=== PATIENT | male | born 1960 | race Caucasian/White ===

== ENCOUNTER 2018-06-03 15:26 | Outpatient (REF) | payer MEDICAID, SELFPAY ==
[2018-06-03 19:35] LABS: Abs Immature Grans 0.01 k/cumm (0.0-0.09); Absolute Basophil Count 0.01 k/cumm (0.0-0.2); Absolute Eosinophil Count 0.04 k/cumm (0.0-0.7); Absolute Lymphocyte Count 1.74 k/cumm (1.2-3.4); Absolute Monocyte Count 0.49 k/cumm (0.11-0.7); Absolute Neutrophil Count 4.87 k/cumm (1.2-6.7); Basophils % 0.1; Eosinophils % 0.6; HCT 46.2 % (40.0-50.0); HGB 15.3 g/dL (13.5-17.5); Immature Grans % 0.1; Lymphocytes % 24.3; Mean Corp. HGB Concentration 33.1 g/dL (32.0-36.0); Mean Corpuscular Hemoglobin 29.7 pg (27.0-33.0); Mean Corpuscular Volume 89.7 fL (80-95); Monocytes % 6.8; Neutrophils % 68.1; Platelet Count 225 x1000/uL (130-400); RBC 5.15 m/cumm (4.50-6.00); RBC Distribution Width 15.3 % (11.8-14.1); White Blood Cell Count 7.16 k/cumm (4.4-10.8)
[2018-06-03 20:34] LABS: ALT 60 U/L (12-78); AST 55 U/L (15-37); Albumin 4.2 g/dL (3.4-5.0); Alkaline Phosphatase 73 U/L (46-116); BUN 13 mg/dL (7-18); Bilirubin, Total 0.4 mg/dL (0.2-1.0); CREATININE 1.08 mg/dL (0.70-1.30); Calcium 9.3 mg/dL (8.5-10.1); Chloride 101 mmol/L (98-107); Glucose 93 mg/dL (70-100); Potassium 4.5 mmol/L (3.5-5.1); Sodium 138 mmol/L (136-145); Total Protein 8.5 g/dL (6.4-8.2)
[2018-06-05 12:29] LABS: Hepatitis C Ab w Rflx HCV PCR Reactive (NEGAT)
[2018-06-05 12:51] LABS: Hep A Total Ab w Rflx IgM Positive (NEGAT); Hep B Core Antibody Negative (NEGAT); Hepatitis B Surface Ag Negative (NEGAT)
[2018-06-13 15:35] LABS: Hep A Antibody IgM Negative (NEGAT)
== END 2018-06-03 15:46 ==
LOC: NCHCN 15:26
PROVIDERS: PCP Nurse Practitioner; Visit Provider Nurse Practitioner
DX: Z11.59 Encounter for screening for other viral diseases (principal); B19.0 Unspecified viral hepatitis with hepatic coma; R30.9 Painful micturition, unspecified
CPT/HCPCS: 80053; 86704; 86709; 86803; 87340; 85025; 87086; 87522

== ENCOUNTER 2018-07-01 19:21 | Outpatient (REF) | payer MEDICAID, SELFPAY ==
[2018-07-01 20:31] LABS: TSH (W/Ref FT4) 6.88 uIU/mL (0.358-3.74)
[2018-07-01 20:56] LABS: FREE T4 0.94 ng/dL (0.76-1.46)
== END 2018-07-01 19:41 ==
LOC: NCHCN 19:21
PROVIDERS: PCP Nurse Practitioner; Visit Provider Nurse Practitioner
DX: G25.2 Other specified forms of tremor (principal)
CPT/HCPCS: 84439; 84443

== ENCOUNTER 2018-07-29 01:42 | Outpatient (CLI) | payer OTHER, SELFPAY ==
--- NOTE | 2018-07-29 13:53 | DI.RAD_ITS ---
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 No priors. The articular surfaces of the knee are well maintained. The bones are intact and normally mineralized. Small enthesophytes are seen at the anterior and superior patella. The soft tissues are unremarkable. IMPRESSION: No acute abnormality. LEFT KNEE: Two views. No priors. There is mild spurring seen at the posterior patella. The joint spaces are otherwise well maintained. The bones are intact and normally mineralized. The soft tissues are unremarkable. IMPRESSION: Minimal degenerative changes of the left knee. LUMBAR SPINE: AP and lateral views. There is normal alignment. No acute fractures or subluxations are seen. The disc heights are well maintained. There are endplate osteophytes at multiple levels of the lumbar spine. The findings are most marked at L2-3 and L3-4. Degenerative changes of the facets are seen at L4-5 and L5-S1. Calcification of the abdominal aorta is noted. IMPRESSION: Moderate degenerative changes in the lumbar spine.
== END 2018-07-29 02:02 ==
PROVIDERS: PCP Nurse Practitioner; Visit Provider Pediatrics Pediatric Rheumatology
DX: M54.5 Low back pain (principal); M25.561 Pain in right knee; M25.562 Pain in left knee; M76.891 Other specified enthesopathies of right lower limb, excluding foot; M17.12 Unilateral primary osteoarthritis, left knee; M25.78 Osteophyte, vertebrae; M47.26 Other spondylosis with radiculopathy, lumbar region; M47.27 Other spondylosis with radiculopathy, lumbosacral region; I70.0 Atherosclerosis of aorta
CPT/HCPCS: 72100; 73560

== ENCOUNTER 2018-08-09 11:54 | Outpatient (REF) | payer MEDICAID, SELFPAY ==
[2018-08-09 19:32] LABS: HCT 45.2 % (40.0-50.0); HGB 15.3 g/dL (13.5-17.5); Mean Corp. HGB Concentration 33.8 g/dL (32.0-36.0); Mean Corpuscular Volume 91.7 fL (80-95); Mean Platelet Volume 10.6 fL (8.0-11.0); Platelet Count 184 x1000/uL (130-400); RBC 4.93 m/cumm (4.50-6.00); White Blood Cell Count 5.19 k/cumm (4.4-10.8)
[2018-08-09 19:42] LABS: ALT 38 U/L (12-78); AST 42 U/L (15-37); Albumin 3.8 g/dL (3.4-5.0); Alkaline Phosphatase 70 U/L (46-116); Anion Gap 11.3 mmol/L (3-11); BUN 10 mg/dL (7-18); Bilirubin, Total 0.5 mg/dL (0.2-1.0); CO2 26.7 mmol/L (21.0-32.0); CREATININE 0.82 mg/dL (0.70-1.30); Calcium 8.8 mg/dL (8.5-10.1); Chloride 103 mmol/L (98-107); Glucose 87 mg/dL (70-100); Sodium 141 mmol/L (136-145); Total Protein 7.5 g/dL (6.4-8.2)
[2018-08-12 10:48] LABS: HBs Antibody, Quant <3.1 mIU/mL; Hepatitis B Surface Ab Negative
[2018-08-13 15:22] LABS: HCV RNA Detection Quantitative Undetected IU/mL (UNDECT)
== END 2018-08-09 12:14 ==
LOC: NCHCN 11:54
PROVIDERS: PCP Nurse Practitioner; Visit Provider Family Medicine
DX: B19.20 Unspecified viral hepatitis C without hepatic coma (principal)
CPT/HCPCS: 80053; 85027; 86706; 87522

== ENCOUNTER 2018-09-12 09:19 | Outpatient (REF) | payer MEDICAID, SELFPAY ==
[2018-09-12 20:02] LABS: TSH (W/Ref FT4) 1.67 uIU/mL (0.36-3.74)
== END 2018-09-12 09:39 ==
LOC: NCHCN 09:19
PROVIDERS: PCP Nurse Practitioner; Visit Provider Nurse Practitioner
DX: R94.6 Abnormal results of thyroid function studies (principal)
CPT/HCPCS: 84443

== ENCOUNTER 2018-11-07 11:19 | Outpatient (CLI) | payer MEDICAID, SELFPAY ==
[2018-11-07 12:03] LABS: Hemoglobin A1C 5.8 % (4.5-6.2)
[2018-11-07 14:16] LABS: Folate 15.4 ng/mL (8.6-20.0); TSH (W/Ref FT4) 1.92 uIU/mL (0.36-3.74); Vitamin B12 234 pg/mL (193-986)
[2018-11-08 14:35] LABS: Albumin 58.7 % (55.8-66.1); Total Protein 7.3 g/dl (6.3-8.2)
== END 2018-11-07 11:39 ==
PROVIDERS: PCP Nurse Practitioner; Visit Provider Psychiatry & Neurology Neurology
DX: G62.9 Polyneuropathy, unspecified (principal)
CPT/HCPCS: 36415; 82607; 82746; 83036; 84165; 84443

== ENCOUNTER 2019-03-27 01:35 | Outpatient (CLI) | payer MEDICAID, SELFPAY ==
[2019-03-27] MEDS: Gadoterate meglumine 20 ML VIAL 16 ML IVP (14:18)
[2019-03-27] MEDS: Normal Saline Flush 10 ML SYR IVP (14:19)
--- NOTE | 2019-03-27 14:20 | DI.MRI_ITS ---
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 TECHNIQUE: Multiplanar multisequence MRI was performed. MR examination of brain was performed accor ding to the usual protocol with additional post contrast multiplanar T1 weighted imaging. COMPARISON: No exams were available for comparison FINDINGS: There is moderate generalized cerebral atrophy. There are small bilateral apparent basal ganglia inf arcts. Minimal periventricular white matter signal changes noted consistent with microvascular ische dallin changes. No intracranial mass lesion or enhancing lesion. The orbital structures appear intact. Pituitary appears intact. No specific abnormality of the temporal bone structures. Normal flow vo id in the [place] vasculature. Susceptibility weighted imaging and diffusion-weighted imagi ng unremarkable. IMPRESSION: Mild cerebral atrophy, small bilateral lacunar infarcts. No other specific finding. No mass lesion or enhancing lesion.
[2019-03-27 14:23] LABS: CREATININE 0.91 mg/dL (0.70-1.30); Vitamin B12 226 pg/mL (193-986)
[2019-04-01 09:06] LABS: Methylmalonic Acid 0.19 nmol/mL (<=0.40)
== END 2019-03-27 01:55 ==
PROVIDERS: PCP Nurse Practitioner; Visit Provider Psychiatry & Neurology Neurology
DX: G20 Parkinson's disease (principal); C43.9 Malignant melanoma of skin, unspecified; G62.9 Polyneuropathy, unspecified; G31.89 Other specified degenerative diseases of nervous system; I63.9 Cerebral infarction, unspecified
CPT/HCPCS: 70553; 80186; 82565; 82607

== ENCOUNTER 2019-03-31 02:51 | Outpatient (CLI) | payer MEDICAID, SELFPAY | END 2019-03-31 03:11 | PROVIDERS: PCP Nurse Practitioner; Visit Provider Psychiatry & Neurology Neurology | DX: G20 Parkinson's disease (principal) | CPT/HCPCS: 93005; 93010 ==

== ENCOUNTER 2019-03-31 11:01 | Day surgery (SDC) | payer MEDICAID, SELFPAY ==
--- NOTE | 2019-03-31 07:16 | W.COLOREPORT ---
Date of service: 03/31/19 Time of Service: 12:35 Colonoscopy Report Date of procedure: 03/31/19 Pre-op diagnosis general: Colon CAncer Screening Post-op diagnosis procedure note: other (Polyps and diverticulosis) Procedure: Colonoscopy with polypectomy by cold forceps Surgeon: Coretta Dumont Anesthesia proc note operative: other (General/ ASA 2/Sophia Azul, SOFIYA) Estimated blood loss (mL): 5 Pathology: other (Rectal polyps x5, Asscending polyp and sigmoid polyps x2) Complications: None Disposition: same day Indications: 58 y/o male with history of parkison's disease presents for his first colonoscopy screening pre-op. He denies a family history of colon cancer. He denies any changes in bowel habits including bloody or black tarry stools, abdominal pain, diarrhea. He reports long standing constipation and states he has a BM x 3 days. Prep: Miralax/Dulcolax Procedure Start Time: 12:35 Procedure End Time: 13:15 Retraction Time: 18 minutes Findings: 8 polyps seen and removed Mild diverticulosis Procedure Description: After informed consent was obtained the patient was taken to the procedure room and placed in a left decubitous position. Monitors were applied and a time out was done. The patients name, date of , procedure, allergies to medications and metal in their body was reviewed. The patient was then sedated. Once sedated and comfortable a rectal exam was done. External exam was normal. Internal exam revealed a normal sphincter tone and no palpable masses. The prostate felt smooth. The scope was then introduced and retro-flexed. No internal hemorrhoids were identified. The scope was then advanced to the cecum with difficulty due to a tortuous colon. The TI and appendiceal orifice were identified. The prep was adequate. The scope was then slowly retracted over 18 minutes back into the rectum. Polyps were removed with cold forceps in the ascending colon, sigmoid colon x2, and rectum x5. There was mild diverticulosis noted in the sigmoid colon. The scope was removed and the patient was woken up and taken back to Same day surgery in stable condition. The patient tolerated the procedure well and there were no immediate complications. Follow up: The patient should follow up in 3-5 years unless they develop changes in bowel habits or other new gastrointestinal complaints.
--- NOTE | 2019-03-31 07:17 | W.PM.DSUDISC ---
Discharge Plan Disposition Patient Disposition: HOME Condition: Good Discharge Details Reason For Visit: Colon CAncer Screening Attending Provider: Coretta Dumont Primary Care Provider: Larissa Ortega Home Meds and New Rx's Prescriptions: Continued propranolol 80 mg capsule,extended release 24hr 120 mg PO DAILY RF: 0 tamsulosin [Flomax] 0.4 mg capsule 0.4 mg PO DAILY Qty: 30 RF: 5 sildenafil 50 mg tablet 50 mg PO DAILY PRN (Reason: sexual activity) Qty: 30 RF: 5 aspirin 81 mg tablet 81 mg PO DAILY RF: 0 lamotrigine 25 mg tablet 50 mg PO BID RF: 0 trihexyphenidyl 2 mg tablet 2 mg PO .5 AM and 3 PM RF: 0 docusate sodium 100 mg tablet 200 mg PO BID Qty: 360 RF: 3 carbidopa-levodopa [Sinemet] 25-250 mg tablet 1 tab PO DIRECTED Qty: 450 RF: 3 ondansetron HCl [Zofran] 4 mg tablet 4 mg PO Q8H RF: 0 Discontinued bisacodyl [Dulcolax (bisacodyl)] 5 mg tablet,delayed release (DR/EC) 5 mg PO QHS PRN (Reason: constipation) Qty: 30 RF: 5 polyethylene glycol 3350 17 gram/dose powder 238 g PO ONCE Qty: 238 RF: 0 Discharge Instructions Instructions: Colorectal Polyps (DC), Diverticulosis (DC) Additional Instructions: Findings: 8 polyps Mild diverticulosis Follow up: 3-5 years Please call if you develop: fevers >101.5 Nausea or Vomiting Abdominal pain that is not transient DAY SURGERY UNIT POST ENDOSCOPY INSTRUCTIONS 1. Because there will be medication in your system for the next 24 hours, you may feel a little sleepy. Your coordination will be affected. Therefore: a. Do not drive or operate dangerous equipment for 24 hours. b. Do not drink alcohol beverages for 24 hours (not even beer). c. Plan to go home and rest for the day. 2. Generally there are no restrictions on your activity after a day or so has gone by, but you may feel a bit fatigued for a few days. 3 After you arrive home you may have a light meal and return to a normal diet as you can tolerate it without feeling sick to your stomach. 4. After surgery, you may feel pain or discomfort. This should be only transient, but if it persists please contact your doctor. 5. If there are any questions regarding the findings of your procedure, please feel free to contact your doctor. 6. If you are unable to contact your doctor with a problem, contact the hospital at [phone]. 7. Continue all your regular medications unless directed otherwise. I understand the above instructions and have no questions. Signature of Patient or Responsible Adult Escort Date/Time Name of Responsible Adult Escort Signature of Nurse Date/Time Activity:: Activity as Tolerated Diet:: High Fiebr diet Discharge Orders Discharge Orders: Discharge Order (Routine); Ordered 03/31/19 Ordered By: Coretta Dumont
[2019-03-31 11:25] VITALS: BP 146/93; PULSE 71; RESP 16; TEMP 36.5; O2SAT 98
[2019-03-31] MEDS: Lactated Ringers 1,000 ML 80 ML IV (11:37)
--- NOTE | 2019-03-31 12:40 | BOWEL_PTH ---
PATIENT: Jesus Schuler LOC: [facility] U#:[id number] AGE/SX: 58/M ROOM: RE03/31/[address]: Coretta Dumont MD : [id number] BED: DIS: 03/31/2019 SPEC #: [id number] RECD: 03/31/19 18:08 STATUS: ARMANDO RE #: [id number] EMILIANO: 03/31/19 12:[address]: Coretta Dumont DEPT: Surgical Specimen RECD BY: Deb Regan ENTERED: 03/31/19 18:09 SP TYPE: Bowel OTHR DR: Larissa Ortega Tissues: 1 - BIOPSY BOWEL 2 - BIOPSY BOWEL 3 - BIOPSY BOWEL 4 - BIOPSY BOWEL Procedures: GROSS AND MICRO LEVEL 4 Comments: [id number]
[2019-03-31 13:50] VITALS: BP 150/87; PULSE 62; RESP 16; TEMP 36.6; O2SAT 100
== END 2019-03-31 14:40 | disposition home or self-care (01) ==
LOC: SUR 11:01
PROVIDERS: PCP Nurse Practitioner; Visit Provider Surgery
PROC: 0DJD8ZZ Inspection of Lower Intestinal Tract, Via Natural or Artificial Opening Endoscopic (ICD-10-PCS; CPT 45378; principal; 2019-03-31 11:30)
DX: Z12.11 Encounter for screening for malignant neoplasm of colon (principal); D12.2 Benign neoplasm of ascending colon; D12.5 Benign neoplasm of sigmoid colon; K62.1 Rectal polyp; K57.30 Diverticulosis of large intestine without perforation or abscess without bleeding; I10 Essential (primary) hypertension
CPT/HCPCS: 45380; 88305

== ENCOUNTER 2019-04-22 11:41 | Outpatient (CLI) | payer MEDICAID, SELFPAY ==
[2019-04-23 10:23] LABS: PSA, Screening 4.3 ng/mL (0.0-4.5)
== END 2019-04-22 12:01 ==
PROVIDERS: PCP Nurse Practitioner; Visit Provider Nurse Practitioner Gerontology
DX: N52.9 Male erectile dysfunction, unspecified (principal); R35.0 Frequency of micturition; Z12.5 Encounter for screening for malignant neoplasm of prostate
CPT/HCPCS: 36415; 84153

== ENCOUNTER 2021-06-14 14:15 | Outpatient (REF) | payer MEDICAID, SELFPAY ==
[2021-06-14 17:05] LABS: Abs Immature Grans 0.06 10^3/uL (0.0-0.06); Absolute Basophil Count 0.04 10^3/uL (0.0-0.2); Absolute Eosinophil Count 0.01 10^3/uL (0.0-0.7); Absolute Lymphocyte Count 0.73 10^3/uL (1.2-3.4); Absolute Monocyte Count 1.37 10^3/uL (0.1-0.8); Absolute Neutrophil Count 10.51 10^3/uL (1.2-6.7); Basophils % 0.3; Eosinophils % 0.1; HCT 44.6 % (40.0-50.0); HGB 15.2 g/dL (13.5-17.5); Immature Grans % 0.5; Lymphocytes % 5.7; MCH 32.3 pg (27.0-33.0); MCHC 34.1 % (32.0-36.0); MCV 94.9 fL (80-95); Monocytes % 10.8; Neutrophils % 82.6; Platelet Count 198 10^3/uL (130-400); RDW 13.2 % (11.8-14.1); RDW-SD 46.5 fL; WBC 12.72 10^3/uL (4.4-10.8)
[2021-06-14 17:13] LABS: ALT 61 U/L (16-63); AST 45 U/L (15-37); Albumin 3.7 g/dL (3.4-5.0); Alkaline Phosphatase 65 U/L (46-116); Anion Gap 12.1 mmol/L (3-11); BUN 7 mg/dL (7-18); Bilirubin, Total 0.7 mg/dL (0.2-1.0); CO2 22.9 mmol/L (21.0-32.0); Calcium 8.9 mg/dL (8.5-10.1); Chloride 97 mmol/L (98-107); Glucose 113 mg/dL (74-106); Potassium 4.4 mmol/L (3.5-5.1); Sodium 132 mmol/L (136-145); Total Protein 7.6 g/dL (6.4-8.2)
[2021-06-14 17:16] LABS: ESR 46 mm/hr (0-20)
[2021-06-14 17:39] LABS: Hemoglobin A1C 5.8 % (<5.7)
== END 2021-06-14 14:16 | disposition home or self-care (01) ==
LOC: LBN 14:15
PROVIDERS: PCP Nurse Practitioner; Visit Provider Nurse Practitioner Family
DX: L60.9 Nail disorder, unspecified (principal); L03.90 Cellulitis, unspecified; S81.801A Unspecified open wound, right lower leg, initial encounter
CPT/HCPCS: 80053; 85652; 87077; 87101; 87206; 83036; 85025; 86140; 87070; 87205

== ENCOUNTER 2021-06-14 15:34 | Outpatient (CLI) | payer MEDICAID, SELFPAY ==
--- NOTE | 2021-06-14 | DI.RAD_ITS ---
Exam(s) XR HAND RT COMPLETE EXAM: XR HAND RT COMPLETE CLINICAL HISTORY: LEG PAIN; RIGHT M79.604 - HAND PAIN; RIGHT M79.641. TECHNIQUE: 2D digital imaging was performed of the right hand. Four images were obtained. AP, later al and oblique views were obtained. COMPARISON: No exams were available for comparison FINDINGS: The examination is limited due to patient motion artifact. BONES: There is an acute nondisplaced fracture through the medial aspect of the base of the proximal phalanx of the index finger. The fracture extends into the joint space. No bony destructive lesion is seen. JOINTS: No dislocation present. SOFT TISSUE: There is soft tissue swelling of the index finger. IMPRESSION: Nondisplaced intra-articular fracture of the base of the proximal phalanx of the index finger. DATA REPOSITORY: RADIATION DOSE DELIVERED:
--- NOTE | 2021-06-14 | DI.RAD_ITS ---
Exam(s) XR TIB/FIB RT EXAM: XR TIB/FIB RT CLINICAL HISTORY: LEG PAIN; RIGHT M79.604 - HAND PAIN; RIGHT M79.641. TECHNIQUE: 2D digital imaging was performed of the right tibia and fibula. Four images were obtained . AP and lateral views were obtained. COMPARISON: No exams were available for comparison FINDINGS: BONES: No acute fracture is present. No bony destructive lesion is seen. Visualized portion of knee a nd ankle joints are unremarkable. There are well corticated osseous densities at the tip of the media l malleolus which appear old. SOFT TISSUE: Normal. IMPRESSION: No acute fracture or dislocation. DATA REPOSITORY: RADIATION DOSE DELIVERED:
== END 2021-06-14 15:54 ==
PROVIDERS: PCP Nurse Practitioner; Visit Provider Nurse Practitioner Family
DX: M79.641 Pain in right hand (principal); M79.604 Pain in right leg; S62.640A Nondisplaced fracture of proximal phalanx of right index finger, initial encounter for closed fracture
CPT/HCPCS: 73130; 73590

== ENCOUNTER 2021-07-07 08:09 | Inpatient (IN) | payer MEDICAID, SELFPAY ==
[2021-07-07] VITALS (91 sets, daily range): BP systolic 130–170; BP diastolic 81–116; PULSE 87–130; RESP 1–38; TEMP 36.4–36.9; O2SAT 94–98
--- NOTE | 2021-07-07 08:00 | RT.EKG_ITS ---
APPROVED REPORT Exam: Resting ECG Reason for Exam: ARM PAIN Patient Location: E HR:127 bpm ECG Measurements Heart Rate 127 AXIS AZ 135 P 58 QRSd 93 QRS -58 QT 315 T 63 QTc 459 Conclusion Sinus tachycardia...rate> 99 Probable left atrial enlargement...P >50mS, <-0.10mV V1 Left anterior fascicular block...axis(240,-40), init forces inf Probable left ventricular hypertrophy...(RaVL+SV3)xQRSd >280. Sinus. No STEMI. I have reviewed and interpreted ECG and agree with software generated interpretation.
--- NOTE | 2021-07-07 08:03 | W.ED.GENAD ---
Discharge Plan Disposition Patient Disposition: [facility] INPATIENT Condition: Stable Discharge Details Clinical Impression: Bilateral pulmonary embolism, Pneumonia Admit Date/Time: 07/07/21 10:05 Admit Provider: Foster Fair Attending Provider: Foster Fair Primary Care Provider: Larissa Ortega ED Provider: Juhi Ryan Discharge Data Discharge Date/Time-TO BE ENTERED AT DEPARTURE: 07/07/21 12:21 Medical Decision Making 0815 -- 61-year-old male with a history of daily alcohol use, hepatitis C, hypertension, anxiety, Parkinson's disease who presents for left-sided lower back and left lower chest pain and shortness of breath after a coughing spell 2 days ago. Patient endorses a history of aspiration with drinking liquids for the past 2 years. EMS reported a blood pressure of 190/114. Patient states he did not take any blood pressure medication. EMS reported a heart rate of 128, heart rate here 120s to 130s. Patient was placed on 2 L nasal cannula oxygen per EMS and was 99%. Patient off O2 on arrival to the ED and saturations 99 to 100% on room air. EKG on arrival notes a rate of 127, sinus, no STEMI nondiagnostic. Differential diagnosis includes chest wall muscular strain, pneumonia, PE. History and presentation does not appear consistent with ACS or dissection. Will place an IV, bolus IV fluids, IV Tylenol, Toradol, PO oxycodone and obtain screening labs and CT chest. Plan d/w radiologist Dr. Gonzalez and cleared to proceed with CT chest. 09 --labs and imaging reviewed. White blood cell count 14. Sodium 131. Troponin negative. Alcohol level negative. CT chest noted bilateral PEs without evidence of heart strain. There are bilateral infiltrates which may be atelectasis or pneumonia. In the setting of possible aspiration, will treat for possible aspiration pneumonia. Dose of Zosyn ordered. 90mg SC Lovenox dose ordered. Bedside ultrasound performed which noted normal dynamic wall motion. No evidence of pericardial effusion. Patient reassessed and his pain is improved. Heart rate 90s. Oxygen saturation remains high 90s on room air. 1000 --Case discussed with hospitalist who accepts patient for admission. Medical Records Medical records reviewed: Yes I reviewed the patient's medical records. Imaging Data Radiologic Study: Radiologist's impression: CT CHEST PE CTA CLINICAL HISTORY: ? L chest/back pain, r/o PE, pneumonia, rib fx. TECHNIQUE:? Imaging Protocol:? Axial CT angiography was performed with multi-slice acquisition and multi-planar and/or 3D reconstructions. CONTRAST MATERIAL:? Intravenous: Omnipaque 350 Contrast volume:100 mL COMPARISON:? No exams were available for comparison FINDINGS: Tracheobronchial tree: Patent where visualized. Pulmonary parenchyma: Patchy linear infiltrates seen in the right middle lobe, left lingula and lower lobes which may represent atelectasis or pneumonia.? Small area of consolidation in the medial aspect of the left lower lobe.? Pneumonia or atelectasis.? Mild centrilobular emphysematous changes.? Pulmonary Arteries: Filling defects are seen in branches of the pulmonary arteries to both the upper lobes and lower lobes.? There is no evidence of a saddle embolus.? No evidence of right heart strain.? Mediastinum and Lexi: No significant mediastinal adenopathy.? The esophagus is mildly dilated and fluid-filled to the level of the thoracic aortic arch.? There is a small hiatal hernia. Visualized thyroid gland: Unremarkable.? Pleura: There is a small left pleural effusion or pleural thickening.? No right pleural effusion.? No pneumothorax.? Heart: The heart is not dilated. No coronary artery calcifications are seen. No pericardial effusion.? No evidence of right heart strain. Aorta: Thoracic aorta non-dilated. No evidence of dissection. Mild atherosclerosis. Upper abdomen:? Cholelithiasis.? No biliary ductal dilatation.? Soft tissues: Unremarkable.? Bones: Within normal limits for the patient's age. IMPRESSION: 1. Bilateral pulmonary emboli.? No evidence of right heart strain. 2. Bilateral predominantly basilar infiltrates.? This may represent atelectasis or pneumonia.? Please correlate clinically. 3. Fluid-filled esophagus.? Nonemergent esophagram should be considered for further evaluation.? This may lead to risk for aspiration. 4. Cholelithiasis.? No biliary ductal dilatation. 5. Results of this exam have been verbally communicated with provider.? Lab Data Lab results reviewed: Yes I reviewed the patient's lab results. Labs: Laboratory Tests Range/Units 07/07/21 07/07/21 07/07/21 08:15 08:15 08:40 WBC (4.4-10.8) 10^3/uL 14.04 H RBC (4.36-5.78) 10^6/uL 5.12 Hgb (13.5-17.5) g/dL 16.8 Hct (40.0-50.0) % 50.0 MCV (80-95) fL 98 H MCH (27.0-33.0) pg 32.8 MCHC (32.0-36.0) % 33.6 RDW (11.8-14.1) % 13.2 Plt Count (130-400) 10^3/uL 205 MPV (8.0-11.0) fL 9.3 Immature Gran % 0.3 Neutrophils % 82.4 Lymphocytes % 7.7 Monocytes % 9.4 Eosinophils % 0.0 Basophils % 0.2 Nucleated RBC % (0.0-0.3) % 0.0 Absolute Neutrophils (1.2-6.7) 10^3/uL 11.57 H Absolute Lymphocytes (1.2-3.4) 10^3/uL 1.08 L Absolute Monocytes (0.1-0.8) 10^3/uL 1.32 H Absolute Eosinophils (0.0-0.7) 10^3/uL 0.00 Absolute Basophils (0.0-0.2) 10^3/uL 0.03 Sodium (136-145) mmol/L 131 L Potassium (3.5-5.1) mmol/L 3.7 Chloride (98-107) mmol/L 95 L Carbon Dioxide (21.0-32.0) mmol/L 24.1 Anion Gap (3-11) mmol/L 11.9 H BUN (7-18) mg/dL 8 Creatinine (0.70-1.30) mg/dL 1.0 Estimated GFR/1.73 m2 (mL/min/1.73m2) >= 60.00 Glucose (74-106) mg/dL 148 H Calcium (8.5-10.1) mg/dL 9.0 Magnesium (1.8-2.4) mg/dL 2.0 Total Bilirubin (0.2-1.0) mg/dL 1.5 H AST (15-37) U/L 16 ALT (16-63) U/L 26 Alkaline Phosphatase (46-116) U/L 75 Troponin I (<or=60) ng/L < 50 Total Protein (6.4-8.2) g/dL 8.7 H Albumin (3.4-5.0) g/dL 3.5 Ethyl Alcohol (<10) mg/dL < 3.0 Cancelled ECG Data Attestation: I personally reviewed and interpreted this ECG (s) as follows: Interpretation: Rate of 127, sinus, left anterior fascicular block. No STEMI. HPI General Mode of arrival: EMS. Date/Time Provider Initiated Documentation: 07/07/21 08:16. Limitations to Documentation: no limitations. Information obtained by: patient. HPI Narrative: Patient is a 61-year-old male with a history of hepatitis C, anxiety, PTSD, hypertension, Parkinson's disease, bipolar disorder, substance abuse presents per EMS for left-sided back and chest pain and shortness of breath for the past 2 days after a coughing spell. Patient states he has difficulty swallowing liquids for the past 2 years and states he frequently aspirates and stated 2 days ago he was drinking and aspirated liquid and attempted to cough up the white foam and developed Left sided back pain which has then progressed to his left chest. Patient states he frequently has a cough up white foam when he drinks any liquids. He states when he was drinking liquids 2 nights ago he had a coughing spell and developed sudden onset of left-sided lower back pain. He states with any movement or coughing the pain is worse. He states since then he has developed left lower chest pain that occurs only with coughing. He states he feels he is breathing shallow due to the pain. He states he has not eaten or drank much due to the pain. He denies any fever, green or yellow sputum, nausea, vomiting, dizziness. He states he last took ibuprofen last night without relief. He states he does drink 2 alcoholic drinks daily and states his last drink was at 11 AM yesterday morning. Pt is not vaccinated for Covid and denies any known exposure to coronavirus. Related Data Home Medications Medication Instructions Recorded Confirmed aspirin 81 mg tablet 81 mg PO DAILY 07/09/18 07/07/21 Allergies Allergy/AdvReac Type Severity Reaction Status Date / Time mirabegron [From Myrbetriq] Allergy Severe Difficulty Verified 07/07/21 08:24 breathing. General Stated Complaint: GenMedical SHILPA: 3 Review of Systems All systems reviewed & are unremarkable except as noted in HPI and below Constitutional Constitutional: Denies chills, Denies excessive sweating, Denies fatigue, Denies fever(s), Denies weakness and Denies weight loss Eyes Eyes: Reports system reviewed and no additional complaints, except as documented and Denies blurry vision ENT Ears, Nose, Mouth, and Throat: Denies vertigo, Denies dizziness, Denies otalgia, Denies nasal congestion, Denies sore throat and Denies throat swelling Cardiovascular Cardiovascular: Reports chest pain, Denies syncope, Denies rapid heart rate and Reports dyspnea Respiratory Respiratory: Denies chest congestion, Denies cough, Denies pain on inspiration and Reports dyspnea Gastrointestinal Gastrointestinal: Denies abdominal pain, Denies diarrhea and Denies vomiting Genitourinary Genitourinary: Denies hematuria, Denies dysuria and Denies flank pain Musculoskeletal Musculoskeletal: Reports back pain and Denies joint swelling Integumentary/Breasts Skin/Breast: Denies lesions and Denies rash Neurologic Neurologic: Denies behavioral changes, Denies confusion, Denies vertigo, Denies dizziness, Denies syncope, Denies localized weakness and Denies weakness Psychiatric Psychiatric: Denies behavioral changes, Denies confusion and Denies depression Endocrine Endocrine: Denies excessive sweating and Denies fatigue Hematologic/Lymphatic Hematologic/Lymphatic: Denies easy bruising and Denies lymphadenopathy Allergic/Immunologic Allergic/Immunologic: Denies throat swelling PFSH All Active Problems (Updated 07/07/21 @ 10:08 by Juhi Ryan DO) Bilateral pulmonary embolism (Acute) Pneumonia (Acute) Dysphagia (Acute) Memory loss (Acute) Erectile dysfunction (Acute) Urinary frequency (Acute) Visual hallucination (Acute) Constipation (Acute) Peripheral neuropathy (Acute) Melanoma (Acute) Primary Parkinson's disease (Acute) Medical History (Updated 07/07/21 @ 10:08 by Juhi Ryan DO) Anxiety H/O multiple concussions Hepatitis C per referral, pt has completed treatment History of hepatitis C Hypertension Malignant melanoma of skin Osteoarthritis Parkinsons disease Prediabetes PTSD (post-traumatic stress disorder) Severe bipolar disorder with psychotic features, mood-congruent Substance abuse Surgical History H/O colonoscopy (~03/2019) S/P skin cancer resection Social History Smoking/Tobacco Use Status: Former Tobacco Use Smoking risk assessment performed?: Yes Alcohol Intake: current Alcohol Intake frequency: 0-2 drinks per day Alcohol type: beer Drug use: Never Substance use type: does not use Housing: homeless current occupation: None Seatbelt use: always Do you feel safe at home: Yes Do you feel safe in your relationship?: Yes Exam Const General: cooperative and healthy appearing Orientation: alert, awake and oriented x3 HENMT Head: normal to inspection Ears: hearing grossly normal bilaterally, external ears normal and TM's normal bilaterally General nose exam: external nose normal Face and sinus: normal facial exam Mouth: oral mucosae normal Teeth and gingiva: dentition normal Throat: posterior oropharynx normal Eyes General: appearance normal, both eyes and all related structures Eyelids: eyelids normal Pupils: PERRL EOM: EOM intact bilaterally Neck Neck: normal visual inspection Lymphatic: no lymphadenopathy noted Chest Chest: normal inspection of the chest Chest/axillae images: 1. Tenderness to palpation to left anterior inferior ribs. There is no evidence of edema, erythema, rash or lesions. Resp Effort & Inspection: normal respiratory effort and able to speak in complete sentences Auscultation: clear to auscultation bilaterally Cardio Rate: tachycardic Rhythm: regular rhythm GI Inspection: normal to inspection Palpation: soft, not firm, no guarding, no hepatosplenomegaly, no masses and nontender Auscultation: normal bowel sounds Back/Spine/Pelvis Back/spine/pelvis image: 1. Tenderness to palpation extending from left mid to lower back lumbar paraspinal region. There is no evidence of edema, erythema, ecchymosis, rash or lesions. Skin General skin exam: no rashes or lesions noted Neuro General: patient alert and patient awake Cognition: normal cognition Speech: speech normal Gait: normal gait Motor: muscle tone normal throughout Sensory Exam: no sensory deficits noted Extrem General: normal to inspection, full ROM and capillary refill normal Psych Appearance: grossly normal Mental Status: mental status grossly normal Speech and Movement: speech and movement normal Affect: normal affect Thought Process: normal
[2021-07-07 08:45] LABS: Abs Immature Grans 0.04 10^3/uL (0.0-0.06); Absolute Basophil Count 0.03 10^3/uL (0.0-0.2); Absolute Lymphocyte Count 1.08 10^3/uL (1.2-3.4); Absolute Monocyte Count 1.32 10^3/uL (0.1-0.8); Absolute Neutrophil Count 11.57 10^3/uL (1.2-6.7); Basophils % 0.2; HGB 16.8 g/dL (13.5-17.5); Immature Grans % 0.3; Lymphocytes % 7.7; MCH 32.8 pg (27.0-33.0); MCHC 33.6 % (32.0-36.0); MCV 98 fL (80-95); MPV 9.3 fL (8.0-11.0); Monocytes % 9.4; Neutrophils % 82.4; Platelet Count 205 10^3/uL (130-400); RBC 5.12 10^6/uL (4.36-5.78); RDW 13.2 % (11.8-14.1); RDW-SD 48.3 fL; WBC 14.04 10^3/uL (4.4-10.8)
[2021-07-07] MEDS: oxyCODONE 5 MG TAB PO (08:47)
[2021-07-07] MEDS: ACETAMINOPHEN 1,000 MG/100 ML BTL 400 MG IVPB (08:48)
[2021-07-07] MEDS: Normal Saline 1,000 ML 1000 ML IV (08:48)
[2021-07-07] MEDS: Ketorolac 30 MG/ML VIAL IVP (08:48)
[2021-07-07 09:04] LABS: ALT 26 U/L (16-63); AST 16 U/L (15-37); Albumin 3.5 g/dL (3.4-5.0); Alkaline Phosphatase 75 U/L (46-116); Anion Gap 11.9 mmol/L (3-11); BUN 8 mg/dL (7-18); Bilirubin, Total 1.5 mg/dL (0.2-1.0); CO2 24.1 mmol/L (21.0-32.0); Chloride 95 mmol/L (98-107); Glucose 148 mg/dL (74-106); Potassium 3.7 mmol/L (3.5-5.1); Sodium 131 mmol/L (136-145); Total Protein 8.7 g/dL (6.4-8.2); Troponin I < 50 ng/L (<or=60)
[2021-07-07 09:06] LABS: ETHANOL BLOOD < 3.0 mg/dL (<10)
--- NOTE | 2021-07-07 09:12 | DI.CT_ITS ---
Exam(s) CT CHEST PE CTA EXAM: CT CHEST PE CTA CLINICAL HISTORY: L chest/back pain, r/o PE, pneumonia, rib fx. TECHNIQUE: Imaging Protocol: Axial CT angiography was performed with multi-slice acquisition and mu lti-planar and/or 3D reconstructions. CONTRAST MATERIAL: Intravenous: Omnipaque 350 Contrast volume:100 mL COMPARISON: No exams were available for comparison FINDINGS: Tracheobronchial tree: Patent where visualized. Pulmonary parenchyma: Patchy linear infiltrates seen in the right middle lobe, left lingula and lower lobes which may represent atelectasis or pneumonia. Small area of consolidation in the medial aspec t of the left lower lobe. Pneumonia or atelectasis. Mild centrilobular emphysematous changes. Pulmonary Arteries: Filling defects are seen in branches of the pulmonary arteries to both the upper lobes and lower lobes. There is no evidence of a saddle embolus. No evidence of right heart strain. Mediastinum and Lexi: No significant mediastinal adenopathy. The esophagus is mildly dilated and flu id-filled to the level of the thoracic aortic arch. There is a small hiatal hernia. Visualized thyroid gland: Unremarkable. Pleura: There is a small left pleural effusion or pleural thickening. No right pleural effusion. No pneumothorax. Heart: The heart is not dilated. No coronary artery calcifications are seen. No pericardial effusion. No evidence of right heart strain. Aorta: Thoracic aorta non-dilated. No evidence of dissection. Mild atherosclerosis. Upper abdomen: Cholelithiasis. No biliary ductal dilatation. Soft tissues: Unremarkable. Bones: Within normal limits for the patient's age. IMPRESSION: 1. Bilateral pulmonary emboli. No evidence of right heart strain. 2. Bilateral predominantly basilar infiltrates. This may represent atelectasis or pneumonia. Please correlate clinically. 3. Fluid-filled esophagus. Nonemergent esophagram should be considered for further evaluation. This may lead to risk for aspiration. 4. Cholelithiasis. No biliary ductal dilatation. 5. Results of this exam have been verbally communicated with provider. RADIATION DOSE DELIVERED: 345.99mGy.cm Total DLP DATA REPOSITORY: All CT scans at this facility are submitted to the National Radiology Data Registry (NRDR) Dose Index Registry (DIR) with the [employer] (ACR). RADIATION OPTIMIZATION: All CT scans at this facility use at least one of these dose optimization te chniques: automated exposure control; mA and/or kV adjustment per patient size (includes targeted exa ms where dose is matched to clinical indication); or iterative reconstruction.
[2021-07-07] MEDS: Enoxaparin 100 MG/ML SYR 90 MG SC ×2 (09:53→19:37)
[2021-07-07] MEDS: PIPERACILLIN/TAZO 3.375 GM in Normal Saline 50 ML IVPB (09:53)
[2021-07-07 10:05] LABS: INR 1.1 (0.9-1.1); PTT Activated 27.4 sec (21.0-27.5)
[2021-07-07 10:20] LABS: COVID-19 PCR Negative (Negative); Influenza A PCR Negative (Negative); Influenza B PCR Negative (Negative); RSV PCR Negative (Negative)
[2021-07-07 10:22] LABS: Source Nasopharynx
--- NOTE | 2021-07-07 13:24 | STREC_ITS ---
Date of service: 07/07/21 Time of Service: 12:24 Speech Therapy Recommendations Report ST Recommendations: LOIN PULLER Communication / Non-Treatment Note LOIN PULLER consult order received; chart reviewed. Consult to address swallowing difficulties, concern for aspiration pna; per chart review, patient has seen both [facility] Neurology and [facility] LOIN PULLER (Heidi Pandya) as of 04/2019 (see LOIN PULLER evaluation note from 04/21/2019), with patient scheduled for VFSE/MBSS at [facility] and no showed for this appointment, as well as follow up Neurology appointment. Per chart review alone, patient is likely to benefit from oropharyngeal swallow imaging during this admission / VFSE/MBSS, especially in context in Parkinson's Disease and known progression of worsening oropharyngeal swallowing function in PD / reduced proprioception to swallow difficulties on behalf of patient. Plan: Patient is currently in ED. LOIN PULLER to return for full assessment/screening as appropriate, provide updated recommendations. Current Recommendations: Ensure thorough oral care with assist as needed, may trial ice chips 1 at a time with supervision from staff / reduced rate of intake and monitoring for overt s.s aspiration (throat clear, cough, wet vocal quality). Both diet change and/or recommendation of VFSE/MBSS order pending patient interview. Adelaide Cornell MA CCC-LOIN PULLER Speech-Language Pathologist MI#[phone] Coding
--- NOTE | 2021-07-07 13:24 | PDOC.STREC ---
Date of service: 07/07/21 Time of Service: 12:24 Speech Therapy Recommend[address] Report ST Recommendations: PHARMACY TEACHER Communication / Non-Treatment Note PHARMACY TEACHER consult order received; chart reviewed. Consult to address swallowing difficulties, concern for aspiration pna; per chart review, patient has seen both [facility] Neurology and [facility] PHARMACY TEACHER (Heidi Pandya) as of 04/2019 (see PHARMACY TEACHER evaluation note from 04/21/2019), with patient scheduled for VFSE/MBSS at [facility] and no showed for this appointment, as well as follow up Neurology appointment. Per chart review alone, patient is likely to benefit from oropharyngeal swallow imaging during this admission / VFSE/MBSS, especially in context in Parkinson's Disease and known progression of worsening oropharyngeal swallowing function in PD / reduced proprioception to swallow difficulties on behalf of patient. Plan: Patient is currently in ED. PHARMACY TEACHER to return for full assessment/screening as appropriate, provide updated recommendations. Current Recommendations: Ensure thorough oral care with assist as needed, may trial ice chips 1 at a time with supervision from staff / reduced rate of intake and monitoring for overt s.s aspiration (throat clear, cough, wet vocal quality). Both diet change and/or recommendation of VFSE/MBSS order pending patient interview. Adelaide Cornell MA CCC-PHARMACY TEACHER Speech-Language Pathologist MA#[phone] Coding
[2021-07-07] MEDS: Lactated Ringers 1,000 ML 85 ML IV ×2 (13:47→23:40)
[2021-07-07] MEDS: Normal Saline Flush 10 ML SYR IVP ×3 (13:47→21:47)
[2021-07-07] MEDS: Ketorolac 15 MG/ML VIAL IVP ×2 (14:18→20:25)
[2021-07-07] MEDS: Albuterol/Ipratropium 3 ML UPD VIAL UPD ×2 (17:51→19:37)
--- NOTE | 2021-07-07 19:40 | W.PM.HP.N ---
Date of service: 07/07/21 Time of Service: 18:40 Assessment and Plan Assessment and plan (1) Bilateral pulmonary embolism: Status: Acute Assessment and plan: lovenox 90 mg SC Q12h for now. will see if he qualifies for any coverage for apixaban. (2) Pneumonia: Status: Acute Assessment and plan: continue Zosyn for asp. pneumonia. pulmonary toiletry w/ I.S. and acapella device; obtain WAREHOUSE WORKER evaluation in the morning (3) Dysphagia: Status: Acute Assessment and plan: secondary to his Parkinsonism. Unfortunately he has had multiple side effects from his Parkinsonism and will not take any medications for this. He refuses to follow up w/ Dr. Juanis Hendrickson. I will ask WAREHOUSE WORKER to evaluate him in the morning and make the best recommendation which he can follow in terms of diet. He says that he had been to see speech at [facility] but did not follow up. He says that he did well w/ solids but did poorly aspirating on liquids and was told to buy a thickening that he says cost him $300 per week (he indicates that he only receives $700 per week from [facility]. (4) Primary Parkinson's disease: Status: Acute Assessment and plan: patient reports that he had been on over 30 meds in the past and they all made him worse (hallucinations and other side effects from his anti-parkinsonism meds so he quit them all) (5) Acute thoracic back pain: Status: Acute Assessment and plan: left lower thoracic back pain over dorsal latissimi muscles and reproducible w/ palpation. possible muscle strain from coughing. Pain has responded to toradol. I will also add Robaxin for his muscle pain History of Present Illness History of Present Illness Chief Complaint: left sided chest pain, dyspnea, cough Narrative: 61 yr old male w/ hx of Parkinson disease (not currently on any medical treatment), dysphagia (secondary to Parkinsonism, prior evaluations and treatment by WAREHOUSE WORKER at [facility]) who presented to the ED d/t severe left lower chest wall pain that is worsened by coughing or deep breathing. Symptoms developed two days ago. He called EMS and was found to be tachycardic, tachypneic and hypertensive (BP 194/110, HR 128). He was put on supplemental oxygen and transported to the ED. He says that symptoms began after choking spell on some liquids. He has hx of dysphagia d/t Parkinsonism. He is not currently on medications d/t side effects from meds and he has taken himself off any medications. He formerly saw Dr. Hendrickson, neurologist, but no longer sees her. He states that he can control his choking spells and does fine w/ solid foods but has choking spells w/ thin liquids. He denies any fever or chills or rigors and cough is only productive of clear phelgm. Workup in the ER included CTA of the chest that demonstrated the followin. Bilateral pulmonary emboli.? No evidence of right heart strain. 2. Bilateral predominantly basilar infiltrates.? This may represent atelectasis or pneumonia.? Please correlate clinically. 3. Fluid-filled esophagus.? Nonemergent esophagram should be considered for further evaluation.? This may lead to risk for aspiration. 4. Cholelithiasis.? No biliary ductal dilatation. 5. Results of this exam have been verbally communicated with provider Patient denies any prior hx of PE or DVT. He is a former smoke but only smokes some mariiuana twice a day along with one beer twice a day to help control his tremors from his Parkinsonism. He says that he has had aspiraton problems for couple years and previously had seen a WAREHOUSE WORKER at [facility] who had recommended addition of thickening substance to his liquids but he states that he could not afford this d/t cost of $300 per week. In the ER he was begun on lovenox 90 mg SC and Zosyn 3.375 gm. He is admitted to the hospital for treatment of aspiration pneumonia and P.E. Review of Systems All systems reviewed & are unremarkable except as noted in HPI and below PFSH All Active Problems (Updated 07/07/21 @ 20:17 by Foster Fair) Acute thoracic back pain (Acute) Bilateral pulmonary embolism (Acute) Pneumonia (Acute) Dysphagia (Acute) Memory loss (Acute) Erectile dysfunction (Acute) Constipation (Acute) Peripheral neuropathy (Acute) Primary Parkinson's disease (Acute) Medical History (Updated 07/07/21 @ 20:17 by Foster Fair) Anxiety H/O multiple concussions Hepatitis C per referral, pt has completed treatment History of hepatitis C Hypertension Malignant melanoma of skin Melanoma Osteoarthritis Parkinsons disease Prediabetes PTSD (post-traumatic stress disorder) Severe bipolar disorder with psychotic features, mood-congruent Substance abuse Surgical History H/O colonoscopy (~03/2019) S/P skin cancer resection Social History (Updated 07/07/21 @ 20:10 by Foster Fair) Smoking/Tobacco Use Status: Former Tobacco Use Smoking risk assessment performed?: Yes Alcohol Intake: current Alcohol Intake frequency: 0-2 drinks per day Alcohol type: beer Drug use: Daily Substance use type: marijuana Housing: homeless current occupation: None Seatbelt use: always Do you feel safe at home: Yes Do you feel safe in your relationship?: Yes Meds Allergies and Home Medications Allergies Allergy/AdvReac Type Severity Reaction Status Date / Time mirabegron [From Myrbetriq] Allergy Severe Difficulty Verified 07/07/21 08:24 breathing. Home Medications Medication Instructions Recorded Confirmed Type aspirin 81 mg tablet 81 mg PO DAILY 07/09/18 07/07/21 History Exam Narrative Exam Narrative: Middle age white male w/ le and multiple tatoos. He is alert, oriented x 3, polite and seems to be rather inciteful to his chronic medical issues. HEENT: unremarkable Neck: scar over right anterior neck from prior melanoma resection; no palpable adenopathy Lungs: course rhonchi bilaterally; end expiratory wheezes Heart; RRR, no murmur Chest wall: tender over left posterior-lateral wall Abdomen: soft, nontender, no palpable masses, normal bowel sounds, nontender Extremities: no edema or tenderness Neuro: grossly normal. No CN or motor deficits. He has tremors in his hands that improve w/ intentional movement Results Labs Result diagrams: 07/07/21 08:15 07/07/21 08:15 Labs: Laboratory Results - last 24 hr 07/07/21 07/07/21 07/07/21 08:15 08:15 08:15 WBC 14.04 H RBC 5.12 Hgb 16.8 Hct 50.0 MCV 98 H MCH 32.8 MCHC 33.6 RDW 13.2 Plt Count 205 MPV 9.3 Immature Gran % 0.3 Neutrophils % 82.4 Lymphocytes % 7.7 Monocytes % 9.4 Eosinophils % 0.0 Basophils % 0.2 Nucleated RBC % 0.0 Absolute Neutrophils 11.57 H Absolute Lymphocytes 1.08 L Absolute Monocytes 1.32 H Absolute Eosinophils 0.00 Absolute Basophils 0.03 PT 11.0 INR 1.1 APTT 27.4 Sodium 131 L Potassium 3.7 Chloride 95 L Carbon Dioxide 24.1 Anion Gap 11.9 H BUN 8 Creatinine 1.0 Estimated GFR/1.73 m2 >= 60.00 Glucose 148 H Calcium 9.0 Magnesium 2.0 Total Bilirubin 1.5 H AST 16 ALT 26 Alkaline Phosphatase 75 Troponin I < 50 Total Protein 8.7 H Albumin 3.5 Ethyl Alcohol < 3.0 COVID-19 Source SARS-CoV-2 (PCR) Influenza Type A (PCR) Influenza Type B (PCR) RSV (PCR) 07/07/21 07/07/21 08:40 09:12 WBC RBC Hgb Hct MCV MCH MCHC RDW Plt Count MPV Immature Gran % Neutrophils % Lymphocytes % Monocytes % Eosinophils % Basophils % Nucleated RBC % Absolute Neutrophils Absolute Lymphocytes Absolute Monocytes Absolute Eosinophils Absolute Basophils PT INR APTT Sodium Potassium Chloride Carbon Dioxide Anion Gap BUN Creatinine Estimated GFR/1.73 m2 Glucose Calcium Magnesium Total Bilirubin AST ALT Alkaline Phosphatase Troponin I Total Protein Albumin Ethyl Alcohol Cancelled COVID-19 Source Nasopharynx SARS-CoV-2 (PCR) Negative Influenza Type A (PCR) Negative Influenza Type B (PCR) Negative RSV (PCR) Negative Last Vital Signs Temp 36.5 C 07/07/21 14:52 Pulse 95 H 07/07/21 14:52 Resp 24 07/07/21 14:52 BP 130/101 H 07/07/21 14:52 Pulse Ox 95 07/07/21 14:52 PAWSS Have you Been Recently Intoxicated or Drunk Within the Last 30 days?: No Have you Ever Experienced Previous Episodes of Alcohol Withdrawal?: No Have you ever Experienced Withdrawal Seizures?: No Have you ever Experienced Delirium Tremens(DT)s?: No Have you ever undergone Alcohol Rehabilitation Treatment (i.e, inpt ot outpatient treatment programs)?: No Have you ever Experienced Blackouts?: No Have you ever Combined Alcohol with other Downers within the last 90 days?: No Have you ever Combined Alcohol with any other Substance of Abuse during the last 90 days?: No Positive Blood Alcohol level on Presentation? [PCS.BAL]: No Evidence of Increased Autonomic Activity (i.e. HR>120, tremor, sweating, agitation, nausea)?: No Result: 0
[2021-07-08] VITALS (15 sets, daily range): BP systolic 127–152; BP diastolic 77–108; PULSE 77–113; RESP 1–21; TEMP 36–37.5; O2SAT 92–100
[2021-07-08] MEDS: Normal Saline Flush 10 ML SYR IVP ×3 (05:28→22:15)
[2021-07-08] MEDS: Ketorolac 15 MG/ML VIAL IVP ×2 (05:34→13:03)
--- NOTE | 2021-07-08 06:19 | NUR.NOTE ---
Nursing Note: pt had a coughing fit with a blood tinge sputum, charge nurse notified.
[2021-07-08 06:52] LABS: HGB 14.7 g/dL (13.5-17.5); MCH 32.5 pg (27.0-33.0); MCHC 34.2 % (32.0-36.0); MCV 95 fL (80-95); MPV 9.8 fL (8.0-11.0); Platelet Count 187 10^3/uL (130-400); RBC 4.52 10^6/uL (4.36-5.78); RDW 13.4 % (11.8-14.1); RDW-SD 47.4 fL; WBC 11.72 10^3/uL (4.4-10.8)
[2021-07-08] MEDS: Albuterol/Ipratropium 3 ML UPD VIAL UPD ×4 (07:35→19:43)
--- NOTE | 2021-07-08 08:07 | DI.US_ITS ---
APPROVED REPORT EXAM: Comprehensive 2D, Doppler, and color-flow Echocardiogram Patient Location: In-Patient Room/Bed: 217 Director Food And Beverage: Dipika Cain RDCS (AE) Indications: PE, Chest pain Other Information Study Quality: Adequate Conclusion Normal left ventricular wall thickness and chamber size. Estimated ejection fraction is 60%. Wall m otion is normal Normal right ventricular size and systolic function Both atria are normal in size There is no structural or hemodynamically significant valvular disease Estimated right ventricular systolic pressure is 34 mmHg Wall motion Left Ventricle The left ventricle is normal size. The left ventricular systolic function is normal. The left ventric ular ejection fraction is within the normal range. There is normal left ventricular wall thickness. T here is normal LV segmental wall motion. There is no ventricular septal defect visualized. LVEF is 60 %. Right Ventricle The right ventricle is normal size. The right ventricular systolic function is normal. The RVSP is 33 .7mmHg. Atria The left atrium size is normal. The right atrium size is normal. The interatrial septum is intact wit h no evidence for an atrial septal defect. Aortic Valve The aortic valve is normal in structure. Aortic valve is trileaflet. There is no aortic valvular sten osis. No aortic regurgitation is present. Mitral Valve The mitral valve is normal in structure. No evidence of mitral valve stenosis. Trace mitral regurgita tion. Tricuspid Valve The tricuspid valve is normal in structure. There is no tricuspid valve stenosis. Trace tricuspid reg urgitation. Pulmonic Valve The pulmonary valve is normal in structure. There is no pulmonic valvular stenosis. There is no pulmo nilda valvular regurgitation. Great Vessels The aortic root is normal in size. The ascending aorta is normal in size. IVC is normal in size and c ollapses >50% with inspiration. Pericardium There is no pericardial effusion. 2D Dimensions IVSD d PLAX 0.95 cm M: 0.6-1.2 LV Vol A2C d MOD 136.0 mL LVPW d PLAX 0.95 cm M: 0.6 - 1.2 LV Vol A4C d MOD 145.3 mL LVID d PLAX 4.57 cm M: 4.2 - 5.8 LA vol/ BSA A2C s A-L 36.8 mL/m2 LVDs 3.15 cm M: 2.5 - 4.0 LA vol/ BSA A4C s A-L 28.9 mL/m2 Ao Root d 3.00 cm M: 3.1 - 3.7 LA Vol/ BSA Biplane s A-L 32.7 mL/m2 RA Area A4C 12.29 cm2 LA Area A4C s MOD 19.35 cm2 RA Vol/ BSA A4C s A-L 15.4 mL/m2 LA Area A2C s MOD 21.92 cm2 Ao Asc Diam d 3.27 cm M: 2.6 - 3.4 LV EF A4C MOD 58.8 % LV EF Teichholz 58.7 % LV EF A2C MOD 59.2 % LVEF (Colvin's) 60.15 % M: 52 - 72 LV EF Biplane MOD 60.2 % LV Volume 108.29 mL M: 62 - 150 SV 87.78 mL LV Volume Index 52.56 mL/m2 M: 34 - 74 SV Index 42.50 mL/m2 LV Vol Biplane MOD 145.9 mL FS 30.95 % M-Mode TAPSE 2.71 cm (M/F) >1.7 LV Diastology MV E' medial 0.217 (>0.07 m/s) E/A Ratio 0.6 LV E/e MED 2.85 (<14) MV E Vmax 0.63 (0.4-1.3 m/s) MV E' lateral 0.100 (>0.1 m/s) MV A Vmax 1.00 (0.4-1.3 m/s) LV E/e LAT 6.25 (<14) MV E/A Ratio 0.61 MV E/E' medial 2.89 MV E/E' lateral 6.29 Aortic Valve LVOT Area 2.97 cm2 AoV Area Vmax 2.54 cm2 LVOT Vmax 1.36 m/s AoV Area/ BSA (Vmax) 1.23 cm2/m2 LVOT Mean Pineda. 0.90 m/s LARISA Mean Pineda. 2.20 cm2 LVOT Peak Grad 7.4 mmHg LARISA Mean Pineda. Index 1.07 cm2/m2 LVOT Mean Grad 3.8 mmHg LVOT VTI 0.250 m LVOT Diam s 1.90 cm AoV Vmax 1.58 m/s Velocity Ratio 0.86 AoV Mean Pineda. 1.21 m/s AoV Peak Grad 10.0 mmHg LVOT SV 74.37 mL AoV Mean Grad 6.2 mmHg AoV VTI 0.294 m AoV Area VTI 2.53 cm2 AoV Area/ BSA (VTI) 1.23 cm/m2 Mitral Valve MV DT 155 (160-240 msec) MV PHT 45 msec MV Area PHT 4.90 cm2 MV VTI 0.239 m MV Area VTI 3.12 (4.0-6.0 cm2) Pulmonary Valve PV Vmax 1.20 (0.5-1.5 m/s) RVOT Peak Gr. 4.10 mmHg PV Peak Grad 5.8 mmHg RVOT Mean Gr. 2.00 mmHg PV Mean Grad 3.2 mmHg RVOT VTI 0.183 m PV VTI 0.228 m RVOT Vmax 1.01 m/s Tricuspid Valve TR Peak Grad 30.6 mmHg TR Vmax 2.77 m/s RA Pressure 3.00 mmHg RVSP (TR) 33.7 mmHg
[2021-07-08] MEDS: Enoxaparin 100 MG/ML SYR 90 MG SC (08:30)
--- NOTE | 2021-07-08 11:02 | INITIAL_ITS ---
- If Service Date Differs Date of service: 07/08/21 Time of Service: 11:02 Care Management Initial Assess REASON FOR HOSPITALIZATION:: aspiration pna, bilateral PE PAST MEDICAL HISTORY/PAST SURGICAL HISTORY:: All Active Problems. Acute thoracic back pain (Acute). Bilateral pulmonary embolism (Acute). Pneumonia (Acute). Dysphagia (Acute). Memory loss (Acute). Erectile dysfunction (Acute). Constipation (Acute). Peripheral neuropathy (Acute). Primary Parkinson's disease (Acute). Medical History. Anxiety. H/O multiple concussions. Hepatitis C. per referral, pt has completed treatment. History of hepatitis C. Hypertension. Malignant melanoma of skin. Melanoma. Osteoarthritis. Parkinsons disease. Prediabetes. PTSD (post-traumatic stress disorder). Severe bipolar disorder with psychotic features, mood-congruent. Substance abuse. Surgical History. H/O colonoscopy (~03/2019). S/P skin cancer resection PREVIOUS FUNCTIONAL STATUS/SOCIAL/FAMILY SUPPORTS:: Jesus lives in an apartment in [place]. 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 He stated that he has not been able to use tools due to his dx of Parkinsons, about 9 years ago. He has a large network of supportive friends. He is very independent at baseline. CURRENT FUNCTIONAL STATUS:: Jesus was sitting up in bed when CM met with him. He stated that he is waiting to see the Speech Therapist, although he has seen one at [facility], and feels that he knows the recommendations that will be made. He is hoping to be able to eat soon, and to return home soon as well. He discussed his supports in the community- he has a large network of friends from the [employer]. He stated that he is very independent, and is not expecting that he w ill require any services upon discharge. CM will continue to follow. ADVANCE DIRECTIVES:: On file, Lona Chaparro listed as agent. Has patient been provided with info about the portal/API?: Yes Did the patient sign up for the portal?: No CODE STATUS:: Full Code INSURANCE COVERAGE / FINANCIAL ISSUES:: [facility] CURRENT HOME/COMMUNITY SERVICES/EQUIPMENT:: No current equipment. Jesus uses [facility] for transport. PRIMARY CARE PHYSICIAN:: Larissa Ortega POTENTIAL DISCHARGE NEEDS:: Follow up appointment PATIENT/FAMILY EDUCATION NEEDS:: Review discharge instructions and limitations, discussion of self care needs including ask me three. ANTICIPATED BARRIERS TO DISCHARGE:: None. TRANSPORTATION:: Via private vehicle by [facility] vs a friend. PLAN:: Anticipate Jesus will return home when medically cleared. He will follow up with his PCP and discharge plan of care. He will transport via [facility] private vehicle vs a friend. CM will continue to follow.
[2021-07-08] MEDS: Lactated Ringers 1,000 ML 85 ML IV (11:27)
--- NOTE | 2021-07-08 13:24 | SP_ITS ---
Date of service: 07/08/21 Time of Service: 12:00 Subjective Clinical (Bedside) Swallow Evaluation Speech Language Pathology ? Patient referred for Clinical Swallow Evaluation from Dr. Fair given Parkinson's disease, known dysphagia history, and suspected current aspiration PNA. Standard precautions. HPI: Chief Complaint: left sided chest pain, dyspnea, cough?Narrative: 61 yr old male w/ hx of Parkinson disease (not currently on any medical treatment), dysphagia (secondary to Parkinsonism, prior evaluations and treatment by PRECISION OPTICS TECHNICIAN at [facility]) who presented to the ED d/t severe left lower chest wall pain that is worsened by coughing or deep breathing. Symptoms developed two days ago. He called EMS and was found to be tachycardic, tachypneic and hypertensive (BP 194/110, HR 128). He was put on supplemental oxygen and transported to the ED. He says that symptoms began after choking spell on some liquids. He has hx of dysphagia d/t Parkinsonism. He is not currently on medications d/t side effects from meds and he has taken himself off any medications. He formerly saw Dr. Hendrickson, neurologist, but no longer sees her. He states that he can control his choking spells and does fine w/ solid foods but has choking spells w/ thin liquids. He denies any fever or chills or rigors and cough is only productive of clear phelgm. Workup in the ER included CTA of the chest that demonstrated the followin. Bilateral pulmonary emboli.? No evidence of right heart strain. 2. Bilateral predominantly basilar infiltrates.? This may represent atelectasis or pneumonia.? Please correlate clinically. 3. Fluid-filled esophagus.? Nonemergent esophagram should be considered for further evaluation.? This may lead to risk for aspiration. 4. Cholelithiasis.? No biliary ductal dilatation. 5. Results of this exam have been verbally communicated with provider Patient denies any prior hx of PE or DVT. He is a former smoke but only smokes some mariiuana twice a day along with one beer twice a day to help control his tremors from his Parkinsonism. He says that he has had aspiraton problems for couple years and previously had seen a PRECISION OPTICS TECHNICIAN at [facility] who had recommended addition of thickening substance to his liquids but he states that he could not afford this d/t cost of $300 per week. In the ER he was begun on lovenox 90 mg SC and Zosyn 3.375 gm. He is admitted to the hospital for treatment of aspiration pneumonia and P.E.? Dysphagia HX: Patient has seen both [facility] Neurology and [facility] PRECISION OPTICS TECHNICIAN (Heidi Pandya) as of 04/2019 (see PRECISION OPTICS TECHNICIAN evaluation note from 04/21/2019), with patient scheduled for VFSE/MBSS at [facility] and no showed for this appointment, as well as follow up Neurology appointment. SUBJECTIVE: Patient reports: coughing up foamy sputum at night, sometimes profusely (15 minutes straight). Worse when lying flat, so he sleeps semi upright. Endorses aspirating on liquids frequently. I have learned to do it slowly and carefully. I don't chug it. Endorses pharyngeal stasis joesph with solid foods, which he localizes to level of PES. He avoids meat and bread. Eats a lot of soft sandwiches, hot dogs, cottage cheese, fruit. Endorses regurgitation when eating. Endorses 1x/daily toothbrushing. He is not interested in re-trying thickened liquids. I'd rather drink carefully. It's too expensive and I don't like it. He has tried this in the past but couldn't afford it and found it too time consuming and not enjoyable. He tries to eat mainly soft foods and purees. He states that he has a poor appetite and is a very picky eater. He does report having MBSS done 2 years ago at [facility], but unable to find these records in [facility] system. PFSH All Active Problems?(Updated 07/07/21 @ 20:17 by Foster Fair) Acute thoracic back pain (Acute) Bilateral pulmonary embolism (Acute) Pneumonia (Acute) Dysphagia (Acute) Memory loss (Acute) Erectile dysfunction (Acute) Constipation (Acute) Peripheral neuropathy (Acute) Primary Parkinson's disease (Acute) Medical History?(Updated 07/07/21 @ 20:17 by Foster Fair) Anxiety H/O multiple concussions Hepatitis C per referral, pt has completed treatment History of hepatitis C Hypertension Malignant melanoma of skin Melanoma Osteoarthritis Parkinsons disease Prediabetes PTSD (post-traumatic stress disorder) Severe bipolar disorder with psychotic features, mood-congruent Substance abuse Surgical History? H/O colonoscopy (~03/2019) S/P skin cancer resection ? Social History/Home Situation: Pt is currently homeless. He drinks up to 2 alcoholic drinks per day to help with Parkinson?s symptoms. ? Objective Objective Predisposing dysphagia risk factors: Parkinson?s disease Clinical signs of possible chronic dysphagia: Aspiration PNA suspected Precipitating dysphagia risk factors / triggering event: unknown/worsened pulmonary status ? Respiratory status: Tolerating room air without s/sx dyspnea . Mental Status: Oriented to time, place situation. Somewhat impulsive in conversation and when following instructions. Language: Verbose. No overt word-finding errors. Grammatically intact, informative verbal expression. Speech: No evidence of dysarthria. Loud & clear speech. Oral-Motor Peripheral Exam: Largely WFL; intact facial/lingual strength, ROM, & coordination, strong/sharp volitional cough, timely volitional swallow with palpable hyo-laryngeal motility. Remarkable primarily for partial edentulousness of upper>lower. Oral care: Fair. Dry mucosa with yang/brown buildup on tongue. PO TRIALS: Food items tested: ?? [ ] None. Further swallow assessment not warranted at this time.? [x] Ice: x3 [x] IDDSI 0:x8 via cup edge [ ] IDDSI 1: [x] IDDSI 2: x4 5 via cup edge [ ] IDDSI 3: [x] IDDSI 4: puree/extremely thick liquid via 1/2 tsp x 6 [ ] IDDSI 5: [ ] IDDSI 6: [ ] IDDSI 7: (patient declined trials) [ ] Pill/tablet: ? Oral phase: [ ] WFL [ ] Leakage from mouth [ ] Difficulty with bolus manipulation [ ] Difficulty with a-p transport [x] Difficulty chewing [ ] Pocketing [ ] Residue ? Pharyngeal phase: [ ] WFL [ ] Delayed swallow initiation [ ] Reduced hyolaryngeal elevation/excursion [x] Cough after swallow (thouhg patient insists this is baseline cough due to pneumonia infection, appears thick yang sputum with blood) [ ] Voice change after swallow? [ ] Throat clearing? [x] Endorsed stasis? Education provided to patient: Anatomy/physiology of swallowing mechanism Overt s/sx aspiration Rationale for improved oral care and instructions Relationship between respiratory fxn and deglutition Rationale for recommended strategies Reflux education Patient indicated understanding: Verbally Assessment IMPRESSIONS Patient likely with at least mild-moderate oral-pharyngeal dysphagia, primarily based on history-taking and subjective provided this date. Question impact of silent/night time reflux as well. Upon exam, patient presents without any appreciable oral motor weakness, and without overt s/sx aspiration this date; would benefit from MBSS to determine swallow function and appropriate management plan. Unable to complete today due to maintenance in the fluoroscopy room making MBSS unavailable until Sunday. Patient is at moderate risk for aspiration-related pulmonary complication, improvements in physical mobility and overall pulmonary function likely to further reduce this risk. Further PRECISION OPTICS TECHNICIAN services are warranted at this time. Education provided re: normal vs disordered swallowing, impact of PD on sw function, and risks present with current diet. Recommendations provided for safest textures/consistencies given previous recommendations for thickened liquids, report of pharyngeal stasis, occasional choking with heimlich, and freq uent aspiration; patient was amenable to trial minced/moist diet but unwilling to take thickened liquids; reports due to cost and preference. Provided education and instruction on risk mitigation and swallow strategies this date, with particular focus on increased frequency, duration, and thoroughness of oral care to prevent bacterial infection. INSTRUMENTATION: MBSS next week if still inpatient, or outpatient referral if discharged prior to MBSS. Recommendations: If unable to complete MBSS prior to discharge (Fluoroscopy room under repair this date), recommend patient returns for outpatient MBSS as soon as possible either at [facility] or [facility] with previous PRECISION OPTICS TECHNICIAN provider. PATIENT SHOULD FOLLOW UP WITH OUTPATIENT PRECISION OPTICS TECHNICIAN (via [facility] or [facility]) upon discharge. Recommend consider trial reflux medications given pt's reported symptoms despite no heartburn. Diet Texture Modifications: IDDSI Level: Solids: IDDSI level 5; Minced/Moist Liquids: IDDSI level 0; Thin liquids Medication Intake: Whole or crushed (large pills, as directed by MD) in pudding/puree RISK MANAGEMENT: Oral hygiene BID/2x per day and before/after PO intake using friction with toothbrush on all oral structures as tolerated HOB upright as tolerated; upright for all PO intake. Encourage physical mobility as tolerated. ? Level of Assistance/Supervision: Distant supervision for all PO intake to monitor for s/sx aspiration, choking. PO intake only when awake/alert? ? Strategies/Adaptations/Assistive Equipment: Reduce auditory and/or visual distractions when eating, Provide verbal and/or visual cues to use recommended strategies, Small sips and bites when eating, Slow rate of intake, Swallow between bites ? Posture/Positioning Needs: Maintain upright position at least 30 minutes after meals, Avoid meals/snacks 2- 3 hours prior to reclining/sleeping, Sleep with head of bed elevated to reduce likelihood of nocturnal reflux Plan PRECISION OPTICS TECHNICIAN to follow while on unit. Short Term Goals: Patient will tolerate Level 5 Minced/Moist /Level 0 Thin Liquid Diet without s/sx aspiration and with use of swallow strategies. Patient will verbalize/demonstrate understanding of education r/t Anatomy/physiology of swallowing mechanism, Overt s/sx aspiration, Rationale for improved oral care and instructions, Relationship between respiratory fxn and deglutition, Rationale for recommended strategies x 1-2 sessions. Patient will increase frequency of oral care to BID/before&after PO intake to reduce risk of aspiration-related pulmonary complication. Coding
--- NOTE | 2021-07-08 16:18 | CHAPLAIN ---
Jesus was resting in bed when I visited. He was very pleasant and easily engaged in a conversation. He talked about having several friends that he's in touch with, and people that are supportive of him. He had just gotten to eat for the first time in a couple of days and was very happy about that.
--- NOTE | 2021-07-08 17:23 | W.PM.PROGNOT ---
Date of Service Date of service: 07/08/21 Time of Service: 16:23 Assessment and Plan Assessment and plan (1) Bilateral pulmonary embolism: Status: Acute Assessment and plan: Discontinue enoxaparin and begin apixaban 10 mg p.o. twice daily for 7 days then decrease to 5 mg twice daily for 3 months. Professional time spent interviewing and examining patient, discussion of goals of care with hospital team (care management, nursing and consulting professionals) was 30 minutes. (2) Pneumonia: Status: Acute Assessment and plan: continue Zosyn for asp. pneumonia. pulmonary toiletry w/ I.S. and acapella device; will switch to Augmentin 875 mg twice a day beginning tomorrow morning for another 7 days. (3) Dysphagia: Status: Acute Assessment and plan: SHIFT NURSE MANAGER put the patient on a diet of minced and moist foods with thin liquids. She is recommended follow-up modified barium swallow as an outpatient. (4) Primary Parkinson's disease: Status: Acute Assessment and plan: patient reports that he had been on over 30 meds in the past and they all made him worse (hallucinations and other side effects from his anti-parkinsonism meds so he quit them all) (5) Acute thoracic back pain: Status: Acute Assessment and plan: left lower thoracic back pain over dorsal latissimi muscles and reproducible w/ palpation. possible muscle strain from coughing. Pain has responded to toradol. I will also add Robaxin for his muscle pain Subjective Subjective Interval history since last seen: No further aspiration events. Patient left with speech therapist today who recommends follow-up as an outpatient and use of thickener for his liquids. Speech therapist wanted to perform a modified barium swallow today but radiology equipment was down and could not be used. She recommended he follow-up as an outpatient for modified barium swallow. Patient travels out of town quite frequently and doubts he will build to follow-up with a barium swallow. He is eager to be discharged as soon as possible. He is not requiring any supplemental oxygen and therefore I think we could switch him to oral antibiotics tomorrow and discharge him home on Augmentin for 7 days along with apixaban for his pulmonary emboli. Exam Narrative Exam Narrative: Jesus is sitting up at the bedside he is alert and oriented person place time circumstance no acute respiratory distress. He is able to speak in complete sentences. Lungs with some bibasilar rhonchi and a few end expiratory wheezes Heart regular rate and rhythm without murmur rub or gallop Abdomen soft nontender nondistended Extremities without peripheral cyanosis or edema Objective Last Vital Signs Temp 37.5 C 07/08/21 15:21 Pulse 104 H 07/08/21 15:21 Resp 16 07/08/21 15:21 BP 141/86 H 07/08/21 15:21 Pulse Ox 92 07/08/21 15:21 Laboratory Results - last 24 hr 07/08/21 06:25 WBC 11.72 H RBC 4.52 Hgb 14.7 D Hct 43.0 MCV 95 MCH 32.5 MCHC 34.2 RDW 13.4 Plt Count 187 MPV 9.8 PAWSS Have you Been Recently Intoxicated or Drunk Within the Last 30 days?: No Have you Ever Experienced Previous Episodes of Alcohol Withdrawal?: No Have you ever Experienced Withdrawal Seizures?: No Have you ever Experienced Delirium Tremens(DT)s?: No Have you ever undergone Alcohol Rehabilitation Treatment (i.e, inpt ot outpatient treatment programs)?: No Have you ever Experienced Blackouts?: No Have you ever Combined Alcohol with other Downers within the last 90 days?: No Have you ever Combined Alcohol with any other Substance of Abuse during the last 90 days?: No Positive Blood Alcohol level on Presentation? [PCS.BAL]: No Evidence of Increased Autonomic Activity (i.e. HR>120, tremor, sweating, agitation, nausea)?: No Result: 0
[2021-07-08] MEDS: Acetaminophen 325 MG TAB PO (19:42)
[2021-07-08] MEDS: Apixaban 5 MG TAB 10 MG PO (19:42)
[2021-07-09] VITALS (7 sets, daily range): BP systolic 146–161; BP diastolic 89–98; PULSE 73–105; RESP 2–22; TEMP 36.8–37.1; O2SAT 95–96
[2021-07-09] MEDS: Lactated Ringers 1,000 ML 85 ML IV ×2 (00:11→12:07)
[2021-07-09] MEDS: Ketorolac 15 MG/ML VIAL IVP ×2 (03:58→10:30)
[2021-07-09] MEDS: Normal Saline Flush 10 ML SYR IVP (05:33)
[2021-07-09] MEDS: Albuterol/Ipratropium 3 ML UPD VIAL UPD ×2 (07:35→11:28)
[2021-07-09] MEDS: Apixaban 5 MG TAB 10 MG PO (08:08)
--- NOTE | 2021-07-09 14:14 | PDOC.CMDIS ---
- If Service Date Differs Date of service: 07/09/21 Time of Service: 14:14 LACE Index Scoring Tool - Questions: Length of Stay (in days): 2 Acuity (Admit via E.D.?): Yes Comorbidities: Any Tumor E.D. Visits: 1 - Answers: Total Score: 8 Risk of Readmission: Low Risk Care Management Discharge Reason for Hospitalization: aspiration pna, bilateral PE Discharge Plan: Jesus is discharged home without services. He will follow up with the tele-doc and with his plan of care as directed. He is transported home by a friend via private vehicle. Patient/Family Education Needs: Review of discharge instructions re medications and follow up plan of care; discuss Ask Me Three.
--- NOTE | 2021-08-25 22:34 | W.PM.DS.N ---
Date of service: 07/09/21 Time of Service: 14:30 DS: Diagnosis Discharge Diagnosis (1) Bilateral pulmonary embolism: Status: Acute (2) Pneumonia: Status: Acute (3) Dysphagia: Status: Acute (4) Primary Parkinson's disease: Status: Acute (5) Acute thoracic back pain: Status: Acute Discharge Plan Disposition Patient Disposition: HOME Condition: Improving Discharge Details Reason For Visit: Aspiration Pneumonia, Bilateral P.E. Admit Date/Time: 07/07/21 10:05 Admit Provider: Foster Fair Attending Provider: Foster Fair Primary Care Provider: Larissa Lopes Hospital Course Hospital Course: 61-year-old male with history of Parkinson disease not currently on any medical treatment, dysphagia secondary to parkinsonism with previous evaluation and treatment by speech-language pathology little in hospital presented emergency department due to severe left lower chest wall pain that worsened with coughing or deep breathing. Symptoms developed 2 days prior to admission. When EMS was called he was found to be tachycardic tachypneic and hypertensive. When he was evaluated emergency department CT of his chest demonstrated bilateral pulmonary emboli with no evidence of right heart strain and bilateral predominantly basilar infiltrates and a fluid-filled esophagus as well as cholelithiasis with no biliary ductal dilatation. Patient was admitted to the hospital for treatment of pulmonary embolism as well as aspiration pneumonia. Emergency department he was begun on Lovenox 90 mg subcutaneously and started on Zosyn 3.375 g. By the next morning he was feeling better the enoxaparin was discontinued and he was started on apixaban 10 mg twice a day for 7 days. He was continued on Zosyn given acapella device and incentive spirometer to use. Speech-language pathologist was consulted regarding his dysphagia and she put him on a diet of minced and moist foods with thin liquids and recommended follow-up modified barium swallow as an outpatient. Patient refused medication treatment for his primary Parkinson's disease as he stated that he had been on over 30 medications in the past they all made him worse either causing hallucinations or having intolerable side effects. He did complain of acute lower thoracic back pain over his dorsal latissimus dorsi muscles that is reproducible with palpation this is felt to be due to muscle strain from coughing. Pain responded to Toradol and Robaxin was added for his muscle pain. He was discharged home on 07/09/2021 in markedly improved condition. He was no longer requiring any supplemental oxygen and he was instructed to continue the apixaban 10 mg twice a day for total 7 days then decrease to 5 mg BID for minimum of 3 months and possibly longer. He was discharged home on Augmentin 875 mg p.o. 3 times daily for 7 days. He was discharged on apixaban 10 mg tablets instructed to take 2 tablets twice a day for 7 days then decrease to 5 mg twice a day for 6 months. He was prescribed an albuterol inhaler and told to use 2 puffs every 4 hours as needed for coughing or wheezing. For his GERD he was sent home on omeprazole 40 mg daily. He was recommended to follow-up with speech-language pathologist regarding further treatment of his dysphagia. Home Meds and New Rx's Prescriptions: New Eliquis 5 mg tablet 10 mg PO BID Qty: 60 0RF Rx Instructions: one orally twice per day x 7 days then begin Apixaban 5 mg PO BID x 6 months amoxicillin-pot clavulanate [Augmentin] 500-125 mg tablet 1 tab PO TID Qty: 21 0RF albuterol sulfate 90 mcg/actuation HFA aerosol inhaler 2 puff inhalation Q4H PRNQty: 8.5 0RF Rx Instructions: 2 puffs q4hr prn cough or dyspnea omeprazole 40 mg capsule,delayed release(DR/EC) 40 mg PO DAILY Qty: 30 0RF Discontinued aspirin 81 mg tablet 81 mg PO DAILY Discharge Instructions Instructions: Amoxicillin/Clavulanate Potassium (By mouth), Apixaban (By mouth), Pulmonary Embolism (DC), Aspiration Pneumonia (DC) Additional Instructions: Speech Pathology Evaluation PATIENT NAME:? Jesus Schuler UNIT #:? ? [id number] ADMITTING PROVIDER:? Natalya Whitlock ACCOUNT #: ? [id number]? ? PRIMARY CARE PROVIDER: LARISSA LOPES NP ? DATE OF ADMIT:? ? 07/07/21 : ? 1960 ? Date of service: 07/08/21 Time of Service: 12:00 Subjective Clinical (Bedside) Swallow Evaluation Speech Language Pathology ? Patient referred for Clinical Swallow Evaluation from Dr. Fair given Parkinson's disease, known dysphagia history, and suspected current aspiration PNA. Standard precautions. HPI:? Chief Complaint: left sided chest pain, dyspnea, cough?Narrative: 61 yr old male w/ hx of Parkinson disease (not currently on any medical treatment), dysphagia (secondary to Parkinsonism, prior evaluations and treatment by AERONAUTICAL ENGINEERING OFFICER at [facility]) who presented to the ED d/t severe left lower chest wall pain that is worsened by coughing or deep breathing. Symptoms developed two days ago. He called EMS and was found to be tachycardic, tachypneic and hypertensive (BP 194/110, HR 128). He was put on supplemental oxygen and transported to the ED. He says that symptoms began after choking spell on some liquids. He has hx of dysphagia d/t Parkinsonism. He is not currently on medications d/t side effects from meds and he has taken himself off any medications. He formerly saw Dr. Hendrickson, neurologist, but no longer sees her. He states that he can control his choking spells and does fine w/ solid foods but has choking spells w/ thin liquids. He denies any fever or chills or rigors and cough is only productive of clear phelgm. Workup in the ER included CTA of the chest that demonstrated the followin. Bilateral pulmonary emboli.? No evidence of right heart strain. 2. Bilateral predominantly basilar infiltrates.? This may represent atelectasis or pneumonia.? Please correlate clinically. 3. Fluid-filled esophagus.? Nonemergent esophagram should be considered for further evaluation.? This may lead to risk for aspiration. 4. Cholelithiasis.? No biliary ductal dilatation. 5. Results of this exam have been verbally communicated with provider Patient denies any prior hx of PE or DVT. He is a former smoke but only smokes some mariiuana twice a day along with one beer twice a day to help control his tremors from his Parkinsonism. He says that he has had aspiraton problems for couple years and previously had seen a AERONAUTICAL ENGINEERING OFFICER at [facility] who had recommended addition of thickening substance to his liquids but he states that he could not afford this d/t cost of $300 per week. In the ER he was begun on lovenox 90 mg SC and Zosyn 3.375 gm. He is admitted to the hospital for treatment of aspiration pneumonia and P.E.?? Dysphagia HX: Patient has seen both [facility] Neurology and [facility] AERONAUTICAL ENGINEERING OFFICER (Heidi Pandya) as of 04/2019 (see AERONAUTICAL ENGINEERING OFFICER evaluation note from 04/21/2019), with patient scheduled for VFSE/MBSS at [facility] and no showed for this appointment, as well as follow up Neurology appointment. SUBJECTIVE: Patient reports: coughing up foamy sputum at night, sometimes profusely (15 minutes straight). Worse when lying flat, so he sleeps semi upright. Endorses aspirating on liquids frequently. I have learned to do it slowly and carefully. I don't chug it. Endorses pharyngeal stasis joesph with solid foods, which he localizes to level of PES.? He avoids meat and bread. Eats a lot of soft sandwiches, hot dogs, cottage cheese, fruit. Endorses regurgitation when eating. Endorses 1x/daily toothbrushing. He is not interested in re-trying thickened liquids. I'd rather drink carefully. It's too expensive and I don't like it. He has tried this in the past but couldn't afford it and found it too time consuming and not enjoyable. He tries to eat mainly soft foods and purees. He states that he has a poor appetite and is a very picky eater. He does report having MBSS done 2 years ago at [facility], but unable to find these records in [facility] system. PFSH All Active Problems?(Updated 07/07/21 @ 20:17 by Foster Fair) ?Acute thoracic back pain (Acute) ?Bilateral pulmonary embolism (Acute) ?Pneumonia (Acute) ?Dysphagia (Acute) ?Memory loss (Acute) ?Erectile dysfunction (Acute) ?Constipation (Acute) ?Peripheral neuropathy (Acute) ?Primary Parkinson's disease (Acute) Medical History?(Updated 07/07/21 @ 20:17 by Foster Fair) ?Anxiety ?H/O multiple concussions ?Hepatitis C per referral, pt has completed treatment History of hepatitis C ?Hypertension ?Malignant melanoma of skin ?Melanoma ?Osteoarthritis ?Parkinsons disease ?Prediabetes ?PTSD (post-traumatic stress disorder) ?Severe bipolar disorder with psychotic features, mood-congruent ?Substance abuse Surgical History? ?H/O colonoscopy (~03/2019) ?S/P skin cancer resection ? Social History/Home Situation:?Pt is currently homeless. He drinks up to 2 alcoholic drinks per day to help with Parkinson?s symptoms. ? Objective Objective Predisposing dysphagia risk factors:?Parkinson?s disease Clinical signs of possible chronic dysphagia:?Aspiration PNA suspected Precipitating dysphagia risk factors / triggering event: unknown/worsened pulmonary status ? Respiratory status:?Tolerating room air without s/sx dyspnea . Mental Status:?Oriented to time, place situation. Somewhat impulsive in conversation and when following instructions. Language:?Verbose. No overt word-finding errors. Grammatically intact, informative verbal expression. Speech:?No evidence of dysarthria. Loud & clear speech. Oral-Motor Peripheral Exam: Largely WFL; intact facial/lingual strength, ROM, & coordination, strong/sharp volitional cough, timely volitional swallow with palpable hyo-laryngeal motility. Remarkable primarily for partial edentulousness of upper>lower. Oral care: Fair. Dry mucosa with yang/brown buildup on tongue. PO TRIALS: Food items tested: ?? [ ] None. Further swallow assessment not warranted at this time.? [x] Ice: x3 [x] IDDSI 0:x8 via cup edge [ ] IDDSI 1: [x] IDDSI 2: x4 5 via cup edge [ ] IDDSI 3: [x] IDDSI 4: puree/extremely thick liquid via 1/2 tsp x 6 [ ] IDDSI 5: [ ] IDDSI 6: [ ] IDDSI 7: (patient declined trials) [ ] Pill/tablet: ? Oral phase: [ ] WFL [ ] Leakage from mouth [ ] Difficulty with bolus manipulation [ ] Difficulty with a-p transport [x] Difficulty chewing [ ] Pocketing [ ] Residue ? Pharyngeal phase: [ ] WFL [ ] Delayed swallow initiation [ ] Reduced hyolaryngeal elevation/excursion [x] Cough after swallow (thouhg patient insists this is baseline cough due to pneumonia infection, appears thick yang sputum with blood) [ ] Voice change after swallow? [ ] Throat clearing? [x] Endorsed stasis? Education provided to patient: ? Anatomy/physiology of swallowing mechanism ? Overt s/sx aspiration ? Rationale for improved oral care and instructions ? Relationship between respiratory fxn and deglutition ? Rationale for recommended strategies ? Reflux education Patient indicated understanding: Verbally Assessment IMPRESSIONS Patient likely with at least mild-moderate oral-pharyngeal dysphagia, primarily based on history-taking and subjective provided this date. Question impact of silent/night time reflux as well. Upon exam, patient presents without any appreciable oral motor weakness, and without overt s/sx aspiration this date; would benefit from MBSS to determine swallow function and appropriate management plan. Unable to complete today due to maintenance in the fluoroscopy room making MBSS unavailable until Sunday.? Patient is at moderate risk for aspiration-related pulmonary complication, improvements in physical mobility and overall pulmonary function likely to further reduce this risk. Further AERONAUTICAL ENGINEERING OFFICER services are warranted at this time. Education provided re: normal vs disordered swallowing, impact of PD on sw function, and risks present with current diet. Recommendations provided for safest textures/consistencies given previous recommendations for thickened liquids, report of pharyngeal stasis, occasional choking with heimlich, and frequent aspiration; patient was amenable to trial minced/moist diet but unwilling to take thickened liquids; reports due to cost and preference. Provided education and instruction on risk mitigation and swallow strategies this date, with particular focus on increased frequency, duration, and thoroughness of oral care to prevent bacterial infection. INSTRUMENTATION: MBSS next week if still inpatient, or outpatient referral if discharged prior to MBSS. Recommendations: If unable to complete MBSS prior to discharge (Fluoroscopy room under repair this date), recommend patient returns for outpatient MBSS as soon as possible either at [facility] or [facility] with previous AERONAUTICAL ENGINEERING OFFICER provider. PATIENT SHOULD FOLLOW UP WITH OUTPATIENT AERONAUTICAL ENGINEERING OFFICER (via [facility] or [facility]) upon discharge. Recommend consider trial reflux medications given pt's reported symptoms despite no heartburn. Diet Texture Modifications: IDDSI Level: Solids: IDDSI level 5; Minced/Moist Liquids: IDDSI level 0; Thin liquids Medication Intake:?Whole or crushed (large pills, as directed by MD) in pudding/puree RISK MANAGEMENT: Oral hygiene BID/2x per day and before/after PO intake using friction with toothbrush on all oral structures as tolerated HOB upright as tolerated; upright for all PO intake. Encourage physical mobility as tolerated. ? Level of Assistance/Supervision: Distant supervision for all PO intake to monitor for s/sx aspiration, choking. PO intake only when awake/alert? ? Strategies/Adaptations/Assistive Equipment: Reduce auditory and/or visual distractions when eating, Provide verbal and/or visual cues to use recommended strategies, Small sips and bites when eating, Slow rate of intake, Swallow between bites ? Posture/Positioning Needs: Maintain upright position at least 30 minutes after meals, Avoid meals/snacks 2-3 hours prior to reclining/sleeping, Sleep with head of bed elevated to reduce likelihood of nocturnal reflux Plan AERONAUTICAL ENGINEERING OFFICER to follow while on unit. Short Term Goals: Patient will tolerate Level 5 Minced/Moist /Level 0 Thin Liquid Diet without s/sx aspiration and with use of swallow strategies. Patient will verbalize/demonstrate understanding of education r/t Anatomy/physiology of swallowing mechanism,? Overt s/sx aspiration,? Rationale for improved oral care and instructions,? Relationship between respiratory fxn and deglutition,? Rationale for recommended strategies x 1-2 sessions. Patient will increase frequency of oral care to BID/before&after PO intake to reduce risk of aspiration-related pulmonary complication Speech Pathology Evaluation PATIENT NAME:Jesus Wilkes UNIT #:? ? [id number] ADMITTING PROVIDER:? Natalya Whitlock ACCOUNT #: ? [id number]? ? PRIMARY CARE PROVIDER: LARISSA LOPES NP ? DATE OF ADMIT:? ? 07/07/21 : ? 1960 ? Date of service: 07/08/21 Time of Service: 12:00 Subjective Clinical (Bedside) Swallow Evaluation Speech Language Pathology ? Patient referred for Clinical Swallow Evaluation from Dr. Fair given Parkinson's disease, known dysphagia history, and suspected current aspiration PNA. Standard precautions. HPI:? Chief Complaint: left sided chest pain, dyspnea, cough?Narrative: 61 yr old male w/ hx of Parkinson disease (not currently on any medical treatment), dysphagia (secondary to Parkinsonism, prior evaluations and treatment by AERONAUTICAL ENGINEERING OFFICER at [facility]) who presented to the ED d/t severe left lower chest wall pain that is worsened by coughing or deep breathing. Symptoms developed two days ago. He called EMS and was found to be tachycardic, tachypneic and hypertensive (BP 194/110, HR 128). He was put on supplemental oxygen and transported to the ED. He says that symptoms began after choking spell on some liquids. He has hx of dysphagia d/t Parkinsonism. He is not currently on medications d/t side effects from meds and he has taken himself off any medications. He formerly saw Dr. Hendrickson, neurologist, but no longer sees her. He states that he can control his choking spells and does fine w/ solid foods but has choking spells w/ thin liquids. He denies any fever or chills or rigors and cough is only productive of clear phelgm. Workup in the ER included CTA of the chest that demonstrated the followin. Bilateral pulmonary emboli.? No evidence of right heart strain. 2. Bilateral predominantly basilar infiltrates.? This may represent atelectasis or pneumonia.? Please correlate clinically. 3. Fluid-filled esophagus.? Nonemergent esophagram should be considered for further evaluation.? This may lead to risk for aspiration. 4. Cholelithiasis.? No biliary ductal dilatation. 5. Results of this exam have been verbally communicated with provider Patient denies any prior hx of PE or DVT. He is a former smoke but only smokes some mariiuana twice a day along with one beer twice a day to help control his tremors from his Parkinsonism. He says that he has had aspiraton problems for couple years and previously had seen a AERONAUTICAL ENGINEERING OFFICER at [facility] who had recommended addition of thickening substance to his liquids but he states that he could not afford this d/t cost of $300 per week. In the ER he was begun on lovenox 90 mg SC and Zosyn 3.375 gm. He is admitted to the hospital for treatment of aspiration pneumonia and P.E.?? Dysphagia HX: Patient has seen both [facility] Neurology and [facility] AERONAUTICAL ENGINEERING OFFICER (Heidi Pandya) as of 04/2019 (see AERONAUTICAL ENGINEERING OFFICER evaluation note from 04/21/2019), with patient scheduled for VFSE/MBSS at [facility] and no showed for this appointment, as well as follow up Neurology appointment. SUBJECTIVE: Patient reports: coughing up foamy sputum at night, sometimes profusely (15 minutes straight). Worse when lying flat, so he sleeps semi upright. Endorses aspirating on liquids frequently. I have learned to do it slowly and carefully. I don't chug it. Endorses pharyngeal stasis joesph with solid foods, which he localizes to level of PES.? He avoids meat and bread. Eats a lot of soft sandwiches, hot dogs, cottage cheese, fruit. Endorses regurgitation when eating. Endorses 1x/daily toothbrushing. He is not interested in re-trying thickened liquids. I'd rather drink carefully. It's too expensive and I don't like it. He has tried this in the past but couldn't afford it and found it too time consuming and not enjoyable. He tries to eat mainly soft foods and purees. He states that he has a poor appetite and is a very picky eater. He does report having MBSS done 2 years ago at [facility], but unable to find these records in [facility] system. PFSH All Active Problems?(Updated 07/07/21 @ 20:17 by Foster Fair) ?Acute thoracic back pain (Acute) ?Bilateral pulmonary embolism (Acute) ?Pneumonia (Acute) ?Dysphagia (Acute) ?Memory loss (Acute) ?Erectile dysfunction (Acute) ?Constipation (Acute) ?Peripheral neuropathy (Acute) ?Primary Parkinson's disease (Acute) Medical History?(Updated 07/07/21 @ 20:17 by Foster Fair) ?Anxiety ?H/O multiple concussions ?Hepatitis C per referral, pt has completed treatment History of hepatitis C ?Hypertension ?Malignant melanoma of skin ?Melanoma ?Osteoarthritis ?Parkinsons disease ?Prediabetes ?PTSD (post-traumatic stress disorder) ?Severe bipolar disorder with psychotic features, mood-congruent ?Substance abuse Surgical History? ?H/O colonoscopy (~03/2019) ?S/P skin cancer resection ? Social History/Home Situation:?Pt is currently homeless. He drinks up to 2 alcoholic drinks per day to help with Parkinson?s symptoms. ? Objective Objective Predisposing dysphagia risk factors:?Parkinson?s disease Clinical signs of possible chronic dysphagia:?Aspiration PNA suspected Precipitating dysphagia risk factors / triggering event: unknown/worsened pulmonary status ? Respiratory status:?Tolerating room air without s/sx dyspnea . Mental Status:?Oriented to time, place situation. Somewhat impulsive in conversation and when following instructions. Language:?Verbose. No overt word-finding errors. Grammatically intact, informative verbal expression. Speech:?No evidence of dysarthria. Loud & clear speech. Oral-Motor Peripheral Exam: Largely WFL; intact facial/lingual strength, ROM, & coordination, strong/sharp volitional cough, timely volitional swallow with palpable hyo-laryngeal motility. Remarkable primarily for partial edentulousness of upper>lower. Oral care: Fair. Dry mucosa with yang/brown buildup on tongue. PO TRIALS: Food items tested: ?? [ ] None. Further swallow assessment not warranted at this time.? [x] Ice: x3 [x] IDDSI 0:x8 via cup edge [ ] IDDSI 1: [x] IDDSI 2: x4 5 via cup edge [ ] IDDSI 3: [x] IDDSI 4: puree/extremely thick liquid via 1/2 tsp x 6 [ ] IDDSI 5: [ ] IDDSI 6: [ ] IDDSI 7: (patient declined trials) [ ] Pill/tablet: ? Oral phase: [ ] WFL [ ] Leakage from mouth [ ] Difficulty with bolus manipulation [ ] Difficulty with a-p transport [x] Difficulty chewing [ ] Pocketing [ ] Residue ? Pharyngeal phase: [ ] WFL [ ] Delayed swallow initiation [ ] Reduced hyolaryngeal elevation/excursion [x] Cough after swallow (thouhg patient insists this is baseline cough due to pneumonia infection, appears thick yang sputum with blood) [ ] Voice change after swallow? [ ] Throat clearing? [x] Endorsed stasis? Education provided to patient: ? Anatomy/physiology of swallowing mechanism ? Overt s/sx aspiration ? Rationale for improved oral care and instructions ? Relationship between respiratory fxn and deglutition ? Rationale for recommended strategies ? Reflux education Patient indicated understanding: Verbally Assessment IMPRESSIONS Patient likely with at least mild-moderate oral-pharyngeal dysphagia, primarily based on history-taking and subjective provided this date. Question impact of silent/night time reflux as well. Upon exam, patient presents without any appreciable oral motor weakness, and without overt s/sx aspiration this date; would benefit from MBSS to determine swallow function and appropriate management plan. Unable to complete today due to maintenance in the fluoroscopy room making MBSS unavailable until Sunday.? Patient is at moderate risk for aspiration-related pulmonary complication, improvements in physical mobility and overall pulmonary function likely to further reduce this risk. Further AERONAUTICAL ENGINEERING OFFICER services are warranted at this time. Education provided re: normal vs disordered swallowing, impact of PD on sw function, and risks present with current diet. Recommendations provided for safest textures/consistencies given previous recommendations for thickened liquids, report of pharyngeal stasis, occasional choking with heimlich, and frequent aspiration; patient was amenable to trial minced/moist diet but unwilling to take thickened liquids; reports due to cost and preference. Provided education and instruction on risk mitigation and swallow strategies this date, with particular focus on increased frequency, duration, and thoroughness of oral care to prevent bacterial infection. INSTRUMENTATION: MBSS next week if still inpatient, or outpatient referral if discharged prior to MBSS. Recommendations: If unable to complete MBSS prior to discharge (Fluoroscopy room under repair this date), recommend patient returns for outpatient MBSS as soon as possible either at [facility] or [facility] with previous AERONAUTICAL ENGINEERING OFFICER provider. PATIENT SHOULD FOLLOW UP WITH OUTPATIENT AERONAUTICAL ENGINEERING OFFICER (via [facility] or [facility]) upon discharge. Recommend consider trial reflux medications given pt's reported symptoms despite no heartburn. Diet Texture Modifications: IDDSI Level: Solids: IDDSI level 5; Minced/Moist Liquids: IDDSI level 0; Thin liquids Medication Intake:?Whole or crushed (large pills, as directed by MD) in pudding/puree RISK MANAGEMENT: Oral hygiene BID/2x per day and before/after PO intake using friction with toothbrush on all oral structures as tolerated HOB upright as tolerated; upright for all PO intake. Encourage physical mobility as tolerated. ? Level of Assistance/Supervision: Distant supervision for all PO intake to monitor for s/sx aspiration, choking. PO intake only when awake/alert? ? Strategies/Adaptations/Assistive Equipment: Reduce auditory and/or visual distractions when eating, Provide verbal and/or visual cues to use recommended strategies, Small sips and bites when eating, Slow rate of intake, Swallow between bites ? Posture/Positioning Needs: Maintain upright position at least 30 minutes after meals, Avoid meals/snacks 2-3 hours prior to reclining/sleeping, Sleep with head of bed elevated to reduce likelihood of nocturnal reflux Plan AERONAUTICAL ENGINEERING OFFICER to follow while on unit. Short Term Goals: Patient will tolerate Level 5 Minced/Moist /Level 0 Thin Liquid Diet without s/sx aspiration and with use of swallow strategies. Patient will verbalize/demonstrate understanding of education r/t Anatomy/physiology of swallowing mechanism,? Overt s/sx aspiration,? Rationale for improved oral care and instructions,? Relationship between respiratory fxn and deglutition,? Rationale for recommended strategies x 1-2 sessions. Patient will increase frequency of oral care to BID/before&after PO intake to reduce risk of aspiration-related pulmonary complication Stand Alone Forms: Nursing Discharge Form Referrals: Rebekah Garcia [NURSE PRACTITIONER] - (call on Sunday for follow up as a new patient) Activity:: Activity as Tolerated Equipment/Supplies:: No Equipment Needed Diet:: dysphagia diet as per speech thearpy Discharge Orders Discharge Orders: Discharge Order (Routine); Ordered 07/09/21 Ordered By: Foster Fair Discharge Data Discharge Date/Time-TO BE ENTERED AT DEPARTURE: 07/09/21 14:14 DS: Summary Time Spent with Patient providing and/or coordinating discharge services: Less than 30 minutes Status at Discharge Functional status at discharge: independent ambulation Overall status at discharge: patient is back to baseline Mental Status: mental status grossly normal Speech and Movement: speech and movement normal Mood: congruent mood Affect: normal affect Exam Psych Mental Status: mental status grossly normal Speech and Movement: speech and movement normal Mood: congruent mood Affect: normal affect DS: Data Vitals/I&O Vitals and I&O: Vital Signs Temperature 36.9 C 07/09/21 11:45 Temperature Source Tympanic 07/09/21 11:45 Pulse 82 07/09/21 11:45 Pulse Rhythm Regular 07/09/21 07:30 Pulse 89 07/07/21 10:46 Respiratory Rate 22 07/09/21 11:45 Respiratory Effort Non-Labored 07/09/21 07:30 Respiratory Depth Normal 07/09/21 07:30 Respiratory Pattern Normal 07/09/21 07:30 Blood Pressure 161/96 H 07/09/21 11:45 Blood Pressure Mean 108 07/07/21 10:46 Pulse Oximetry 96 07/09/21 11:45 Oxygen Delivery Method Room Air 07/09/21 11:45 Oxygen Flow Rate 0 07/09/21 11:45 Pain Level 8 07/09/21 10:30 Comment 07/08/21 11:15 PFSH All Active Problems (Updated 07/07/21 @ 20:17 by Foster aFir MD) Acute thoracic back pain (Acute) Bilateral pulmonary embolism (Acute) Pneumonia (Acute) Dysphagia (Acute) Memory loss (Acute) Erectile dysfunction (Acute) Constipation (Acute) Peripheral neuropathy (Acute) Primary Parkinson's disease (Acute) Medical History (Updated 07/07/21 @ 20:17 by Foster Fair MD) Anxiety H/O multiple concussions Hepatitis C per referral, pt has completed treatment History of hepatitis C Hypertension Malignant melanoma of skin Melanoma Osteoarthritis Parkinsons disease Prediabetes PTSD (post-traumatic stress disorder) Severe bipolar disorder with psychotic features, mood-congruent Substance abuse Surgical History H/O colonoscopy (~03/2019) S/P skin cancer resection Social History (Updated 07/07/21 @ 20:10 by Foster Fair MD) Smoking/Tobacco Use Status: Former Tobacco Use Smoking risk assessment performed?: Yes Alcohol Intake: current Alcohol Intake frequency: 0-2 drinks per day Alcohol type: beer Drug use: Daily Substance use type: marijuana Housing: homeless current occupation: None Seatbelt use: always Do you feel safe at home: Yes Do you feel safe in your relationship?: Yes
== END 2021-07-09 14:14 | disposition home or self-care (01) | DRG 177 ==
LOC: ER 11:34 → MS 07-08 09:05
PROVIDERS: Admitting Provider Internal Medicine; Emergency Provider Physician Assistant; PCP Nurse Practitioner; Visit Provider Internal Medicine
DX: J69.0 Pneumonitis due to inhalation of food and vomit (principal); I26.99 Other pulmonary embolism without acute cor pulmonale; F31.5 Bipolar disorder, current episode depressed, severe, with psychotic features; S29.012A Strain of muscle and tendon of back wall of thorax, initial encounter; F41.9 Anxiety disorder, unspecified; G20 Parkinson's disease; F43.10 Post-traumatic stress disorder, unspecified; B19.20 Unspecified viral hepatitis C without hepatic coma; F19.10 Other psychoactive substance abuse, uncomplicated; R13.10 Dysphagia, unspecified; R41.3 Other amnesia; K59.00 Constipation, unspecified; G62.9 Polyneuropathy, unspecified; R35.0 Frequency of micturition; Z59.00 Homelessness unspecified; R73.03 Prediabetes; Z87.891 Personal history of nicotine dependence; X50.3XXA Overexertion from repetitive movements, initial encounter; F12.90 Cannabis use, unspecified, uncomplicated
CPT/HCPCS: 36415; 71275; 80053; 85027; 87637; 93005; 96361; 96365; 96367; 96372; 96375; 99285; 80320; 83735; 84484; 85025; 85610; 85730; 93010; 93306; 94640; 99222; 99232; 99238; J0131; J1650; J1885; J2543; J7620

== ENCOUNTER 2023-06-29 07:29 | Inpatient (IN) | payer OTHER, MEDICAID, SELFPAY ==
[2023-06-29] VITALS (35 sets, daily range): BP systolic 127–168; BP diastolic 86–134; PULSE 77–116; RESP 15–28; TEMP 36.1–36.8; O2SAT 96–100
[2023-06-29 08:17] LABS: Abs Immature Grans 0.13 10^3/uL (0.0-0.06); Absolute Lymphocyte Count 1.58 10^3/uL (1.2-3.4); Absolute Monocyte Count 1.17 10^3/uL (0.1-0.8); Absolute Neutrophil Count 11.44 10^3/uL (1.2-6.7); Basophils % 0.8 %; Eosinophils % 0.1 %; Immature Grans % 0.9 %; Lymphocytes % 10.9 %; MCH 33.4 pg (27.0-33.0); MCHC 35.1 % (32.0-36.0); MCV 95 fL (80-95); MPV 9.1 fL (8.0-11.0); Monocytes % 8.1 %; Neutrophils % 79.2 %; Platelet Count 364 10^3/uL (130-400); RBC 5.77 10^6/uL (4.36-5.78); RDW 13.1 % (11.8-14.1); RDW-SD 46.4 fL; WBC 14.45 10^3/uL (4.4-10.8)
[2023-06-29 08:22] LABS: Absolute Basophil Count 0.12 10^3/uL (0.0-0.2); Absolute Eosinophil Count 0.01 10^3/uL (0.0-0.7)
[2023-06-29] MEDS: Lactated Ringers 1,000 ML 1000 ML IV ×2 (08:24→10:08)
[2023-06-29] MEDS: Ondansetron 4 MG/2 ML VIAL IVP (08:25)
[2023-06-29] MEDS: FAMOTIDINE 20 MG in Normal Saline 100 ML 400 MG IVPB (08:25)
[2023-06-29 08:26] LABS: HGB 19.3 g/dL (13.5-17.5)
--- NOTE | 2023-06-29 08:26 | ED.GENADUL_ITS ---
Discharge Plan Disposition Patient Disposition: Admit to [facility] Condition: Serious Discharge Details Clinical Impression: Esophageal abnormality, Acute dehydration, Inability to swallow, Acute hypokalemia Admit Date/Time: 06/29/23 11:57 Admit Provider: Foster Champion Attending Provider: Foster Champion Primary Care Provider: Unknown,Unknown ED Provider: Daniel Gonzalez Discharge Data Discharge Date/Time-TO BE ENTERED AT DEPARTURE: 06/29/23 13:09 HPI General Mode of arrival: ambulatory . Date/Time Provider Initiated Documentation: 06/29/23 07:51 . Limitations to Documentation: no limitations . Information obtained by: patient . HPI Narrative: 63-year-old male with history of Parkinson's disease presents with chief complaint of difficulty eating. Patient notes has been unable to eat for the past 10 days. He states anytime he eats he is unable to swallow and keep food down. He has been trying to eat soft foods and notes he immediately vomits this up. He states he is not able to drink liquids quickly and has to drink slow small amount and even with this he sometimes spits up fluid. He had no bowel movement for 15 days. He notes significant unintentional weight loss. Patient denies abdominal pain. Related Data Home Medications Medication Instructions Recorded Confirmed Unknown [No Known Home Meds] 06/29/23 06/29/23 Allergies Allergy/AdvReac Type Severity Reaction Status Date / Time mirabegron [From Myrbetriq] Allergy Severe Difficulty Verified 06/29/23 07:33 breathing. General Stated Complaint: Abd Prob SHILPA: 3 Review of Systems All systems reviewed & are unremarkable except as noted in HPI and below Constitutional Constitutional: Denies fever(s) Gastrointestinal Gastrointestinal: Reports as per HPI and Denies abdominal pain Exam Const General: cooperative and no acute distress Nutritional Appearance: thin HENMT Mouth: mucous membranes dry Eyes Conjunctivae: normal conjunctivae Sclera: normal sclerae Neck Neck: trachea midline and supple Resp Auscultation: clear to auscultation bilaterally, no rales, no rhonchi and no wheezes Cardio Rate: tachycardic Rhythm: regular rhythm GI Palpation: soft, not firm, no guarding, no masses, not rigid and nontender Skin General skin exam: no rashes or lesions noted Neuro General: patient alert, patient awake, patient oriented x3 and tone normal Extrem General: no edema Psych Appearance: grossly normal Mental Status: mental status grossly normal Course Vital Signs Vital signs: Vital Signs Temperature 36.4 C L 06/29/23 07:31 Pulse 89 06/29/23 07:31 Respiratory Rate 20 06/29/23 07:31 Blood Pressure 152/134 H 06/29/23 07:31 Pulse Oximetry 96 06/29/23 07:31 Temperature 36.4 C L 06/29/23 07:31 Temperature Source Skin 06/29/23 07:31 Pulse 89 06/29/23 07:31 Respiratory Rate 20 06/29/23 07:31 Blood Pressure 152/134 H 06/29/23 07:31 Blood Pressure Position Sitting 06/29/23 07:31 Pulse Oximetry 96 06/29/23 07:31 Oxygen Delivery Method Room Air 06/29/23 07:31 Oxygen Flow Rate 0 06/29/23 07:31 Pain Level 3 06/29/23 07:31 Lab/Test Results Lab/Test Results: Laboratory Tests Range/Units 06/29/23 07:50 Lipase Cancelled Medical Decision Making 830?tach 63-year-old male with history of Parkinson's disease, smoker, here with inability to consume foods difficulty swallowing, frequent postprandial vomiting, no bowel movement in 15 days, significant unintentional weight loss, no abdominal pain. Patient is dehydrated. He is tachycardic. Abdominal exam benign. Consider gastric outlet obstruction versus swallowing disorder. Plan to initiate treatment with diagnostic lab workup to assess for electrolyte disorders and biliary function. I will give IV fluid bolus and antiemetics. -- Labs reviewed and leukocytosis noted. Elevated hemoglobin. Hypokalemia noted. Creatinine elevated from baseline. Hyperglycemia. Hypercalcemia. Suspect hemoconcentration. Patient receiving 2 L IV fluid bolus. Potassium 20meq IV ordered. 1130 --CT of the abdomen pelvis interpreted by radiology:IMPRESSION:: Wall thickening of the distal esophagus which contains fluid. Similar appearance to prior. No focal mass or evidence of perforation. Question of colitis of the ascending colon. Findings called to Dr. Gonzalez of the emergency department. CT of the chest was obtained and interpreted by radiology: Fluid-filled, dilated esophagus with diffuse wall thickening. Question of area of narrowing of distal esophagus versus hiatal hernia. Findings called to Dr. Gonzalez of the emergency department. Patient was given Pepcid 20 mg IV. I will also give Protonix 40 mg IV. Patient reassessed and still not tolerating oral fluid intake. Plan to hospitalize for IV fluid and antiacids. Patient will likely need diagnostic EGD. Of note, patient has significant social challenges including lack of transportation. -- I spoke with the hospitalist on-call, Dr. Champion, discussed ED presentation course, he will admit the patient for dehydration and further diagnostic workup. Lab Data Lab results reviewed: Yes I reviewed the patient's lab results. Labs: Laboratory Tests Range/Units 06/29/23 06/29/23 07:50 07:50 WBC (4.4-10.8) 10^3/uL 14.45 H RBC (4.36-5.78) 10^6/uL 5.77 Hgb (13.5-17.5) g/dL 19.3 H* Hct (40.0-50.0) % 55.0 H MCV (80-95) fL 95 MCH (27.0-33.0) pg 33.4 H MCHC (32.0-36.0) % 35.1 RDW (11.8-14.1) % 13.1 Plt Count (130-400) 10^3/uL 364 MPV (8.0-11.0) fL 9.1 Immature Gran % % 0.9 Neutrophils % % 79.2 Lymphocytes % % 10.9 Monocytes % % 8.1 Eosinophils % % 0.1 Basophils % % 0.8 Nucleated RBC % (0.0-0.3) % 0.0 Absolute Neutrophils (1.2-6.7) 10^3/uL 11.44 H Absolute Lymphocytes (1.2-3.4) 10^3/uL 1.58 Absolute Monocytes (0.1-0.8) 10^3/uL 1.17 H Absolute Eosinophils (0.0-0.7) 10^3/uL 0.01 Absolute Basophils (0.0-0.2) 10^3/uL 0.12 RBC Morphology Normal Sodium (136-145) mmol/L 134 L Potassium (3.5-5.1) mmol/L 3.1 L Chloride (98-107) mmol/L 91 L Carbon Dioxide (21.0-32.0) mmol/L 24.4 Anion Gap (3-11) mmol/L 18.6 H BUN (7-18) mg/dL 13 Creatinine (0.70-1.30) mg/dL 1.5 H Est GFR (CKD-EPI 2020) (mL/min/1.73m2) 51.35 Glucose (74-106) mg/dL 184 H Calcium (8.5-10.1) mg/dL 10.3 H Magnesium (1.8-2.4) mg/dL 1.9 Total Bilirubin (0.2-1.0) mg/dL 0.7 AST (15-37) U/L 25 ALT (16-63) U/L 36 Alkaline Phosphatase (46-116) U/L 78 Total Protein (6.4-8.2) g/dL 9.2 H Albumin (3.4-5.0) g/dL 3.9 Lipase Cancelled 58 Quality:SDOH Health Related Social Needs: Health related social needs transpo insecurity PFSH All Active Problems (Updated 07/01/23 @ 12:52 by Foster Fair MD) Chronic pulmonary aspiration (Acute) Esophageal stricture (Acute) Stricture has been present since 2021 Aspiration of food (Acute) Patient had a swallow study in 2021 which showed mandeep aspiration Acute hypokalemia (Acute) Inability to swallow (Acute) Acute dehydration (Acute) Esophageal abnormality (Acute) Acute thoracic back pain (Acute) Bilateral pulmonary embolism (Acute) Pneumonia (Acute) Dysphagia (Acute) Memory loss (Acute) Erectile dysfunction (Acute) Constipation (Acute) Peripheral neuropathy (Acute) Primary Parkinson's disease (Acute) Medical History Hepatitis C per referral, pt has completed treatment Malignant melanoma of skin Hypertension Severe bipolar disorder with psychotic features, mood-congruent PTSD (post-traumatic stress disorder) Substance abuse Parkinsons disease Prediabetes Anxiety Osteoarthritis Melanoma H/O multiple concussions History of hepatitis C Surgical History H/O colonoscopy (~03/2019) S/P skin cancer resection Social History (Updated 06/29/23 @ 15:41 by Foster Champion) Smoking/Tobacco Use Status: Former Tobacco Use Smoking risk assessment performed?: Yes Alcohol Intake: former Year quit: 30 Counseling provided: provider counseling Drug use: Daily Substance use type: marijuana Details: no other substances Housing: apartment current occupation: None Seatbelt use: always Do you feel safe at home: Yes Do you feel safe in your relationship?: Yes Additional Social history: lives alone, no longer working. h/o prolonged incarceration before 2018
[2023-06-29 08:31] LABS: ALT 36 U/L (16-63); AST 25 U/L (15-37); Albumin 3.9 g/dL (3.4-5.0); Alkaline Phosphatase 78 U/L (46-116); Anion Gap 18.6 mmol/L (3-11); BUN 13 mg/dL (7-18); Bilirubin, Total 0.7 mg/dL (0.2-1.0); CO2 24.4 mmol/L (21.0-32.0); CREATININE 1.5 mg/dL (0.70-1.30); Calcium 10.3 mg/dL (8.5-10.1); Chloride 91 mmol/L (98-107); Estimated GFR 51.35 (mL/min/1.73m2); Glucose 184 mg/dL (74-106); Lipase 58 U/L (16-77); Magnesium 1.9 mg/dL (1.8-2.4); Potassium 3.1 mmol/L (3.5-5.1); Sodium 134 mmol/L (136-145); Total Protein 9.2 g/dL (6.4-8.2)
[2023-06-29 08:34] LABS: Diff Comment Diff Reviewed; RBC Morphology Normal
[2023-06-29] MEDS: Normal Saline Flush 10 ML SYR IVP ×2 (08:52→19:46)
[2023-06-29] MEDS: Normal Saline - Diluent 50 ML VIAL IJ (09:34)
[2023-06-29] MEDS: Omnipaque 350 MG/ML 100 ML BTL 93 ML IJ (09:35)
--- NOTE | 2023-06-29 09:42 | DI.CT_ITS ---
Exam(s) CT ABDOMEN PELVIS W EXAM: CT ABDOMEN PELVIS W CLINICAL HISTORY: inability to tolerate oral intake x 10day, N/V. TECHNIQUE: Imaging Protocol: Axial computed tomography images with coronal and sagittal reformatted images were created and reviewed CONTRAST MATERIAL: Intravenous: Omnipaque 350 Contrast volume:93 mL Oral: / no COMPARISON: CT CT CHEST PE CTA from 07/07/2021 FINDINGS: ABDOMEN and PELVIS: Lung Bases: The distal esophagus is again noted to be dilated and thick walled. There is fluid withi n the distal esophagus. Findings are similar to the prior exam. Liver: Normal density. No suspicious mass. Gallbladder and biliary tract: A few small stones are noted in the fundus of the gallbladder. No cruz iary dilation. Pancreas: Normal density. No abnormal calcifications or inflammatory process. No evidence of mass. Spleen: Normal. Kidneys: Normal size, contour and axis. No radiodense stones. No obstructive uropathy. No suspicious masses seen. Adrenal glands: No masses seen. Vasculature: Abdominal aorta non-dilated. Atherosclerotic changes. Soft tissues: Unremarkable. Bladder: Mild wall thickening. No calculi.No focal mass. Bowel: The stomach is empty and appears normal.. No small-bowel obstruction. No small bowel wall th ickening. Appendix is not visualized. Normal quantity of stool. Mild wall thickening of the ascendi ng colon which could indicate colitis. Peritoneal cavity: No ascites. No focal collection. No mesenteric inflammatory response. Bones: Unremarkable for age. Reproductive organs: Prostate enlarged. Press on base of bladder. Lymph nodes: No pathologically enlarged lymph nodes. IMPRESSION:: Wall thickening of the distal esophagus which contains fluid. Similar appearance to pr ior. No focal mass or evidence of perforation. Question of colitis of the ascending colon. Findings called to Dr. Gonzalez of the emergency department. RADIATION DOSE DELIVERED: 718.07mGy.cm Total DLP DATA REPOSITORY: All CT scans at this facility are submitted to the National Radiology Data Registry (NRDR) Dose Index Registry (DIR) with the [employer] (ACR). RADIATION OPTIMIZATION: All CT scans at this facility use at least one of these dose optimization te chniques: automated exposure control; mA and/or kV adjustment per patient size (includes targeted exa ms where dose is matched to clinical indication); or iterative reconstruction.
[2023-06-29] MEDS: POTASSIUM CHLORIDE 20 MEQ/100 ML BAG 50 MEQ IVINF (09:48)
--- NOTE | 2023-06-29 10:30 | DI.CT_ITS ---
Exam(s) CT CHEST WO EXAM: CT CHEST WO CLINICAL HISTORY: difficulty swallowing, abnormal finding on ct abd TECHNIQUE: Imaging Protocol: Axial computed tomography images with coronal and sagittal reformatted images were created and reviewed CONTRAST MATERIAL: No additional IV contrast given COMPARISON: CT CT CHEST PE CTA from 07/07/2021 FINDINGS: Pulmonary parenchyma: Emphysematous changes. No consolidation. No dominant measurable mass. Tracheobronchial tree: No bronchiectasis or mucous plugging. Mediastinum and Lexi: The esophagus is thickened and dilated throughout. Wall thickness 6 8 millimete rs. There is fluid throughout the esophagus extending to the upper portion. Focal area of narrowing d istal esophagus versus hiatal hernia and normal GE junction. Findings were present on prior exam, ho wever there is greater wall thickening current length. Pleura: No effusion. No pneumothorax. Heart: The heart is not dilated. No coronary artery calcifications are seen. Aorta: Thoracic aorta non-dilated. Mild atherosclerotic changes. Upper abdomen: No acute findings.. Bones: Degenerative changes in the spine. Soft tissues: Unremarkable. IMPRESSION: Fluid-filled, dilated esophagus with diffuse wall thickening. Question of area of narrowing of distal esophagus versus hiatal hernia. Findings called to Dr. Gonzalez of the emergency department. RADIATION DOSE DELIVERED: 395.3mGy.cm Total DLP DATA REPOSITORY: All CT scans at this facility are submitted to the National Radiology Data Registry (NRDR) Dose Index Registry (DIR) with the [employer] (ACR). RADIATION OPTIMIZATION: All CT scans at this facility use at least one of these dose optimization te chniques: automated exposure control; mA and/or kV adjustment per patient size (includes targeted exa ms where dose is matched to clinical indication); or iterative reconstruction.
[2023-06-29] MEDS: Pantoprazole 40 MG VIAL IVP ×2 (11:43→19:46)
--- NOTE | 2023-06-29 14:16 | SP_ITS ---
Date of service: 06/29/23 Time of Service: 14:16 Subjective Clinical (Bedside) Swallow Evaluation - Inpatient Speech Language Pathology Referred by: Natalya Elias MD surgery Start time: 1344 End time: 1410 Total patient contact: 25 min Referral Type: Routine Swallow Consult Precautions: Standard Reason for Referral/HPI: Patient is a 63 y/o M with Parkinson's admitted due to rapid unintentional weight loss and inability to eat for 10 days secondary to persistent regurgitation of all liquid and solid foods. Of note he did have MBSS completed in 2019. Radiologist findings indicated mandeep aspiration with intact cough reflex with thin liquid but resolved with thick barium. Unfortunately, we only received the radiologist report from this study so no further detail from RIM ROLLER SETTER analysis is available at this time. Chest imaging impressions from today as follows: Fluid-filled, dilated esophagus with diffuse wall thickening. Question of area of narrowing of distal esophagus versus hiatal hernia. RIM ROLLER SETTER IMPRESSIONS & RECOMMENDATIONS: Suspect profound esophageal dysphagia at this time. Although patient has a documented history of aspiration with thin liquids possibly in setting of Parkinson's disease, patient does not present with any s/sx aspiration this date and cranial nerve screening is unremarkable. Bedside evaluation was brief due to patient declining further trials beyond several sips of water and 3-4 bites applesauce. May benefit from MBSS this hospitalization if he is able to tolerate more PO intake without regurgitation. With his current persistent regurgitation I don't know that an MBSS would give us much more information to help resolve acute esophageal symptoms, but could help us to determine if there are additional swallow deficits overlying acute esophageal deficits. FURTHER INPATIENT RIM ROLLER SETTER SERVICES: Patient to be followed while on unit Modified Barium Swallow Study to be completed as able, if indicated Suggested Referrals/Consults: Gastroenterology Neurology Consider the Following Procedures: Barium Esophagram/Regular Barium Swallow Study DISCHARGE RECOMMENDATIONS: Pending further workup, patient may benefit from HH vs outpatient RIM ROLLER SETTER services. Diet Recommendations: ? SOLIDS: 4-Pureed Solids LIQUIDS: 0-Thin Liquids MEDICATIONS: Recommend alternative route when possible. If PO medications must be given, recommend Crushed as able or Liquid formulations when able With 4-Purees Alter medications only as advised by MD or Pharmacist RISK MANAGEMENT: Level of Assistance/Supervision: Intermittent supervision for all PO intake Positioning and environment: PO intake only when awake/alert? [place] upright for all PO intake. Oral hygiene BID/2x per day Using friction with toothbrush on all oral structures as tolerated Strategies/Adaptations/Assistive Equipment: Small sips Small bites Slow rate of intake Reflux Precautions: Small+frequent meals throughout day Maintain fully upright position at least 60 minutes after meals Avoid meals/snacks 2-3 hours prior to reclining/sleeping Sleep with head of bed elevated to reduce likelihood of nocturnal reflux Education Provided to: Nursing Patient Topics Addressed: anatomy/physiology of swallowing mechanism definition and impacts of aspiration impact of current diagnoses on swallow function role of RIM ROLLER SETTER in management of swallow disorders overt s/sx to monitor for re: potential aspiration of food / liquids relationship between reflux, GERD and swallow fxn relationship between respiratory function and deglutition rationale and instruction for additional risk management strategies as below SUBJECTIVE: Patient received: alert/awake. Agreeable to evaluation. Verbose. Pain Reported n/a Baseline Swallow Function: Patient reports minimal s/sx aspiration at baseline with liquids, states he had MBSS several years ago which showed aspiration, but he feels this has improved a lot with strategies (slow pace, very small sips). He does describe progressive esophageal dysphagia with frequent sensation of esophageal (both distal and proximal) stasis and frequent regurgitation. Liquids are now worse, whereas previously he had more trouble and regurgitation with solids. At this time he reports frequent persistent regurgitation of liquids after a short delay, and frequent regurgitation of purees and solids after a longer delay. He reports he has tried all consistencies and eventually everything comes back up. He doesn't think anything has gotten into his stomach. Frequently wakes up at night with regurgitated material in his mouth. OBJECTIVE Patient positioning: [place] upright in bed Respiratory status: Room air, Tolerates well without s/sx dyspnea Orientation/Mental status: Oriented to self,Oriented to situation, appears to be areliable property preservation specialist, recall of recent and distant events is intact. Speech: WFL Oral Mechanism Examination: Dentition: Partial natural dentition - Fair condition Oral mucosa: Dry Cranial Nerve Assessment: WFL CN V ? Trigeminal Facial Sensation WNL Jaw Strength/ROM WNL ?WNL CN VII- Facial WNL labial ROM, strength, coordination. WNL lingual sensation WNL CN IX ? Glossopharyngeal WNL palatal elevation with phonation. No evidence of nasal emissions WNL CN X ? Vagus WNL Vocal quality and volume. Strong/sharp volitional cough WNL CX XII ? Hypoglossal WNL lingual ROM, strength, coordination WNL PO Intake: Trials Assessed: Ice Chips x2 IDDSI 0 Thin Liquids x 4 sips (small) IDDSI 4 Puree Solid x 3 bites (small) - patient declines trials of thickened liquids this date and states he would not be interested in drinking them if recommended in the future. Oral Phase Findings: WFL (limited exam, liquids and purees only) Self-selected very small, single sips and bites. Pharyngeal Phase Findings: WFL (admittedly, limited exam with few trials/consistencies taken) Esophageal Phase Findings: Patient began regurgitating after delay of several minutes and continued thereafter, appearing to spit out foamy white sputum initially which changed to more liquid consistency at times and later color to yellow (likely applesauce). ? [place] Swallow Protocol Results: FAIL ? Unable to complete without stopping/starting S/Sx aspiration not observed. PLAN: RIM ROLLER SETTER will attempt to complete MBSS this hospitalization if indicated. Goals: [facility] Goals: Patient will remain free from aspiration-related illness, malnutrition, and dehydration. Short Term Goals: Patient will participate in ongoing diagnostic treatment addressing areas of [ ] Patient will tolerate Puree Diet without overt s/s aspiration across 2/2 visits. Patient will tolerate PO trials for consideration of diet upgrade without overt s/s aspiration across 2/2 visits. RIM ROLLER SETTER CPT Code: 95469 Clinical Swallowing Evaluation
--- NOTE | 2023-06-29 14:19 | SCONE_ITS ---
Date of service: 06/30/23 Time of Service: 18:30 Assessment and Plan Assessment and plan (1) Bilateral pulmonary embolism: Status: Acute Assessment and plan: In 2021. He is not currently on anticoagulation (2) Dysphagia: Status: Acute (3) Esophageal abnormality: Status: Acute (4) Inability to swallow: Status: Acute Assessment and plan: Patient is not able to control his own secretions and is constantly aspirating saliva especially when he is trying to sleep or if he is lying down. I did (5) Aspiration of food: Status: Acute Assessment and plan: Patient has had an esophageal stricture and has been grossly aspirating since 2019. He has seen speech at both [place] and in [facility] and has not complied with their recommendations or has had any follow-up with speech. He is high risk in being that he is a daily smoker drinker. He also has a history of medical illness and is noncompliant with recommended medical therapy. (6) Esophageal stricture: Status: Acute Assessment and plan: Noted on CT back in 2021. It is mildly worse on the CT today. (7) Acute dehydration: Status: Acute (8) Acute hypokalemia: Status: Acute (9) Primary Parkinson's disease: Status: Acute Assessment and plan: Not currently on any medications. He did not like the way the medications made him feel so he stopped blood (10) Peripheral neuropathy: Status: Acute (11) PTSD (post-traumatic stress disorder): (12) Severe bipolar disorder with psychotic features, mood-congruent: (13) Substance abuse: (14) Hypertension: (15) Prediabetes: (16) History of hepatitis C: (17) Melanoma: (18) Osteoarthritis: (19) Parkinsons disease: (20) Chronic pulmonary aspiration: Status: Acute Assessment and plan: - Patient consented for Hegar at his bedside for removal of secretions. He needs to have thickened liquids at all times versus being kept n.p.o. -Awaiting full speech evaluation and MBSS. Although he slept the last 2 he has had. I think it is more important that he get started on medications for his Parkinson's and continue to work with speech to strengthen the muscles as much as possible. Believe his problem stems more from his Parkinson's and loss of nerve and motor control of his swallowing reflexes. We certainly can do a EGD. This is scheduled on [place] with Dr. Elias. I would continue to treat him maximally with PPI and Carafate if he is able to swallow pills. -Nutrition consult is recommended -I also talked with the patient briefly of about having a feeding tube placed the patient does say he does want to live for the longest that he possibly can. If he can no longer take and oral nutrition to sustain himself, he would want feeding tube placed and not to go into hospice. We talked about how they are placed. We talked about how they are cared for at home and how he can feed himself. .enrique 45 mins spent in direct pt care and 20 in non face to face time History of Present Illness Narrative: Patient presents to the ER with intractable nausea and vomiting. He has had an esophageal stricture since 2021. This Was present on CT in 2021. He had a chest CT in 2021 for bilateral pulmonary emboli, and the dilated fluid-filled esophagus was noted at that time. He had a speech evaluation both at an [facility] 2021 and at [place] in 2019. Both showed gross aspiration. He refused to follow-up with speech. He refused to follow any of the recommendations. He is not currently on any stomach medications. He smokes cigarettes daily/drinks alcohol daily/uses THC products daily. He recently stopped drinking and I do not know if this plays into any of nausea and vomiting. He was diagnosed with Parkinson's for 5 years ago. He notes he is very stiff. He has a hard time relaxing. Patient notes he has to sleep sitting up because otherwise he aspirates secretions during the night. He coughs and chokes when he drinks water. food feels like he gets about senior care down his esophagus and that will not pass, so he has to vomit. He can no longer control his secretions. He wakes up coughing at night and often feels that his saliva is going into his airways. The patient notes he has not been able to swallow anything in the last 10 to 14 days. He is lost 44 pounds this year. He has no abdominal pain. He has not noticed any blood in his stools. He had severe dehydration and electrolyte derangement on admission these are being corrected. Patient has never had any injury or radiation to his esophagus in the past. He used to be a heavy smoker heavy drinker. He has since ceased in these activities. He is not currently on any stomach medication. He does not take any medications whatsoever. He has not noticed any blood in his stools or dark tarry stools. He does not have any abdominal pain. Patient is not currently on any treatment for the Parkinson's. He did not like the way the carbidopa levodopa made him feel. He feels like he needs a muscle relaxer so his muscles will not be so stiff. He is not currently on baclofen and we can try this * Tremor * bradykinesia. * Rigid muscles * Impaired posture and balance * Loss of automatic movements * Speech changes * * He does not follow-up with speech therapy. He does not follow-up with PT. He is not in any Parkinson's groups. He does not do regular exercise. Review of Systems All systems reviewed & are unremarkable except as noted in HPI and below PFSH All Active Problems (Updated 06/30/23 @ 00:50 by Natalya Elias DO) Chronic pulmonary aspiration (Acute) Esophageal stricture (Acute) Stricture has been present since 2021 Aspiration of food (Acute) Patient had a swallow study in 2021 which showed mandeep aspiration Acute hypokalemia (Acute) Inability to swallow (Acute) Acute dehydration (Acute) Esophageal abnormality (Acute) Acute thoracic back pain (Acute) Bilateral pulmonary embolism (Acute) Pneumonia (Acute) Dysphagia (Acute) Memory loss (Acute) Erectile dysfunction (Acute) Constipation (Acute) Peripheral neuropathy (Acute) Primary Parkinson's disease (Acute) Medical History Hepatitis C per referral, pt has completed treatment Malignant melanoma of skin Hypertension Severe bipolar disorder with psychotic features, mood-congruent PTSD (post-traumatic stress disorder) Substance abuse Parkinsons disease Prediabetes Anxiety Osteoarthritis Melanoma H/O multiple concussions History of hepatitis C Surgical History H/O colonoscopy (~03/2019) S/P skin cancer resection Social History (Updated 06/29/23 @ 15:41 by Foster Champion) Smoking/Tobacco Use Status: Former Tobacco Use Smoking risk assessment performed?: Yes Alcohol Intake: former Year quit: 30 Counseling provided: provider counseling Drug use: Daily Substance use type: marijuana Details: no other substances Housing: apartment current occupation: None Seatbelt use: always Do you feel safe at home: Yes Do you feel safe in your relationship?: Yes Additional Social history: lives alone, no longer working. h/o prolonged incarceration before 2018 Exam Const General: cooperative, comfortable, no acute distress, disheveled and frail appearing Nutritional Appearance: cachectic, malnourished, thin and underweight Orientation: alert, awake and oriented x3 Other: PHYSICAL EXAM GENERAL APPEARANCE: Alert, healthy appearance, oriented, x 3,? in no acute distres HEAD, EYES, EARS, NECK, THROAT: Head is normocephalic, pupils equal, round, reactive to light and accommodation, ocular movement intact, sclera clear and no jaundice. ?Dentition poor.. + sore throat.? ?HEART: Regular rate and rhythm. no murmurs ABDOMEN: soft and non-tender to palpation.? Normal bowel sounds.? Neuro General: patient alert, patient oriented x3 and gait abnormal Gait: ataxic Motor: other (bradykinesia/tremor) Extrem General: no clubbing, cyanosis or edema and muscle atrophy Results Last Vital Signs Temp 36.8 C 06/29/23 13:18 Pulse 89 06/29/23 13:18 Resp 16 06/29/23 13:18 BP 131/99 H 06/29/23 13:18 Pulse Ox 100 06/29/23 13:18 Labs 06/29/23 07:50 06/29/23 07:50 Labs: Laboratory Results - last 24 hr 06/29/23 06/29/23 07:50 07:50 WBC 14.45 H RBC 5.77 Hgb 19.3 H* Hct 55.0 H MCV 95 MCH 33.4 H MCHC 35.1 RDW 13.1 Plt Count 364 MPV 9.1 Immature Gran % 0.9 Neutrophils % 79.2 Lymphocytes % 10.9 Monocytes % 8.1 Eosinophils % 0.1 Basophils % 0.8 Nucleated RBC % 0.0 Absolute Neutrophils 11.44 H Absolute Lymphocytes 1.58 Absolute Monocytes 1.17 H Absolute Eosinophils 0.01 Absolute Basophils 0.12 RBC Morphology Normal Sodium 134 L Potassium 3.1 L Chloride 91 L Carbon Dioxide 24.4 Anion Gap 18.6 H BUN 13 Creatinine 1.5 H Est GFR (CKD-EPI 2020) 51.35 Glucose 184 H Calcium 10.3 H Magnesium 1.9 Total Bilirubin 0.7 AST 25 ALT 36 Alkaline Phosphatase 78 Total Protein 9.2 H Albumin 3.9 Lipase Cancelled 58
[2023-06-29] MEDS: POTASSIUM CHLORIDE/D5-0.45NACL 1,000 ML 125 MEQ IV ×2 (14:38→22:27)
--- NOTE | 2023-06-29 15:12 | HPE_ITS ---
Date of service: 06/29/23 Time of Service: 15:12 Assessment and Plan Assessment and plan (1) Acute dehydration: Status: Acute Assessment and plan: Mr. Schuler presented acutely dehyrated due to inability to swallow. He feels better after 2 liters of isotonic fluids. Continue maintenance fluids, allow po with caution. (2) Acute hypokalemia: Status: Acute Assessment and plan: corrected in the emergency room, follow. (3) Inability to swallow: Status: Acute Assessment and plan: He has a history of possible aspiration pneumonia in the past, but not in the past 2 years. Will allow pureed/liquid diet after discussion with speech therapy, who saw the patient and reviewed the 2021 study from [place]. This is an exacerbation of a chronic issue. (4) Esophageal abnormality: Status: Acute Assessment and plan: this was present in 2019, which means cancer is less likely, though he has risk factors. He is loosing weight and needs EGD, which will happen Sunday 07/02 per surgery consult. (5) Parkinsons disease: Assessment and plan: He was being followed with Dr. Marrufo but did not follow up in the past 2 years as he was frustrated with multiple medicaitons that did not help his symtpoms. Interestingly, his intention tremor is more pronounced than his resting tremor and he states alcohol improved his symptoms. Per Fede Owen he has a combined tremor Parkinsons and essential, which makes sense to me. He did not improve with propranolol, but we could trial primidone. Will ask for PT given falls at home. History of Present Illness History of Present Illness Chief Complaint: vomiting, food getting stuck N arrative: 63 yo M with history of dysphagia, Parkinsons with essential tremor who presents with inability to keep food down over the past 10 days. He has had some chronic difficulty swallowing at times for years, but for the past 10 days anything he swallows will come back up. Sometimes it feels stuck at the bottom of the throat, but often it will feel like it goes down to the mid upper chest for a few minutes, then comes back up. Clear today, often yellowish and sour. Solid or worse, but fluids will do the same. No bleeding or coffee grounds. He denies abdominal pain. He hasn't had BM in 15 days, but hasn't eaten. He states he has lost >30lbs. He denies any injury or acute event before this started, though he states it started around the time he stopped drinking beer. He was drinking 4-5 24 ounce beers per day, but gradually tapered down to one and then off about 2 weeks ago. He denies cravings or withdrawal, but he does say the beers were helping his tremor. He hasn't taken Parkinsons medication for years because it never helped him and it gave him side effects like hallucinations, and there were too many pills. Review of Systems All systems reviewed & are unremarkable except as noted in HPI and below Constitutional Constitutional: Denies chills, Denies fever(s), Denies headache(s) and Reports weight loss ENT Ears, Nose, Mouth, and Throat: Denies change in voice, Denies headache(s), Denies mouth lesions, Denies neck mass, Denies neck pain and Denies sore throat Cardiovascular Cardiovascular: Denies chest pain, Denies syncope, Denies palpitations and Denies dyspnea Respiratory Respiratory: Denies dyspnea Genitourinary Genitourinary: Denies hematuria, Denies oliguria and Denies dysuria Musculoskeletal Musculoskeletal: Denies neck pain Neurologic Neurologic: Denies abnormal speech, Denies confusion, Denies syncope, Denies headache(s), Denies localized weakness, Denies memory loss and Reports sensory deficit (in feet chronically) Psychiatric Psychiatric: Denies confusion, Denies depression, Denies memory loss, Denies mood swings, Denies visual hallucinations and Denies hallucinations Endocrine Endocrine: Denies palpitations PFSH All Active Problems Esophageal stricture (Acute) Stricture has been present since 2021 Aspiration of food (Acute) Patient had a swallow study in 2021 which showed mandeep aspiration Acute hypokalemia (Acute) Inability to swallow (Acute) Acute dehydration (Acute) Esophageal abnormality (Acute) Acute thoracic back pain (Acute) Bilateral pulmonary embolism (Acute) Pneumonia (Acute) Dysphagia (Acute) Memory loss (Acute) Erectile dysfunction (Acute) Constipation (Acute) Peripheral neuropathy (Acute) Primary Parkinson's disease (Acute) Medical History Hepatitis C per referral, pt has completed treatment Malignant melanoma of skin Hypertension Severe bipolar disorder with psychotic features, mood-congruent PTSD (post-traumatic stress disorder) Substance abuse Parkinsons disease Prediabetes Anxiety Osteoarthritis Melanoma H/O multiple concussions History of hepatitis C Surgical History H/O colonoscopy (~03/2019) S/P skin cancer resection Social History (Updated 06/29/23 @ 15:41 by Foster Champion) Smoking/Tobacco Use Status: Former Tobacco Use Smoking risk assessment performed?: Yes Alcohol Intake: former Year quit: 30 Counseling provided: provider counseling Drug use: Daily Substance use type: marijuana Details: no other substances Housing: apartment current occupation: None Seatbelt use: always Do you feel safe at home: Yes Do you feel safe in your relationship?: Yes Additional Social history: lives alone, no longer working. h/o prolonged incarceration before 2018 Meds Allergies and Home Medications Allergies Allergy/AdvReac Type Severity Reaction Status Date / Time mirabegron [From Myrbetriq] Allergy Severe Difficulty Verified 06/29/23 07:33 breathing. Home Medications Medication Instructions Recorded Confirmed Type Unknown [No Known Home Meds] 06/29/23 06/29/23 History Exam Narrative Exam Narrative: GEN: Alert and oriented, pleasant and cooperative, gives linear history. No acute distress at rest. HEENT: Head atraumatic. Conjunctiva clear, no icterus. PEERL, EOMI. no rhinorrhea. MMM, OP benign. Neck is supple with no masses or lymphadenopathy, trachea midline LUNGS: CTAB with normal effort CV: RRR with no murmurs, gallops, or rubs. ABD: +BS, soft, NT/ND EXT: no cyanosis, clubbing, or edema MSK: No joint redness or swelling NEURO: CN 2-12 grossly intact. Symmetric strength of 4 extremities. Tone normal. He has mild slow resting tremor, more pronounced tremor in hands with activity. Resting bouncing tremor in legs. Normal speech and coordination. DTRs 1+ cruz, symmetric. SKIN: pink patches with scale in le. No other rashes or open wounds. PSYCH: normal mood and affect, no hallucinations. Nl thought process Results Imaging Abdomen CT scan report/results: report reviewed (Wall thickening of the distal esophagus which contains fluid. Similar appearance to prior. No focal mass or evidence of perforation. Question of colitis of the ascending colon.) CT scan - chest: report reviewed (Fluid-filled, dilated esophagus with diffuse wall thickening. Question of area of narrowing of distal esophagus versus hiatal hernia. ) CT scan - pelvis: report reviewed Labs 06/29/23 07:50 06/29/23 07:50 Labs: Laboratory Results - last 24 hr 06/29/23 06/29/23 07:50 07:50 WBC 14.45 H RBC 5.77 Hgb 19.3 H* Hct 55.0 H MCV 95 MCH 33.4 H MCHC 35.1 RDW 13.1 Plt Count 364 MPV 9.1 Immature Gran % 0.9 Neutrophils % 79.2 Lymphocytes % 10.9 Monocytes % 8.1 Eosinophils % 0.1 Basophils % 0.8 Nucleated RBC % 0.0 Absolute Neutrophils 11.44 H Absolute Lymphocytes 1.58 Absolute Monocytes 1.17 H Absolute Eosinophils 0.01 Absolute Basophils 0.12 RBC Morphology Normal Sodium 134 L Potassium 3.1 L Chloride 91 L Carbon Dioxide 24.4 Anion Gap 18.6 H BUN 13 Creatinine 1.5 H Est GFR (CKD-EPI 2020) 51.35 Glucose 184 H Calcium 10.3 H Magnesium 1.9 Total Bilirubin 0.7 AST 25 ALT 36 Alkaline Phosphatase 78 Total Protein 9.2 H Albumin 3.9 Lipase Cancelled 58 Last Vital Signs Temp 36.8 C 06/29/23 13:18 Pulse 89 06/29/23 13:18 Resp 16 06/29/23 13:18 BP 131/99 H 06/29/23 13:18 Pulse Ox 100 06/29/23 13:18 PAWSS Have you Been Recently Intoxicated or Drunk Within the Last 30 days?: No Have you Ever Experienced Previous Episodes of Alcohol Withdrawal?: No Have you ever Experienced Withdrawal Seizures?: No Have you ever Experienced Delirium Tremens(DT)s?: No Have you ever undergone Alcohol Rehabilitation Treatment (i.e, inpt ot outpatient treatment programs)?: No Have you ever Experienced Blackouts?: No Have you ever Combined Alcohol with other Downers within the last 90 days?: No Have you ever Combined Alcohol with any other Substance of Abuse during the last 90 days?: No Positive Blood Alcohol level on Presentation? [PCS.BAL]: No Evidence of Increased Autonomic Activity (i.e. HR>120, tremor, sweating, agitation, nausea)?: No Result: 0 Time Spent Time spent with Patient: 55-74 minutes Time was spent: preparing to see the patient(eg.review tests), obtaining and/or reviewing separately otained hiistory, ordering medications,tests, procedures, referring, communicating with other health child care centre manager, indepentently interpreting results and counseling the patient
--- NOTE | 2023-06-29 17:19 | IN_ITS ---
PT Notes Visit Reasons: Vomiting, Esophageal Dysphagia Inpatient Physical Therapy Evaluation Date: 06/29/23 Referring Doctor: Dr. Champion PT Orders: PT CONSULT: fall safety assessment Precautions: fall, standard Patient Profile/Admitting Diagnosis: Jesus was admitted today on observation status for management of acute dehydration in the presence of esophageal stricture limiting his ability to keep food down. He has underlying diagnosis of PD with frequent falls, and PT consult requested for fall risk assessment. Social History/Home Situation: Resides alone in a private apartment on second floor, full flight of stairs to enter. Ambulates independently and without device, but with frequent falls. Equipment Owned/DME: none Subjective: Jesus states that he is weak from being unable to eat. He normally walks daily in the community, and tries to stay as active as he can. He is very careful due to his tremor and balance issues. He occasionally falls on his walks, although more frequently in his home. States that he often has to marcelo to get to the sink when he's vomiting, or loses his balance when navigating the bathroom. He is unable to fit a walker in his home, nor is he able to manage it up and down the stairs. He does report that he participated in both PT and [employer] boxing in the past. He discontinued both due to difficulty getting to appointments due to ride issues. Objective: General Observation: Resting in bed, with LE>UE tremor. No lines. Mental Status: A&Ox3. Pleasant and cooperative. Impulsive movements, demonstrating how he runs to the sink. Refuses walker trial. ROM: Right Upper Extremity: Shoulder flexion 145*. Elbow and wrist motion WFL. Left Upper Extremity: Shoulder flexion 145*. Elbow and wrist motion WFL. Right Lower Extremity: WFL Left Lower Extremity: WFL Strength: Right Upper Extremity: WFL Left Upper Extremity: WFL Right Lower Extremity: WFL Left Lower Extremity: WFL Bed Mobility/Transfers: supine-sit: independent sit-supine: independent sit-stand: independent, with wide MARGARET stand-sit: independent Gait: Ambulates 200' without AD, SBA. Maintains wide MARGARET, with flat feet through all phases of gait. Lacking arm swing on the left; minimal arm swing on the right. With cues, he's able to correct, although with limited carryover. Balance: Static Sitting: normal Dynamic Sitting: normal Static Standing: good Dynamic Standing: good Courtney Balance Test: 31/56 indicating moderately increased risk for falls Special Tests: Mobility Limitations Standardized Measure [facility] AM-PAC 6 clicks Basic Mobility Inpatient Short Form: Raw Score: 24 CMS Score: 0% impairment Informed Consent/Education: Patient instructed in purpose of PT consult and plan of care. Initial Evaluation: 58770 Therapeutic Exercise: 27245 Instructed in high-rate cardiovascular activity, performing NuStep at 60SPM x 2 minutes (d/c due to increasing nausea). Discussed supportive evidence of tremor reduction with regular, fast or forced-rate cycling activities. Discussed safety considerations for home at length: having a plan for vomiting (trash or bowl nearby, etc) to avoid quick movements toward sink; eliminating clutter to reduce freezing and eliminate hazards; use of trekking poles/walking sticks for community ambulation Assessment: Patient is a 63 year old male referred to physical therapy services for fall risk assessment during observation stay for acute dehydration. He has underlying PD, and a history of frequent falls. Although his Courtney Balance score (in addition to h/o falls) are supportive of need for AD, he is not open to considering at this time. He does demonstrate significant balance impairment, and will benefit from PT intervention to address this during his hospital stay. I've strongly encouraged him to consider resuming outpatient PT or [employer] boxing upon return to the community, as he has not participated in exercise- based treatment of his PD for several years. He demonstrates the following impairment level findings: 1. balance impairment (BBS 31/56) 2. gait impairment 3. essential and intention tremor 4. h/o falls Impairments are contributing to the following functional limitations: 1. high risk for future falls 2. gait impairments Patient is assessed as Low 79292 complexity based on the following: History: As above Examination: functional limitations as noted above Presentation: evolving due to acute medical issues Decision Making: stable Goals: Goals X1 week 1. Able to demonstrate bilat arm swing during ambulation with minimal cues 2. verbalize understanding of safety considerations for home Plan of Care/Treatment Plan: 1-2x/day, 7 days/week x 1 week. Plan of care has been reviewed with the MOBILE THERAPIST providing the service under Physical Therapy direction. Initiate Physical Therapy intervention for strengthening, bed mobility, transfers, gait, stairs, balance training, use of assistive device. DISCHARGE RECOMMENDATIONS: Home with outpatient PT Recommend walking stick or trekking pole for community ambulation TREATMENT CODE/TIME: [id number] ([id number], [id number]) Reny Can, PT, DPT [facility] Please sign an return this page within 30 days if you agree with the above POC. Thank you! Physician Signature Date [facility] PFSH All Active Problems Esophageal stricture (Acute) Stricture has been present since 2021 Aspiration of food (Acute) Patient had a swallow study in 2021 which showed mandeep aspiration Acute hypokalemia (Acute) Inability to swallow (Acute) Acute dehydration (Acute) Esophageal abnormality (Acute) Acute thoracic back pain (Acute) Bilateral pulmonary embolism (Acute) Pneumonia (Acute) Dysphagia (Acute) Memory loss (Acute) Erectile dysfunction (Acute) Constipation (Acute) Peripheral neuropathy (Acute) Primary Parkinson's disease (Acute) Medical History Hepatitis C per referral, pt has completed treatment Malignant melanoma of skin Hypertension Severe bipolar disorder with psychotic features, mood-congruent PTSD (post-traumatic stress disorder) Substance abuse Parkinsons disease Prediabetes Anxiety Osteoarthritis Melanoma H/O multiple concussions History of hepatitis C Surgical History H/O colonoscopy (~03/2019) S/P skin cancer resection
[2023-06-29] MEDS: Baclofen 10 MG TAB PO (20:17)
[2023-06-30] MEDS: POTASSIUM CHLORIDE/D5-0.45NACL 1,000 ML 125 MEQ IV ×3 (06:13→21:35)
[2023-06-30 06:41] LABS: Abs Immature Grans 0.04 10^3/uL (0.0-0.06); Absolute Basophil Count 0.05 10^3/uL (0.0-0.2); Absolute Eosinophil Count 0.02 10^3/uL (0.0-0.7); Absolute Lymphocyte Count 1.22 10^3/uL (1.2-3.4); Absolute Monocyte Count 0.75 10^3/uL (0.1-0.8); Absolute Neutrophil Count 5.25 10^3/uL (1.2-6.7); Basophils % 0.7 %; Eosinophils % 0.3 %; HCT 42.8 % (40.0-50.0); HGB 14.9 g/dL (13.5-17.5); Immature Grans % 0.5 %; Lymphocytes % 16.6 %; MCH 33.4 pg (27.0-33.0); MCHC 34.8 % (32.0-36.0); MCV 96 fL (80-95); MPV 9.1 fL (8.0-11.0); Monocytes % 10.2 %; Neutrophils % 71.7 %; Platelet Count 203 10^3/uL (130-400); RBC 4.46 10^6/uL (4.36-5.78); RDW 13.2 % (11.8-14.1); RDW-SD 47.1 fL; WBC 7.33 10^3/uL (4.4-10.8)
[2023-06-30 06:58] LABS: Anion Gap 10.1 mmol/L (3-11); BUN 7 mg/dL (7-18); CO2 26.9 mmol/L (21.0-32.0); CREATININE 0.8 mg/dL (0.70-1.30); Calcium 8.6 mg/dL (8.5-10.1); Chloride 101 mmol/L (98-107); Estimated GFR 98.21 (mL/min/1.73m2); Glucose 143 mg/dL (74-106); Potassium 3.4 mmol/L (3.5-5.1); Sodium 138 mmol/L (136-145)
[2023-06-30 07:11] VITALS: BP 133/97; PULSE 88; RESP 20; TEMP 35.8; O2SAT 100
[2023-06-30 07:26] LABS: Vitamin B12 1030 pg/mL (193-986)
[2023-06-30] MEDS: Baclofen 10 MG TAB PO ×3 (07:50→21:13)
[2023-06-30] MEDS: Normal Saline Flush 10 ML SYR IVP ×3 (07:50→21:13)
[2023-06-30] MEDS: Docusate Sodium 100 MG CAP PO ×2 (07:50→21:13)
[2023-06-30] MEDS: Prochlorperazine 10 MG/2 ML VIAL 5 MG IVP (07:51)
[2023-06-30] MEDS: Pantoprazole 40 MG VIAL IVP ×2 (07:51→21:00)
--- NOTE | 2023-06-30 10:34 | INITIAL_ITS ---
Date of service: 06/30/23 Time of Service: 10:34 Care Management Initial Assmt Initial Assessment REASON FOR HOSPITALIZATION:: vomiting, esophageal dysphagia PREVIOUS FUNCTIONAL STATUS/SOCIAL/FAMILY SUPPORTS:: Jesus lives in an apartment in [place]. 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 He stated that he has not been able to use tools due to his dx of Parkinsons, about 9 years ago. He has a large network of supportive friends that he talks to occasionally. He has a close friend, that he considers his sister, Lona. He is independent at baseline. CURRENT FUNCTIONAL STATUS:: Toen was lying in bed when CM met with him. He was resting, but woke up easily to his name. He stated that he is tired, and has been all day. He reported that he feels better today than he has in a while, because he hasn't been able to eat/drink, or keep anything down for several days. He is on IV fluids, and a thin liquid diet. He reported that he was able to eat some mashed potatoes and a carnation shake today, which he was happy about. Per report, he may require an EDG, which will likely happen early this week. CM discussed community services, and he stated that he is very private, and does not want anyone in his home. He reported that he requested support from [facility] with rides locally to the [employer] as well as the grocery store, and was unsuccessful. He declined a referral to [facility] at this time. CM will continue to follow. ADVANCE DIRECTIVES:: On file; Lona Chaparro listed as [facility]. Has patient been provided with info about the portal/API?: Yes Did the patient sign up for the portal?: No INSURANCE COVERAGE / FINANCIAL ISSUES:: [employer]. CURRENT HOME/COMMUNITY SERVICES/EQUIPMENT:: None. PRIMARY CARE PHYSICIAN:: No PCP listed. POTENTIAL DISCHARGE NEEDS:: Evaluations for further needs, follow up appointments- will need appt scheduled with substation electrician supervisor provider. PATIENT/FAMILY EDUCATION NEEDS:: Review discharge instructions and limitations, discussion of self care needs including ask me three. ANTICIPATED BARRIERS TO DISCHARGE:: None identified. TRANSPORTATION:: Via private vehicle by a friend vs [facility]. PLAN:: Anticipate Jesus will return home once medically cleared. He will be driven home via private vehicle by a friend vs [facility]. He will follow up with his PCP and discharge plan of care. CM will continue to follow. PFSH All Active Problems (Updated 06/30/23 @ 00:50 by Natalya Elias DO) Chronic pulmonary aspiration (Acute) Esophageal stricture (Acute) Stricture has been present since 2021 Aspiration of food (Acute) Patient had a swallow study in 2021 which showed mandeep aspiration Acute hypokalemia (Acute) Inability to swallow (Acute) Acute dehydration (Acute) Esophageal abnormality (Acute) Acute thoracic back pain (Acute) Bilateral pulmonary embolism (Acute) Pneumonia (Acute) Dysphagia (Acute) Memory loss (Acute) Erectile dysfunction (Acute) Constipation (Acute) Peripheral neuropathy (Acute) Primary Parkinson's disease (Acute) Medical History Hepatitis C per referral, pt has completed treatment Malignant melanoma of skin Hypertension Severe bipolar disorder with psychotic features, mood-congruent PTSD (post-traumatic stress disorder) Substance abuse Parkinsons disease Prediabetes Anxiety Osteoarthritis Melanoma H/O multiple concussions History of hepatitis C Surgical History H/O colonoscopy (~03/2019) S/P skin cancer resection Social History (Updated 06/29/23 @ 15:41 by Foster Champion) Smoking/Tobacco Use Status: Former Tobacco Use Smoking risk assessment performed?: Yes Alcohol Intake: former Year quit: 30 Counseling provided: provider counseling Drug use: Daily Substance use type: marijuana Details: no other substances Housing: apartment current occupation: None Seatbelt use: always Do you feel safe at home: Yes Do you feel safe in your relationship?: Yes Additional Social history: lives alone, no longer working. h/o prolonged incarceration before 2018 SDOH(Care Management) Screening Will the Patient Participate in the Screening?: Yes Do you worry about having a steady place to live?: no Problems where you live: no known problems In the past 12 months, have you had to go without electric, gas, oil or water in your home?: no Have you or anyone in your house had to go without enough food to eat?: no Has lack of transportation kept you from medical appointments or from doing things needed for daily living?: yes Has anyone in your support network made you feel unsafe for any reason?: no Health Related Social Needs Health related social needs: transportation insecurity(Z59.82)
[2023-06-30] MEDS: LORazepam 2 MG/ML VIAL 0.5 MG IVP ×2 (10:48→21:13)
--- NOTE | 2023-06-30 12:03 | PT.INNT ---
PT Notes Visit Reasons: Vomiting, Esophageal Dysphagia refused session this am stating that he was focused on eating very slowly so it will stay down. Will check in on him tomorrow am.
--- NOTE | 2023-06-30 13:12 | W.PM.PROGNOT ---
Date of Service Date of service: 06/30/23 Time of Service: 08:20 Assessment and Plan Assessment and plan (1) Acute dehydration: Status: Acute Assessment and plan: Mr. Schuler presented acutely dehyrated due to inability to swallow. He felt better after 2 liters of isotonic fluids in ED, Continue maintenance fluids, allow po with caution. Avoid dopamine antagonists, stop compazine. If ondansatron doesn't work for nausea, can try benzodiazepine prn as this has helped in the past. (2) Acute hypokalemia: Status: Acute Assessment and plan: corrected in the emergency room, still slightly low, give additional IV today as not taking PO well (3) Inability to swallow: Status: Acute Assessment and plan: He does have a chronic dysphagia that is both oropharyngeal and esophogeal. He has a history of possible aspiration pneumonia in the past, but not in the past 2 years. We decided to allow pureed/liquid diet after discussion with speech therapy, who saw the patient and reviewed the 2021 study from [place]. He describes improvement in his swallow after taking benzodiazepine or drinking alcohol in the past, suggesting muscle relaxation helps. Surgery started baclofen, which is IKER acting and may help. There is some evidence for 5-HT4 agonists in parkinsons dysphagia, prucalopride as well. We did discuss g-tube as eventual option, but he would like to try more medical options first. (4) Esophageal abnormality: Status: Acute Assessment and plan: this was present in 2019, which means cancer is less likely, though he has risk factors. He is loosing weight and needs EGD, which will happen Sunday/Sunday per surgery consult. Per surgery this is likely neuromuscular or stricture, not a mass. (5) Parkinsons disease: Assessment and plan: He was being followed with Dr. Marrufo but did not follow up in the past 2 years as he was frustrated with multiple medicaitons that did not help his symtpoms. Interestingly, his intention tremor is more pronounced than his resting tremor and he states alcohol improved his symptoms. Per Fede Owen he has a combined tremor Parkinsons and essential, which makes sense to me. He did not improve with propranolol, but we could trial primidone, but will wait to see how he does on baclofen. Will ask for PT given falls at home. Subjective Subjective Patient reports: no new complaints; denies bowel movement, shortness of breath or fever Interval history since last seen: He wasn't able to eat realy feood yesterday but he was able to get a dose of baclofen crushed in this morning. Still some nausea. No abdominal pain. No change in shaking. Exam Narrative Exam Narrative: GEN: Alert and oriented, pleasant and cooperative, gives linear history. No acute distress at rest. LUNGS: CTAB with normal effort CV: RRR with no murmurs, gallops, or rubs. ABD: +BS, soft, NT/ND EXT: no cyanosis, clubbing, or edema NEURO: CN 2-12 grossly intact. Tone normal. He has mild slow resting tremor, more pronounced tremor in hands with activity. PSYCH: normal mood and affect, no hallucinations. Nl thought process Objective Last Vital Signs Temp 35.8 C L 06/30/23 07:11 Pulse 88 06/30/23 07:11 Resp 20 06/30/23 07:11 BP 133/97 H 06/30/23 07:11 Pulse Ox 100 06/30/23 07:11 Laboratory Results - last 24 hr 06/30/23 06:00 WBC 7.33 RBC 4.46 Hgb 14.9 D Hct 42.8 MCV 96 H MCH 33.4 H MCHC 34.8 RDW 13.2 Plt Count 203 MPV 9.1 Immature Gran % 0.5 Neutrophils % 71.7 Lymphocytes % 16.6 Monocytes % 10.2 Eosinophils % 0.3 Basophils % 0.7 Nucleated RBC % 0.0 Absolute Neutrophils 5.25 Absolute Lymphocytes 1.22 Absolute Monocytes 0.75 Absolute Eosinophils 0.02 Absolute Basophils 0.05 Sodium 138 Potassium 3.4 L Chloride 101 Carbon Dioxide 26.9 Anion Gap 10.1 BUN 7 Creatinine 0.8 Est GFR (CKD-EPI 2020) 98.21 Glucose 143 H Calcium 8.6 Vitamin B12 1030 H PAWSS Have you Been Recently Intoxicated or Drunk Within the Last 30 days?: No Have you Ever Experienced Previous Episodes of Alcohol Withdrawal?: No Have you ever Experienced Withdrawal Seizures?: No Have you ever Experienced Delirium Tremens(DT)s?: No Have you ever undergone Alcohol Rehabilitation Treatment (i.e, inpt ot outpatient treatment programs)?: No Have you ever Experienced Blackouts?: No Have you ever Combined Alcohol with other Downers within the last 90 days?: No Have you ever Combined Alcohol with any other Substance of Abuse during the last 90 days?: No Positive Blood Alcohol level on Presentation? [PCS.BAL]: No Evidence of Increased Autonomic Activity (i.e. HR>120, tremor, sweating, agitation, nausea)?: No Result: 0 Time Spent with Patient Time Spent with Patient: 35-49 minutes Time was spent: preparing to see the patient(eg.review tests), obtaining and/or reviewing separately otained hiistory, ordering medications,tests, procedures, referring, communicating with other health manager critical care, indepentently interpreting results and counseling the patient
[2023-07-01] MEDS: POTASSIUM CHLORIDE/D5-0.45NACL 1,000 ML 125 MEQ IV (05:33)
[2023-07-01 05:54] VITALS: BP 137/96; PULSE 84; RESP 18; TEMP 36; O2SAT 98
[2023-07-01 07:11] VITALS: BP 132/84; PULSE 81; RESP 18; TEMP 36; O2SAT 98
--- NOTE | 2023-07-01 09:26 | PT.INNT ---
PT Notes Visit Reasons: Vomiting, Esophageal Dysphagia refused PT again today. Im sick! You people keep coming in and bugging me. All it does is flares up my Parkinsons and causes me to vomit. There is no fixing it. Making me get out of bed won't help. I don't get out of bed at home when I feel like this. Will check in with him tomorrow.
[2023-07-01] MEDS: Baclofen 10 MG TAB PO ×3 (10:45→19:46)
[2023-07-01] MEDS: Docusate Sodium 100 MG CAP PO ×2 (10:45→19:46)
[2023-07-01] MEDS: LORazepam 2 MG/ML VIAL 0.5 MG IVP (10:57)
[2023-07-01] MEDS: Normal Saline Flush 10 ML SYR IVP ×2 (10:57→19:46)
[2023-07-01] MEDS: Pantoprazole 40 MG VIAL IVP ×2 (10:58→19:46)
--- NOTE | 2023-07-01 12:06 | PGE_ITS ---
Date of Service Date of service: 07/01/23 Time of Service: 12:06 Assessment and Plan Assessment and plan (1) Acute dehydration: Status: Acute Assessment and plan: Tone presented w/ acute dehydration which now appears to have been corrected (BUN 7 , creatinine 0.8 down from admission levles of 13 and 1.5, however no follow up labs were done today). He remains on iv fluids of D5 and 0.45% saline w/ KCl 20 meq/liter @ 125 mL/hr. I will get repeat BMP this afternoon and adjust iv fluids, correct electrolytes. He is tolerating pureed foods and thin liquids. I will text Dr. Elias to find out if he is going to be scoped, if not then consider dc home on pureed diet and follow up as outpatient. He refuses to go on any conventional anti-Parkinson medications. I suggested iris t he follow up w/ neurology which he politely declined. He feels he just needs medications to help him relax such as ativan or other benzodiazepines. He thinks that he did not have this probably w/ swallowing when he was still drinking beer. (2) Acute hypokalemia: Status: Acute Assessment and plan: partially corrected 3.1 > 3.4 but labs not done todya. will repeat his BMP and if K low then repeat his Mg level and give parenteral correction. (3) Inability to swallow: Status: Acute Assessment and plan: He does have a chronic dysphagia that is both oropharyngeal and esophogeal. He has a history of possible aspiration pneumonia in the past, but not in the past [address] Champion and ELECTRICAL EQUIPMENT TESTER decided to allow pureed/liquid diet after discussion with speech therapy, who saw the patient and reviewed the 2021 study from [place]. He describes improvement in his swallow after taking benzodiazepine or drinking alcohol in the past, suggesting muscle relaxation helps. Surgery started baclofen, which is IKER acting and may help. There is some evidence for 5-HT4 agonists in parkinsons dysphagia, prucalopride as well. We did discuss g-tube as eventual option, but he would like to try more medical options first. (4) Esophageal abnormality: Status: Acute Assessment and plan: this was present in 2019, which means cancer is less likely, though he has risk factors. He is losing weight and needs EGD, which will happen Sunday/Sunday per surgery consult. Per surgery this is likely neuromuscular or stricture, not a mass. I will confirm w/ surgery the plans for EGD early this week. (5) Parkinsons disease: Assessment and plan: He was being followed with Dr. Marrufo but did not follow up in the past 2 years as he was frustrated with multiple medicaitons that did not help his symt poms. Per Dr. 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 Tremors constant at rest but get worse w/ intentional movements. Patient has been tried on sinemet, propranolol and nuplazid. He has not followed w/ Dr. Hendrickson since 09/30/2019. Dr. Elias has begun him on baclofen which he subjectively feels it has improved (although no noticeable change in his tremors) P.T. consulted d/t his frequent falls at home; he refused to get out of bed for P.T. this morning, yet he is stating of wanting to return home. Qualifiers: Dyskinesia presence: with dyskinesia Fluctuating manifestations: unspecified whether manifestations fluctuate Qualified Code(s): G20.B1 - Parkinson's disease with dyskinesia, without mention of fluctuations Subjective Subjective Interval history since last seen: Patient presented to the hospital 06/28 acutely dehydrated d/t protracted vomiting, inability to keep down solids or fluids. He has chronic aspiration and hx of esophageal stricture and Parkinson's disease for which he had been on medications in the past but he has quit d/t side effects and not wanting to take so many medications which he says were not helping him. He does not want a feeding tube. He is currently on protonix. Dr. Elias has put him on baclofen to help w/ his muscle stiffness. Patient is currently tolerating pureed foods w/ thin liquids. He want to go home. I told him that I would check w/ Dr. Elias, as it was my understanding he was suppose to have an EGD early this week. Exam Narrative Exam Narrative: Middle age white male bearded and pony tail, alert, oriented x 3, no acute distress, not coughing or dyspneic Lungs: clear heart: RRR Abdomen: soft, nondistended, nontender Extremities: marked resting tremors of hands and feet Objective Last Vital Signs Temp 36.0 C L 07/01/23 07:11 Pulse 81 07/01/23 07:11 Resp 18 07/01/23 07:11 BP 132/84 07/01/23 07:11 Pulse Ox 98 07/01/23 07:11 PAWSS Have you Been Recently Intoxicated or Drunk Within the Last 30 days?: No Have you Ever Experienced Previous Episodes of Alcohol Withdrawal?: No Have you ever Experienced Withdrawal Seizures?: No Have you ever Experienced Delirium Tremens(DT)s?: No Have you ever undergone Alcohol Rehabilitation Treatment (i.e, inpt ot outpatient treatment programs)?: No Have you ever Experienced Blackouts?: No Have you ever Combined Alcohol with other Downers within the last 90 days?: No Have you ever Combined Alcohol with any other Substance of Abuse during the last 90 days?: No Positive Blood Alcohol level on Presentation? [PCS.BAL]: No Evidence of Increased Autonomic Activity (i.e. HR>120, tremor, sweating, agitation, nausea)?: No Result: 0 Time Spent with Patient Time Spent with Patient: 35-49 minutes Time was spent: preparing to see the patient(eg.review tests), ordering medications,tests, procedures, referring, communicating with other health resident care director, indepentently interpreting results, counseling the patient and care coordination
[2023-07-01 13:54] LABS: Anion Gap 6.7 mmol/L (3-11); BUN 2 mg/dL (7-18); CO2 29.3 mmol/L (21.0-32.0); CREATININE 0.8 mg/dL (0.70-1.30); Calcium 8.8 mg/dL (8.5-10.1); Chloride 98 mmol/L (98-107); Estimated GFR 98.21 (mL/min/1.73m2); Glucose 136 mg/dL (74-106); Potassium 4.4 mmol/L (3.5-5.1); Sodium 134 mmol/L (136-145)
[2023-07-01 15:58] VITALS: BP 130/87; PULSE 85; RESP 18; TEMP 36.8; O2SAT 99
[2023-07-01] MEDS: diazePAM 10 MG/2 ML SYR 2 MG IVP ×2 (17:01→22:23)
[2023-07-01 19:27] VITALS: BP 126/97; PULSE 99; RESP 18; TEMP 36.4; O2SAT 97
[2023-07-02] MEDS: Ondansetron 4 MG/2 ML VIAL IVP (06:22)
[2023-07-02] MEDS: Normal Saline Flush 10 ML SYR IVP ×2 (06:23→19:36)
[2023-07-02 07:06] LABS: Abs Immature Grans 0.03 10^3/uL (0.0-0.06); Absolute Basophil Count 0.04 10^3/uL (0.0-0.2); Absolute Eosinophil Count 0.03 10^3/uL (0.0-0.7); Absolute Lymphocyte Count 1.36 10^3/uL (1.2-3.4); Absolute Monocyte Count 0.77 10^3/uL (0.1-0.8); Absolute Neutrophil Count 5.21 10^3/uL (1.2-6.7); Basophils % 0.5 %; Eosinophils % 0.4 %; HCT 46.7 % (40.0-50.0); HGB 16.2 g/dL (13.5-17.5); Immature Grans % 0.4 %; Lymphocytes % 18.3 %; MCH 32.9 pg (27.0-33.0); MCHC 34.7 % (32.0-36.0); MCV 95 fL (80-95); MPV 9.2 fL (8.0-11.0); Monocytes % 10.3 %; Neutrophils % 70.1 %; Platelet Count 189 10^3/uL (130-400); RBC 4.93 10^6/uL (4.36-5.78); RDW 12.9 % (11.8-14.1); RDW-SD 45.1 fL; WBC 7.44 10^3/uL (4.4-10.8)
[2023-07-02 07:11] LABS: Anion Gap 9.5 mmol/L (3-11); BUN 2 mg/dL (7-18); CO2 25.5 mmol/L (21.0-32.0); CREATININE 0.9 mg/dL (0.70-1.30); Calcium 9.1 mg/dL (8.5-10.1); Chloride 99 mmol/L (98-107); Estimated GFR 94.78 (mL/min/1.73m2); Glucose 120 mg/dL (74-106); Magnesium 1.5 mg/dL (1.8-2.4); Potassium 3.7 mmol/L (3.5-5.1); Sodium 134 mmol/L (136-145)
[2023-07-02] MEDS: Docusate Sodium 100 MG CAP PO ×2 (08:00→19:36)
[2023-07-02] MEDS: Pantoprazole 40 MG VIAL IVP ×2 (08:00→19:36)
[2023-07-02] MEDS: Baclofen 10 MG TAB PO ×3 (08:00→19:36)
[2023-07-02] MEDS: Magnesium Gluconate 500 MG TAB PO (08:00)
[2023-07-02] MEDS: MAGNESIUM SULFATE 2 GM/50 ML BAG IVINF (08:01)
[2023-07-02 08:16] VITALS: BP 128/103; PULSE 108; RESP 18; TEMP 36.8; O2SAT 100
[2023-07-02] MEDS: Barium Sulfate 81% w/w for Oral Suspension 148 GM BTL 70 GM PO (09:51)
[2023-07-02] MEDS: Barium Sulfate 40% W/V 240 ML BTL 70 ML PO (09:53)
[2023-07-02] MEDS: Barium Sulfate 40% W/V 1500 CPS 250 ML BTL PO (09:54)
--- NOTE | 2023-07-02 10:09 | CMPROGNOTE_ITS ---
Date of service: 07/02/23 Time of Service: 10:09 Care Management Progress Note Progress Note Text Progress Note Text: S/O:Tone was sitting up in bed when CM met with him. He was very pleasant and engaged easily with CM. Tone talked at length about his medical issues and how his Parkinsonism has affected him. He is currently hospitalized because of esophageal dysphagia, which he also believes is due to Parkinson's. He informed CM that he has not been able to eat for over 2 weeks and stated that he has lost over 40 pounds in that time period. He is scheduled to have an EGD tomorrow and hopes to get some answers. He has been told that he might have a tumor or cancer and that is, of course, concerning. At home Tone shared, he eats very small amounts of food and usually has things like cereal, pudding and fruit. He has a tiny apartment which does not allow for much meal prep. Tone also mentioned that he does not have advanced directives and might want to complete them while at [facility]. CM will facilitate that process if Tone requests assistance. A: Tone is a 63 year old man admitted on 06/29/23 with esphageal dysphagia P:Anticipate Jesus will return home once medically cleared. He will be driven home via private vehicle by a friend vs [facility]. He will follow up with his PCP and discharge plan of care. CM will continue to follow. SDOH(Care Management) Screening Will the Patient Participate in the Screening?: Yes Do you worry about having a steady place to live?: no Problems where you live: no known problems In the past 12 months, have you had to go without electric, gas, oil or water in your home?: no Have you or anyone in your house had to go without enough food to eat?: no Has lack of transportation kept you from medical appointments or from doing things needed for daily living?: yes Has anyone in your support network made you feel unsafe for any reason?: no Health Related Social Needs Health related social needs: transportation insecurity(Z59.82)
--- NOTE | 2023-07-02 10:15 | DI.RAD_ITS ---
Exam(s) RF MODIFIED SPEECH BA SWALLOW TECHNIQUE: Modified barium swallow was performed in conjunction with speech pathology. CONTRAST MATERIAL: Oral barium contrast was administered. COMPARISON: No exams were available for comparison FINDINGS: Note that this is not a dedicated esophagram, distal esophagus not evaluated. There is no evidence of aspiration or penetration of thick or thin liquids. Speech pathology report to follow. . . . IMPRESSION: No evidence of aspiration or penetration. RADIATION DOSE DELIVERED: judah Murcia=5.61 mGy
--- NOTE | 2023-07-02 10:25 | ST.MBS ---
Date of Service Date of service: 07/02/23 Time of Service: 09:45 Modified Barium Swallow Study Findings: Video fluoroscopic Swallowing Evaluation (VFSE) / Modified Barium Swallow Study (MBSS) Speech Language Pathology Report Patient referred for VFSE/MBSS from Dr. Elias. HPI & Patient report of function: Patient is a 63 year old male with 15 year history of Parkinson's who was adm to [facility] 06/29/23 with rapid weight loss, dehydration and inability to keep food or liquids down for several days. Tone had an MBSS done in 2021 in [facility]- MOTION PICTURE DIRECTOR report not available; radiologist findings indicated mandeep aspiration with intact cough reflex with thin liquid, resolved with thick barium. Tone states he has been having progressive and worsening swallowing difficulty with recent significant regurgitation since this time. CXR from admission states fluid filled, dilated esophagus with diffuse wall thickening. Question of area of narrowing of distal esophagus vs hiatal hernia. He is currently pending EGD, and referred for MBSS. IMPRESSIONS: Patient presents with [id number] chronic sensorimotor oral pharyngeal phase dysphagia, with high suspicion for severe esophageal dysphagia. Oral pharyngeal dysphagia is characterized as follows: impaired lingual coordination and reduced BOT retraction, reduced pharyngeal wall movement, and reduced hyolaryngeal excursion/elevation. Collectively this results in significant vallecular retention (75-100% of vallecular space occupied after initial swallow) with all consistencies, negatively impacting efficiency, however residue does eventually reduce with repeat dry swallows, leaving mild-moderate coating (25-50% vallecular space). No penetration or aspiration was appreciated during this study- however risk is heightened in light of above-mentioned deficits. While oral pharyngeal weakness is evident, it is very difficult to assess to what degree swallow efficiency is impaired in light of significant esophageal symptoms/inability to take more than a few sips without regurgitation- An anterior-posterior view was obtained, with screening to approximate mid esophagus found to be unremarkable. Approximately 5-10 minutes after completion of study, patient stated he experienced the barium coming back up to level of throat and requested emesis bag. Highly suspect lower esophageal impairment further impacting clinical picture- additional esophageal work-up (? EGD) recommended. Patient appears to be at moderate-high risk for potential aspiration PNA and/or pulmonary compromise (partially from prandial aspiration, with likely greater risk with regurgitation episodes) and high risk for malnutrition and dehydration. Diet modification is indicated as listed below. Patient may benefit from ongoing MOTION PICTURE DIRECTOR follow up- HH vs outpatient, for trial of BOT/pharyngeal strengthening, however strongly encourage GI work-up/management prior to MOTION PICTURE DIRECTOR services. Specialist referrals:? GI/surgery for EGD Ancillary tests: May consider EGD/Upper GI Endoscopy. RECOMMENDATIONS: IDDSI LEVEL SOLIDS 4-Pureed Solids LIQUIDS 0-Thin Liquids Please see further details at?[email or web address] MEDICATIONS Crushed with thin liquids Diet texture modification is per patient's preference; please adjust diet textures at patient's discretion & collaboration with care team.Do not alter medications (e.g., cut)? without advice from your MD or pharmacist. Risk Management Strategies:? Behavioral reflux precautions, including upright position during, 2-3 hours after meals. Small bites, approx [id number] Very small sips, approx 5mL / teaspoon Alternate any solids with liquids Liquid supplementation (Ensure, Protein drinks) Multiple swallows per bolus to encourage clearance of pharyngeal stasis/residue Elevate HOB in evening PLAN: Therapy: Consider outpatient speech therapy for pharyngeal/BOT exercises - however further esophageal workup (? EGD) as anticipate primary dysphagia impairment is esophageal. OBJECTIVE Videofluoroscopic Swallow Evaluation (VFSE/MBSS) was conducted in the lateral[ and [id number]] projection by Speech-Language Pathologist, in collaboration with Radiologist, to evaluate oropharyngeal swallow function. Anatomic view under fluoroscopy: WFL PO Barium Contrast Trials Oral barium water-soluble contrast was administered as follows: IDDSI Level 0 Varibar thin liquid (40% w/v) IDDSI Level 2 Varibar nectar thick/mildly thick liquid (40% w/v) IDDSI Level 3 Varibar thin honey/liquidised/moderately-thick (40% w/v) IDDSI Level 4 Varibar pudding/pureed/extremely thick (40% w/v) MBSImP Component Scores: COMPONENT Scale SCORE 1 Lip closure (0-4) 1 Resulted in interlabial escape, without progression to anterior lip 2 Hold Position (0-3) 0 Maintained a cohesive bolus between tongue to palatal seal 3 Bolus Preparation (0-4) NA 4 Bolus Transport (0-4) 3 Was with repetitive/disorganized motion of the tongue 5 Oral Residue (0-4) 1 Was a trace, lining oral structures 6 Swallow Initiation (0-4) 3 Occurred when the bolus head was in the pyriform sinuses 7 Soft Palate Elevation (0-4) 0 Resulted in no bolus between soft palate and the pharyngeal wall 8 Laryngeal Elevation (0-3) 1 Was decreased with partial superior movement of thyroid cartilage/partial approximation of arytenoids to epiglottic petiole 9 Anterior Hyoid Motion (0-2) 1 Demonstrated partial anterior movement 10 Epiglottic Movement (0-2) 1 Resulted in partial inversion 11 Laryngeal Closure (0-2) 0 Was complete with no air or contrast in laryngeal vestibule 12 Pharyngeal Stripping Wave (0-2) 1 Was present, but diminished 13 Pharyngeal Contraction (0-3) NA 14 PES Opening (0-3) 0 Was completely distended and complete duration with no obstruction of flow 15 Tongue Base Retraction (0-4) 3 Allowed a wide column of contrast or air between the retracted tongue base and the posterior pharyngeal wall 16 Pharyngeal Residue (0-4) 2 Was a collection of residue within or on pharyngeal structures 17 Esophageal Clearance (0-4) 0 Was complete, with only a coating of contrast, if any Results: COMPONENT Scale SCORE 1 Oral Score (0-18) 6 2 Pharyngeal Score (0-29) 9 3 Esophageal Score (0-4) 0 Functional Oral Intake Scale: COMPONENT Scale SCORE 1 Pre-Study (1-7) 4 Total oral intake of a single consistency 2 Post-Study (1-7) 4 Total oral intake of a single consistency Penetration-Aspiration Scale: COMPONENT Scale SCORE 1 Thin liquid (1-8) 1 Contrast did not enter the airway 2 [place] thick (1-8) 1 Contrast did not enter the airway 3 Honey thick (1-8) 1 Contrast did not enter the airway 4 Pudding thick (1-8) 1 Contrast did not enter the airway 5 Cookie (1-8) NA Trialed Compensatory Strategies & Outcome: Maneuvers Successful (+) Unsuccessful (-) Postures Successful (+) Unsuccessful (-) 3 second Preparatory Set? ? Chin Tuck Posture? ? Cough? ? Posterior Head tilt? Reflexive? Cued? Throat Clear? ? Head Tilt to? Reflexive? Left? Cued? Right? ? Saliva swallow? ? Head Turn/Rotate to? ? Supraglottic Swallow? Left? ? Super-supraglottic Swallow? Right? ? Bolus Modifications Successful (+) Unsuccessful (-) Delivery/Alternating Consistencies ? Follow with Liquid Wash + ? Follow with Solid Bolus? Delivery/Via Straw? ? Reduced Volume? + ? Reduced Rate of Intake? + Increased Viscosity? ? Other:?? ? Thank you for allowing us to take part in this patient's care. Please feel free to contact the [facility] Speech Language Pathology Department with any questions/concerns.
[2023-07-02] MEDS: diazePAM 10 MG/2 ML SYR 2 MG IVP (10:54)
--- NOTE | 2023-07-02 11:20 | PT.INTREAT ---
PT Notes Visit Reasons: Vomiting, Esophageal Dysphagia Inpatient Physical Therapy Treatment Note Date: 07/02/2023 Precautions: Activity as tolerated. Standard precautions. At risk for falls. Subjective: Pretty much all set with is mobility, declined LSVT participation saying that he would rather go back to the boxing for parkinson's place in [facility]. Adds that as long as he walks with his eyes open and not looking up at the ceiling, he is at baseline mobility at this time. Agreeable to showing PT what he could do and how he does his mobility tasks. Does not need an assistive device for this session. Objective: General Observation: Sitting at EOB, Resting tremor more pronounced in B UE, increased with effort. Mental Status: A&Ox3. Bed Mobility/Transfers: supine-sit: independent sit-supine: independent sit-stand: independent, with wide MARGARET stand-sit: independent Gait: 600 feet without AD. Gait speed slower than what he has had. MARGARET increased. Decreased arm swing. No LOB. Mild path deviation. Decreased trunk rotation. Stairs: Up and down 24 steps (2 flights up med surg/cardiac rehab stairs) while holding onto 1 rail, patient extra cautious during descent but no LOB. Step over step pattern. Balance: Static Sitting: normal Dynamic Sitting: normal Static Standing: good Dynamic Standing: good Assessment: Patient with compensatory widened MARGARET and slowed meaghan during ambulation and stair negotiation with no LOB and very minimal path deviation. States he is at baseline mobility level. Confident about being to able to manage mobility performance at home and is all set with how he has been doing. Plan of Care/Treatment Plan: Will continue to offer balance exercises to increase safety of ambulation task perfrmance while on admission. DISCHARGE RECOMMENDATIONS: Home with outpatient PT Recommend walking stick or trekking pole for community ambulation TREATMENT CODE/TIME: 71360 x 25 minutes for 2 units (11:20-11:45)
--- NOTE | 2023-07-02 11:30 | RT.EKG_ITS ---
APPROVED REPORT Exam: Resting ECG Reason for Exam: tachy Patient Location: I HR:112 bpm ECG Measurements Heart Rate 112 AXIS WV 155 P 70 QRSd 95 QRS -66 QT 336 T 95 QTc 459 Conclusion Sinus tachycardia...rate> 99 Left atrial enlargement...P, P'>60mS, <-0.15mV V1 Abnormal R-wave progression, late transition...QRS area<0 in V5/V6 LAFB
--- NOTE | 2023-07-02 13:01 | NUR.NOTE ---
Patient had been placed on telemetry for receiving diazepam but patient removed it and has declined to have it despite education for monitoring for cardiac concerns while on valium. Rene Arnold primary RN updated ICU and telemetry was returned to the ICU. Nursing Note:
--- NOTE | 2023-07-02 13:04 | W.PM.PROGNOT ---
Date of Service Date of service: 07/02/23 Time of Service: 13:04 Assessment and Plan Assessment and plan (1) Inability to swallow: Status: Chronic Assessment and plan: He does have a chronic dysphagia that is both oropharyngeal and esophogeal. He has a history of possible aspiration pneumonia in the past, but not in the past [address] Champion and PHOTO OPTICS TECHNICIAN decided to allow pureed/liquid diet after discussion with speech therapy, who saw the patient and reviewed the 2021 study from [place]. He seems to be tolerating thin liquids and pureed foods Awaiting EGD for tomorrow He declines to have PEG tube. (2) Esophageal abnormality: Status: Chronic Assessment and plan: this was present in 2019, which means cancer is less likely, though he has risk factors. He is losing weight and needs EGD, anticipated tomorrow (Sunday), continue protonix 40 mg iv bid for GERD (3) Acute dehydration: Status: Resolved Assessment and plan: iv fluids have been stopped. he remains on pureed diet and thin liquids. BUN and creatinine and K now normalized. (4) Acute hypokalemia: Status: Resolved Assessment and plan: resolved, K 3.7 (5) Parkinsons disease: Assessment and plan: He was being followed with Dr. Marrufo but did not follow up in the past 2 years as he was frustrated with multiple medicaitons that did not help his symtpoms. Per Dr. 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 Tremors constant at rest but get worse w/ intentional movements. Patient has been tried on sinemet, propranolol and nuplazid. He has not followed w/ Dr. Hendrickson since 09/30/2019. Dr. Elias has begun him on baclofen which he subjectively feels it has improved (although no noticeable change in his tremors) P.T. consulted d/t his frequent falls at home Qualifiers: Dyskinesia presence: with dyskinesia Fluctuating manifestations: unspecified whether manifestations fluctuate Qualified Code(s): G20.B1 - Parkinson's disease with dyskinesia, without mention of fluctuations Subjective Subjective Interval history since last seen: Tone still has problems w/ reflux w/ meals. PHOTO OPTICS TECHNICIAN saw him and recommends further evaluation of his lower GI tract although he has moderate to severe chronic sensorimotor oral pharyngeal phase dysphagia and on his MBSS, nevertheless, he did not have any aspiration or laryngeal penetration and did clear his vallecula w/ repeated dry swallows. However he has significant lower esophageal symptoms and his CT is highly suspicious of lower esophageal wall thickening. He is agreeable to staying and having his EGD completed. This should be done tomorrow by Dr. Elias. Exam Narrative Exam Narrative: Tone is alert, pleasant, no acute distress, no coughing or dyspnea Lungs: clear Heart: RRR Abdomen: soft, nontender Objective Last Vital Signs Temp 36.8 C 07/02/23 08:16 Pulse 108 H 07/02/23 08:16 Resp 18 07/02/23 08:16 BP 128/103 H 07/02/23 08:16 Pulse Ox 100 07/02/23 08:16 Laboratory Results - last 24 hr 07/01/23 07/02/23 13:01 06:32 WBC 7.44 RBC 4.93 Hgb 16.2 Hct 46.7 MCV 95 MCH 32.9 MCHC 34.7 RDW 12.9 Plt Count 189 MPV 9.2 Immature Gran % 0.4 Neutrophils % 70.1 Lymphocytes % 18.3 Monocytes % 10.3 Eosinophils % 0.4 Basophils % 0.5 Nucleated RBC % 0.0 Absolute Neutrophils 5.21 Absolute Lymphocytes 1.36 Absolute Monocytes 0.77 Absolute Eosinophils 0.03 Absolute Basophils 0.04 Sodium 134 L 134 L Potassium 4.4 D 3.7 Chloride 98 99 Carbon Dioxide 29.3 25.5 Anion Gap 6.7 9.5 BUN 2 L 2 L Creatinine 0.8 0.9 Est GFR (CKD-EPI 2020) 98.21 94.78 Glucose 136 H 120 H Calcium 8.8 9.1 Magnesium 1.5 L PAWSS Have you Been Recently Intoxicated or Drunk Within the Last 30 days?: No Have you Ever Experienced Previous Episodes of Alcohol Withdrawal?: No Have you ever Experienced Withdrawal Seizures?: No Have you ever Experienced Delirium Tremens(DT)s?: No Have you ever undergone Alcohol Rehabilitation Treatment (i.e, inpt ot outpatient treatment programs)?: No Have you ever Experienced Blackouts?: No Have you ever Combined Alcohol with other Downers within the last 90 days?: No Have you ever Combined Alcohol with any other Substance of Abuse during the last 90 days?: No Positive Blood Alcohol level on Presentation? [PCS.BAL]: No Evidence of Increased Autonomic Activity (i.e. HR>120, tremor, sweating, agitation, nausea)?: No Result: 0 Time Spent with Patient Time Spent with Patient: 25-34 minutes Time was spent: preparing to see the patient(eg.review tests), ordering medications,tests, procedures, referring, communicating with other health farm or ranch animal caretaker, indepentently interpreting results, counseling the patient and care coordination
--- NOTE | 2023-07-02 14:52 | NS.NUTBLAN_ITS ---
Date of service: 07/02/23 Time of Service: 14:00 Nutritional Consult ASSESSMENT: Received consult regarding concerns for pt nutrition deficits/wt loss. Pt alert and sitting up in bed on visit - very cooperative and communicative, but question his accuracy of reporting his history. He states he has not eaten for the last 15 days and lost 45lbs of weight in the last 10 days. PT states his UBW was ~185lbs and was last at this weight 15 days ago. His recorded weight history shows a wt loss of about 15kg over the last 2 years (18% of his bodyweight). Food goes half down then comes back up. Pt regurgitated in bedside wastebasket 3 times during visit. Tone lives alone and at home reports a hard time drinking milk, tea, water, but reports that soda and beer would stay down. was consuming half a can of tomato soup most days. would gnaw on cheese and chocolate. Reports he seemed to be doing fine on his previous routine of drinking a 24oz beer first thing in the morning and rolling a mix of cannabis and tobacco into a cigarette and was able to get through the day and then would nurse another 24oz beer (for sometimes 3 hours) at the end of the day. Estimated nutr needs: 1826kcals (REE x1.2AF), 75g protein (1.2g/kg current wt) Pt cooperated and participated in a NFPE where mild to moderate SQ fat losses were noted in triceps and overlying ribs, moderate losses in orbital and buccal areas. Mild wasting to muscle mass observed in pectoralis, deltoid, inter osseous and gastrocs, with moderated wasting to temporalis, quadricep. Pt scheduled of EGD on 07/02 for further diagnostics. Pt ordered for puree diet with thin liquids following swallow study. Pt personally does not want to eat the puree meats and some other items he finds to be a turn-off NUTRITIONAL DIAGNOSIS: Moderate Malnutrition (E44.0) in the context of chronic disease/condition (esophageal stricture, dysphagia that is both oropharyngeal and esophageal) related to extended inadequate oral intake, as evidenced by pt's report of significant wt loss within the last 2 weeks, an 18% loss of bodywt documented over the last 2 years and NFPE finding as noted above. INTERVENTION: Pt declined most ONS offered due to fear of regurgitation. Was agreeable to [place] CIP frappe BID. Also will offer tomato soup in mug and other normal food purees like custards, puddings, yogurt, applesauce, strained soups etc. REcommend liquid protein ordered TID to supplement the CIB frappes and oral intake MONITORING AND EVALUATION: will continue to monitor intake, wt changes, and diagnostic outcomes to better support pt's nutrient intake. Time Spent in Nutritional Counseling and Treatment: 15 minutes
[2023-07-02 15:45] VITALS: BP 121/99; PULSE 117; RESP 24; TEMP 36.8; O2SAT 100
[2023-07-02] MEDS: LORazepam 1 MG TAB PO/SL (21:15)
[2023-07-02 23:11] VITALS: BP 121/88; PULSE 90; RESP 16; TEMP 36.9; O2SAT 97
[2023-07-03] VITALS (12 sets, daily range): BP systolic 92–120; BP diastolic 63–94; PULSE 81–95; RESP 14–26; TEMP 36.3–36.9; O2SAT 96–100; BMI 20.5
[2023-07-03] MEDS: LORazepam 1 MG TAB PO/SL ×4 (01:02→21:16)
[2023-07-03] MEDS: Normal Saline Flush 10 ML SYR IVP ×3 (04:26→20:12)
[2023-07-03] MEDS: Ondansetron 4 MG/2 ML VIAL IVP (04:26)
[2023-07-03 07:10] LABS: Anion Gap 8.3 mmol/L (3-11); BUN 7 mg/dL (7-18); CO2 28.7 mmol/L (21.0-32.0); Calcium 9.5 mg/dL (8.5-10.1); Chloride 101 mmol/L (98-107); Estimated GFR 83.52 (mL/min/1.73m2); Glucose 112 mg/dL (74-106); Magnesium 2.1 mg/dL (1.8-2.4); Potassium 4.3 mmol/L (3.5-5.1); Sodium 138 mmol/L (136-145)
[2023-07-03] MEDS: Magnesium Gluconate 500 MG TAB PO (07:45)
[2023-07-03] MEDS: Baclofen 10 MG TAB PO ×3 (07:45→20:11)
[2023-07-03] MEDS: Docusate Sodium 100 MG CAP PO ×2 (07:45→20:11)
[2023-07-03] MEDS: Pantoprazole 40 MG VIAL IVP ×2 (07:46→20:11)
--- NOTE | 2023-07-03 08:20 | ANES.PREOP_ITS ---
General Info Date of Service Date Performed: 07/03/23 Height: 5 ft 9 in Weight: 63 kg Body Mass Index (BMI): 20.5 Surgical Procedure: Operation Date: 07/03/23 11:50 Proposed Procedure Side Surgeon p Gastroscopy Natalya Elias, DO Meds Allergies and Home Medications Allergies Allergy/AdvReac Type Severity Reaction Status Date / Time mirabegron [From Myrbetriq] Allergy Severe Difficulty Verified 06/29/23 07:33 breathing. Home Medication Medication Instructions Recorded Unknown [No Known Home Meds] 06/29/23 Current Visit Medications: Current Medications Generic Name Dose Route Start Last Admin Trade Name Freq PRN Reason Stop Dose Admin Baclofen 10 mg 06/29/23 20:00 07/03/23 07:45 Baclofen 10 Mg Tab PO 10 mg TID NYDIA Administration Docusate Sodium 100 mg 06/29/23 20:00 07/03/23 07:45 Docusate Sodium 100 Mg Cap PO 100 mg BID NYDIA Administration Sodium Chloride 500 mls @ 0 mls/hr 06/29/23 17:15 Saline 500ml Bag IV DIRECTED PRN As Directed IV Miscellaneous Supplies 1 each 06/29/23 17:15 Iv Access IV DIRECTED NYDIA Lorazepam 1 mg 07/02/23 20:47 07/03/23 07:45 Lorazepam 1 Mg Tab PO/SL 1 mg Q4H PRN PRN Administration Magnesium Gluconate 500 mg 07/02/23 08:30 07/03/23 07:45 Magnesium Gluconate 500 Mg Tab PO 500 mg DAILY NYDIA Administration Ondansetron HCl 4 mg 06/29/23 12:04 07/03/23 04:26 Ondansetron 4 Mg/2 Ml Vial IVP 4 mg Q8H PRN PRN Administration Pantoprazole Sodium 40 mg 06/29/23 20:00 07/03/23 07:46 Pantoprazole 40 Mg Vial IVP 40 mg BID NYDIA Administration Sodium Chloride 0 ml 06/29/23 08:30 07/03/23 07:45 Normal Saline Flush 10 Ml Syr IVP 30 ml BID NYDIA Administration Sodium Chloride 0 ml 06/29/23 08:06 Normal Saline 10 Ml Vial IJ DIRECTED PRN PFSH Active Problems Active Problems: Problem Status Onset Code Chronic pulmonary aspiration T17.908A Esophageal stricture K22.2 Aspiration of food T17.928A, W44.F3XA Acute hypokalemia E87.6 Inability to swallow R13.0 Acute dehydration E86.0 Esophageal abnormality K22.9 Acute thoracic back pain M54.6 Bilateral pulmonary embolism I26.99 Pneumonia J18.9 Dysphagia R13.10 Memory loss R41.3 Erectile dysfunction N52.9 Constipation K59.00 Peripheral neuropathy G62.9 Primary Parkinson's disease G20 Medical History Medical History Hepatitis C per referral, pt has completed treatment Malignant melanoma of skin Hypertension Severe bipolar disorder with psychotic features, mood-congruent PTSD (post-traumatic stress disorder) Substance abuse Parkinsons disease Prediabetes Anxiety Osteoarthritis Melanoma H/O multiple concussions History of hepatitis C Surgical History Surgical History H/O colonoscopy (~03/2019) S/P skin cancer resection Tobacco Smoking/Tobacco Use Status: Former Tobacco Use Alcohol Alcohol Intake: former Year quit: 30 Counseling provided: provider counseling Substance Use Substance use: Daily Substance use type: marijuana Details: no other substances Vital Signs and Lab Results Vital Signs Most Recent Vital Signs in EMR: Most Recent Vital Signs Temp Pulse Resp BP Pulse Ox 36.9 C 95 H 18 120/94 H 99 07/03/23 07:14 07/03/23 07:14 07/03/23 07:14 07/03/23 07:14 07/03/23 07:14 Lab Results 07/02/23 06:32 07/03/23 06:08 Blood Type / Crossmatch: 2 No Data to Display Complete Blood Count: 2 White Blood Count 7.44 10^3/uL (4.4-10.8) 07/02/23 06:32 Red Blood Count 4.93 10^6/uL (4.36-5.78) 07/02/23 06:32 Hemoglobin 16.2 g/dL (13.5-17.5) 07/02/23 06:32 Hematocrit 46.7 % (40.0-50.0) 07/02/23 06:32 Platelet Count 189 10^3/uL (130-400) 07/02/23 06:32 Complete Metabolic Panel: 2 Sodium 138 mmol/L (136-145) 07/03/23 06:08 Potassium 4.3 mmol/L (3.5-5.1) 07/03/23 06:08 Chloride 101 mmol/L (98-107) 07/03/23 06:08 Carbon Dioxide 28.7 mmol/L (21.0-32.0) 07/03/23 06:08 BUN 7 mg/dL (7-18) 07/03/23 06:08 Creatinine 1.0 mg/dL (0.70-1.30) 07/03/23 06:08 Est GFR (CKD-EPI 2020) 83.52 (mL/min/1.73m2) 07/03/23 06:08 Magnesium 2.1 mg/dL (1.8-2.4) 07/03/23 06:08 Calcium 9.5 mg/dL (8.5-10.1) 07/03/23 06:08 Albumin 3.9 g/dL (3.4-5.0) 06/29/23 07:50 Glucose 112 mg/dL (74-106) H 07/03/23 06:08 Liver Function Panel: 2 Alanine Aminotransferase (ALT/SGPT) 36 U/L (16-63) 06/29/23 07: 50 Aspartate Amino Transf (AST/SGOT) 25 U/L (15-37) 06/29/23 07:50 Coagulation Panel: 2 No Data to Display Cardiac Panel: 2 No Data to Display Arterial Blood Gas: 2 No Data to Display Venous Blood Gas: 2 No Data to Display Pancreas Panel: 2 Lipase 58 U/L (16-77) 06/29/23 07:50 Thyroid Panel: 2 No Data to Display Infectious Disease: 2 No Data to Display Blood Cultures: 2 No Data to Display Toxicology Panel: 2 No Data to Display Imaging and Studies Imaging and Studies Study information below may be from another EMR and interpreted by another provider. Please see original notes in EMR for more complete details. EKG Summary: EKG PATIENT NAME: Jesus Schuler UNIT #: [id number] ORDERING PROVIDER: Foster Fair M.D. PRIMARY CARE PROVIDER: UNKNOWN,UNKNOWN DATE/TIME OF SERVICE: 07/02/23 1157 : 1960 PERFORMING LOCATION: ID APPROVED REPORT Exam: Resting ECG Reason for Exam: tachy Patient Location: I HR:112 bpm ECG Measurements Heart Rate 112 AXIS OR 155 P 70 QRSd 95 QRS -66 QT 336 T95 QTc 459 Conclusion Sinus tachycardia...rate> 99 Left atrial enlargement...P, P'>60mS, <-0.15mV V1 Abnormal R-wave progression, late transition...QRS area<0 in V5/V6 LAFB - <Electronically signed by SUSAN DE LEON MD in OV> E-Sign Date: 07/02/23 E-Sign Time: 1245 Echocardiogram Summary: Patient Name: Jesus Schuler Unit #: [id number] Loc: [place] Ordering Provider: Foster Fair Status: ADM IN Primary Care Provider: Larissa Ortega Date of Exam: 07/08/21 Sex: M Admission Date: 07/07/21 : 1960 Age: 61 APPROVED REPORT EXAM: Comprehensive 2D, Doppler, and color-flow Echocardiogram Patient Location: In-Patient Room/Bed: [facility] Physician: Dipika Cain RDCS (AE) Indications: PE, Chest pain Other Information Study Quality: Adequate Conclusion Normal left ventricular wall thickness and chamber size. Estimated ejection fraction is 60%. Wall motion is normal Normal right ventricular size and systolic function Both atria are normal in size There is no structural or hemodynamically significant valvular disease Estimated right ventricular systolic pressure is 34 mmHg Wall motion Left Ventricle The left ventricle is normal size. The left ventricular systolic function is normal. The left ventricular ejection fraction is within the normal range. There is normal left ventricular wall thickness. There is normal LV segmental wall motion. There is no ventricular septal defect visualized. LVEF is 60%. Right Ventricle The right ventricle is normal size. The right ventricular systolic function is normal. The RVSP is 33.7mmHg. Atria The left atrium size is normal. The right atrium size is normal. The interatrial septum is intact with no evidence for an atrial septal defect. Aortic Valve The aortic valve is normal in structure. Aortic valve is trileaflet. There is no aortic valvular stenosis. No aortic regurgitation is present. Mitral Valve The mitral valve is normal in structure. No evidence of mitral valve stenosis. Trace mitral regurgitation. Tricuspid Valve The tricuspid valve is normal in structure. There is no tricuspid valve stenosis. Trace tricuspid regurgitation. Pulmonic Valve The pulmonary valve is normal in structure. There is no pulmonic valvular stenosis. There is no pulmonic valvular regurgitation. Great Vessels The aortic root is normal in size. The ascending aorta is normal in size. IVC is normal in size and collapses >50% with inspiration. Pericardium There is no pericardial effusion. 2D Dimensions IVSD d PLAX 0.95 cm M: 0.6-1.2LV Vol A2C d MOD 136.0 mL LVPW d PLAX 0.95 cm M: 0.6 - 1.2LV Vol A4C d MOD 145.3 mL LVID d PLAX 4.57 cm M: 4.2 - 5.8LA vol/ BSA A2C s A-L36.8 mL/m2 LVDs 3.15 cm M: 2.5 - 4.0LA vol/ BSA A4C s A-L28.9 mL/m2 Ao Root d 3.00 cm M: 3.1 - 3.7LA Vol/ BSA Biplane s A-L 32.7 mL/m2 RA Area A4C12.29 cm2LA Area A4C s MOD 19.35 cm2 RA Vol/ BSA A4C s A-L 15.4 mL/m2LA Area A2C s MOD 21.92 cm2 Ao Asc Diam d 3.27 cm M: 2.6 - 3.4LV EF A4C MOD 58.8 % LV EF Teichholz 58.7 %LV EF A2C MOD 59.2 % LVEF (Colvin's)60.15 % M: 52 - 72LV EF Biplane MOD 60.2 % LV Czpftp267.29 mL M: 62 - 519ZP78.78 mL LV Volume Index52.56 mL/m2 M: 34 - 74SV Index42.50 mL/m2 LV Vol Biplane MOD 145.9 mL FS30.95 % M-Mode TAPSE 2.71 cm (M/F) >1.7 LV Diastology MV E' medial0.217 (>0.07 m/s)E/A Ratio 0.6 LV E/e MED2.85 (<14)MV E Vmax 0.63 (0.4-1.3 m/s) MV E' lateral0.100 (>0.1 m/s)MV A Vmax 1.00 (0.4-1.3 m/s) LV E/e LAT6.25 (<14)MV E/A Ratio 0.61 MV E/E' medial 2.89 MV E/E' lateral6.29 Aortic Valve LVOT Area2.97 cm2AoV Area Vmax2.54 cm2 LVOT Vmax 1.36 m/sAoV Area/ BSA (Vmax)1.23 cm2/m2 LVOT Mean Pineda.0.90 m/sAVA Mean Pineda.2.20 cm2 LVOT Peak Grad 7.4 mmHgAVA Mean Pineda. Index1.07 cm2/m2 LVOT Mean Grad 3.8 mmHg LVOT VTI0.250 m LVOT Diam s 1.90 cm AoV Vmax1.58 m/s Velocity Ratio 0.86 AoV Mean Pineda.1.21 m/s AoV Peak Grad10.0 mmHg LVOT SV 74.37 mL AoV Mean Grad6.2 mmHg AoV VTI0.294 m AoV Area VTI2.53 cm2 AoV Area/ BSA (VTI)1.23 cm/m2 Mitral Valve MV DT 155 (160-240 msec) MV PHT45 msec MV Area PHT 4.90 cm2 MV VTI 0.239 m MV Area VTI 3.12 (4.0-6.0 cm2) Pulmonary Valve PV Vmax 1.20 (0.5-1.5 m/s)RVOT Peak Gr.4.10 mmHg PV Peak Grad 5.8 mmHgRVOT Mean Gr.2.00 mmHg PV Mean Grad 3.2 mmHgRVOT VTI0.183 m PV VTI 0.228 mRVOT Vmax 1.01 m/s Tricuspid Valve TR Peak Grad 30.6 mmHgTR Vmax 2.77 m/s RA Pressure 3.00 mmHg RVSP (TR) 33.7 mmHg Ordered By: Foster Fair CC: Dictated By: Susan De Leon M.D. 07/08/2141 <Electronically signed by Susan De Leon M.D. in OV> 07/08/2177 Transcribed By: Susan De Leon MD This is privileged, confidential information intended only for the provider named. Any use or distribution by any person other than this provider is strictly prohibited. If you receive this report in error, please notify us immediately at [phone] and return the original report to us at the address above. Thank-you. Anesthesia Assessment and Plan Anesthesia History Personal History: No History of Anesthesia Complications Family History: No Family History of Anesthesia Complications Exercise Tolerance Exercise Tolerance: Metabolic Equivalents>4 Pertinent Negatives Pertinent Negatives: No Major Cardiovascular Symptoms or Complaints and No History of CVA/TIA Cardiac & Pulmonary Exam Cardiac Exam: Normal S1/S2 Heart Sounds Pulmonary Exam: Clear Bilateral Breath Sounds Implantable Cardiac Device Does patient have a Pacemaker or an ICD?: No Airway Exam Known Difficult Airway: No Mallampati Class: 2 Mouth Opening: Normal (> 3cm) Thyromental Distance: Greater than 3 cm Neck Range of Motion: Full ROM Neck Circumference: Normal Teeth Condition: Normal Dentition ASA Classification ASA Score: ASA 3 Emergency Case?: No NPO Status NPO Status: NPO Clears >2 hours, Solids >8 hours Anesthesia Plan Resuscitation Status: Full Code Anesthesia Technique: General Anesthesia Airway Planned: Endotracheal Tube Monitors Used: Standard Monitors Preoperative Comments:: 63 yo male for gastroscopy due to dyphagia, inability to eat Patient with Parkinson's, essential tremor (has taken himself off medications for both), esophageal stricture (first reported 2021), acute hypokalemia, bilateral pulmonary embolism (reported in 2021), peripheral neuropathy, hepatitis C (treated), PTSD, severe bipolar, Plan for GA/ETT (still unable to maintain secretions well), discussed risks of aspiration/. Would like to remain a DNR for the procedure. He has agreed that if he does have the need for resuscitation that we would preform measures that we felt could be immediately reversed, however if he was to go into a lethal rhythm that was not the result of anesthesia that resuscitation would not be attempted.
--- NOTE | 2023-07-03 11:19 | PT.INTREAT ---
PT Notes Visit Reasons: Vomiting, Esophageal Dysphagia Date: 07/03/23 PRECAUTIONS: Activity as tolerated. Standard precautions. At risk for falls. SUBJECTIVE: pt in bed when approached for therapy this morning, agreed to participating with session. OBJECTIVE: ? PAIN: none reported VITALS: monitored by nursing ? Therapeutic Activities 10153: Direct one-on-one instruction in dynamic activities to improve functional performance. ?? BED MOBILITY/TRANSFERS? Rolling L/R: independent Supine-sit: ? independent? Sit-supine: ? independent? Sit-stand: ? independent? Stand-sit: ??independent ? Bed-Chair:? ?independent ? Chair-bed: independent Provided skilled cues and instruction on performance and technique throughout. Gait Training 13744: Direct one-on-one instruction and skilled instruction in: Movement sequencing Turning and movement with proper form Provided verbal cues for equipment management and technique Provided instruction in gait pattern Patient education regarding pacing and breathing techniques to maximize activity tolerance? GAIT? Assistive Device: ?none ? Weight bearing: FWB Assist: ? supervision ? Distance:??300'x2 walking, 150' speed walking ? Deviation: ? foot flat low step height and short tep length? STAIRS:? 28 step up/down 6steps, ?step through gait pattern 1handrail ? ASSESSMENT:?Pt eager to show his capability during walking, doing speed walking despite warning from this therapist, pt expressed he doesn't want to be seen by PT after this session despite extensive explanation about safety and energy conservation strategies to maximize limited energy stores that he has. pt very adamant he is doing ok and will not require PT services or any other type of rehab ( Speech, OT, PT) moving forward. PLAN: Pt refuses out patient PT recommendation. DC from PT per pt request TREATMENT CODE/TIME: [id number], [id number] 30mins (10:55-11:25am)
[2023-07-03] MEDS: Lactated Ringers 1,000 ML 30 ML IV (11:46)
--- NOTE | 2023-07-03 12:02 | STOM_PTH ---
PATIENT: Jesus Schuler LOC: U#:[id number] AGE/SX: 63/M ROOM: 206 RE06/29/[address]: Foster Champion : 1960 BED: A DIS: 07/04/2023 SPEC #: [id number] RECD: 07/03/23 13:08 STATUS: ARMANDO REQ #: [id number] EMILIANO: 07/03/23 12:[address]: Foster Champion DEPT: Surgical Specimen RECD BY: Deb Regan ENTERED: 07/03/23 13:18 SP TYPE: STOMACH OTHR DR: Nato,Beth Aguilera,Shira Doyle, Baudilio Spencer, SPRINKLER INSPECTOR Ca,Trinity Du, HOLLI Whitlock, Natalya Adams,MD Alida Thurman MD Christopher Husko, Ana Maria Schneider MD Robert G Kloos, DO Meade,MD Nicholas Mcleod MD Powers,Liz Cast,MD Jada To Laura M Rita-Shawna Darby, [facility] Billy Unknown,Unknown Tissues: 1 - ESOPHAGUS BIOPSY 2 - ESOPHAGUS BIOPSY 3 - ESOPHAGUS BIOPSY 4 - ESOPHAGUS BIOPSY 5 - ESOPHAGUS BIOPSY 6 - STOMACH BIOPSY 7 - STOMACH BIOPSY 8 - STOMACH BIOPSY Procedures: GROSS AND MICRO LEVEL 4 IMMUNOPEROXIDASE STAIN SPECIAL STAIN 1 Comments: [id number] (PLEASE NASH)
--- NOTE | 2023-07-03 13:02 | W.PM.ENDDOP ---
Date of service: 07/03/23 Time of Service: 13:02 Endoscopy Report DATE OF PROCEDURE: 07/03/23 PRE-OP DIAGNOSIS: esophageal stenosis POST-OP DIAGNOSIS: other (severe reflux vs other-path pd and esophageal candidiasis ) SURGEON: Natalya Elias ANESTHESIA TYPE: General LMA/ETT ESTIMATED BLOOD LOSS: 5 PATHOLOGY: other COMPLICATIONS: None DISPOSITION: PACU PROCEDURE DESCRIPTION: After informed consent was obtained the patient was take to the procedure room and placed in a supine position. Monitors were applied and a time out was done. The patients name, date of , procedure type, allergies to medications and metal in their body was reviewed. General anesthesia is administered per the department of anesthesia. Dentition is very poor. the gastroscope was advanced through the oropharynx which was grossly normal into the esophagus. The proximal esophagus shows uniform erythema and is edematous. From 20-25 centimeters to the EG junction(which is at 40 cm) the esophagus is extremely erythematous/edematous and has a cobblestoning type pattern to the mucosa. There is also a whitish plaque that is caught coding cobblestoning. This is washed away with some moderate difficulty. There is also some residual barium that does cover the entirety of the esophagus. The esophagus is filled with fluid-this appears to be saliva and old food particles. This is suctioned. I am able to pass the scope through the GE junction. Again the GE is very inflamed and edematous. The entirety of the esophagus has a similar pattern to it. There are no discrete masses or tumors. I would favor more that this represents a chronic severe longstanding reflux problem or autoimmune problems and rather a malignancy. This is passed into the stomach. The entirety of the stomach has a erythematous gastropathy picture to it. There is also bile reflux into the stomach. Biopsies are taken the antrum/greater curve/cardia region. The scope was then passed into the pylorus. The pylorus is patent. There is no active ulceration. The scope was passed into the distal portion of the duodenum. Again the entirety of the duodenum has the same erythematous cobblestoning pattern. There is also a paucity of villi noted. Biopsies were taken of the D3 and D1. normal. There is no hiatal hernia noted. The GE junction was at 40 cm. Dilation of the esophagus gives is then carried out with a 12 mm balloon for 3 passes at 2 minutes each. There is no bleeding noted. The scope was removed and the patient was woken up and taken back to PACU
--- NOTE | 2023-07-03 13:16 | W.ANESPOSTOP ---
Postoperative Evaluation Date, Time and Location Date Performed: 07/03/23 Time Performed: 13:16 Patient Location: PACU Vital Signs Most Recent Imported Vital Signs: Most Recent Vital Signs Temp Pulse Resp BP Pulse Ox 36.7 C 82 26 H 98/78 L 100 07/03/23 12:58 07/03/23 12:58 07/03/23 12:58 07/03/23 12:58 07/03/23 12:58 Pain Score Most Recent Pain Score: Most Recent Pain Score Pain Level [Generalized] 0 07/03/23 07:50 Pain Level 0 07/03/23 12:58 Assessment Mental Status: Arousable with meaningful communication Airway and Respiratory Function: Patent airway with normal (patient baseline) respiratory exam Cardiovascular Function: Hemodynamically Stable Hydration Status: Adequately Hydrated Nausea & Vomiting: No Nausea or Vomiting Pain: Pt. Denies Any Pain Peripheral Nerve Block: Patient did not receive a nerve block
[2023-07-03] MEDS: FLUCONAZOLE 200 MG/100 ML BAG 100 MG IVPB (14:11)
--- NOTE | 2023-07-03 16:07 | PDOC.CMPRO ---
Date of service: 07/03/23 Time of Service: 16:07 Care Management Progress Note Progress Note Text Progress Note Text: S/O:Imani was lying in bed when CM met with him. He had just returned from having an EGD and informed CM that he wasn't done yet. He stated that he had yeast in his throat and that he would need a biopsy and will need esophageal dilatation about once a month. imani will remain hospitalized until tomorrow. A: Imani is a 63 year old man admitted on 06/29/23 with esphageal dysphagia P:Anticipate Jesus will return home once medically cleared. He will be driven home via private vehicle by a friend vs RCT. He will follow up with his PCP and discharge plan of care. CM will continue to follow. SDOH(Care Management) Screening Will the Patient Participate in the Screening?: Yes Do you worry about having a steady place to live?: no Problems where you live: no known problems In the past 12 months, have you had to go without electric, gas, oil or water in your home?: no Have you or anyone in your house had to go without enough food to eat?: no Has lack of transportation kept you from medical appointments or from doing things needed for daily living?: yes Has anyone in your support network made you feel unsafe for any reason?: no Health Related Social Needs Health related social needs: transportation insecurity(Z59.82)
--- NOTE | 2023-07-03 16:19 | CHAPLAIN ---
Tone was sitting up in bed when I visited. He was pleasant and I explained my role and offered support. Tone he is all set and did not seem interested in further conversation. I asked if he had family or friends around and he said not really. According to Care Management notes, Tone describes himself as very private and has turned down some services because he doesn't people in his home.
--- NOTE | 2023-07-03 16:23 | PGE_ITS ---
Date of Service Date of service: 07/03/23 Time of Service: 16:23 Assessment and Plan Assessment and plan (1) Esophageal stricture: Status: Acute Assessment and plan: s/p dilatation; Dr. Elias has indicated he will need to have EGD and esophageal dilatation monthly. continue PPI, treat yeast w/ Diflucan (begun on iv but can switch to oral liquid form upon discharge home). clear liquids for tonight, will reintroduce full liquids and pureed when surgery clears him to upgrade his diet. (2) Inability to swallow: Status: Chronic (3) Esophageal yeast infection: Status: Acute Assessment and plan: Diflucan begun (4) Esophageal abnormality: Status: Chronic (5) Parkinsons disease: Assessment and plan: patient refuses to try any new meds to treat his Parkinson's disease. Qualifiers: Dyskinesia presence: with dyskinesia Fluctuating manifestations: unspecified whether manifestations fluctuate Qualified Code(s): G20.B1 - Parkinson's disease with dyskinesia, without mention of fluctuations Subjective Subjective Interval history since last seen: Tone had his EGD done earlier today. He has severe esophagitis w/ esophageal scarring and stenosis and what appeared to be Isa. See Dr. Elias's EGD note. Tone denies any nausea or vomiting today. He is taking clear liquids postoperatively. He has been started on Diflucan for the yeast esophagitis. Exam Narrative Exam Narrative: alert and oriented, NAD, sitting up talking eating a popcicle Lungs: clear Heart: RRR Abdomen: obese, soft, nontender Objective Last Vital Signs Temp 36.7 C 07/03/23 16:01 Pulse 83 07/03/23 16:01 Resp 14 07/03/23 16:01 BP 120/93 H 07/03/23 16:01 Pulse Ox 99 07/03/23 16:01 Laboratory Results - last 24 hr 07/03/23 06:08 Sodium 138 Potassium 4.3 Chloride 101 Carbon Dioxide 28.7 Anion Gap 8.3 BUN 7 Creatinine 1.0 Est GFR (CKD-EPI 2020) 83.52 Glucose 112 H Calcium 9.5 Magnesium 2.1 PAWSS Have you Been Recently Intoxicated or Drunk Within the Last 30 days?: No Have you Ever Experienced Previous Episodes of Alcohol Withdrawal?: No Have you ever Experienced Withdrawal Seizures?: No Have you ever Experienced Delirium Tremens(DT)s?: No Have you ever undergone Alcohol Rehabilitation Treatment (i.e, inpt ot outpatient treatment programs)?: No Have you ever Experienced Blackouts?: No Have you ever Combined Alcohol with other Downers within the last 90 days?: No Have you ever Combined Alcohol with any other Substance of Abuse during the last 90 days?: No Positive Blood Alcohol level on Presentation? [PCS.BAL]: No Evidence of Increased Autonomic Activity (i.e. HR>120, tremor, sweating, agitation, nausea)?: No Result: 0 Time Spent with Patient Time Spent with Patient: <25 minutes Time was spent: preparing to see the patient(eg.review tests), referring, communicating with other health certified social workers in health care, counseling the patient and care coordination
[2023-07-03] MEDS: Benzocaine/Menthol LOZG 15/BOX 1 EACH SUC (16:35)
[2023-07-04] MEDS: LORazepam 1 MG TAB PO/SL ×2 (04:18→10:28)
[2023-07-04] MEDS: Docusate Sodium 100 MG CAP PO (07:43)
[2023-07-04] MEDS: Magnesium Gluconate 500 MG TAB PO (07:44)
[2023-07-04] MEDS: Pantoprazole 40 MG VIAL IVP (07:44)
[2023-07-04] MEDS: Baclofen 10 MG TAB PO (07:44)
[2023-07-04] MEDS: Normal Saline Flush 10 ML SYR IVP (07:45)
[2023-07-04 07:50] VITALS: BP 108/91; PULSE 112; RESP 17; TEMP 36.3; O2SAT 99
--- NOTE | 2023-07-04 07:58 | W.PM.PROGNOT ---
Date of Service Date of service: 07/04/23 Time of Service: 07:59 Assessment and Plan Assessment and plan (1) Esophageal stricture: Status: Acute Assessment and plan: POD # 1 s/p EGD with dialation Tolerating clear liquid diet well, will advance to thinned purees Activity as tolerated D/C home this morning Will continue diflucan upon d/c Follow up in the office in 2 weeks (2) Inability to swallow: Status: Chronic (3) Esophageal yeast infection: Status: Acute Assessment and plan: Diflucan begun (4) Esophageal abnormality: Status: Chronic (5) Parkinsons disease: Assessment and plan: patient refuses to try any new meds to treat his Parkinson's disease. Qualifiers: Dyskinesia presence: with dyskinesia Fluctuating manifestations: unspecified whether manifestations fluctuate Qualified Code(s): G20.B1 - Parkinson's disease with dyskinesia, without mention of fluctuations Subjective Subjective Interval history since last seen: Tone is feeling much better this morning. He describes tolerating clear liquid diet without any difficulties. He is very relieved that his swallowing is better this morning. Exam Const General: cooperative, healthy appearing and comfortable Orientation: alert and oriented x3 HENMT Other: Swallowing without difficulty. Resp Effort & Inspection: normal respiratory effort, no audible wheezes and no cough Objective Last Vital Signs Temp 36.3 C L 07/04/23 07:50 Pulse 112 H 07/04/23 07:50 Resp 17 07/04/23 07:50 BP 108/91 H 07/04/23 07:50 Pulse Ox 99 07/04/23 07:50 PAWSS Have you Been Recently Intoxicated or Drunk Within the Last 30 days?: No Have you Ever Experienced Previous Episodes of Alcohol Withdrawal?: No Have you ever Experienced Withdrawal Seizures?: No Have you ever Experienced Delirium Tremens(DT)s?: No Have you ever undergone Alcohol Rehabilitation Treatment (i.e, inpt ot outpatient treatment programs)?: No Have you ever Experienced Blackouts?: No Have you ever Combined Alcohol with other Downers within the last 90 days?: No Have you ever Combined Alcohol with any other Substance of Abuse during the last 90 days?: No Positive Blood Alcohol level on Presentation? [PCS.BAL]: No Evidence of Increased Autonomic Activity (i.e. HR>120, tremor, sweating, agitation, nausea)?: No Result: 0 Time Spent with Patient Time Spent with Patient: <25 minutes Time was spent: preparing to see the patient(eg.review tests), obtaining and/or reviewing separately otained hiistory and counseling the patient
--- NOTE | 2023-07-04 08:03 | DSE_ITS ---
Date of service: 07/04/23 Time of Service: 08:03 DS: Diagnosis Discharge Diagnosis (1) Esophageal stricture: Status: Acute (2) Inability to swallow: Status: Chronic (3) Esophageal yeast infection: Status: Acute (4) Esophageal abnormality: Status: Chronic (5) Parkinsons disease: Discharge Plan Disposition Patient Disposition: Home Condition: Improving Discharge Details Reason For Visit: Vomiting, Esophageal Dysphagia Admit Date/Time: 06/29/23 11:57 Admit Provider: Foster Champion Attending Provider: Foster Champion Primary Care Provider: ABILIO MULTANI Hospital Course Hospital Course: 63 y/o male was admitted for acute dehydration secondary to dysphagia. He was admitted for IV fluids and for EGD for further evaluation of his dysphagia. During his EGD biopsies were taken and esophageal stricture was noted, he under went dilation. Upon waking patient had significant improvement in his abilities to swallow. He tolerated clear liquids well and was advanced to thin purees. D/C home on thin purees Surgical Office follow up: 07/18 @ 2:15pm Follow up Procedure with Dr. Gonzalez 07/31 for repeat EGD with dilation Home Meds and New Rx's Prescriptions: New fluconazole [Diflucan] 40 mg/mL suspension for reconstitution 400 mg PO DAILY 14 Days Qty: 140 0RF pantoprazole [Protonix] [address] for susp in packet 40 mg PO DAILY Qty: 30 0RF baclofen 10 mg Tablet 10 mg PO TID Qty: 30 0RF lorazepam 1 mg Tablet 1 mg PO/SL Q6H PRN PRN7 Days Qty: 28 0RF Discharge Instructions Instructions: Esophageal Dilation (DC) Stand Alone Forms: Nursing Discharge Form Referrals: ABILIO MULTANI NP [Primary Care Provider] - 07/18/23 1:00 pm Natalya Elias DO [OSTEOPATHIC DOCTOR] - 07/19/23 2:15 pm (07/18 @ 2:15pm Follow up Procedure with Dr. Gonzalez 07/31 for repeat EGD with dilation) Ruth Darby, RANGE MANAGEMENT SPECIALIST [SPEECH LANGUAGE PATHOLOGIST] - Activity:: Activity as Tolerated Equipment/Supplies:: No Equipment Needed Diet:: Thin purees Discharge Orders Discharge Orders: Discharge Order (Routine); Ordered 07/04/23 Ordered By: Foster Fair Discharge Data Discharge Date/Time-TO BE ENTERED AT DEPARTURE: 07/04/23 10:58 DS: Summary Time Spent with Patient providing and/or coordinating discharge services: Less than 30 minutes Status at Discharge Functional status at discharge: independent ambulation Overall status at discharge: patient is back to baseline Mental Status: mental status grossly normal Speech and Movement: speech and movement normal Mood: congruent mood Affect: normal affect Quality:SDOH Health Related Social Needs: Health related social needs transpo insecurity Exam Const General: cooperative, healthy appearing and comfortable Orientation: alert and oriented x3 HENMT Other: Swallowing without difficulty. Resp Effort & Inspection: normal respiratory effort, no audible wheezes and no cough Psych Mental Status: mental status grossly normal Speech and Movement: speech and movement normal Mood: congruent mood Affect: normal affect DS: Data Vitals/I&O Vitals and I&O: Vital Signs Temperature 36.3 C L 07/04/23 07:50 Temperature Source Tympanic 07/04/23 07:50 Pulse 112 H 07/04/23 07:50 Pulse Rhythm Regular 07/03/23 07:50 Pulse 98 H 06/29/23 11:40 Respiratory Rate 17 07/04/23 07:50 Respiratory Effort Normal, Non-Labored 07/03/23 22:02 Respiratory Depth Normal 07/03/23 22:02 Respiratory Pattern Normal 07/03/23 22:02 Blood Pressure 108/91 H 07/04/23 07:50 Blood Pressure Mean 119 06/29/23 11:30 Blood Pressure Position Sitting 06/29/23 08:34 Pulse Oximetry 99 07/04/23 07:50 Respiratory End-tidal CO2 27 07/03/23 13:32 Oxygen Delivery Method Room Air 07/04/23 07:50 Oxygen Flow Rate 0 07/04/23 07:50 Pain Level 0 07/04/23 07:50 Comment Pt back from OR 1355 07/03/23 13:56 Intake & Output 07/03/23 07/04/23 07/04/23 18:59 06:59 18:59 Intake Total 1100 / 1100 Balance 1100 / 1100 Weight 63 kg 64.5 kg Intake: IV 1099 Other: Urine Appearance Clear Clear Comment per patient he went to the bathroom on his own Emesis Description None Voiding Methods Toilet PFSH All Active Problems (Updated 07/05/23 @ 00:08 by YENIFER LOMELI) Esophageal yeast infection (Acute) Chronic pulmonary aspiration (Acute) Esophageal stricture (Acute) Stricture has been present since 2021 Aspiration of food (Acute) Patient had a swallow study in 2021 which showed mandeep aspiration Inability to swallow (Chronic) Esophageal abnormality (Chronic) Acute thoracic back pain (Acute) Bilateral pulmonary embolism (Acute) Pneumonia (Acute) Dysphagia (Acute) Memory loss (Acute) Erectile dysfunction (Acute) Constipation (Acute) Peripheral neuropathy (Acute) Primary Parkinson's disease (Acute) Medical History Hepatitis C per referral, pt has completed treatment Malignant melanoma of skin Hypertension Severe bipolar disorder with psychotic features, mood-congruent PTSD (post-traumatic stress disorder) Substance abuse Parkinsons disease Prediabetes Anxiety Osteoarthritis Melanoma H/O multiple concussions History of hepatitis C Surgical History H/O colonoscopy (~03/2019) S/P skin cancer resection Social History (Updated 06/29/23 @ 15:41 by Foster Champion) Smoking/Tobacco Use Status: Former Tobacco Use Smoking risk assessment performed?: Yes Alcohol Intake: former Year quit: 30 Counseling provided: provider counseling Drug use: Daily Substance use type: marijuana Details: no other substances Housing: apartment current occupation: None Seatbelt use: always Do you feel safe at home: Yes Do you feel safe in your relationship?: Yes Additional Social history: lives alone, no longer working. h/o prolonged incarceration before 2018 Time Spent with Patient Time Spent with Patient: <45 minutes Time was spent: preparing to see the patient(eg.review tests) and ordering medications,tests, procedures
[2023-07-04] MEDS: Protein Nutritional Supplement 16 GM 1 OUNCE PACKET PO (08:28)
--- NOTE | 2023-07-04 08:47 | CMDISCH_ITS ---
Date of service: 07/04/23 Time of Service: 08:47 LACE Index Scoring Tool Questions: Length of Stay (in days): 4 - 6 Was the patient admitted via the E.D.?: Yes Comorbidities: Cerebrovascular Disease (Parkinson's Disease) E.D. Visits: 1 Answers: Total Score: 9 Risk of Readmission: Low Risk Care Management Discharge Plan Reason for Hospitalization: vomiting, esophageal dysphagia Discharge Plan: Jesus is discharged home via [facility] private vehicle. Pt will follow up with the surgical office on 07/19/23 and PCP on 07/18/23 as scheduled. Jesus agrees to follow discharge plan of care as instructed. No new services are ordered at the time of discharge. Patient/Family Education Needs: Review discharge instructions, limitation, diet and plan to follow up with community providers. Discuss ask me three. Services Needed at Discharge: Transportation ([facility] private vehicle, stop at [facility] to flower picker New RX's is coordinated by CM) SDOH Health Related Social Needs: Health related social needs transpo insecurity Health related social needs: transportation insecurity(Z59.82)
== END 2023-07-04 10:58 | disposition home or self-care (01) | DRG 392 ==
LOC: ER 11:46 → MS 13:43
PROVIDERS: Internal Medicine; Surgery; Admitting Provider Family Medicine; Emergency Provider Student in an Organized Health Care Education/Training Program; PCP Nurse Practitioner Family; Visit Provider Family Medicine
PROC: 0DJ68ZZ Inspection of Stomach, Via Natural or Artificial Opening Endoscopic (ICD-10-PCS; CPT 43235; principal; 2023-07-03 11:45)
DX: K22.2 Esophageal obstruction (principal); B37.81 Candidal esophagitis; E86.0 Dehydration; R13.0 Aphagia; E87.6 Hypokalemia; F43.10 Post-traumatic stress disorder, unspecified; F31.9 Bipolar disorder, unspecified; R73.03 Prediabetes; I10 Essential (primary) hypertension; Z86.711 Personal history of pulmonary embolism; G62.9 Polyneuropathy, unspecified; K59.00 Constipation, unspecified; R41.3 Other amnesia; Z86.19 Personal history of other infectious and parasitic diseases; F41.9 Anxiety disorder, unspecified; G20.B1 Parkinson's disease with dyskinesia, without mention of fluctuations; R13.12 Dysphagia, oropharyngeal phase; R13.14 Dysphagia, pharyngoesophageal phase
CPT/HCPCS: 43249; 43239; 00123; 36415; 71250; 80048; 80053; 83690; 88305; 92526; 92610; 96361; 96365; 96375; 96376; 97110; 97116; 97161; 97530; 99222; 99238; 99285; 74177; 74221; 82607; 83735; 85025; 88312; 88361; 93005; 93010; 99231; 99232; J0330; J0736; J0780; J1100; J1450; J1805; J2060; J2250; J2371; J2405; J2470; J2704; J3010; J3360; J3475; J3480; J3490

== ENCOUNTER → 2023-07-26 08:09 | Outpatient (BNVA) | payer OTHER, MEDICAID, SELFPAY | PROVIDERS: PCP Nurse Practitioner Family; Referring Provider Nurse Practitioner Family; Visit Provider Physical Therapy Assistant | DX: Z01.818 Encounter for other preprocedural examination (principal); R13.10 Dysphagia, unspecified | CPT/HCPCS: 99213 ==

== ENCOUNTER 2023-08-01 07:52 | Day surgery (SDC) | payer OTHER, MEDICAID, SELFPAY ==
--- NOTE | 2023-07-31 16:39 | W.PM.DSUDISC ---
Date of service: 08/01/23 Discharge Plan Disposition Patient Disposition: Home Condition: Good Discharge Details Reason For Visit: EGD Attending Provider: Jarod Gonzalez Primary Care Provider: ABILIO MULTANI Home Meds and New Rx's Prescriptions: Continued pantoprazole [Protonix] [address] for susp in packet 40 mg PO DAILY Qty: 30 0RF baclofen 10 mg Tablet 10 mg PO TID Qty: 30 0RF Discharge Instructions Additional Instructions: 1. If tolerated, consume a soft, low fiber diet for 1-2 days. [address] not drive, drink alcohol, operate machinery, make critical decisions, or do activities that require coordination or balance for 24 hours. 3. You may experience a sore throat for 24 to 48 hours. You may use throat lozenges or gargle with warm salt water to relieve the discomfort. 4. Because air was put into your stomach during the procedure, you may experience some belching. 5. Go directly to the emergency room if you notice any of the following: Develop chills (warm to touch), or if you have a thermometer and your temperature is above 101 Difficulty breathing or difficultly swallowing Persistent vomiting Severe abdominal pain, other than gas cramps Severe chest pain Black, tarry stools Any bleeding ? exceeding one tablespoon 6. Call your physician if the site where your intravenous was started becomes red, swollen, painful, and warm to touch. 7. Your physician has reviewed your pre-procedure medications. Please continue to take those medications as previously ordered. You will be given specific information/education regarding any changes to your medications before leaving. Activity:: Activity as Tolerated Diet:: As Tolerated DS: Diagnosis Discharge Diagnosis (1) Esophageal stricture: Status: Acute
--- NOTE | 2023-07-31 16:40 | W.PM.ENDDOP ---
Date of service: 08/01/23 Endoscopy Report DATE OF PROCEDURE: 08/01/23 PRE-OP DIAGNOSIS: Esophageal stricture and candidiasis PROCEDURE: EGD SURGEON: Jarod Gonzalez ANESTHESIA TYPE: General:No Airway COMPLICATIONS: None DISPOSITION: same day INDICATIONS: Jesus is a 63-year-old male with esophageal candidiasis and stricture
== END 2023-08-01 07:53 | disposition home or self-care (01) ==
PROVIDERS: PCP Nurse Practitioner Family; Visit Provider Surgery
DX: Z53.29 Procedure and treatment not carried out because of patient's decision for other reasons (principal)

== ENCOUNTER 2023-09-11 08:01 | Inpatient (IN) | payer OTHER, MEDICAID, SELFPAY ==
[2023-09-11] VITALS (39 sets, daily range): BP systolic 36–167; BP diastolic 23–107; PULSE 87–141; RESP 11–36; TEMP 36–36.8; O2SAT 97–100
--- NOTE | 2023-09-11 | DI.CT_ITS ---
Exam(s) CT CHEST PE CTA EXAM: CT CHEST PE CTA CLINICAL HISTORY: abnormal pulmonary arteries on CT chest. TECHNIQUE: Imaging Protocol: Axial CT angiography was performed with multi-slice acquisition and mu lti-planar and/or 3D reconstructions. CONTRAST MATERIAL: Intravenous: Omnipaque 350 contrast volume:100 mL COMPARISON: CT CT CHEST/ABD/PEL W from 09/11/2023 CR XR CHEST 2V PA LATERAL from 09/11/2023 FINDINGS: Tracheobronchial tree: Patent where visualized. There is no bronchiectasis. Pulmonary parenchyma: Mild centrilobular emphysematous changes are present. No architectural distort ion. Pulmonary Arteries: There are filling defects seen in branches of the pulmonary artery to the right l ower lobe consistent with pulmonary emboli. Mediastinum and Lexi: No significant mediastinal adenopathy. There is again seen distension of the e sophagus. There is fluid seen within the esophagus to the level just above the aortic arch. The pre viously described thickening of the wall of the midesophagus is less prominent on the current examina tion. Achalasia should be considered. Visualized thyroid gland: Unremarkable. Pleura: No effusion or pneumothorax. Heart: The heart is not dilated. Coronary artery calcification is present. No pericardial effusion. The RV to LV ratio is less than 1. Aorta: Thoracic aorta non-dilated. Atherosclerotic calcification is present. Due to the timing of th e bolus, the abdominal aorta is not well opacified. Upper abdomen: There again seen inflammatory changes around the pancreas suspicious for acute pancre atitis. Soft tissues: Unremarkable. Bones: Within normal limits for the patient's age. IMPRESSION: 1. Pulmonary emboli seen in the pulmonary artery branches to the right lower lobe. No evidence of ri ght heart strain. 2. Inflammatory stranding is again seen around the pancreas suspicious for acute pancreatitis. 3. Persistent fluid filled and distended esophagus. Question of mild thickening in the mid esophagus which is less prominent but neoplasm cannot be excluded. Further evaluation with barium swallow and /or upper endoscopy is recommended. RADIATION DOSE DELIVERED: Total DLP DATA REPOSITORY: All CT scans at this facility are submitted to the National Radiology Data Registry (NRDR) Dose Index Registry (DIR) with the [employer] ([employer]). RADIATION OPTIMIZATION: All CT scans at this facility use at least one of these dose optimization te chniques: automated exposure control; mA and/or kV adjustment per patient size (includes targeted exa ms where dose is matched to clinical indication); or iterative reconstruction.
--- NOTE | 2023-09-11 08:00 | RT.EKG_ITS ---
APPROVED REPORT Exam: Resting ECG Reason for Exam: emesis Patient Location: E HR:126 bpm ECG Measurements Heart Rate [address] 134 P 81 QRSd 102 QRS -78 QT 311 T 77 QTc 451 Conclusion Sinus tachycardia [address] change no stemi
--- NOTE | 2023-09-11 08:23 | W.ED.GENAD ---
Discharge Plan Disposition Patient Disposition: Admit to [facility] Condition: Stable Discharge Details Clinical Impression: Acute pancreatitis, Primary Parkinson's disease, Esophageal abnormality, Inability to swallow, Nausea & vomiting Admit Date/Time: 09/11/23 11:34 Admit Provider: Foster Champion Attending Provider: Foster Champion Primary Care Provider: ABILIO MULTANI ED Provider: Nani Copeland Discharge Data Discharge Date/Time-TO BE ENTERED AT DEPARTURE: 09/11/23 12:54 HPI General Mode of arrival: EMS. Date/Time Provider Initiated Documentation: 09/11/23 08:07. Limitations to Documentation: no limitations and physical limitation. Information obtained by: patient, EMS, RN notes reviewed and old records reviewed. HPI Narrative: 63-year-old male with past medical history of Parkinson's, esophageal strictures, hepatitis C, hypertension bipolar disorder, presents to the ER with a chief complaint of vomiting for the last 8 days. He reports that he drinks to water and Ensure. Shortly thereafter comes right back up. He does state that he had an episode of chest pain approximately 48 hours ago which lasted approximately 15 minutes and then resolved on its own. He also endorses some shortness of breath and cough with white frothy sputum. On arrival he does have resting tremors he does not take any Parkinson's meds for the last 3 years he reports that it is not helping. He is alert and oriented x 4 speaking in full sentences. Related Data Home Medications ?Medication ?Instructions ?Recorded ?Confirmed pantoprazole 40 mg tablet,delayed 40 mg PO DAILY 09/11/23 09/11/23 release Allergies Allergy/AdvReac Type Severity Reaction Status Date / Time mirabegron (From Myrbetriq) Allergy Severe Difficulty Verified 09/11/23 08:06 breathing. General Stated Complaint: GenMedical SHILPA: 3 Review of Systems All systems reviewed & are unremarkable except as noted in HPI and below Gastrointestinal Gastrointestinal: Denies abdominal pain, Reports change in stool character, Denies diarrhea, Reports nausea and Reports vomiting Genitourinary Genitourinary: Denies dysuria Exam Narrative Exam Narrative: Constitutional: Alert and oriented x3. Appears stated age. Thin resting tremor, does have a history of pancreatitis. Head: Normocephalic, no trauma. Eyes: Pupils PERRL, Red reflex noted, EOM's intact. Eyelids symmetrical without lesions, discharge, or swelling. ENT: Bilateral TM's WNL, External ear normal to inspection, no mastoid TTP, swelling, or erythema, Nasal turbinates WNL, no nasal discharge. Normal dentition, Posterior pharynx WNL, no exudate. Chest: RRR, Normal S1, S2, distal pulses intact. Resp: Lungs clear to auscultation bilaterally, no wheezes, rales, or rhonchi. Abdomen: Soft, non-distended, Normoactive bowel sounds all 4 quads. Musculoskeletal: Shuffling gait moves all 4 extremities with difficulty. Skin: No suspicious rashes or lesions. Capillary refill less than 2 sec. Neurologic: ANO x 3, conversive, does have moderate resting tremor noted to upper and lower extremities, he is very thin, Hematologic/Lymphatic: No ecchymosis, no lymphadenopathy. Course Vital Signs Vital signs: Vital Signs Temperature 36.8 C 09/11/23 08:01 Pulse 138 H 09/11/23 08:01 Respiratory Rate 20 09/11/23 08:01 Blood Pressure 140/96 H 09/11/23 08:01 Pulse Oximetry 98 09/11/23 08:01 Temperature 36.8 C 09/11/23 08:01 Temperature Source Oral 09/11/23 08:01 Pulse 138 H 09/11/23 08:01 Respiratory Rate 20 09/11/23 08:01 Blood Pressure 140/96 H 09/11/23 08:01 Blood Pressure Position Sitting 09/11/23 08:01 Pulse Oximetry 98 09/11/23 08:01 Oxygen Delivery Method Room Air 09/11/23 08:01 Oxygen Flow Rate 0 09/11/23 08:01 Pain Level 0 09/11/23 08:01 Medical Decision Making 63-year-old male with past medical history of Parkinson's, esophageal strictures, hepatitis C, hypertension bipolar disorder, presents to the ER with a chief complaint of vomiting for the last 8 days. He reports that he drinks to water and Ensure. Shortly thereafter comes right back up. He does state that he had an episode of chest pain approximately 48 hours ago which lasted approximately 15 minutes and then resolved on its own. He also endorses some shortness of breath and cough with white frothy sputum. On arrival he does have resting tremors he does not take any Parkinson's meds for the last 3 years he reports that it is not helping. He is alert and oriented x 4 speaking in full sentences. Workup ordered including EKG, serial troponins, lipase CBC CMP urinalysis liter normal saline and 4 of Zofran. Will consider barium swallow imaging versus CT of the Chest Abd Pelvis to evaluate esophageal strictures. Heart rate has somewhat improved after the beginning of IV fluids heart rate is now 112, CBC shows white blood cell count of 18.26 hemoglobin 18.0 hematocrit 50.7, absolute neutrophils 15.63. Spoke with Dr. Elias who is on-call for general surgery she does not recommend any additional imaging such as barium swallow Or CT chest at this time, she does recommend admission with medicine team. Heart rate is improving 108 with fluid bolus. Sodium is 131 potassium 3.8 chloride 93 anion gap 17.5, BUN 19 creatinine 1.3 GFR 60 glucose 215 calcium 10.3 albumin 3.0 lipase is 174. Magnesium 1.8. Initial troponin within normal limits less than 50. Will plan discussing case with hospitalist. 0939: Hospitalist paged by refinery operator vapor recovery unit. 09 53: Spoke with Dr. Ruiz who recommends lactate, Hbg A1C, VBG, CT chest abdomen pelvis to rule out pancreatitis or choleliathesis, cholecystitis he does agree to accept patient for admission after the aforementioned. Orders placed. 1103: Spoke with Dr. Gonzalez radiologist see official report he does report some evidence of inflammation around the pancreas which indicate pancreatitis, gallstones noted no evidence of cholecystitis, he also notes wall thickening of his esophagus recommends barium swallow or EGD, of note there is a filling deficit to the bases, cannot rule out PE at this time. HR is now 98 Sat 99%ra. 1118: Discussed CT results with Dr. Champion pending admission orders. This text was generated using [employer] system, please disregard any oddities of phrase or misspellings. Medical Records Medical records reviewed: Yes I reviewed the patient's medical records. Medical records narrative: Admitted and discharged on 07/05/2023 after having a esophageal stricture dilatation. Imaging Data Radiologic Study: Imaging: CT Scan Radiologist's impression: CT Chest Abd/Pelvis W: IMPRESSION: 1. Inflammatory stranding seen around the pancreas suspicious for acute pancreatitis. No evidence of abscess or pseudocyst. 2. Cholelithiasis. No biliary ductal dilatation. 3. Though the opacification of the pulmonary arteries is suboptimal due to the bolus timing, there is a question of a filling defect in branches of the pulmonary arteries to the right lower lobe and a dedicated PE CT scan of the chest is recommended. 4. There is an enlarged prostate gland. There is mild diffuse thickening of the wall of the urinary bladder. This may be due to chronic bladder outlet obstruction/neurogenic bladder or cystitis. Please correlate clinically. 5. Question of thickening of the wall of the esophagus. There is dilatation of the esophagus proximally. Barium swallow and/or upper endoscopy is recommended for further evaluation. Consideration for a mass or infectious/inflammatory process. 6. Findings were discussed with the Nani Copeland at 11:05 a.m. on 09/11/2023. Lab Data Lab results reviewed: Yes I reviewed the patient's lab results. Labs: Laboratory Tests Range/Units 09/11/23 09/11/23 08:12 08:32 WBC (4.4-10.8) 10^3/uL 18.26 H RBC (4.36-5.78) 10^6/uL 5.27 Hgb (13.5-17.5) g/dL 18.0 H Hct (40.0-50.0) % 50.7 H MCV (80-95) fL 96 H MCH (27.0-33.0) pg 34.2 H MCHC (32.0-36.0) % 35.5 RDW (11.8-14.1) % 13.3 Plt Count (130-400) 10^3/uL 145 MPV (8.0-11.0) fL 9.7 Immature Gran % % 0.5 Neutrophils % % 85.6 Lymphocytes % % 5.1 Monocytes % % 8.3 Eosinophils % % 0.1 Basophils % % 0.4 Nucleated RBC % (0.0-0.3) % 0.0 Absolute Neutrophils (1.2-6.7) 10^3/uL 15.63 H Absolute Lymphocytes (1.2-3.4) 10^3/uL 0.93 L Absolute Monocytes (0.1-0.8) 10^3/uL 1.52 H Absolute Eosinophils (0.0-0.7) 10^3/uL 0.02 Absolute Basophils (0.0-0.2) 10^3/uL 0.07 RBC Morphology Normal Sodium (136-145) mmol/L 131 L Potassium (3.5-5.1) mmol/L 3.8 Chloride (98-107) mmol/L 93 L Carbon Dioxide (21.0-32.0) mmol/L 20.5 L Anion Gap (3-11) mmol/L 17.5 H BUN (7-18) mg/dL 19 H Creatinine (0.70-1.30) mg/dL 1.3 Est GFR (CKD-EPI 2020) (mL/min/1.73m2) 60.96 Glucose (74-106) mg/dL 215 H Calcium (8.5-10.1) mg/dL 10.3 H Magnesium (1.8-2.4) mg/dL 1.8 Total Bilirubin (0.2-1.0) mg/dL 0.89 AST (15-37) U/L 29 ALT (16-63) U/L 36 Alkaline Phosphatase (46-116) U/L 80 Troponin I (< or =60) ng/L < 50 Total Protein (6.4-8.2) g/dL 7.7 Albumin (3.4-5.0) g/dL 3.0 L Lipase (16-77) U/L 174 H COVID-19 Source Nasopharynx SARS-CoV-2 (PCR) (Negative) Negative Influenza Type A (PCR) (Negative) Negative Influenza Type B (PCR) (Negative) Negative RSV (PCR) (Negative) Negative Quality:SDOH Health Related Social Needs: Health related social needs transpo insecurity PFSH All Active Problems (Updated 09/11/23 @ 11:19 by Nani Copeland NP) Nausea & vomiting (Acute) Acute pancreatitis (Acute) Esophageal yeast infection (Acute) Chronic pulmonary aspiration (Acute) Esophageal stricture (Acute) Stricture has been present since 2021 Aspiration of food (Acute) Patient had a swallow study in 2021 which showed mandeep aspiration Inability to swallow (Chronic) Esophageal abnormality (Chronic) Acute thoracic back pain (Acute) Pneumonia (Acute) Bilateral pulmonary embolism (Acute) Dysphagia (Acute) Memory loss (Acute) Erectile dysfunction (Acute) Constipation (Acute) Peripheral neuropathy (Acute) Primary Parkinson's disease (Acute) Medical History (Updated 09/11/23 @ 11:19 by Nani Copeland NP) Hepatitis C per referral, pt has completed treatment Malignant melanoma of skin Hypertension Severe bipolar disorder with psychotic features, mood-congruent Pt. denies PTSD (post-traumatic stress disorder) Pt. denies triggers Substance abuse pt. denies Parkinsons disease Prediabetes Anxiety Osteoarthritis Melanoma H/O multiple concussions History of hepatitis C Surgical History H/O colonoscopy (~03/2019) S/P skin cancer resection Social History Smoking/Tobacco Use Status: Current every day Smoking risk assessment performed?: Yes Alcohol Intake: current Alcohol Intake frequency: 0-2 drinks per day Alcohol type: beer Counseling provided: provider counseling Drug use: Daily Substance use type: marijuana Housing: apartment current occupation: None Seatbelt use: always Do you feel safe at home: Yes Do you feel safe in your relationship?: Yes
[2023-09-11 08:25] LABS: Abs Immature Grans 0.09 10^3/uL (0.0-0.06); Absolute Lymphocyte Count 0.93 10^3/uL (1.2-3.4); Absolute Monocyte Count 1.52 10^3/uL (0.1-0.8); Absolute Neutrophil Count 15.63 10^3/uL (1.2-6.7); Basophils % 0.4 %; Eosinophils % 0.1 %; HCT 50.7 % (40.0-50.0); Immature Grans % 0.5 %; Lymphocytes % 5.1 %; MCH 34.2 pg (27.0-33.0); MCHC 35.5 % (32.0-36.0); MCV 96 fL (80-95); MPV 9.7 fL (8.0-11.0); Monocytes % 8.3 %; Neutrophils % 85.6 %; Platelet Count 145 10^3/uL (130-400); RBC 5.27 10^6/uL (4.36-5.78); RDW 13.3 % (11.8-14.1); RDW-SD 47.6 fL; WBC 18.26 10^3/uL (4.4-10.8)
[2023-09-11] MEDS: Normal Saline 1,000 ML 1000 ML IV ×2 (08:35→19:47)
[2023-09-11] MEDS: Ondansetron 4 MG/2 ML VIAL IVP ×2 (08:35→15:52)
[2023-09-11 08:41] LABS: Absolute Basophil Count 0.07 10^3/uL (0.0-0.2); Absolute Eosinophil Count 0.02 10^3/uL (0.0-0.7)
[2023-09-11 08:42] LABS: ALT 36 U/L (16-63); AST 29 U/L (15-37); Alkaline Phosphatase 80 U/L (46-116); Anion Gap 17.5 mmol/L (3-11); BUN 19 mg/dL (7-18); Bilirubin, Total 0.89 mg/dL (0.2-1.0); CO2 20.5 mmol/L (21.0-32.0); CREATININE 1.3 mg/dL (0.70-1.30); Calcium 10.3 mg/dL (8.5-10.1); Chloride 93 mmol/L (98-107); Diff Comment Agrees w/ Instrument; Estimated GFR 60.96 (mL/min/1.73m2); Glucose 215 mg/dL (74-106); Lipase 174 U/L (16-77); Magnesium 1.8 mg/dL (1.8-2.4); Potassium 3.8 mmol/L (3.5-5.1); RBC Morphology Normal; Sodium 131 mmol/L (136-145); Total Protein 7.7 g/dL (6.4-8.2); Troponin I < 50 ng/L (< or =60)
--- NOTE | 2023-09-11 09:00 | DI.RAD_ITS ---
Exam(s) XR CHEST 2V PA LATERAL EXAM: XR CHEST 2V PA LATERAL CLINICAL HISTORY: Vomiting, CP, SOB TECHNIQUE: 2D digital imaging was performed of the chest. Two images were obtained. PA and lateral views were obtained. COMPARISON: No exams were available for comparison FINDINGS: MEDIASTINUM: Normal. HEART: Normal. PULMONARY VASCULATURE: Normal. LUNGS: No focal infiltrates. PLEURAL SPACE: No pleural effusion or pneumothorax. BONE:Within normal limits for the patient's age. OTHER FINDINGS:Normal. IMPRESSION: No acute pulmonary findings. DATA REPOSITORY: RADIATION DOSE DELIVERED:
[2023-09-11 09:18] LABS: COVID-19 PCR Negative (Negative); Influenza A PCR Negative (Negative); Influenza B PCR Negative (Negative); RSV PCR Negative (Negative); Source Nasopharynx
--- NOTE | 2023-09-11 09:45 | DI.CT_ITS ---
Exam(s) CT CHEST/ABD/PEL W EXAM: CT CHEST/ABD/PEL W CLINICAL HISTORY: Vomiting Mid-eoigastric pain TECHNIQUE: Imaging Protocol: Axial computed tomography images with coronal and sagittal reformatted images were created and reviewed CONTRAST MATERIAL: Intravenous: Omnipaque 350 contrast volume:100 mL Oral: No COMPARISON: CT CT CHEST PE CTA from 07/07/[address] CHEST WO from 06/29/[address] ABDOMEN PELVIS W from 06/29/2023 FINDINGS: CHEST: Tracheobronchial tree: Patent where visualized. Pulmonary parenchyma: Mild centrilobular emphysematous changes are present. No focal consolidating i nfiltrates are present. No architectural distortion. Visualized thyroid gland: Unremarkable. Mediastinum and Lexi: No dominant adenopathy or fluid collection. There is thickening of the wall see n in the esophagus particularly in the mid esophagus. There is dilatation of the esophagus proximall y. (Series 11, image 409). And esophageal mass should be considered. Pleura: No effusion or pneumothorax. Heart: The heart is not dilated. No coronary artery calcifications are seen. No pericardial effusion. Pulmonary arteries: Due to the timing of the bolus, there is suboptimal opacification of pulmonary ar teries. There does however appear to be a filling defect in a branch of the pulmonary artery to the right lower lobe. Dedicated PE CT is recommended. Aorta: Thoracic aorta non-dilated. Atherosclerotic calcification is seen. No evidence of dissection. Lymph nodes: Within normal limits. Soft tissues: Unremarkable. Bones:Within normal limits for the patient's age. ABDOMEN: Liver: There is decreased attenuation of the liver. This suggest fatty infiltration. No measurable mass. Portal, Superior Mesenteric, and Splenic Veins: Unremarkable. Gallbladder and Biliary Tract: Gallstones are present. There is no biliary ductal dilatation. Pancreas: There is inflammatory stranding seen around the pancreas suspicious for acute pancreatitis. No focal fluid collection is seen to suggest abscess or pseudocyst at this time. Spleen: Normal. Adrenals: No masses seen. Kidneys: Normal size, contour and axis. No radiodense stones or obstructive uropathy. No masses seen. Abdominal Aorta: Abdominal portion non-dilated. Atherosclerotic calcification is present. Bowel: No obstruction or bowel wall thickening. No evidence of appendicitis. Peritoneal Cavity: There is a trace amount of free fluid in the pelvis. No free air. Lymph Nodes: Within normal limits. Bones: Within normal limits for the patient's age. Soft Tissues: There is a small fat containing umbilical hernia. PELVIS: Bladder: There is mild diffuse thickening of the wall of the urinary bladder. This may be due to chr onic bladder outlet obstruction or cystitis. Please correlate clinically. Reproductive Organs: There is an enlarged prostate gland. Lymph Nodes: Within normal limits. Bones: Within normal limits. IMPRESSION: 1. Inflammatory stranding seen around the pancreas suspicious for acute pancreatitis. No evidence of abscess or pseudocyst. 2. Cholelithiasis. No biliary ductal dilatation. 3. Though the opacification of the pulmonary arteries is suboptimal due to the bolus timing, there is a question of a filling defect in branches of the pulmonary arteries to the right lower lobe and a d edicated PE CT scan of the chest is recommended. 4. There is an enlarged prostate gland. There is mild diffuse thickening of the wall of the urinary bladder. This may be due to chronic bladder outlet obstruction/neurogenic bladder or cystitis. Plea se correlate clinically. 5. Question of thickening of the wall of the esophagus. There is dilatation of the esophagus proxima lly. Barium swallow and/or upper endoscopy is recommended for further evaluation. Consideration for a mass or infectious/inflammatory process. 6. Findings were discussed with the Nani Copeland at 11:05 a.m. on 09/11/2023. RADIATION DOSE DELIVERED: Total DLP DATA REPOSITORY: All CT scans at this facility are submitted to the National Radiology Data Registry (NRDR) Dose Index Registry (DIR) with the [employer] (ACR). RADIATION OPTIMIZATION: All CT scans at this facility use at least one of these dose optimization te chniques: automated exposure control; mA and/or kV adjustment per patient size (includes targeted exa ms where dose is matched to clinical indication); or iterative reconstruction.
[2023-09-11] MEDS: Normal Saline - Diluent 50 ML VIAL IJ ×2 (10:22→20:26)
[2023-09-11] MEDS: Omnipaque 350 MG/ML 100 ML BTL IJ (10:23)
[2023-09-11] MEDS: Normal Saline 1,000 ML 300 ML IV (10:44)
[2023-09-11] MEDS: Famotidine 20 MG/2 ML VIAL IVP (10:44)
[2023-09-11 11:24] LABS: Lactate 1.3 mmol/L (0.6-1.4)
[2023-09-11 11:26] LABS: BE (Venous) -3 mmol/L (-2-3); HCO3 (Venous) 22 mmol/L (23-28); O2 Sat (Venous) 68 %; TCO2 (Venous) 20 mmol/L (24-29); pCO2 (Venous) 39 mmHg (41-51); pH (Venous) 7.36 (7.31-7.41); pO2 (Venous) 36 mmHg
[2023-09-11 11:45] LABS: Hemoglobin A1C 5.2 % (<5.7)
[2023-09-11 12:08] LABS: Troponin I < 50 ng/L (< or =60)
--- NOTE | 2023-09-11 12:11 | W.SURGCON ---
Date of service: 09/11/23 Time of Service: 12:11 Assessment and Plan Assessment and plan (1) Dysphagia: Status: Acute Assessment and plan: The patient does need to have an EGD and have the esophagus dilated. At this point I do want to fluid resuscitate him and allow time to normalize his electrolytes. Patient was also found to have a PE. Will need to discuss that with anesthesia and see how we are going to handle this and if we can scope him at our facility or if he would need to go down to [facility] for that. (2) Esophageal abnormality: Status: Chronic (3) Inability to swallow: Status: Chronic (4) Esophageal stricture: Status: Acute (5) Acute pancreatitis: Status: Acute Assessment and plan: Patient has a known history of gallstones. He is also a heavy drinker and drinks approximately 15 beers a night (6) Acute dehydration: Status: Resolved (7) Acute hypokalemia: Status: Resolved (8) Erectile dysfunction: Status: Acute (9) Esophageal yeast infection: Status: Acute Assessment and plan: Diflucan (10) Primary Parkinson's disease: Status: Acute Assessment and plan: Patient refuses to take any Parkinson's medication. He does not feel as helped his symptoms and he does not like how they made him feel. Currently he is in a wheelchair and cannot walk and is probably looking at having to go to nursing home facility. However he still adamantly refuses to take the carbidopa levodopa This document was created with voice activated software and may contain errors. 20 mins spent in direct pt care and 50 in non face to face time (11) Memory loss: Status: Acute (12) Peripheral neuropathy: Status: Acute (13) Pneumonia: Status: Acute Assessment and plan: No signs of acute pneumonia on the CT (14) Aspiration of food: Status: Acute (15) Chronic pulmonary aspiration: Status: Acute (16) Anxiety: (17) PTSD (post-traumatic stress disorder): (18) Severe bipolar disorder with psychotic features, mood-congruent: (19) Substance abuse: (20) Hypertension: (21) Hepatitis C: (22) Malignant melanoma of skin: (23) Parkinsons disease: Assessment and plan: Per hospitalist Qualifiers: Dyskinesia presence: with dyskinesia Fluctuating manifestations: unspecified whether manifestations fluctuate Qualified Code(s): G20.B1 - Parkinson's disease with dyskinesia, without mention of fluctuations (24) Bilateral pulmonary embolism: Status: Acute Assessment and plan: Will be maintained on milligram per kilogram of Lovenox. This will serve alter our surgical plan. And I do not know if the patient. Can be done at an [facility]. I will have to discuss the case with anesthesia. This document was created with voice activated software and may contain errors. 20 mins spent in direct pt care and 40 in non face to face time History of Present Illness Narrative: Mr. Schuler is a 63-year-old white male well-known to me. He has a history of Parkinson's that he is using to control with alcohol and THC products. he does not feel the carbidopa levodopa works for him and he did not like the way it made him feel. he also controls his Parkinson's with alcohol & THC. He has a longstanding history of severe reflux. This has developed into a significant stricture. Patient had been set up multiple times to do outpatient evaluation patient could not find anyone to drive him home. He refused to spend the night in the hospital, so he has not had any susequent follow-up. Patient continues to lose weight. At this point has not been able to keep anything down and had significant nausea and vomiting. Is also gotten so weak that he is not able to walk even with a cane. He has been lying in bed for the last week and probably around his apartment. He denies having any open sores on his backside legs elbows or knees. He has no thigh or calf pain swelling or redness. His weight is even down today from the last time he was admitted. He is not able to eat at all and for much everything he throws up. He is even throwing up water at this point. On his last visit he did have a significant fungal infection in the esophagus because of the continued fermentation of stomach contents that could not be passed. We will retreat him for a fungal infection. There does not look like there is any aspiration pneumonia on CT of the chest at this point. However there is a PE he will be treated with Lovenox this does complicate the surgical plan. Because the stricture is so significant at this point, I do not know if we will be able to dilate.. Also patient is noncompliant and does not follow-up for care. I wonder if placing a feeding tube would be more beneficial to him or cause more harm, and not sure which way you could go. Also if he has an acute PE this may delay any further care. I will discuss this with anesthesia Review of Systems All systems reviewed & are unremarkable except as noted in HPI and below PFSH All Active Problems Abnormal CT of the chest (Acute) DVT prophylaxis (Acute) Nausea & vomiting (Acute) Acute pancreatitis (Acute) Esophageal yeast infection (Acute) Chronic pulmonary aspiration (Acute) Esophageal stricture (Acute) Stricture has been present since 2021 Aspiration of food (Acute) Patient had a swallow study in 2021 which showed mandeep aspiration Inability to swallow (Chronic) Esophageal abnormality (Chronic) Acute thoracic back pain (Acute) Pneumonia (Acute) Bilateral pulmonary embolism (Acute) Dysphagia (Acute) Memory loss (Acute) Erectile dysfunction (Acute) Constipation (Acute) Peripheral neuropathy (Acute) Primary Parkinson's disease (Acute) Medical History Hepatitis C per referral, pt has completed treatment Malignant melanoma of skin Hypertension Severe bipolar disorder with psychotic features, mood-congruent Pt. denies PTSD (post-traumatic stress disorder) Pt. denies triggers Substance abuse pt. denies Parkinsons disease Prediabetes Anxiety Osteoarthritis Melanoma H/O multiple concussions History of hepatitis C Surgical History H/O colonoscopy (~03/2019) S/P skin cancer resection Social History Smoking/Tobacco Use Status: Current every day Smoking risk assessment performed?: Yes Alcohol Intake: current Alcohol Intake frequency: 0-2 drinks per day Alcohol type: beer Counseling provided: provider counseling Drug use: Daily Substance use type: marijuana Housing: apartment current occupation: None Seatbelt use: always Do you feel safe at home: Yes Do you feel safe in your relationship?: Yes Exam Narrative Exam Narrative: PHYSICAL EXAM GENERAL APPEARANCE: Alert, healthy appearance, oriented, x 3,? in no acute distress HYDRATION: Well hydrated HEAD, EYES, EARS, NECK, THROAT: Head is normocephalic, pupils equal, round, reactive to light and accommodation, ocular movement intact, sclera clear and no jaundice.edentulous LUNGS: normal respiration/normal chest excursion. ?Clear to auscultation bilaterally. Expiratory wheeze in the lower lobes ?HEART: Regular rate and rhythm. no murmurs EXTREMITY: No edema or cyanosis.? no leg pain, redness, swelling.? He has no pain or swelling in his calves or thighs. ABDOMEN: soft and non-tender to palpation.? Normal bowel sounds.? No hernias.? Results Last Vital Signs Temp 36.8 C 09/11/23 08:01 Pulse 112 H 09/11/23 08:45 Resp 20 09/11/23 08:45 BP 136/89 09/11/23 08:45 Pulse Ox 98 09/11/23 08:45 Labs 09/11/23 08:12 09/11/23 14:32 Labs: Laboratory Results - last 24 hr 09/11/23 09/11/23 09/11/23 08:12 08:32 10:59 WBC 18.26 H RBC 5.27 Hgb 18.0 H Hct 50.7 H MCV 96 H MCH 34.2 H MCHC 35.5 RDW 13.3 Plt Count 145 MPV 9.7 Immature Gran % 0.5 Neutrophils % 85.6 Lymphocytes % 5.1 Monocytes % 8.3 Eosinophils % 0.1 Basophils % 0.4 Nucleated RBC % 0.0 Absolute Neutrophils 15.63 H Absolute Lymphocytes 0.93 L Absolute Monocytes 1.52 H Absolute Eosinophils 0.02 Absolute Basophils 0.07 RBC Morphology Normal VBG pH 7.36 VBG pCO2 39 L VBG pO2 36 VBG HCO3 22 L VBG Total CO2 20 L VBG O2 Saturation 68 VBG Base Excess -3 L VBG Lactate 1.3 Sodium 131 L Potassium 3.8 Chloride 93 L Carbon Dioxide 20.5 L Anion Gap 17.5 H BUN 19 H Creatinine 1.3 Est GFR (CKD-EPI 2020) 60.96 Glucose 215 H Hemoglobin A1c 5.2 Calcium 10.3 H Magnesium 1.8 Total Bilirubin 0.89 AST 29 ALT 36 Alkaline Phosphatase 80 Troponin I < 50 < 50 Total Protein 7.7 Albumin 3.0 L Lipase 174 H COVID-19 Source Nasopharynx SARS-CoV-2 (PCR) Negative Influenza Type A (PCR) Negative Influenza Type B (PCR) Negative RSV (PCR) Negative
--- NOTE | 2023-09-11 12:27 | W.PC.ACHO ---
Registration Status: Primary Language: Preferred Language: ED Information & Data Chief Complaint GenMedical 09/11/23 08:24 Triage Note pt has parkinsons which has 09/11/23 08:01 caused some sort of issue with his esophagus- has had dry heaving & vomiting x 8 days. When pt eats it comes back up I've been here before for this pt feels weak & dizzy. Unable to drink water and ensure but it immediately comes back up . Medical / Surgical History (Last Updated 07/30/23 @ 12:47 by Elie Najera) Hepatitis C Malignant melanoma of skin Hypertension Severe bipolar disorder with psychotic features, mood-congruent PTSD (post-traumatic stress disorder) Substance abuse Parkinsons disease Prediabetes Anxiety Osteoarthritis Melanoma H/O multiple concussions History of hepatitis C (Last Reviewed 07/30/23 @ 12:47 by Elie Najera) H/O colonoscopy (~03/2019) S/P skin cancer resection Most Recent Vital Signs Temperature 36.8 C 09/11/23 08:01 Temperature Source Oral 09/11/23 08:01 Pulse 103 H 09/11/23 12:16 Pulse 96 H 09/11/23 12:20 Respiratory Rate 18 09/11/23 12:20 Respiratory Effort Normal 09/11/23 08:23 Respiratory Depth Normal 09/11/23 08:23 Respiratory Pattern Normal 09/11/23 08:23 Blood Pressure 164/104 H 09/11/23 12:16 Blood Pressure Mean 124 09/11/23 12:16 Blood Pressure Position Sitting 09/11/23 08:01 Pulse Oximetry 99 09/11/23 12:20 Oxygen Delivery Method Room Air 09/11/23 08:23 Oxygen Flow Rate 0 09/11/23 08:01 Pain Level 5 09/11/23 09:38 Comment EKG done 09/11/23 08:15 Allergies mirabegron (From Myrbetriq) Allergy (Severe, Verified 09/11/23 08:06) Difficulty breathing. Precautions Isolation Fall precaution 09/11/23 08:23 Active Medications Generic Name Dose Route Start Last Admin Trade Name Freq PRN Reason Stop Dose Admin Sodium Chloride 1,000 mls @ 300 mls/hr 09/11/23 09:51 09/11/23 10:44 Saline 1000ml Bag IV 09/11/23 13:10 300 mls/hr INFUSION STA Administration Iohexol 100 ml 09/11/23 10:30 09/11/23 10:23 Omnipaque 350 Mg/Ml 100 Ml Btl IJ 10/11/23 23:59 100 ml DIRECTED NYDIA Administration Sodium Chloride 50 ml 09/11/23 10:30 09/11/23 10:22 Normal Saline - Diluent 50 Ml Vial IJ 50 ml .FOR DI USE NYDIA Administration IV IV Catheter Type [Right Peripheral IV Antecubital] IV Catheter Gauge [Right 20 Antecubital] Diet Orders Category Date Time Status Nothing Per Oral [DIET] Nutrition 09/11/23 Lunch Active npo [Nothing Per Oral] [DIET] Nutrition 09/11/23 Dinner Active Diagnostics 09/11/23 09/11/23 09/11/23 Range/Units 14:00 10:59 08:32 WBC (4.4-10.8) 10^3/uL RBC (4.36-5.78) 10^6/uL Hgb (13.5-17.5) g/dL Hct (40.0-50.0) % MCV (80-95) fL MCH (27.0-33.0) pg MCHC (32.0-36.0) % RDW (11.8-14.1) % Plt Count (130-400) 10^3/uL MPV (8.0-11.0) fL Immature Gran % % Neutrophils % % Lymphocytes % % Monocytes % % Eosinophils % % Basophils % % Nucleated RBC % (0.0-0.3) % Absolute Neutrophils (1.2-6.7) 10^3/uL Absolute Lymphocytes (1.2-3.4) 10^3/uL Absolute Monocytes (0.1-0.8) 10^3/uL Absolute Eosinophils (0.0-0.7) 10^3/uL Absolute Basophils (0.0-0.2) 10^3/uL RBC Morphology VBG pH 7.36 (7.31-7.41) VBG pCO2 39 L (41-51) mmHg VBG pO2 36 mmHg VBG HCO3 22 L (23-28) mmol/L VBG Total CO2 20 L (24-29) mmol/L VBG O2 Saturation 68 % VBG Base Excess -3 L (-2-3) mmol/L VBG Lactate 1.3 (0.6-1.4) mmol/L Sodium Pending (136-145) mmol/L Potassium Pending (3.5-5.1) mmol/L Chloride Pending (98-107) mmol/L Carbon Dioxide Pending (21.0-32.0) mmol/L Anion Gap Pending (3-11) mmol/L BUN Pending (7-18) mg/dL Creatinine Pending (0.70-1.30) mg/dL Est GFR (CKD-EPI 2020) Pending (mL/min/1.73m2) Glucose Pending (74-106) mg/dL Hemoglobin A1c 5.2 (<5.7) % Calcium Pending (8.5-10.1) mg/dL Magnesium (1.8-2.4) mg/dL Total Bilirubin (0.2-1.0) mg/dL AST (15-37) U/L ALT (16-63) U/L Alkaline Phosphatase (46-116) U/L Troponin I < 50 (< or =60) ng/L Total Protein (6.4-8.2) g/dL Albumin (3.4-5.0) g/dL Lipase (16-77) U/L COVID-19 Source Nasopharynx SARS-CoV-2 (PCR) Negative (Negative) Influenza Type A (PCR) Negative (Negative) Influenza Type B (PCR) Negative (Negative) RSV (PCR) Negative (Negative) 09/11/23 Range/Units 08:12 WBC 18.26 H (4.4-10.8) 10^3/uL RBC 5.27 (4.36-5.78) 10^6/uL Hgb 18.0 H (13.5-17.5) g/dL Hct 50.7 H (40.0-50.0) % MCV 96 H (80-95) fL MCH 34.2 H (27.0-33.0) pg MCHC 35.5 (32.0-36.0) % RDW 13.3 (11.8-14.1) % Plt Count 145 (130-400) 10^3/uL MPV 9.7 (8.0-11.0) fL Immature Gran % 0.5 % Neutrophils % 85.6 % Lymphocytes % 5.1 % Monocytes % 8.3 % Eosinophils % 0.1 % Basophils % 0.4 % Nucleated RBC % 0.0 (0.0-0.3) % Absolute Neutrophils 15.63 H (1.2-6.7) 10^3/uL Absolute Lymphocytes 0.93 L (1.2-3.4) 10^3/uL Absolute Monocytes 1.52 H (0.1-0.8) 10^3/uL Absolute Eosinophils 0.02 (0.0-0.7) 10^3/uL Absolute Basophils 0.07 (0.0-0.2) 10^3/uL RBC Morphology Normal VBG pH (7.31-7.41) VBG pCO2 (41-51) mmHg VBG pO2 mmHg VBG HCO3 (23-28) mmol/L VBG Total CO2 (24-29) mmol/L VBG O2 Saturation % VBG Base Excess (-2-3) mmol/L VBG Lactate (0.6-1.4) mmol/L Sodium 131 L (136-145) mmol/L Potassium 3.8 (3.5-5.1) mmol/L Chloride 93 L (98-107) mmol/L Carbon Dioxide 20.5 L (21.0-32.0) mmol/L Anion Gap 17.5 H (3-11) mmol/L BUN 19 H (7-18) mg/dL Creatinine 1.3 (0.70-1.30) mg/dL Est GFR (CKD-EPI 2020) 60.96 (mL/min/1.73m2) Glucose 215 H (74-106) mg/dL Hemoglobin A1c (<5.7) % Calcium 10.3 H (8.5-10.1) mg/dL Magnesium 1.8 (1.8-2.4) mg/dL Total Bilirubin 0.89 (0.2-1.0) mg/dL AST 29 (15-37) U/L ALT 36 (16-63) U/L Alkaline Phosphatase 80 (46-116) U/L Troponin I < 50 (< or =60) ng/L Total Protein 7.7 (6.4-8.2) g/dL Albumin 3.0 L (3.4-5.0) g/dL Lipase 174 H (16-77) U/L COVID-19 Source SARS-CoV-2 (PCR) (Negative) Influenza Type A (PCR) (Negative) Influenza Type B (PCR) (Negative) RSV (PCR) (Negative) 09/11/23 10:59 Blood Culture - Pending Blood 09/11/23 09:48 Blood Culture - Pending Blood Intake and Output - 24 Hour Total 09/11/23 07:56 thru 09/11/23 10:45 Intake Total 1000 Balance 1000 Weight 68.039 kg Intake: IV 1000 Falls Risk Assessment History of Falls Previous History 09/11/23 08:23 Contributing Factors Impairments,Incontinence, 09/11/23 08:23 Medications Ambulatory Aids Uses ambulatory device + 09/11/23 08:23 Tubes/Lines None 09/11/23 08:23 Gait Evaluation W/any additional score 09/11/23 08:23 Cognition No cognitive impairment 09/11/23 08:23 Fall Total Score 74 09/11/23 08:23 Level of Risk High Risk 09/11/23 08:23 Problems (Last Updated 07/30/23 @ 12:47 by Elie Najera) Acute pancreatitis (Acute) Esophageal yeast infection (Acute) Chronic pulmonary aspiration (Acute) Esophageal stricture (Acute) Aspiration of food (Acute) Inability to swallow (Chronic) Esophageal abnormality (Chronic) Pneumonia (Acute) Dysphagia (Acute) Memory loss (Acute) Erectile dysfunction (Acute) Peripheral neuropathy (Acute) Primary Parkinson's disease (Acute) v v v v v v v v v Sending and/or Receiving Nurses: Please use comment section below to note any information pertinent to the patient hand-off not included above. Information / Comments: Report received from:Rocío
[2023-09-11] MEDS: FLUCONAZOLE 200 MG/100 ML BAG 100 MG IVPB (12:56)
[2023-09-11 13:34] LABS: Bilirubin Moderate (Negative); Blood Negative (Negative); Clarity Clear (Clear); Glucose Negative (Negative); Ketones 80 mg/dL (Negative); Leukocyte Esterase Negative (Negative); Nitrite Negative (Negative); Urobilinogen 0.2 mg/dL (Up to 0.2)
[2023-09-11 13:40] LABS: Bacteria Negative HPF (Negative); C & S Indicated? No; Casts Negative LPF (Negative); Crystals Negative HPF (Negative); Epithelial Cells Rare HPF (Negative); Mucus Negative (Negative); RBC 0-2 HPF (0-2); WBC 0-2 HPF (0-5)
[2023-09-11] MEDS: Enoxaparin 40 MG/0.4 ML SYR SC (14:25)
[2023-09-11 15:03] LABS: Anion Gap 10.8 mmol/L (3-11); BUN 15 mg/dL (7-18); CO2 25.2 mmol/L (21.0-32.0); Calcium 9.1 mg/dL (8.5-10.1); Chloride 100 mmol/L (98-107); Estimated GFR 83.52 (mL/min/1.73m2); Glucose 168 mg/dL (74-106); Potassium 3.9 mmol/L (3.5-5.1); Sodium 136 mmol/L (136-145)
--- NOTE | 2023-09-11 15:42 | PHA.REVIEW2 ---
Pharmacy Admission Review Admission Clinical Review Admission Pharmacy Review: Acute pancreatitis (Acute) Esophageal yeast infection (Acute) Chronic pulmonary aspiration (Acute) Esophageal stricture (Acute) Aspiration of food (Acute) Pneumonia (Acute) Dysphagia (Acute) Memory loss (Acute) Erectile dysfunction (Acute) Peripheral neuropathy (Acute) Primary Parkinson's disease (Acute) mirabegron (From Myrbetriq) Allergy (Severe, Verified 09/11/23 08:06) Difficulty breathing. Resuscitation Status Full Code Height 5 ft 9 in Weight 63.049 kg Comments Comments/Follow Ups: Currently NPO - surgical consult pending Pharmacy Admission Review Renal Dosing Renal Dosing: BUN 15 mg/dL (7-18) 09/11/23 14:32 Creatinine 1.0 mg/dL (0.70-1.30) 09/11/23 14:32 Medications needing adjustments: Reviewed (CrCl 65.68 mL/min) List of meds needing interventions: Current medications are okay Anticoagulation Anticoagulation: Hgb 18.0 g/dL (13.5-17.5) H 09/11/23 08:12 Hct 50.7 % (40.0-50.0) H 09/11/23 08:12 Plt Count 145 10^3/uL (130-400) 09/11/23 08:12 Creatinine 1.0 mg/dL (0.70-1.30) 09/11/23 14:32 DVT Prophylaxis: Reviewed Medications: Enoxaparin (40mg daily) Relevant Labs Relevant Labs: Sodium 136 mmol/L (136-145) 09/11/23 14:32 Potassium 3.9 mmol/L (3.5-5.1) 09/11/23 14:32 Chloride 100 mmol/L (98-107) 09/11/23 14:32 Magnesium 1.8 mg/dL (1.8-2.4) 09/11/23 08:12 Electrolytes, C-Reactive P, ESR: Reviewed (WBC 18.26) Cardiac Review Cardiac Review: Troponin I < 50 ng/L (< or =60) 09/11/23 10:59 Blood Pressure 158/102 1506 Blood Pressure 167/102 1500 Blood Pressure 166/107 1251 Blood Pressure 146/99 1245 Blood Pressure 166/107 1240 Blood Pressure 164/104 1216 BP, HR, EF%: Reviewed (HR 99) QTc Review QTc: Reviewed (451 from 09/11/23) IV to PO Switch IV Medications: Reviewed (ondansetron and pantoprazole - patient currently NPO) Home Meds Home Med List reviewed: Reviewed Current Meds Current Medication Order Review: Reviewed Comments Comments/Follow Ups: Currently NPO - surgical consult pending
[2023-09-11] MEDS: PANTOPRAZOLE 80 MG in Normal Saline 100 ML 10 MG IV (15:53)
--- NOTE | 2023-09-11 19:19 | W.PM.HP.N ---
Date of service: 09/11/23 Time of Service: 19:19 Assessment and Plan Assessment and plan (1) Dysphagia: Status: Acute Assessment and plan: Associated with Parkinsons, GERD, with history of severe stricture. He has not followed up with surgery as planned for ongong monitoring. Surgery consulted, PEG may be needed per Dr. Elias. Qualifiers: Dysphagia type: esophageal phase Qualified Code(s): R13.19 - Other dysphagia (2) Acute pancreatitis: Status: Acute Assessment and plan: Mild pancreatitis per CT and lipase c/w his symptoms. He does drink alchohol but denies recent heavy use, EtOH negative on admission. Will get RUQ u/s for stone tomorrow, none seen on CT. He would like to try clears, okay to try Ondansatron prn. Avoid older anticholinergics meds with Parkinsons. Benzodiazepines have helped in past, can use prn (3) Acute dehydration: Status: Resolved Assessment and plan: Improved now with hydration, continue maintainance fluids (4) Primary Parkinson's disease: Status: Acute Assessment and plan: He hasn't tolerated medications in the past. Discussed possible teleneurology consult for another opinion. (5) Hypertension: Assessment and plan: BP elevated, monitor (6) Abnormal CT of the chest: Status: Acute Assessment and plan: No current chest pain, SOB, or hypoxia. Tachycardia resovled with hydration. However he did have these symptoms in the past few days. I don't think given no current symptoms he should be anticoagulated as he has no PE clinically, but will order CTA when safe to do from contrast perspective. (7) DVT prophylaxis: Status: Acute Assessment and plan: enoxaparin History of Present Illness History of Present Illness Chief Complaint: vomiting, weakness, abdominal pain Narrative: 63 yo M with history of Parkinsons/essential tremor overlap and esophogeal stricture who presents today with 5 days of inability to eat, wretching/vomiting food and fluids, general weakness, abdominal pain, and worsening of tremor. Started about 5 days ago with food not going down, vomiting up food and drink, comes back up the same as it went down. No blood or bile. Has been getting pantoprazole down with small sips. For the past 3-4 days having more abdominal pain with more nausea and wretching. Pain epigastric to the back. Not worse with food, but food doesn't stay down. Sunday, 4 days prior to admission, he tried walking around his home and legs felt so shakey he couldn't walk. He felt lightheaded and short of breath, almost passed out, felt a little disoriented. Since Sunday he has been in bed. He isn't taking other medications. Last admission he left with month of medication. He was able to eat and wasn't drinking alcohol, was putting on weight, but medication ran out Was given baclofen and 1mg lorazepam/day. Review of Systems All systems reviewed & are unremarkable except as noted in HPI and below PFSH All Active Problems (Updated 09/11/23 @ 19:41 by Foster Champion) Abnormal CT of the chest (Acute) DVT prophylaxis (Acute) Nausea & vomiting (Acute) Acute pancreatitis (Acute) Esophageal yeast infection (Acute) Chronic pulmonary aspiration (Acute) Esophageal stricture (Acute) Stricture has been present since 2021 Aspiration of food (Acute) Patient had a swallow study in 2021 which showed mandeep aspiration Inability to swallow (Chronic) Esophageal abnormality (Chronic) Acute thoracic back pain (Acute) Pneumonia (Acute) Bilateral pulmonary embolism (Acute) Dysphagia (Acute) Memory loss (Acute) Erectile dysfunction (Acute) Constipation (Acute) Peripheral neuropathy (Acute) Primary Parkinson's disease (Acute) Medical History Hepatitis C per referral, pt has completed treatment Malignant melanoma of skin Hypertension Severe bipolar disorder with psychotic features, mood-congruent Pt. denies PTSD (post-traumatic stress disorder) Pt. denies triggers Substance abuse pt. denies Parkinsons disease Prediabetes Anxiety Osteoarthritis Melanoma H/O multiple concussions History of hepatitis C Surgical History H/O colonoscopy (~03/2019) S/P skin cancer resection Social History Smoking/Tobacco Use Status: Current every day Smoking risk assessment performed?: Yes Alcohol Intake: current Alcohol Intake frequency: 0-2 drinks per day Alcohol type: beer Counseling provided: provider counseling Drug use: Daily Substance use type: marijuana Housing: apartment current occupation: None Seatbelt use: always Do you feel safe at home: Yes Do you feel safe in your relationship?: Yes Meds Allergies and Home Medications Allergies Allergy/AdvReac Type Severity Reaction Status Date / Time mirabegron (From Myrbetriq) Allergy Severe Difficulty Verified 09/11/23 08:06 breathing. Home Medications ?Medication ?Instructions ?Recorded ?Confirmed ?Type pantoprazole 40 mg tablet,delayed 40 mg PO DAILY 09/11/23 09/11/23 History release Exam Narrative Exam Narrative: GEN: Alert and oriented x 4, pleasant and cooperative, gives linear history. Wretching intermittently. No acute distress at rest. HEENT: Head atraumatic. Temporal wasting. Conjunctiva clear, no icterus. PEERL, EOMI. no rhinorrhea. MMM, OP benign. Neck is supple with no masses or lymphadenopathy, trachea midline LUNGS: CTAB with normal effort CV: RRR with no murmurs, gallops, or rubs. ABD: active bowel sounds, soft, moderate epigastric tenderness to palpation, guards with deep palpation, no massess/HSM. EXT: no cyanosis, clubbing, or edema MSK: No joint redness or swelling NEURO: CN 2-12 grossly intact. Symmetrical strength 4 extremities, normal light touch sensation. Normal speech and coordination. Tone normal, but he does have some cog wheel rigidity. Tremor at rest, worse and faster in hands with extension. SKIN: No rashes or open wounds. PSYCH: normal mood and affect, normal thought process Results Imaging Chest x-ray: report reviewed (No acute pulmonary findings. ) and image reviewed Abdomen CT scan report/results: report reviewed (see below) EKG: report reviewed and image reviewed (Sinus tachycardia at 126, no ischemic changes, nl intervals) Imaging Studies: CT A/P: 1. Inflammatory stranding seen around the pancreas suspicious for acute pancreatitis. No evidence of abscess or pseudocyst. 2. Cholelithiasis. No biliary ductal dilatation. 3. Though the opacification of the pulmonary arteries is suboptimal due to the bolus timing, there is a question of a filling defect in branches of the pulmonary arteries to the right lower lobe and a dedicated PE CT scan of the chest is recommended. 4. There is an enlarged prostate gland. There is mild diffuse thickening of the wall of the urinary bladder. This may be due to chronic bladder outlet obstruction/neurogenic bladder or cystitis. Please correlate clinically. 5. Question of thickening of the wall of the esophagus. There is dilatation of the esophagus proximally. Barium swallow and/or upper endoscopy is recommended for further evaluation. Consideration for a mass or infectious/inflammatory process. Labs 09/11/23 08:12 09/11/23 14:32 Labs: Laboratory Results - last 24 hr 09/11/23 09/11/23 09/11/23 08:12 08:32 10:59 WBC 18.26 H RBC 5.27 Hgb 18.0 H Hct 50.7 H MCV 96 H MCH 34.2 H MCHC 35.5 RDW 13.3 Plt Count 145 MPV 9.7 Immature Gran % 0.5 Neutrophils % 85.6 Lymphocytes % 5.1 Monocytes % 8.3 Eosinophils % 0.1 Basophils % 0.4 Nucleated RBC % 0.0 Absolute Neutrophils 15.63 H Absolute Lymphocytes 0.93 L Absolute Monocytes 1.52 H Absolute Eosinophils 0.02 Absolute Basophils 0.07 RBC Morphology Normal VBG pH 7.36 VBG pCO2 39 L VBG pO2 36 VBG HCO3 22 L VBG Total CO2 20 L VBG O2 Saturation 68 VBG Base Excess -3 L VBG Lactate 1.3 Sodium 131 L Potassium 3.8 Chloride 93 L Carbon Dioxide 20.5 L Anion Gap 17.5 H BUN 19 H Creatinine 1.3 Est GFR (CKD-EPI 2020) 60.96 Glucose 215 H Hemoglobin A1c 5.2 Calcium 10.3 H Magnesium 1.8 Total Bilirubin 0.89 AST 29 ALT 36 Alkaline Phosphatase 80 Troponin I < 50 < 50 Total Protein 7.7 Albumin 3.0 L Lipase 174 H Urine Color Urine Clarity Urine pH Ur Specific [place] Urine Protein Urine Ketones Urine Blood Urine Nitrite Urine Bilirubin Urine Urobilinogen Ur Leukocyte Esterase Urine RBC Urine WBC Ur Epithelial Cells Urine Crystals Urine Bacteria Urine Casts Urine Mucus Ur Culture Indicated? Urine Glucose COVID-19 Source Nasopharynx SARS-CoV-2 (PCR) Negative Influenza Type A (PCR) Negative Influenza Type B (PCR) Negative RSV (PCR) Negative 09/11/23 09/11/23 13:23 14:32 WBC RBC Hgb Hct MCV MCH MCHC RDW Plt Count MPV Immature Gran % Neutrophils % Lymphocytes % Monocytes % Eosinophils % Basophils % Nucleated RBC % Absolute Neutrophils Absolute Lymphocytes Absolute Monocytes Absolute Eosinophils Absolute Basophils RBC Morphology VBG pH VBG pCO2 VBG pO2 VBG HCO3 VBG Total CO2 VBG O2 Saturation VBG Base Excess VBG Lactate Sodium 136 Potassium 3.9 Chloride 100 Carbon Dioxide 25.2 Anion Gap 10.8 BUN 15 Creatinine 1.0 Est GFR (CKD-EPI 2020) 83.52 Glucose 168 H Hemoglobin A1c Calcium 9.1 Magnesium Total Bilirubin AST ALT Alkaline Phosphatase Troponin I Total Protein Albumin Lipase Urine Color Yellow Urine Clarity Clear Urine pH 6.0 Ur Specific [place] 1.010 Urine Protein 30 H Urine Ketones 80 H Urine Blood Negative Urine Nitrite Negative Urine Bilirubin Moderate H Urine Urobilinogen 0.2 Ur Leukocyte Esterase Negative Urine RBC 0-2 Urine WBC 0-2 Ur Epithelial Cells Rare Urine Crystals Negative Urine Bacteria Negative Urine Casts Negative Urine Mucus Negative Ur Culture Indicated? No Urine Glucose Negative COVID-19 Source SARS-CoV-2 (PCR) Influenza Type A (PCR) Influenza Type B (PCR) RSV (PCR) Last Vital Signs Temp 36.0 C L 09/11/23 15:00 Pulse 99 H 09/11/23 15:00 Resp 20 09/11/23 12:51 BP 158/102 H 09/11/23 15:06 Pulse Ox 100 09/11/23 15:00 Time Spent Time spent with Patient: 55-74 minutes Time was spent: preparing to see the patient(eg.review tests), obtaining and/or reviewing separately otained hiistory, ordering medications,tests, procedures, referring, communicating with other health child day care teacher, indepentently interpreting results and counseling the patient
[2023-09-11] MEDS: Omnipaque 350 MG/ML 500 ML BTL-Imaging package IJ (20:27)
[2023-09-11] MEDS: Normal Saline Flush 10 ML SYR IVP (20:47)
--- NOTE | 2023-09-11 21:06 | DI.VRAD_ITS ---
Addendum created by Quinton Pinzon MD on 09/11/2023 10:20:43 PM EDT: THIS REPORT CONTAINS FINDINGS THAT MAY BE CRITICAL TO PATIENT CARE. The findings were verbally communicated by me to Dr. Spears via telephone conference at 10:20 PM EDT on 09/11/2023. The findings were acknowledged and understood. Initial report created on 09/11/2023 9:06:44 PM EDT: PROCEDURE INFORMATION: Exam: CTA Chest With Contrast Exam date and time: 09/11/2023 8:22 PM Age: 63 years old Clinical indication: Other: Abnormal pulmonary arteries on CT chest TECHNIQUE: Imaging protocol: Computed tomographic angiography of the chest with contrast. Exam focused on the arteries. 3D rendering (Not supervised by radiologist): MIP and/or 3D reconstructed images were created by the technologist. Contrast material: 350; Contrast volume: 100 ml; Contrast route: INTRAVENOUS (IV); COMPARISON: CT CHEST PE CTA 07/07/2021 8:53 AM FINDINGS: Pulmonary arteries: Acute-appearing pulmonary emboli within the distal right interlobar pulmonary artery, extending into the lobar and proximal segmental branches of the right lower lobe. Aorta: Unremarkable. No aortic aneurysm. No aortic dissection. Lungs: Mild upper lobe centrilobular emphysema. Mild bilateral upper and lower lobe bronchial wall thickening, compatible with reactive airway disease or bronchitis. Pleural spaces: Unremarkable. No pneumothorax. No pleural effusion. Heart: No evidence of acute right heart strain (RV/LV ratio 0.8). Esophagus: Gas and fluid/material distended esophagus, possibly secondary to wall thickening of the distal esophagus. Mild circumferential wall thickening of the distal esophagus, possibly edema, although neoplasm is a consideration. Lymph nodes: Unremarkable. No enlarged lymph nodes. Diaphragm: Small-sized hiatal hernia. Pancreas: Mild pancreatic enlargement, with minimal peripancreatic fat stranding, compatible with acute pancreatitis. No pseudocyst visualized. Intestine: Alternatively, reflux and/or dysmotility possible. Bones/joints: Multilevel thoracic spine degenerative disc space narrowing and osteophyte formation. Soft tissues: Unremarkable. IMPRESSION: 1. Acute-appearing pulmonary emboli within the distal right interlobar pulmonary artery, extending into the lobar and proximal segmental branches of the right lower lobe. No evidence of acute right heart strain (RV/LV ratio 0.8). 2. Mild pancreatic enlargement, with minimal peripancreatic fat stranding, compatible with acute pancreatitis. No pseudocyst visualized. 3. Gas and fluid/material distended esophagus, possibly secondary to wall thickening of the distal esophagus. Alternatively, reflux and/or dysmotility possible. Recommend further evaluation with esophagram and or upper endoscopy. 4. Mild bilateral upper and lower lobe bronchial wall thickening, compatible with reactive airway disease or bronchitis. Dictated and Authenticated by: Quinton Pinzon MD. Ordering:CLAUDIA Hutchison MD
[2023-09-11] MEDS: POTASSIUM CHLORIDE/D5-0.45NACL 1,000 ML 100 MEQ IV (21:52)
[2023-09-12] MEDS: PANTOPRAZOLE 80 MG in Normal Saline 100 ML 10 MG IV ×2 (05:09→22:45)
[2023-09-12 06:34] LABS: Abs Immature Grans 0.05 10^3/uL (0.0-0.06); Absolute Basophil Count 0.02 10^3/uL (0.0-0.2); Absolute Lymphocyte Count 0.85 10^3/uL (1.2-3.4); Absolute Monocyte Count 1.03 10^3/uL (0.1-0.8); Absolute Neutrophil Count 7.27 10^3/uL (1.2-6.7); Basophils % 0.2 %; HCT 40.9 % (40.0-50.0); HGB 14.4 g/dL (13.5-17.5); Immature Grans % 0.5 %; Lymphocytes % 9.2 %; MCHC 35.2 % (32.0-36.0); MCV 97 fL (80-95); MPV 9.9 fL (8.0-11.0); Monocytes % 11.2 %; Neutrophils % 78.9 %; Platelet Count 119 10^3/uL (130-400); RBC 4.24 10^6/uL (4.36-5.78); RDW 13.3 % (11.8-14.1); RDW-SD 48.1 fL; WBC 9.22 10^3/uL (4.4-10.8)
[2023-09-12 06:51] LABS: ALT 25 U/L (16-63); AST 25 U/L (15-37); Albumin 2.2 g/dL (3.4-5.0); Alkaline Phosphatase 52 U/L (46-116); Anion Gap 13.5 mmol/L (3-11); BUN 10 mg/dL (7-18); Bilirubin, Total 0.78 mg/dL (0.2-1.0); CO2 20.5 mmol/L (21.0-32.0); CREATININE 0.9 mg/dL (0.70-1.30); Calcium 8.8 mg/dL (8.5-10.1); Chloride 103 mmol/L (98-107); Estimated GFR 94.78 (mL/min/1.73m2); Glucose 223 mg/dL (74-106); Potassium 3.5 mmol/L (3.5-5.1); Sodium 137 mmol/L (136-145); Total Protein 5.8 g/dL (6.4-8.2)
[2023-09-12] MEDS: POTASSIUM CHLORIDE/D5-0.45NACL 1,000 ML 100 MEQ IV ×2 (07:31→21:01)
[2023-09-12 08:20] VITALS: BP 114/81; PULSE 88; RESP 20; TEMP 36.7; O2SAT 98
[2023-09-12] MEDS: Enoxaparin 60 MG/0.6 ML SYR SC ×2 (08:30→20:05)
[2023-09-12] MEDS: Normal Saline Flush 10 ML SYR IVP ×2 (08:31→22:03)
--- NOTE | 2023-09-12 09:35 | DI.US_ITS ---
Exam(s) US ABDOMEN LIMITED EXAM: US ABDOMEN LIMITED CLINICAL HISTORY: pancreatitis, signs of stones? TECHNIQUE: Ultrasound abdomen performed using standard protocol. COMPARISON: CT CT CHEST PE CTA from 09/11/[address] CHEST/ABD/PEL W from 09/11/2023 FINDINGS: PANCREAS: Normal where visualized. LIVER: There is increased echogenicity of the liver suggesting fatty infiltration. Hepatopetal flow in the Portal Vein. The liver measures in 19.6 cm length. No evidence of a hepatic mass. GALLBLADDER:Cholelithiasis. No evidence of wall thickening. No pericholecystic fluid identified. BILIARY SYSTEM: Common bile duct measures < 7 mm. No intrahepatic biliary ductal dilation. FELDMAN'S SIGN: Negative. RIGHT KIDNEY: Kidney is normal in size. No evidence of renal calculi. No evidence of hydronephrosis. No renal mass or cyst identified. ASCITES: None seen. IMPRESSION: 1. Hepatic steatosis and hepatomegaly. 2. Cholelithiasis without sonographic evidence of acute cholecystitis. 3. The partially visualized pancreas is grossly unremarkable. Please refer to the CT scan from 2023. DATA REPOSITORY:
--- NOTE | 2023-09-12 10:10 | INITIAL_ITS ---
Date of service: 09/12/23 Time of Service: 10:10 Care Management Initial Assmt Initial Assessment Reason for Hospitalization: Pancreatitis, dysphagia Functional Status/Living Situation Patient Presentation: Jesus was awake and lying in bed when CM met with him. He requests that CM bare with him since he is not feeling good. Jesus is appropriate during this interaction and informed CM that he's not suicidal or anything, but if he were to have a stroke he would want nothing done and would want to . Palliative is consulted. Dr. Gonzalez was ready to meet with Jesus, CM will continue to follow. Town of Residence: [place] Resides with: Other Significant Other/Family: Local Natural Supports: Female friend, Lona Chaparro Employment Status: Retired Instrumental Activities of Daily Living (ADLs): Independent Medications Medication Management: No Issues/Barriers identified Advance Directives Advance Directives: Do you have an Advance Directive: Y 01/31/19 11:14 AD On File at [facility]: Y 01/31/19 11:14 Date Asked 07/15/21 09/12/23 08:33 AD Date Reviewed 09/11/23 09/11/23 12:34 COLST On File at [facility] COLST Date Scanned Comment: On file; Lona Chaparro listed as HCA. Code Status Resuscitation Status Full Code Code Status Comment: Palliative consult ordered, ==. Insurance Coverage/Financial Issues Insurance: [employer] Medicaid Care Team Visit Care Team Role Provider Type ABILIO MULTANI NP Primary Care Provider NON-[facility] STAFF PHYSICIAN Natalya Elias, DO Other Providers OSTEOPATHIC DOCTOR Nani Copeland, BLACNO Emergency Provider NURSE PRACTITIONER Foster Champion Admit Provider [facility] STAFF PHYSICIAN Attending Provider Discharge Potential Discharge Needs: PCP F/U Appt and Surgical F/U Appt Anticipated Barriers to Discharge: None Identified Patient/Family Education Needs: Review discharge instructions, discuss Ask Me Three Transportation: RCT Plan: Jesus requires acute medical hospitalization for dysphagia, acute pancreatitis and dehyration. Surgical is consulted, patient may need a PEG tub per MD. Palliative consulted to discuss code status and goals of care. Discharge planning continues. PFSH All Active Problems (Updated 09/12/23 @ 17:18 by Foster Champion) Pulmonary embolus, right (Acute) Abnormal CT of the chest (Acute) DVT prophylaxis (Acute) Nausea & vomiting (Acute) Acute pancreatitis (Acute) Esophageal yeast infection (Acute) Chronic pulmonary aspiration (Acute) Esophageal stricture (Acute) Stricture has been present since 2021 Aspiration of food (Acute) Patient had a swallow study in 2021 which showed mandeep aspiration Inability to swallow (Chronic) Esophageal abnormality (Chronic) Acute thoracic back pain (Acute) Pneumonia (Acute) Dysphagia (Acute) Memory loss (Acute) Erectile dysfunction (Acute) Constipation (Acute) Peripheral neuropathy (Acute) Primary Parkinson's disease (Acute) Medical History Hepatitis C per referral, pt has completed treatment Malignant melanoma of skin Hypertension Severe bipolar disorder with psychotic features, mood-congruent Pt. denies PTSD (post-traumatic stress disorder) Pt. denies triggers Substance abuse pt. denies Parkinsons disease Prediabetes Anxiety Osteoarthritis Melanoma H/O multiple concussions History of hepatitis C Surgical History H/O colonoscopy (~03/2019) S/P skin cancer resection Social History Smoking/Tobacco Use Status: Current every day Smoking risk assessment performed?: Yes Alcohol Intake: current Alcohol Intake frequency: 0-2 drinks per day Alcohol type: beer Counseling provided: provider counseling Drug use: Daily Substance use type: marijuana Housing: apartment current occupation: None Seatbelt use: always Do you feel safe at home: Yes Do you feel safe in your relationship?: Yes SDOH(Care Management) Screening Will the Patient Participate in the Screening?: Yes Do you worry about having a steady place to live?: no In the past 12 months, have you had to go without electric, gas, oil or water in your home?: no Have you or anyone in your house had to go without enough food to eat?: no Has lack of transportation kept you from medical appointments or from doing things needed for daily living?: no Has anyone in your support network made you feel unsafe for any reason?: no
[2023-09-12] MEDS: FLUCONAZOLE 200 MG/100 ML BAG 100 MG IVPB (12:26)
[2023-09-12 15:06] VITALS: BP 109/81; PULSE 86; RESP 20; TEMP 37.1; O2SAT 97
--- NOTE | 2023-09-12 17:05 | W.PM.PROGNOT ---
Date of Service Date of service: 09/12/23 Time of Service: 17:05 Assessment and Plan Assessment and plan (1) Dysphagia: Status: Acute Assessment and plan: Associated with Parkinsons, GERD, esophogitis, with history of severe stricture. He has not followed up with surgery as planned for ongong monitoring. Surgery consulted, PEG may be needed per Dr. Elias, patient agreeable PE complicates this, will await discussion between surgery and anesthesia. We need to feed him some how within the next few days. Qualifiers: Dysphagia type: esophageal phase Qualified Code(s): R13.19 - Other dysphagia (2) Acute pancreatitis: Status: Acute Assessment and plan: Mild pancreatitis per CT and lipase c/w his symptoms. He does drink alchohol but denies recent heavy use. The EtOH level I saw yesterday was from previous admission, per surgery notes 15 drinks/day, but his normal LFTs and lack of withdrawal are more c/w his reported moderate levels. Even so, his alcohol could have caused this mild pancreatitis. No stones on CT or RUQ ultrasound. I wrote to progress to clears, but made strick NPO by surgery, will d/w that team. Ondansatron prn. Avoid older anticholinergics meds with Parkinsons. Benzodiazepines have helped in past, can use prn Epigatric pain and wretching have improved since he has been NPO on fluids. WBC down. (3) Primary Parkinson's disease: Status: Acute Assessment and plan: He hasn't tolerated medications in the past. Discussed possible teleneurology consult for another opinion. I don't think this will help us acutely. Will ask for palliative care given overall picture. (4) Esophageal yeast infection: Status: Acute Assessment and plan: Treating with fluconazole per surgery. (5) Pulmonary embolus, right: Status: Acute Assessment and plan: Minimally symptomatic, no heart strain. Treating with enoxaparin. Subjective Subjective Patient reports: voiding w/o difficulty; denies shortness of breath Interval history since last seen: CTA confirmed PE, started on therapeutic enoxaparin. Started on fluconazole to treat fungal infection of esophogus previously seen by surgery on endoscopy. Made strict NPO by surgery, and states mouth is dry. He is still spitting up mucous but pain is better. He now states he wants a PEG tube for nutrition. He states he only drinks 1-2 beers a day at most. He denies chest pain, palpitations, or shortness of breath. Objective Last Vital Signs Temp 37.1 C 09/12/23 15:06 Pulse 86 09/12/23 15:06 Resp 20 09/12/23 15:06 BP 109/81 09/12/23 15:06 Pulse Ox 97 09/12/23 15:06 Laboratory Results - last 24 hr 09/12/23 06:20 WBC 9.22 RBC 4.24 L Hgb 14.4 D Hct 40.9 MCV 97 H MCH 34.0 H MCHC 35.2 RDW 13.3 Plt Count 119 L MPV 9.9 Immature Gran % 0.5 Neutrophils % 78.9 Lymphocytes % 9.2 Monocytes % 11.2 Eosinophils % 0.0 Basophils % 0.2 Nucleated RBC % 0.0 Absolute Neutrophils 7.27 H Absolute Lymphocytes 0.85 L Absolute Monocytes 1.03 H Absolute Eosinophils 0.00 Absolute Basophils 0.02 Sodium 137 Potassium 3.5 Chloride 103 Carbon Dioxide 20.5 L Anion Gap 13.5 H BUN 10 Creatinine 0.9 Est GFR (CKD-EPI 2020) 94.78 Glucose 223 H Calcium 8.8 Total Bilirubin 0.78 AST 25 ALT 25 Alkaline Phosphatase 52 Total Protein 5.8 L Albumin 2.2 L PAWSS Have you Been Recently Intoxicated or Drunk Within the Last 30 days?: No Have you Ever Experienced Previous Episodes of Alcohol Withdrawal?: No Have you ever Experienced Withdrawal Seizures?: No Have you ever Experienced Delirium Tremens(DT)s?: No Have you ever undergone Alcohol Rehabilitation Treatment (i.e, inpt ot outpatient treatment programs)?: No Have you ever Experienced Blackouts?: No Have you ever Combined Alcohol with other Downers within the last 90 days?: No Have you ever Combined Alcohol with any other Substance of Abuse during the last 90 days?: No Positive Blood Alcohol level on Presentation? [PCS.BAL]: Unable to Obtain Evidence of Increased Autonomic Activity (i.e. HR>120, tremor, sweating, agitation, nausea)?: No Result: 0 Time Spent with Patient Time Spent with Patient: 35-49 minutes Time was spent: preparing to see the patient(eg.review tests), obtaining and/or reviewing separately otained hiistory, ordering medications,tests, procedures, referring, communicating with other health career transition specialist, indepentently interpreting results, counseling the patient and care coordination
--- NOTE | 2023-09-12 19:52 | W.PM.PROGNOT ---
Date of Service Date of service: 09/12/23 Time of Service: 15:50 Assessment and Plan Assessment and plan (1) Esophageal stricture: Status: Acute Assessment and plan: I spoke to several members of the anesthesia team today regarding procedural sedation that Jesus might need to help improve. Unfortunately, his new PE makes this extremly complicated, with both regards to ventilatory support, the cardiovascular changes associated with sedation and the need to interrupt therapeutic anticoagulation for whatever procedure would be considered. Generally we transfer patients with recent pulmonary embolism who require procedural sedation. I think EGD and insertion of a percutaneous gastrostomy tube would both fall into that category. Furthermore, neither of those procedures would really be emergent so I suspect that would be the safest plan regarding any sedation. Having said that, its a little hard for me to offer an opinion on the esophageal stricture and wether that has really caused his aspiration. Based on the report of the previous EGD, I suspect purreed and thin liquids would not be an issue for the stricture. But I'll defer to Dr. Mcrae opinion for that. If the aspiration is arising from the hypopharynx, then that would be a different situation. Another very safe option would be insertion of a nasogastic feeding tube, or Dobhoff style tube. This should be small enough to bypass the strictured segment, and easy enough to insert at the bedside without sedation. Jesus seemed open to consideration of this. Obviously it lacks the diagnostic value of another EGD, but it certainly buys him more time and carries an extremely low complication risk overall. Subjective Subjective Interval history since last seen: Jesus tells me he is feeling a little better than when he came in. He is frustrated given the complexity of what he has been oging through and the challenges associated with his Parkinsons and now issues with swallowing. Exam Neck Neck: normal visual inspection, full ROM and no lymphadenopathy Resp Effort & Inspection: normal respiratory effort and able to speak in complete sentences Auscultation: bronchial breath sounds Objective Last Vital Signs Temp 98.8 F 09/12/23 15:06 Pulse 86 09/12/23 15:06 Resp 20 09/12/23 15:06 BP 109/81 09/12/23 15:06 Pulse Ox 97 09/12/23 15:06 Laboratory Results - last 24 hr 09/12/23 06:20 WBC 9.22 RBC 4.24 L Hgb 14.4 D Hct 40.9 MCV 97 H MCH 34.0 H MCHC 35.2 RDW 13.3 Plt Count 119 L MPV 9.9 Immature Gran % 0.5 Neutrophils % 78.9 Lymphocytes % 9.2 Monocytes % 11.2 Eosinophils % 0.0 Basophils % 0.2 Nucleated RBC % 0.0 Absolute Neutrophils 7.27 H Absolute Lymphocytes 0.85 L Absolute Monocytes 1.03 H Absolute Eosinophils 0.00 Absolute Basophils 0.02 Sodium 137 Potassium 3.5 Chloride 103 Carbon Dioxide 20.5 L Anion Gap 13.5 H BUN 10 Creatinine 0.9 Est GFR (CKD-EPI 2020) 94.78 Glucose 223 H Calcium 8.8 Total Bilirubin 0.78 AST 25 ALT 25 Alkaline Phosphatase 52 Total Protein 5.8 L Albumin 2.2 L PAWSS Have you Been Recently Intoxicated or Drunk Within the Last 30 days?: No Have you Ever Experienced Previous Episodes of Alcohol Withdrawal?: No Have you ever Experienced Withdrawal Seizures?: No Have you ever Experienced Delirium Tremens(DT)s?: No Have you ever undergone Alcohol Rehabilitation Treatment (i.e, inpt ot outpatient treatment programs)?: No Have you ever Experienced Blackouts?: No Have you ever Combined Alcohol with other Downers within the last 90 days?: No Have you ever Combined Alcohol with any other Substance of Abuse during the last 90 days?: No Positive Blood Alcohol level on Presentation? [PCS.BAL]: Unable to Obtain Evidence of Increased Autonomic Activity (i.e. HR>120, tremor, sweating, agitation, nausea)?: No Result: 0 Time Spent with Patient Time Spent with Patient: 35-49 minutes Time was spent: preparing to see the patient(eg.review tests), obtaining and/or reviewing separately otained hiistory, referring, communicating with other health long term care pharmacist, indepentently interpreting results and counseling the patient
[2023-09-12 22:00] VITALS: BP 119/92; PULSE 91; RESP 18; TEMP 36.7; O2SAT 99
[2023-09-13 02:48] VITALS: BP 120/83; PULSE 83; RESP 20; TEMP 36.9; O2SAT 100
[2023-09-13] MEDS: MORPHine 2 MG/ML SYR IVP ×7 (03:02→22:44)
[2023-09-13] MEDS: POTASSIUM CHLORIDE/D5-0.45NACL 1,000 ML 100 MEQ IV ×2 (06:25→16:27)
[2023-09-13 07:20] VITALS: BP 129/88; PULSE 96; RESP 17; TEMP 36.9; O2SAT 98
[2023-09-13] MEDS: Enoxaparin 60 MG/0.6 ML SYR SC ×2 (07:37→20:07)
[2023-09-13] MEDS: Normal Saline Flush 10 ML SYR IVP ×4 (07:38→20:23)
[2023-09-13] MEDS: PANTOPRAZOLE 80 MG in Normal Saline 100 ML 10 MG IV ×2 (07:54→16:20)
--- NOTE | 2023-09-13 09:52 | PDOC.CMPRO ---
Date of service: 09/13/23 Time of Service: 09:52 Care Management Progress Note Progress Note Text Progress Note Text: Jesus is being treated for acute pancreatitis, PE, dysphagia. He is receiving nutrition through a NGT at this time and due to being high risk for surgery [facility] is being consulted. Jesus shares that he has been homeless before and if he were to discharge to SNF for STR for any length of time it would affect his social security and housing benefits. Therefor, when he's ready to discharge, he wants to go home and learn how to manage his feeding tube so he doesn't starve to . He is less concerned with his mobility and says that if he needs help at home he just hollers to his neighbor. PT consult is ordered, CM is awaiting recommendations. CM will follow. Discharge Potential Discharge Needs: PT Evaluation, PCP F/U Appt and Surgical F/U Appt Anticipated Barriers to Discharge: None Identified Patient/Family Education Needs: Review discharge instructions, discuss Ask Me Three Transportation: RCT RCT Transportation: Private vechicle (Depending on mobility) Plan: [facility] is being consulted, due to high risk for surgical intervention, currently has a NGT for nutrition. Jesus's preference is to discharge home with [facility] services and refuses SNF for STR at this time. Discharge planning continues, PT consult pending. CM will follow. SDOH(Care Management) Screening Will the Patient Participate in the Screening?: Yes Do you worry about having a steady place to live?: no In the past 12 months, have you had to go without electric, gas, oil or water in your home?: no Have you or anyone in your house had to go without enough food to eat?: no Has lack of transportation kept you from medical appointments or from doing things needed for daily living?: no Has anyone in your support network made you feel unsafe for any reason?: no Anticipated HH Services Anticipated HH Services at Discharge [facility] (Full services) Services Needed, [employer] WORK[employer], OT, PT and RN. Anticipated Date of Discharge: 09/13/23..
--- NOTE | 2023-09-13 10:00 | DI.RAD_ITS ---
Exam(s) XR ABDOMEN FLAT PLATE EXAM: 2D digital imaging was performed. CLINICAL HISTORY: Confirmation of Dobbhoff NG tube placement. COMPARISON: No exams were available for comparison TECHNIQUE: Supine views of the abdomen performed. One view is obtained. FINDINGS: A single AP view of the upper abdomen was performed. The tip of the enteric tube is seen in the prox imal stomach. The tip lies just beyond the gastroesophageal junction. IMPRESSION: 1. Limited examination of the upper abdomen. 2. The tip of the enteric tube lies in the proximal stomach just beyond the gastroesophageal junction . DATA REPOSITORY: RADIATION DOSE DELIVERED:
[2023-09-13] MEDS: FLUCONAZOLE 200 MG/100 ML BAG 100 MG IVPB (12:33)
--- NOTE | 2023-09-13 13:45 | PCNE_ITS ---
Date of service: 09/13/23 Time of Service: 11:30 History of Present Illness Narrative: Mr. Gruber is a 63 y/o M currently inpatient at [facility] 2/2 acute pancreatitis, PE and dysphagia; PC consult placed to review GOC; PMHx sig for Parkinson's Disease, esophageal strictures, HTN, OA, h/o hep C (tx complete) and melanoma, and bipolar disorder w/PTSD/anxiety Hospital Course: Presented to the emergency department on September 10 after several days (5-8) of acute worsening vomiting and abdominal pain and SOB. Workup consistent with pancreatitis and PE; admitted for observation. Previous surgical consult referred for EGD and dilation which she did not participate in. Consult at this time with same recommendations however related to his PE he is not a surgical candidate at this time. Diagnosed with esophageal yeast infection and started fluconazole. He was progressed to clear liquids, however this was switched back to n.p.o. pending feeding tube placement. Dobhoff NG tube placed today without issue, is currently receiving first feeding and will be tapered pending his response Parkinson's: He has been diagnosed with Parkinson's for 15 years, has done a trial of Sinemet with increases for 2-1/2 years, he did not see any effects or help from these in fact they made him sicker with GI irritation and hallucinations, both resolved once he stopped using Sinemet. He has not been on any Parkinson's meds for 3 years. He reports in the last 3 years he remained largely stable, up until more recently when his tremor has been less controlled making it more difficult to sleep, ambulate and function at home. He denies Parkinson's involvement with dysphagia. Prior to acute episode was able to tolerate beer, some fluids and a bowl of cereal. However he does admit that he throws these things up often as well. His tremor is full body occurring at rest and with movement. He occasionally has episodes where his brain shuts down these have continued to resolve spontaneously. He was told by neuro that he will from Parkinson's and he understands this, he has had people he knows from Parkinson's. He was followed [facility] and [facility] neurology, however has not seen any of them in several years due to preference - not able to walk longer than 20 feet without tremors and weakness becoming uncontrollable. He fell on Sunday, Sunday and Sunday prior to presenting to the hospital, he was unable to get up independently after multiple attempts -Insomnia worse recently, related to tremors and not being able to calm down. -Was previously prescribed a medicine similar to Valium which helped him remain calm which decreased his tremors and allowed him to settle and he was able to sleep. He was taking it every 6 hours. It was stopped he was unsure why but would like to have this back as it helped his quality of life greatly; currently drinking up to 2 beers a day with THC which works well to settle him and calm him enough to function throughout day Pancreatitis: He would like to continues to have mid upper abdominal pain, receiving morphine in hospital with good effect. Have his diet be advanced to clear liquids as able. But is aware this is on hold right now pending response with feeding tube Dysphagia: Chronic. Aware he has strictures. Is comfortable with NG tube at this time, would be okay with PEG tube, however would want to trial EGD and dilation prior to PEG tube placement. He is most concerned about dehydration which is ultimately why he presented to the hospital he ambulates with a walking stick, however this is no longer helping him either. -History of aspiration pneumonia, reports his lungs are now scarred from recurrent Aspiration events Home environment: Lives [place] [facility] he has changed his apartment so he only lives in living room at this time, bathroom right there, refrigerator and other things he needs all close to him. He has a system that is then working well for him. 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 He spent 17 years working as a [employer], traveling around the country. ACP: He is aware he is completed advanced directive that states that he would not want his heart started, he reports that he has worked and completed a POLST form in [facility], [place] several years ago that states the same. He would like to donate his body to [facility] down there which he clearly states and his advanced directive. He is comfortable completing up-to-date COLST today -He would like to learn how to use his tube independently. He has a strong determination to focus on his quality of life, he states he is selfish with my life if he got to the point where he could no longer live independently he would be comfortable moving to assisted living. He does not feel that his at this time today. -He is aware that things are continuing to get worse and worse, he would like to focus on quality of life - he would be okay with a transfer to tertiary facility to receive EGD, dilation or PEG tube if determined necessary; -Advanced directive identifies Lona Chaparro as healthcare agent, he confirms this today Assessment and Plan Assessment and plan (1) Pulmonary embolus, right: Status: Acute Assessment and plan: Continue enoxaparin Minimal to asymptomatic (2) Nausea & vomiting: Status: Acute Assessment and plan: Resolved at this time, suspect related to pancreatitis Does report some chronic vomiting, most likely related to esophageal strictures (3) Acute pancreatitis: Status: Acute Assessment and plan: Pain managed with morphine 2 mg every 2 hours as needed Was transition to clear liquid, however this was stopped due to surgical considerations. May consider progression back to clear liquids or ice chips pending response to NG tube (4) Esophageal yeast infection: Status: Acute Assessment and plan: Continue fluconazole IV (5) Chronic pulmonary aspiration: Status: Acute Assessment and plan: Has intermittently participated in care, history of MBSS, per chart review has been referred for dilation before however he was non adherent previously seen by [facility] in (6) Esophageal stricture: Status: Acute Assessment and plan: Not currently candidate for EGD at [facility]; Comfortable with transfer to tertiary facility for EGD and dilation (7) Inability to swallow: Status: Chronic Assessment and plan: As above (8) Acute dehydration: Status: Resolved Assessment and plan: Comfortable with ongoing IV fluids Dehydration is his biggest concern (9) Dysphagia: Status: Acute Assessment and plan: NG Donhoff tube placed today, currently tolerating first feed well Pending EGD dilation or PEG tube placement comfortable with seeing how this is tolerated prior to further decision making -Denies Parkinson's involvement in his dysphagia, will need follow-up review Qualifiers: Dysphagia type: esophageal phase Qualified Code(s): R13.19 - Other dysphagia (10) Primary Parkinson's disease: Status: Acute Assessment and plan: 15 years since diagnosis Nonadherent with previous recommendations for medications, [facility], stricture treatment ECT Did not tolerate Sinemet; however did get some relief from medication which sounds like benzodiazepine class Not currently followed by neurology, not interested at this time Aware of some disease progression, however would benefit from ongoing review (11) Anxiety: Assessment and plan: Previously controlled with what sounds like benzodiazepine medication 1-2 beers per day and THC with good effect (12) Palliative care patient: Status: Acute Assessment and plan: Will continue to follow, follow-up Sunday if still hospitalized for home visits pending discharge (13) ACP (advance care planning): Status: Acute Assessment and plan: Reviewed and completed COLST form, DNR/DNI, would always want feeding tube and IV fluids, he is fearful of starving/dehydration type deaths; he would determine use of antibiotic based on infection. He is comfortable with transfer to tertiary facility. He would want EGD and dilation prior to PEG tube placement to see if he could avoid having permanent feeding tube, however he is comfortable with PEG tube if absolutely necessary He confirms that his healthcare agent is Lona Chaparro, listed on his advance directive He states he would be comfortable relocating when he is unable to care for himself he would like to focus on his quality of life, and would like to remain being selfish with my life meaning doing things the way he would like to do them versus have doctors tell him to do this spent 30 mins w/ACP (14) Physician orders for life-sustaining treatment (POLST) form indicates patient wish for ah-say-oyskdjmyjid status: Status: Acute Assessment and plan: COLST completed and placed in chart, shared with PCP Review of Systems Narrative: As per [facility] All Active Problems (Updated 09/13/23 @ 14:08 by Starla Miranda NP) Physician orders for life-sustaining treatment (POLST) form indicates patient wish for an-nno-drfkklfymht status (Acute) ACP (advance care planning) (Acute) Palliative care patient (Acute) Pulmonary embolus, right (Acute) Abnormal CT of the chest (Acute) DVT prophylaxis (Acute) Nausea & vomiting (Acute) Acute pancreatitis (Acute) Esophageal yeast infection (Acute) Chronic pulmonary aspiration (Acute) Esophageal stricture (Acute) Stricture has been present since 2021 Aspiration of food (Acute) Patient had a swallow study in 2021 which showed mandeep aspiration Inability to swallow (Chronic) Esophageal abnormality (Chronic) Acute thoracic back pain (Acute) Pneumonia (Acute) Dysphagia (Acute) Memory loss (Acute) Erectile dysfunction (Acute) Constipation (Acute) Peripheral neuropathy (Acute) Primary Parkinson's disease (Acute) Medical History Hepatitis C per referral, pt has completed treatment Malignant melanoma of skin Hypertension Severe bipolar disorder with psychotic features, mood-congruent Pt. denies PTSD (post-traumatic stress disorder) Pt. denies triggers Substance abuse pt. denies Parkinsons disease Prediabetes Anxiety Osteoarthritis Melanoma H/O multiple concussions History of hepatitis C Surgical History H/O colonoscopy (~03/2019) S/P skin cancer resection Social History Smoking/Tobacco Use Status: Current every day Smoking risk assessment performed?: Yes Alcohol Intake: current Alcohol Intake frequency: 0-2 drinks per day Alcohol type: beer Counseling provided: provider counseling Drug use: Daily Substance use type: marijuana Housing: apartment current occupation: None Seatbelt use: always Do you feel safe at home: Yes Do you feel safe in your relationship?: Yes Exam Narrative Exam Narrative: General: 63 y/o male, appears older than stated age, cooperative, lying in hospital bed w/HOB elevated throughout visit HEENT: hearing grossly WNL, normocephalic, atraumatic Resp: even and unlabored, speaks full sentences w/no SOB, no cough no audible wheeze GI: NG tube in place, receiving nutrition throughout visit w/no GI complaints/guarding Skin: nails stained r/t tobacco; no rashes or lesions, did not conduct full body exam Neuro: full body tremor at rest; AAOx3 Psych: pleasant, cooperative, MS grossly WNL, speech clear; mood/affect WNL, thought process w/loose association and impoverished, tangential but able to engage in conversation/redirection; insight/judgment limited to fair Results Last Vital Signs Temp 98.4 F 09/13/23 07:20 Pulse 96 H 09/13/23 07:20 Resp 17 09/13/23 07:20 BP 129/88 09/13/23 07:20 Pulse Ox 98 09/13/23 07:20 Labs 09/12/23 06:20 09/12/23 06:20
--- NOTE | 2023-09-13 14:25 | PGE_ITS ---
Date of Service Date of service: 09/13/23 Time of Service: 14:25 Assessment and Plan Assessment and plan (1) Pulmonary embolus, right: Status: Acute (2) Dysphagia: Status: Acute Qualifiers: Dysphagia type: esophageal phase Qualified Code(s): R13.19 - Other dysphagia (3) Inability to swallow: Status: Chronic (4) Esophageal stricture: Status: Acute Assessment and plan: Patient was found to have a benign esophageal stricture. The tissues are soft enough that we were able to dilate initially back in July was the last 1 he had done. However patient did not have a ride to the hospital and would not spend the night in the hospital and so has not had any repeat dilations since that time. He is essentially back to the same place that he was back in June when we started. He also has Parkinson's which also complicates his swallowing issues. At this time because of his acute PE we cannot do any anesthesia or procedures for [address] [facility]. I do not know if GI at [facility] would be willing to do any interventions. During this timeframe. Currently we have a Dobbhoff placed for feedings we will trial this. And have speech repeat MBSS to see how bad his swallowing has become and if he can swallow anything. I do feel the patient is chronically aspirating, in between the severity of the stricture and his Parkinson's this is going to be a lifelong problem that only becomes more severe. awaiting further input from speech, -contact GI at and see if they will place feeding tube. Pt has severe stricture from chronic GERD. Also swallowing dysfunction from Parkinsons. This document was created with voice activated software and may contain errors. 15 mins spent in direct pt care and 30 in non face to face time -I did personally review pt labs/recent CT's/ speech adn PT evaluations. (5) Primary Parkinson's disease: Status: Acute (6) Aspiration of food: Status: Acute (7) Severe bipolar disorder with psychotic features, mood-congruent: (8) Chronic pulmonary aspiration: Status: Acute (9) Pneumonia: Status: Acute Subjective Subjective Interval history since last seen: Pt condition has ot changed. Pt has been non-compliant w/ f/u's. Pt still refusing to take medications note from palliative appreciated due to progression of Parkinson's and inability to walk, pt may require SNF. Objective Last Vital Signs Temp 36.9 C 09/13/23 07:20 Pulse 96 H 09/13/23 07:20 Resp 17 09/13/23 07:20 BP 129/88 09/13/23 07:20 Pulse Ox 98 09/13/23 07:20 PAWSS Have you Been Recently Intoxicated or Drunk Within the Last 30 days?: No Have you Ever Experienced Previous Episodes of Alcohol Withdrawal?: No Have you ever Experienced Withdrawal Seizures?: No Have you ever Experienced Delirium Tremens(DT)s?: No Have you ever undergone Alcohol Rehabilitation Treatment (i.e, inpt ot outpatient treatment programs)?: No Have you ever Experienced Blackouts?: No Have you ever Combined Alcohol with other Downers within the last 90 days?: No Have you ever Combined Alcohol with any other Substance of Abuse during the last 90 days?: No Positive Blood Alcohol level on Presentation? [PCS.BAL]: Unable to Obtain Evidence of Increased Autonomic Activity (i.e. HR>120, tremor, sweating, agitation, nausea)?: No Result: 0 Time Spent with Patient Time Spent with Patient: <25 minutes Time was spent: preparing to see the patient(eg.review tests), obtaining and/or reviewing separately otained hiistory, ordering medications,tests, procedures, referring, communicating with other health zoo caretaker, indepentently interpreting results, counseling the patient, care coordination and other
--- NOTE | 2023-09-13 14:37 | CHAPLAIN ---
Jesus was sitting up in bed when I visited. He engaged in a conversation but did not seem eager to continue. When I asked if he was in touch with friends or family, he said he had neither and that he was just focusing on himself and getting better. I offered to visit again and he said that would be okay.
--- NOTE | 2023-09-13 14:48 | PT.INNT ---
Date of service: 09/13/23 Time of Service: 14:48 PT Notes Visit Reasons: Pancreatitis, Dysphagia September 13, 2023 Jesus refused PT initial evaluation this afternoon. Stated he was too sick and weak to participate in PT at this time.
[2023-09-13 15:25] VITALS: BP 116/88; PULSE 92; RESP 16; TEMP 36.3; O2SAT 98
--- NOTE | 2023-09-13 15:42 | PGE_ITS ---
Date of Service Date of service: 09/13/23 Time of Service: 15:42 Assessment and Plan Assessment and plan (1) Dysphagia: Status: Acute Assessment and plan: -Associated with Parkinsons, GERD, esophogitis, with history of severe stricture. -He has not followed up with surgery as planned for ongong monitoring. -Surgery consulted, PEG may be needed per Dr. Elias, though this would have to be delayed due to PE (as noted below) for at least 6 months -Dubhoff NG tube in place with initiation of nutrition Qualifiers: Dysphagia type: esophageal phase Qualified Code(s): R13.19 - Other dysphagia (2) Acute pancreatitis: Status: Acute Assessment and plan: -Mild pancreatitis per CT and lipase c/w his symptoms. -He does drink alchohol but denies recent heavy use. -No stones on CT or RUQ ultrasound. -Ondansatron prn. Avoid older anticholinergics meds with Parkinsons. -Benzodiazepines have helped in past, can use prn -Epigatric pain and wretching have improved since he has been NPO on fluids. -WBC down. (3) Primary Parkinson's disease: Status: Acute Assessment and plan: -He hasn't tolerated medications in the past. -Discussed possible teleneurology consult for another opinion, though unlikely to help during hospitalization -Will ask for palliative care given overall picture. (4) Esophageal yeast infection: Status: Acute Assessment and plan: -Treating with fluconazole per surgery. (5) Pulmonary embolus, right: Status: Acute Assessment and plan: -Minimally symptomatic, no heart strain. Treating with enoxaparin. Subjective Subjective Interval history since last seen: Patient states that he is doing better today, and is happy that he is able to get nutrition through his recently placed Dubhoff tube. However, he repeadtly states that he is very sick and has a lot going on that i need to deal with. Exam Narrative Exam Narrative: chronically ill appearing older gentleman laying in bed in no acute distress, Dubhoff NG tube in place, heart RRR, lungs CTAB, abdomen soft, non-tender, non- distended Objective Last Vital Signs Temp 97.3 F L 09/13/23 15:25 Pulse 92 H 09/13/23 15:25 Resp 16 09/13/23 15:25 BP 116/88 09/13/23 15:25 Pulse Ox 98 09/13/23 15:25 PAWSS Have you Been Recently Intoxicated or Drunk Within the Last 30 days?: No Have you Ever Experienced Previous Episodes of Alcohol Withdrawal?: No Have you ever Experienced Withdrawal Seizures?: No Have you ever Experienced Delirium Tremens(DT)s?: No Have you ever undergone Alcohol Rehabilitation Treatment (i.e, inpt ot outpatient treatment programs)?: No Have you ever Experienced Blackouts?: No Have you ever Combined Alcohol with other Downers within the last 90 days?: No Have you ever Combined Alcohol with any other Substance of Abuse during the last 90 days?: No Positive Blood Alcohol level on Presentation? [PCS.BAL]: Unable to Obtain Evidence of Increased Autonomic Activity (i.e. HR>120, tremor, sweating, agitation, nausea)?: No Result: 0 Time Spent with Patient Time Spent with Patient: >50 minutes Time was spent: preparing to see the patient(eg.review tests), obtaining and/or reviewing separately otained hiistory, ordering medications,tests, procedures, referring, communicating with other health palliative care specialist, indepentently interpreting results, counseling the patient and care coordination
[2023-09-13 23:22] VITALS: BP 121/83; PULSE 91; RESP 19; TEMP 36; O2SAT 97
[2023-09-14] MEDS: MORPHine 2 MG/ML SYR IVP ×8 (02:22→19:45)
[2023-09-14] MEDS: Normal Saline Flush 10 ML SYR IVP ×9 (02:23→19:45)
[2023-09-14] MEDS: POTASSIUM CHLORIDE/D5-0.45NACL 1,000 ML 100 MEQ IV ×2 (02:46→13:45)
[2023-09-14] MEDS: PANTOPRAZOLE 80 MG in Normal Saline 100 ML 10 MG IV ×2 (05:34→15:23)
[2023-09-14 07:20] LABS: HCT 43.1 % (40.0-50.0); HGB 14.8 g/dL (13.5-17.5); MCH 33.9 pg (27.0-33.0); MCHC 34.3 % (32.0-36.0); MCV 99 fL (80-95); MPV 10.2 fL (8.0-11.0); Platelet Count 118 10^3/uL (130-400); RBC 4.37 10^6/uL (4.36-5.78); RDW 13.4 % (11.8-14.1); RDW-SD 49.1 fL; WBC 6.11 10^3/uL (4.4-10.8)
[2023-09-14 07:30] LABS: ALT 35 U/L (16-63); AST 40 U/L (15-37); Albumin 2.1 g/dL (3.4-5.0); Alkaline Phosphatase 47 U/L (46-116); Anion Gap 7.8 mmol/L (3-11); BUN 4 mg/dL (7-18); Bilirubin, Total 0.64 mg/dL (0.2-1.0); CO2 26.2 mmol/L (21.0-32.0); CREATININE 0.8 mg/dL (0.70-1.30); Calcium 8.5 mg/dL (8.5-10.1); Chloride 102 mmol/L (98-107); Estimated GFR 98.21 (mL/min/1.73m2); Glucose 176 mg/dL (74-106); Magnesium 1.4 mg/dL (1.8-2.4); Potassium 3.3 mmol/L (3.5-5.1); Sodium 136 mmol/L (136-145); Total Protein 5.9 g/dL (6.4-8.2)
[2023-09-14] MEDS: Enoxaparin 60 MG/0.6 ML SYR SC ×2 (07:33→19:45)
[2023-09-14 07:40] LABS: Lab Add On Test DONE
[2023-09-14 07:45] VITALS: BP 134/84; PULSE 105; RESP 15; TEMP 36.7; O2SAT 98
[2023-09-14 08:12] LABS: Lipase 55 U/L (16-77)
--- NOTE | 2023-09-14 09:21 | CMPROGNOTE_ITS ---
Date of service: 09/14/23 Time of Service: 09:21 Care Management Progress Note Progress Note Text Progress Note Text: Tone was sitting up in bed when CM met with him. He was pleasant in manner but very direct in his observations and comments. Tone has been living alone since he was young and considers himself a survivor. He informed CM that he has had to learn to do things for himself. 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 Both of those experiences have made him more self-reliant. Tone has advanced Parkinson's disease and ambulates with difficulty. He falls frequently but shared that he has learned how to do so safely. It has been recommended that Tone go to a SNF for short term rehab but he is adamant that he does not feel that is in his best interest, He intends to discharge home. He will accept assistance with transportation and possibly community support for transportation when discharged. Discharge Plan: Jesus's preference is to discharge home with [facility] services and refuses SNF for STR at this time. Discharge planning continues, PT consult pending. CM will follow. SDOH(Care Management) Screening Will the Patient Participate in the Screening?: Yes Do you worry about having a steady place to live?: no In the past 12 months, have you had to go without electric, gas, oil or water in your home?: no Have you or anyone in your house had to go without enough food to eat?: no Has lack of transportation kept you from medical appointments or from doing things needed for daily living?: no Has anyone in your support network made you feel unsafe for any reason?: no
[2023-09-14] MEDS: Polyethylene Glycol 3350 17 GM PACKET PO (10:13)
--- NOTE | 2023-09-14 11:03 | IN_ITS ---
PT Notes Visit Reasons: Pancreatitis, Dysphagia Inpatient Physical Therapy Evaluation Date: 09/14/23 Referring Doctor: Dr. Guevara PT Orders: PT CONSULT: limited ability to ambulate Precautions: standard, fall Patient Profile/Admitting Diagnosis: Patient admitted 09/11/23 for pancreatitis and dysphagia associated with Parkinsons, GERD, esophogitis, with history of severe stricture. He had an NG tube placed yesterday. PT orders received 09/13/23, although patient refused PT consultation yesterday. Social History/Home Situation: Patient resides in a private apartment. States that he has set up his house so that he can reach anything he needs to from his bed. He does walk or crawl in the apartment at times, depending on his symptoms that day. He has a neighbor that runs errands for him and checks in on him regularly. Equipment Owned/DME: walking sticks Subjective: Jesus states that he is moving just as he normally does. He states that he is tired of people coming into his room. He reports increase in tremor when people talk to him, and states that he wants to be left alone. Objective: General Observation: Resting in bed with nursing present. NG tube in place. IV to RUE. Resting tremor LEs >UEs. Mental Status: Initially agitated. Adamantly refuses PT initially, but when told he has the right to refuse and we can hold on consult, he states that he wants to get up to prove it. ROM: Right Upper Extremity: WFL Left Upper Extremity: WFL Right Lower Extremity: functionally demonstrates good ROM bilat LEs. Hip flexion > 90*, Knee motion 0-130* bilat. Left Lower Extremity: functionally demonstrates good ROM bilat LEs. Hip flexion > 90*, Knee motion 0-130* bilat. Strength: Unable to assess due to inability to redirect Bed Mobility/Transfers: supine-sit: independent sit-supine: independent sit-stand: supervision, with slow, cautious transfer stand-sit: supervision with slow, cautious transfer Gait: did not assess due to unsafe circumstances. Patient declines UE support to FWW in standing position, and requests not to be touched for CGA. Balance: Static Sitting: good Dynamic Sitting: good Static Standing: fair Dynamic Standing: poor Informed Consent/Education: Patient instructed in purpose of PT consult and plan of care. Assessment: Patient is a 63 year old male referred to physical therapy services with the diagnosis of pancreatitis and dysphagia associated with Parkinsons, GERD, esophogitis, with history of severe stricture. Patient has chronic mobility impairments, and per his report, is at baseline level of function. He presents with several safety concerns, with severe mobility impairments, however is not interested in pursuing PT intervention either here in the hospital or upon discharge. He does have a system in place, and although not ideal, is what he is comfortable with at this point. He has declined further PT, and will subsequently discharge from PT services. He currently demonstrates the following impairment level findings: 1. decreased standing balance 2. PD with tremor 3. h/o falls Impairments are contributing to the following functional limitations: 1. unable to safely ambulate 2. high risk for falls Patient is assessed as Moderate [id number] complexity based on the following: History: Patient seen in acute care setting, with pancreatitis and dysphagia associated with Parkinsons, GERD, esophogitis, with history of severe stricture in the presence of chronic mobility issues. Patient is not interested in pursuing PT intervention at this time. Despite safety concerns, he is at his baseline per his report. Examination: functional limitations as noted above Presentation: evolving Decision Making: moderate Plan of Care/Treatment Plan: No further PT intervention in acute care setting as patient declines treatment and reports he is at his baseline. DISCHARGE RECOMMENDATIONS: anticipate return home with no PT services TREATMENT CODE/TIME: [id number] ([id number]) Reny Can, PT, DPT [facility]
[2023-09-14] MEDS: FLUCONAZOLE 200 MG/100 ML BAG 100 MG IVPB (11:55)
--- NOTE | 2023-09-14 12:18 | W.NUTCONSULT ---
Date of service: 09/14/23 Time of Service: 12:18 Nutritional Consult ASSESSMENT: Tube feeding consult request for Mr. Schuler. He has been NPO status until yesterday secondary to dysphagia. He is 175 cm and 65.7 kg. His BMI is 21.4 kg/m2 which is WNL. His weight has been stable for the past 3 months but in the last 6 months he has lost 17% of his body weight which is significant. He also shows signs of muscle wasting and has been eating less than 75% of his caloric needs in the past month. Estimated energy needs: 1642 to 1971 kcal/day (25 to 30 kcal/kg/day) Estimated protein needs : 79 grams/day (1.2g/kg/day) Estimated fluid needs: 1800 ml/day (1 ml/kcal provided/day) NUTRITIONAL DIAGNOSIS: Moderate malnutrition in the setting acute illness as evidenced by 17% weight loss in 6 months and poor PO intake for over a month. Inability to take oral foods and fluids r/t dysphagia as evidenced by moderate malnutrition and NPO status. INTERVENTION: Would recommend NG feeds of the following: Osmolite 1.2 thanh at a goal rate of 62.5 ml/hr continuously. Start feeding at 30 ml/hr x 4 hours and increase by 15 ml/hr every four hours as tolerated until goal rate of 62.5 ml/hr is met. This feeding meets Mr. Schuler' estimated macronutrient needs as well as his estimated micronutrient needs. This feeding provides 1230 ml of free water so Mr. Schuler may require an additional 600 ml of free water to meet his hydration needs. MONITORING AND EVALUATION: 1. Monitor weight and tolerance to NG feeds. 2. Evaluate nutrition care plan ongoing and adjust as needed. Time Spent in Nutritional Counseling and Treatment: 30 minutes
[2023-09-14 15:06] VITALS: BP 118/88; PULSE 101; RESP 15; TEMP 36.7; O2SAT 96
--- NOTE | 2023-09-14 15:34 | W.PM.PROGNOT ---
Date of Service Date of service: 09/14/23 Time of Service: 15:34 Assessment and Plan Assessment and plan (1) Dysphagia: Status: Acute Assessment and plan: -Associated with Parkinsons, GERD, esophogitis, with history of severe stricture. -He has not followed up with surgery as planned for ongong monitoring. -Surgery consulted, PEG may be needed per Dr. Elias, though this would have to be delayed due to PE (as noted below) for at least 6 months -Dubhoff NG tube in place with initiation of nutrition Qualifiers: Dysphagia type: esophageal phase Qualified Code(s): R13.19 - Other dysphagia (2) Acute pancreatitis: Status: Acute Assessment and plan: -Mild pancreatitis per CT and lipase c/w his symptoms. -He does drink alchohol but denies recent heavy use. -No stones on CT or RUQ ultrasound. -Ondansatron prn. Avoid older anticholinergics meds with Parkinsons. -Benzodiazepines have helped in past, can use prn -Epigatric pain and wretching have improved since he has been NPO on fluids. -WBC down. (3) Primary Parkinson's disease: Status: Acute Assessment and plan: -He hasn't tolerated medications in the past. -Discussed possible teleneurology consult for another opinion, though unlikely to help during hospitalization -Will ask for palliative care given overall picture. (4) Esophageal yeast infection: Status: Acute Assessment and plan: -Treating with fluconazole per surgery. (5) Pulmonary embolus, right: Status: Acute Assessment and plan: -Minimally symptomatic, no heart strain. Treating with enoxaparin. \ discussed with Dr Guevara Subjective Subjective Patient reports: nausea, vomiting and afebrile; denies tolerating liquids well or shortness of breath Exam Narrative Exam Narrative: chronically ill appearing other than stated age. ngt in place, head atraumatic normocephalic. eye non icteric non injected. skin dry, oral mucosa dry, resp even and unlabored, diminished throughout. cardiovascular RRR, abd soft, ext without edema, neuro awake an alert, appropriate. Objective Last Vital Signs Temp 36.7 C 09/14/23 15:06 Pulse 101 H 09/14/23 15:06 Resp 15 09/14/23 15:06 BP 118/88 07/26/24 15:06 Pulse Ox 96 09/14/23 15:06 Laboratory Results - last 24 hr 09/14/23 09/14/23 06:08 07:28 WBC 6.11 RBC 4.37 Hgb 14.8 Hct 43.1 MCV 99 H MCH 33.9 H MCHC 34.3 RDW 13.4 Plt Count 118 L MPV 10.2 Sodium 136 Potassium 3.3 L Chloride 102 Carbon Dioxide 26.2 Anion Gap 7.8 BUN 4 L Creatinine 0.8 Est GFR (CKD-EPI 2020) 98.21 Glucose 176 H Calcium 8.5 Magnesium 1.4 L Total Bilirubin 0.64 AST 40 H ALT 35 Alkaline Phosphatase 47 Total Protein 5.9 L Albumin 2.1 L Lipase 55 Add-On Test Request DONE PAWSS Have you Been Recently Intoxicated or Drunk Within the Last 30 days?: No Have you Ever Experienced Previous Episodes of Alcohol Withdrawal?: No Have you ever Experienced Withdrawal Seizures?: No Have you ever Experienced Delirium Tremens(DT)s?: No Have you ever undergone Alcohol Rehabilitation Treatment (i.e, inpt ot outpatient treatment programs)?: No Have you ever Experienced Blackouts?: No Have you ever Combined Alcohol with other Downers within the last 90 days?: No Have you ever Combined Alcohol with any other Substance of Abuse during the last 90 days?: No Positive Blood Alcohol level on Presentation? [PCS.BAL]: Unable to Obtain Evidence of Increased Autonomic Activity (i.e. HR>120, tremor, sweating, agitation, nausea)?: No Result: 0 Time Spent with Patient Time Spent with Patient: >50 minutes Time was spent: preparing to see the patient(eg.review tests), obtaining and/or reviewing separately otained hiistory, ordering medications,tests, procedures, referring, communicating with other health resident care spec, indepentently interpreting results and care coordination
--- NOTE | 2023-09-14 15:42 | W.SPSTE ---
Date of service: 09/14/23 Time of Service: 14:30 Subjective Clinical (Bedside) Swallow Evaluation - Inpatient Speech Language Pathology Referred by: Natalya Elias MD surgery Start time: 1430 End time: 1500 Total patient contact: 30 min Referral Type: Routine Swallow Consult Precautions: Standard Reason for Referral/HPI: Patient is a 63 y/o M with Parkinson's, severe esophageal strictures, and bipolar disorder with PTSD/anxiety Admitted with acute pancreatitis, PE, and dysphagia. He presented to the ED after abdominal pain, SOB and vomiting. He was hospitalized in June 2023 for weight loss due to primarily esophageal dysphagia and was discharged after EGD and dilation which improved his PO intake. During that hospitalization he also participated in MBSS with LOAN ASSOCIATE which did indicate some oral-pharyngeal dysphagia, though primary barrier to PO intake was esophageal dysfunction and patient did not aspirate during the study. See MBSS report dated 07/02/2023 for further details. Unfortunately, after discharge, he did not follow-up for further dilations (cites transportation challenges) and seems to have returned to baseline function in the interim with minimal PO intake and weight loss. He was seen by Palliative Care yesterday who also discussed plan of care for dysphagia. He would be comfortable with PEG tube placement eventually, but would like to try further management via EGD dilation. Unfortunately he is neither a candidate for EGD/dilation nor PEG placement at this time due to pulmonary embolisms and being on anticoagulants. He was given a dobhoff NG tube yesterday and is tolerating feedings well at this time. [employer] ASSOCIATE IMPRESSIONS & RECOMMENDATIONS: Patient likely with continued [id number] esophageal dysphagia and [id number] oral-pharyngeal dysphagia, with esophageal impairment remaining primary barrier to PO intake. There does not appear to be any indication for repeat MBSS at this time, especially given he will be unable to receive any dilations for several months. He does appear to tolerate small volumes of ice chips and thin liquids without s/sx aspiration at this time. With reflux and oral care precautions in place, at this time recommend conservative therapeutic PO trials of thin clear liquids and ice chips, up to 3-4 at a time, for swallow stimulation and comfort. Patient will continue with NG tube feedings for the time being. LOAN ASSOCIATE will continue to follow for possible trials of upgraded consistencies as indicated. PLAN: Recommend home health vs SNF [employer] for continued swallow exercises and therapeutic PO intake. Suggested Referrals/Consults: Gastroenterology DIET RECOMMENDATIONS: Alternative nutrition method with ice chip/Thin Liquid protocol as outlined by LO[employer] ASSOCIATE and administered via trained caregiver. MEDICATIONS: Via Tube RISK MANAGEMENT: Level of Assistance/Supervision: 1:1 close supervision for all PO intake with trained staff Positioning and environment: PO intake only when awake/alert? Reduce auditory and/or visual distractions when drinking Petros upright for all PO intake. Oral hygiene Q3-4h/every 3-4 hours Using friction with toothbrush on all oral structures as tolerated Strategies/Adaptations/Assistive Equipment: Single sips/ice chips via tsp - up to 5-6 at a time Stop PO after small volume to prevent regurgitation & aspiration Multiple swallows Reflux Precautions: Maintain fully upright position at least 30 minutes after PO intake Avoid PO intake 2-3 hours prior to reclining/sleeping Sleep with head of bed elevated to reduce likelihood of nocturnal reflux Education Provided to: Nursing Patient Topics Addressed: anatomy/physiology of swallowing mechanism definition and impacts of aspiration impact of current diagnoses on swallow function role of LOAN ASSOCIATE in management of swallow disorders overt s/sx to monitor for re: potential aspiration of food / liquids relationship between reflux, GERD and swallow fxn relationship between respiratory function and deglutition rationale and instruction for additional risk management strategies as above SUBJECTIVE: Patient received: alert/awake. Agreeable to evaluation. Verbose. Pain Reported 8/10 (abdomen) Baseline Swallow Function: Patient reports aspiration on secretions. He otherwise feels he tolerates thin liquids fairly well with strategies in place. Continues with consistent regurgitation of PO intake, proximal & distal sensation of esophageal stasis. 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 Speech: WFL Oral Mechanism Examination: Dentition: Partial natural dentition - Fair condition Oral mucosa: Dry Cranial Nerve Assessment: WFL CN V ? Trigeminal Facial Sensation WNL Jaw Strength/ROM WNL ?WNL CN VII- Facial WNL labial ROM, strength, coordination. WNL lingual sensation WNL CN IX ? Glossopharyngeal WNL palatal elevation with phonation. No evidence of nasal emissions WNL CN X ? Vagus WNL Vocal quality and volume. Strong/sharp volitional cough WNL CX XII ? Hypoglossal WNL lingual ROM, strength, coordination WNL Trials Assessed: Ice Chips x2 IDDSI 0 Thin Liquids x 4 sips (small) Oral Phase Findings: WFL for very small, single sips via tsp and cup edge Pharyngeal Phase Findings: WFL (admittedly, limited exam with few trials/consistencies taken) Esophageal Phase Findings: Belching intermittently No regurgitation during or after short delay. Goals: Clerical Warehouseman Goals: Patient will remain free from aspiration-related illness, malnutrition, and dehydration. Short Term Goals: Patient will tolerate ice chips and small sips liquid without overt s/s aspiration across 2/2 visits. Patient will tolerate upgraded PO trials without overt s/s aspiration across 2/2 visits.
[2023-09-14] MEDS: ACETAMINOPHEN 1,000 MG/100 ML BTL 400 MG IVPB (18:13)
[2023-09-14] MEDS: POTASSIUM CHLORIDE 10 MEQ/100 ML BAG 100 MEQ IVINF ×2 (21:56→22:59)
[2023-09-14 23:02] VITALS: BP 125/93; PULSE 88; RESP 17; TEMP 36.8; O2SAT 99
[2023-09-15] MEDS: MAGNESIUM SULFATE 4 GM/100 ML BAG IVINF (00:01)
[2023-09-15] MEDS: MORPHine 2 MG/ML SYR IVP ×10 (00:08→21:24)
[2023-09-15] MEDS: Normal Saline Flush 10 ML SYR IVP ×5 (03:25→19:12)
[2023-09-15] MEDS: PANTOPRAZOLE 80 MG in Normal Saline 100 ML 10 MG IV ×2 (06:06→18:16)
[2023-09-15 06:50] LABS: Anion Gap 7.6 mmol/L (3-11); BUN 4 mg/dL (7-18); CO2 26.4 mmol/L (21.0-32.0); CREATININE 0.8 mg/dL (0.70-1.30); Calcium 8.4 mg/dL (8.5-10.1); Chloride 100 mmol/L (98-107); Estimated GFR 98.21 (mL/min/1.73m2); Glucose 165 mg/dL (74-106); Magnesium 2.1 mg/dL (1.8-2.4); Potassium 3.6 mmol/L (3.5-5.1); Sodium 134 mmol/L (136-145)
[2023-09-15 07:16] VITALS: BP 144/93; PULSE 95; RESP 16; TEMP 36.7; O2SAT 98
[2023-09-15] MEDS: POTASSIUM CHLORIDE/D5-0.45NACL 1,000 ML 100 MEQ IV ×2 (07:55→20:40)
[2023-09-15] MEDS: Enoxaparin 60 MG/0.6 ML SYR SC ×2 (07:56→19:12)
[2023-09-15] MEDS: FLUCONAZOLE 200 MG/100 ML BAG 100 MG IVPB (11:36)
[2023-09-15 11:38] LABS: HCT 43.7 % (40.0-50.0); HGB 14.7 g/dL (13.5-17.5); MCH 33.6 pg (27.0-33.0); MCHC 33.6 % (32.0-36.0); MCV 100 fL (80-95); MPV 10.6 fL (8.0-11.0); Platelet Count 126 10^3/uL (130-400); RBC 4.38 10^6/uL (4.36-5.78); RDW 13.2 % (11.8-14.1); RDW-SD 49.2 fL; WBC 6.23 10^3/uL (4.4-10.8)
--- NOTE | 2023-09-15 12:03 | W.PM.PROGNOT ---
Date of Service Date of service: 09/15/23 Time of Service: 12:13 Assessment and Plan Assessment and plan (1) Dysphagia: Status: Acute Assessment and plan: -Associated with Parkinsons, GERD, esophogitis, with history of severe stricture. -He has not followed up with surgery as planned for ongong monitoring. -Surgery consulted, PEG may be needed per Dr. Elias, though this would have to be delayed due to PE (as noted below) for at least 6 months -Dubhoff NG tube in place with initiation of nutrition Qualifiers: Dysphagia type: esophageal phase Qualified Code(s): R13.19 - Other dysphagia (2) Acute pancreatitis: Status: Acute Assessment and plan: -Mild pancreatitis per CT and lipase c/w his symptoms. -He does drink alchohol but denies recent heavy use. -No stones on CT or RUQ ultrasound. -Ondansatron prn. Avoid older anticholinergics meds with Parkinsons. -Benzodiazepines have helped in past, can use prn -Epigatric pain and wretching have improved since he has been NPO on fluids. -WBC down. (3) Primary Parkinson's disease: Status: Acute Assessment and plan: -He hasn't tolerated medications in the past. -Discussed possible teleneurology consult for another opinion, though unlikely to help during hospitalization -Will ask for palliative care given overall picture. (4) Esophageal yeast infection: Status: Acute Assessment and plan: -Treating with fluconazole per surgery. (5) Pulmonary embolus, right: Status: Acute Assessment and plan: -Minimally symptomatic, no heart strain. Treating with enoxaparin. \ discussed with Dr Guevara Subjective Subjective Patient reports: tolerating liquids well and afebrile; denies shortness of breath Interval history since last seen: tolerating feed now restarted at 10 cc/hr\ Exam Narrative Exam Narrative: chronically ill appearing other than stated age. ngt in place, head atraumatic normocephalic. eye non icteric non injected. skin dry, oral mucosa dry, resp even and unlabored, diminished throughout. cardiovascular RRR, abd soft, ext without edema, neuro awake an alert, appropriate. Objective Last Vital Signs Temp 36.7 C 09/15/23 07:16 Pulse 95 H 09/15/23 07:16 Resp 16 09/15/23 07:16 BP 144/93 H 09/15/23 07:16 Pulse Ox 98 09/15/23 07:16 Laboratory Results - last 24 hr 09/15/23 06:15 WBC 6.23 RBC 4.38 Hgb 14.7 Hct 43.7 MCV 100 H MCH 33.6 H MCHC 33.6 RDW 13.2 Plt Count 126 L MPV 10.6 Sodium 134 L Potassium 3.6 Chloride 100 Carbon Dioxide 26.4 Anion Gap 7.6 BUN 4 L Creatinine 0.8 Est GFR (CKD-EPI 2020) 98.21 Glucose 165 H Calcium 8.4 L Magnesium 2.1 PAWSS Have you Been Recently Intoxicated or Drunk Within the Last 30 days?: No Have you Ever Experienced Previous Episodes of Alcohol Withdrawal?: No Have you ever Experienced Withdrawal Seizures?: No Have you ever Experienced Delirium Tremens(DT)s?: No Have you ever undergone Alcohol Rehabilitation Treatment (i.e, inpt ot outpatient treatment programs)?: No Have you ever Experienced Blackouts?: No Have you ever Combined Alcohol with other Downers within the last 90 days?: No Have you ever Combined Alcohol with any other Substance of Abuse during the last 90 days?: No Positive Blood Alcohol level on Presentation? [PCS.BAL]: Unable to Obtain Evidence of Increased Autonomic Activity (i.e. HR>120, tremor, sweating, agitation, nausea)?: No Result: 0 Time Spent with Patient Time Spent with Patient: 35-49 minutes Time was spent: preparing to see the patient(eg.review tests), ordering medications,tests, procedures, indepentently interpreting results and counseling the patient
--- NOTE | 2023-09-15 13:11 | DI.RAD_ITS ---
Exam(s) XR ABDOMEN FLAT UPRIGHT EXAM: 2D digital imaging was performed. CLINICAL HISTORY: constipation, N/V. COMPARISON: CT CT CHEST/ABD/PEL W from 09/11/2023 CR XR CHEST 2V PA LATERAL from 09/11/2023 CR XR ABDOMEN FLAT PLATE from 09/13/2023 TECHNIQUE: Supine and uprightSupine and Lateral views of the abdomen was performed. Images were o btained. FINDINGS: LUNG BASES: There are bilateral basilar infiltrates present. BOWEL GAS PATTERN: Nondistended. Small amount of stool is seen throughout the colon. FREE AIR: None. CALCIFICATIONS: No radiopaque calcifications. OSSEOUS STRUCTURES: Normal for age. OTHER FINDINGS: The tip of the enteric tube is seen in the stomach in good position. IMPRESSION: 1. There is no evidence of bowel obstruction. No significant amount of stool is seen in the colon. 2. Bilateral basilar infiltrates. DATA REPOSITORY: RADIATION DOSE DELIVERED:
[2023-09-15 15:13] VITALS: BP 114/95; PULSE 92; RESP 17; TEMP 36.6; O2SAT 96
[2023-09-15] MEDS: Bisacodyl 10 MG SUPP PR (15:48)
[2023-09-15] MEDS: Methylnaltrexone 12 MG/0.6 ML VIAL 8 MG SC (19:42)
[2023-09-15] MEDS: LORazepam 2 MG/ML VIAL 1 MG IVP (22:05)
[2023-09-16 00:09] VITALS: BP 112/82; PULSE 94; RESP 17; TEMP 36.2; O2SAT 97
[2023-09-16] MEDS: MORPHine 2 MG/ML SYR IVP ×6 (00:16→21:48)
[2023-09-16] MEDS: PANTOPRAZOLE 80 MG in Normal Saline 100 ML 10 MG IV ×2 (04:44→07:38)
[2023-09-16] MEDS: Enoxaparin 60 MG/0.6 ML SYR SC ×2 (07:39→19:21)
[2023-09-16] MEDS: Normal Saline Flush 10 ML SYR IVP ×7 (07:40→21:57)
[2023-09-16 08:00] VITALS: BP 127/93; PULSE 105; RESP 24; TEMP 36.9; O2SAT 97
--- NOTE | 2023-09-16 10:25 | W.PM.PROGNOT ---
Date of Service Date of service: 09/16/23 Time of Service: 10:25 Assessment and Plan Assessment and plan (1) Dysphagia: Status: Acute Assessment and plan: -Associated with Parkinsons, GERD, esophogitis, with history of severe stricture. -He has not followed up with surgery as planned for ongong monitoring. -Surgery consulted, PEG may be needed per Dr. Elias, though this would have to be delayed due to PE (as noted below) for at least 6 months -NG tube re-inserted after pulling it out last night, in place with nutrition infusing at 10 cc/hr Qualifiers: Dysphagia type: esophageal phase Qualified Code(s): R13.19 - Other dysphagia (2) Acute pancreatitis: Status: Resolved Assessment and plan: -Mild pancreatitis per CT and lipase c/w his symptoms. -He does drink alchohol but denies recent heavy use. -No stones on CT or RUQ ultrasound. -Ondansatron prn. Avoid older anticholinergics meds with Parkinsons. -Benzodiazepines have helped in past, can use prn -Epigatric pain and wretching have improved since he has been NPO on fluids. -WBC down. (3) Primary Parkinson's disease: Status: Acute Assessment and plan: -He hasn't tolerated medications in the past. -Discussed possible teleneurology consult for another opinion, though unlikely to help during hospitalization -Will ask for palliative care given overall picture. (4) Esophageal yeast infection: Status: Acute Assessment and plan: -Treating with fluconazole per surgery. (5) Pulmonary embolus, right: Status: Acute Assessment and plan: -Minimally symptomatic, no heart strain. Treating with enoxaparin. \ discussed with Dr Guevara Subjective Subjective Interval history since last seen: pulled out feeding tube overnight. no new c/o. tolerating clears Exam Narrative Exam Narrative: chronically ill appearing other than stated age. ngt in place, head atraumatic normocephalic. eye non icteric non injected. skin dry, oral mucosa dry, resp even and unlabored, diminished throughout. cardiovascular RRR, abd soft, ext without edema, neuro awake an alert, appropriate. Objective Last Vital Signs Temp 36.2 C L 09/16/23 00:09 Pulse 94 H 09/16/23 00:09 Resp 17 07/28/24 00:09 BP 112/82 09/16/23 00:09 Pulse Ox 97 09/16/23 00:09 Laboratory Results - last 24 hr 09/15/23 06:15 WBC 6.23 RBC 4.38 Hgb 14.7 Hct 43.7 MCV 100 H MCH 33.6 H MCHC 33.6 RDW 13.2 Plt Count 126 L MPV 10.6 PAWSS Have you Been Recently Intoxicated or Drunk Within the Last 30 days?: No Have you Ever Experienced Previous Episodes of Alcohol Withdrawal?: No Have you ever Experienced Withdrawal Seizures?: No Have you ever Experienced Delirium Tremens(DT)s?: No Have you ever undergone Alcohol Rehabilitation Treatment (i.e, inpt ot outpatient treatment programs)?: No Have you ever Experienced Blackouts?: No Have you ever Combined Alcohol with other Downers within the last 90 days?: No Have you ever Combined Alcohol with any other Substance of Abuse during the last 90 days?: No Positive Blood Alcohol level on Presentation? [PCS.BAL]: Unable to Obtain Evidence of Increased Autonomic Activity (i.e. HR>120, tremor, sweating, agitation, nausea)?: No Result: 0 Time Spent with Patient Time Spent with Patient: 35-49 minutes Time was spent: preparing to see the patient(eg.review tests), obtaining and/or reviewing separately otained hiistory, ordering medications,tests, procedures, indepentently interpreting results and counseling the patient
[2023-09-16] MEDS: FLUCONAZOLE 200 MG/100 ML BAG 100 MG IVPB (11:32)
[2023-09-16] MEDS: LORazepam 2 MG/ML VIAL 1 MG IVP (11:53)
[2023-09-16 12:00] VITALS: BP 136/107; PULSE 107; RESP 22; TEMP 37.2; O2SAT 98
[2023-09-16] MEDS: Lidocaine 2% Viscous 15 ML CUP (12:00)
--- NOTE | 2023-09-16 12:00 | DI.RAD_ITS ---
Exam(s) XR PORTABLE CHEST AP POST LINE EXAM: XR PORTABLE CHEST AP POST LINE CLINICAL HISTORY: Doboff tube TECHNIQUE: 2D digital imaging was performed of the chest. One image was obtained. An AP view was ob tained. COMPARISON: CR XR CHEST 2V PA LATERAL from 09/11/2023 FINDINGS: MEDIASTINUM: Normal. HEART: Normal. PULMONARY VASCULATURE: There is pulmonary venous congestion. LUNGS: Prominent interstitial markings are seen in the lungs bilaterally with patchy opacities in the lung bases. PLEURAL SPACE: There are small bilateral pleural effusions. BONE:Within normal limits for the patient's age. OTHER FINDINGS:There is an enteric tube which passes into the stomach. The tip is beyond the inferio r border of the film. IMPRESSION: 1. Pulmonary venous congestion with prominence of the interstitium suggesting fluid overload. 2. Small bilateral pleural effusions. 3. Opacities in the lung bases which may represent atelectasis or pneumonia. 4. The enteric tube tip is beyond the inferior border of the film in the stomach. DATA REPOSITORY: RADIATION DOSE DELIVERED:
--- NOTE | 2023-09-16 13:08 | DI.VRAD_ITS ---
PROCEDURE INFORMATION: Exam: XR Chest Exam date and time: 09/16/2023 12:25 PM Age: 63 years old Clinical indication: Other: Doboff tube TECHNIQUE: Imaging protocol: Radiologic exam of the chest. Views: 1 view. COMPARISON: CT CHEST PE CTA 09/11/2023 8:22 PM FINDINGS: Tubes, catheters and devices: Enteric tube extends into the stomach, with tip below the level of the radiograph. Lungs: Bibasilar ground-glass opacities, likely pleural fluid and atelectasis or pneumonitis. Pleural spaces: See Lungs finding. Heart/Mediastinum: Normal. Bones/joints: No acute abnormality. IMPRESSION: 1. Enteric tube extends into the stomach, with tip below the level of the radiograph. 2. Bibasilar ground-glass opacities, likely pleural fluid and atelectasis or pneumonitis. Dictated and Authenticated by: Quinton Pinzon MD. Ordering:BOB Padilla MD
[2023-09-16] MEDS: ACETAMINOPHEN 1,000 MG/100 ML BTL 400 MG IVPB ×2 (14:28→19:21)
[2023-09-16 15:09] VITALS: BP 126/78; PULSE 98; RESP 17; TEMP 36.9; O2SAT 98
[2023-09-16] MEDS: Ketorolac 15 MG/ML VIAL IVP (16:48)
[2023-09-16] MEDS: POTASSIUM CHLORIDE/D5-0.45NACL 1,000 ML 100 MEQ IV (17:40)
[2023-09-16] MEDS: Pantoprazole 40 MG VIAL IVP (19:21)
[2023-09-16 19:26] VITALS: BP 117/80; PULSE 81; RESP 16; TEMP 36.4; O2SAT 99
[2023-09-16 23:09] VITALS: BP 113/87; PULSE 84; RESP 16; TEMP 36.4; O2SAT 95
[2023-09-17] MEDS: POTASSIUM CHLORIDE/D5-0.45NACL 1,000 ML 100 MEQ IV ×2 (04:17→13:28)
[2023-09-17 07:51] VITALS: BP 122/89; PULSE 102; RESP 16; TEMP 36.8; O2SAT 93
[2023-09-17] MEDS: Normal Saline Flush 10 ML SYR IVP ×3 (08:36→21:08)
[2023-09-17] MEDS: Enoxaparin 60 MG/0.6 ML SYR SC ×2 (08:36→21:07)
[2023-09-17] MEDS: Pantoprazole 40 MG VIAL IVP ×2 (08:36→21:38)
[2023-09-17] MEDS: ACETAMINOPHEN 1,000 MG/100 ML BTL 400 MG IVPB ×3 (08:42→21:07)
--- NOTE | 2023-09-17 09:21 | PGE_ITS ---
Date of Service Date of service: 09/17/23 Time of Service: 14:00 Assessment and Plan Assessment and plan (1) Dysphagia: Status: Acute Assessment and plan: -Associated with Parkinsons, GERD, esophogitis, with history of severe stricture. -Non-compliance with surgery as planned for ongiong monitoring. -Surgery consultation with Dr. Elias - PEG may be needed pending d/t LMWH therapy for PE (as noted below) for at least 6 months -Dubboff-type NG tube re-inserted a few days ago after being pulled out; now on 20 cc/hr of enteral feeding, unable to increase dt N/V X1- reglan trial X 24 hours Qualifiers: Dysphagia type: esophageal phase Qualified Code(s): R13.19 - Other dysphagia (2) Acute pancreatitis: Status: Resolved Assessment and plan: Lipase 174 on09/13 -confirm to be mild pancreatitis as per CT and lipase c/w his symptoms. No stone detected on imaging. No EtOH abuse but drinks at a time -Continue Ondansatron prn. Avoid older anticholinergics meds with Parkinsons. -Continue as needed lorazepam as benzodiazepines have helped in past, can use prn -Improving Epigatric pain and wretching -WBC down. (3) Primary Parkinson's disease: Status: Acute Assessment and plan: -The patient was unable to tolerate medication in the past -Considering possible teleneurology consult for another opinion -Passive consultation in progress (4) Esophageal yeast infection: Status: Acute Assessment and plan: -Continue fluconazole per surgery consult. (5) Pulmonary embolus, right: Status: Acute Assessment and plan: -Minimally symptomatic, no heart strain. Continue treatment with Lovenox discussed with Dr Fair Subjective Subjective Patient reports: no new complaints, voiding w/o difficulty, flatus, bowel mo vement, diarrhea, nausea and vomiting; denies still having pain, tolerating liquids well, tolerating a regular diet, blood in stool, shortness of breath or fever Exam Narrative Exam Narrative: Constitutional The patient is without acute distress and has thin body habitus Neuro:alert and oriented to self, person, place time and situation. No neurological focal deficit, but parkinsonism is marked when trying to ambulate Resp: Normal respiratory pattern, speaks in full sentences, unlabored breathing, clear lung bilaterally Cardio: regular rhythm, S1, S2, no murmur, capillary refill<3 sec., bilateral radial and dorsalis pedis pulses are positive GI: Abdomen is not distended, soft and non tender, bowel sounds are present : Negative Costovertebral angle tenderness, no bladder distension Back/spine/Pelvis: No back tenderness, normal alignment Integumentary: No skin lesions or rash Psych: RASS 0, irritable-labile mood and normal affect. Objective Last Vital Signs Temp 36.8 C 09/17/23 07:51 Pulse 102 H 09/17/23 07:51 Resp 16 09/17/23 07:51 BP 122/89 09/17/23 07:51 Pulse Ox 93 09/17/23 07:51 PAWSS Have you Been Recently Intoxicated or Drunk Within the Last 30 days?: No Have you Ever Experienced Previous Episodes of Alcohol Withdrawal?: No Have you ever Experienced Withdrawal Seizures?: No Have you ever Experienced Delirium Tremens(DT)s?: No Have you ever undergone Alcohol Rehabilitation Treatment (i.e, inpt ot outpatient treatment programs)?: No Have you ever Experienced Blackouts?: No Have you ever Combined Alcohol with other Downers within the last 90 days?: No Have you ever Combined Alcohol with any other Substance of Abuse during the last 90 days?: No Positive Blood Alcohol level on Presentation? [PCS.BAL]: Unable to Obtain Evidence of Increased Autonomic Activity (i.e. HR>120, tremor, sweating, agitation, nausea)?: No Result: 0 Time Spent with Patient Time Spent with Patient: >50 minutes Time was spent: preparing to see the patient(eg.review tests), obtaining and/or reviewing separately otained hiistory, ordering medications,tests, procedures, referring, communicating with other health children's zoo caretaker, indepentently interpreting results, counseling the patient and care coordination
--- NOTE | 2023-09-17 09:25 | PDOC.CMPRO ---
Date of service: 09/17/23 Time of Service: 09:25 Care Management Progress Note Progress Note Text Progress Note Text: Tone was sitting up in bed when CM met with him. He was pleasant in manner and engaged easily with CM. Tone shared that his tube feedings are not going well. He is only able to tolerate a very small amount. When the rate increases to >20 ml/hr, he reported that he becomes nauseated and vomits. The provider has informed him that she will change the antiemetic he is receiving to see if it helps with the symptoms. During the visit, Tone's TF was at 30 ml/hr. Tone also shared that his IV infiltrated in his right hand. He stated that it is very sore and that a new one needed to be placed in his left arm.He stated that he hopes that there is no abscess there. He likened it to an IV drug user who sometimes develops abscesses at injection sites. Discharge Potential Discharge Needs: PCP F/U Appt Anticipated Barriers to Discharge: Medical Status (not tolerating tube feedings) Patient/Family Education Needs: Review discharge instructions, discuss Ask Me Three Transportation: Private vehicle Plan: Tone will likely be discharged home with new home health services. He will transport via [facility] coordinated by CM and follow up with his community providers. CM will follow and continue to assess for discharge needs. SDOH(Care Management) Screening Will the Patient Participate in the Screening?: Yes Do you worry about having a steady place to live?: no In the past 12 months, have you had to go without electric, gas, oil or water in your home?: no Have you or anyone in your house had to go without enough food to eat?: no Has lack of transportation kept you from medical appointments or from doing things needed for daily living?: no Has anyone in your support network made you feel unsafe for any reason?: no
--- NOTE | 2023-09-17 11:39 | SPP_ITS ---
Date of service: 09/17/23 Time of Service: 09:00 Subjective Subjective: Patient received alert/awake, conversant. He expressed feeling tense and stressed while awaiting care plan Objective: Patient Positioning: upright in bed; Dobhoff in place Oxygen Tolerance: tolerating room air Oral Hygiene: reported to completed recently PO Trials Assessed: Ice IDDSI 0 Thin Liquids (small single sips x2) Oral Phase Findings: WFL for limited trials assessed Pharyngeal Phase Findings: WFL for limited trials assesesed Assessment/Impression: Tone was seen this morning for dysphagia follow-up. Nursing reported patient has been requesting a sandwich, though this morning he declined interest in PO trials beyond ice chips or sips of water. He states prior to this admission he was not even able to take in Ensure due to it sticking and regurgitating back up, and thus states he prefers to take in only ice chips and sips of water until he is able to have a repeat esophageal dilation. (Unable to have anesthesia or EGD procedure at this time d/t acute PE- pending referral for GI at [facility] for consideration of PEG vs intervention). He is tolerating ice chips and sips of water well at this time. In light of recency of MBSS findings (07/02/23) and patient's symptoms, I agree with my colleague/alternate TRICK RODEO RIDER that repeat MBSS is not indicated at this time. While Tone has chronic oral pharyngeal dysphagia in the setting of Parkinson's, his esophageal dysphagia/known severe stricture is judged to be primary barrier for solid intake at this time. If further workup indicated, a regular barium swallow study may be more beneficial. Reinforced education with patient re: dysphagia diagnosis/MBSS findings from June 2023, oral hygiene and positioning recommendations to reduce aspiration risks, and importance of regular effortful swallow with ice chips and water sips to avoid disuse atrophy. Overall Tone verbalizes good recall of all recommendations as previously offered from prior visits. TRICK RODEO RIDER to continue to monitor/follow patient while in-house for patient education and consulting with care team. Plan: Frequency: Monitoring TRICK RODEO RIDER needs, consulting with care team, patient education - 1-2x/week for 2 weeks Recommendation at Discharge: Recommend home health vs SNF TRICK RODEO RIDER for continued swallow exercises and therapeutic PO intake. Diet Recommendations: Solids: None - Due to esophageal dysfunction. This is also patient's preference due to discomfort with regurgitation. Liquids: 0-Thin Liquids Other: Continue alternative nutrition method with oral pleasure feedings as outlined by TRICK RODEO RIDER and administered via trained caregiver Medications: Non oral Level of Assistance/Supervision: Independent- Patient independent with strategies and recommendations Positioning and environment: PO intake only when awake/alert? Reduce auditory and/or visual distractions when drinking [place] upright for all PO intake. Oral hygiene Q3-4h/every 3-4 hours Using friction with toothbrush on all oral structures as tolerated Strategies/Adaptations/Assistive Equipment: Single sips/ice chips via tsp - up to 5-6 at a time Stop PO after small volume to prevent regurgitation & aspiration Multiple swallows Reflux Precautions: Maintain fully upright position at least 30 minutes after PO intake Avoid PO intake 2-3 hours prior to reclining/sleeping Sleep with head of bed elevated to reduce likelihood of nocturnal reflux Education Provided to: Nursing, Patient Topics Addressed: definition and impacts of aspiration role of TRICK RODEO RIDER in management of swallow disorders role of oral hygiene and positioning in avoiding aspiration-related illness dis-use atrophy and importance of ongoing PO intake for therapeutic means (Ice chips/sips water with effortful swallow) Total Time: 20 minutes, [id number] Dysphagia Therapy [id number]
[2023-09-17] MEDS: FLUCONAZOLE 200 MG/100 ML BAG IVPB (12:07)
[2023-09-17 14:58] VITALS: BP 116/83; PULSE 94; RESP 17; TEMP 36.9; O2SAT 96
--- NOTE | 2023-09-17 15:25 | TELEFU_ITS ---
Date of service: 09/17/23 Time of Service: 14:00 Nutrition Note NOTE: Met with patient yesterday afternoon for brief follow up once after enteral feedings initiated on 09/12. Patient was still at 20ml/hour at this time and reported no concerns with toleration except greater feeling of fullness currently. Did have some nausea in the morning per nursing and this is why patient kept at 20mL. Reported BM yesterday morning that was looser but not completely liquid. Today (09/17) lytes are wnl except magnesium (no phos lab) which was low and pt ordered for 2g IV mag today to replete. Weight remains stable. rate is now up to 40ml/hr with ordered goal rate at 50mL/hour. [employer] follow up resulted in recommendations for remaining NPO except ice chips and sips of water. Recommendations: -phosphorus lab to monitor for signs of refeeding syndrome as mag was low today. -recommend once patient tolerating 50mL/hour that it be increased 62,6mL/hour per original nutrition consult recommmendation as 50mL/hour would not meet his estimated energy and macronutrient needs Will monitor enteral feeding toleration, weight, labs, progress with po intake Time Spent in Nutritional Counseling and Treatment: 10 min
[2023-09-17] MEDS: Metoclopramide 10 MG/2 ML VIAL IVP (17:05)
[2023-09-17 21:04] VITALS: BP 119/90; PULSE 89; RESP 16; TEMP 36.8; O2SAT 97
[2023-09-17] MEDS: LORazepam 2 MG/ML VIAL 1 MG IVP (21:38)
[2023-09-18] MEDS: POTASSIUM CHLORIDE/D5-0.45NACL 1,000 ML 100 MEQ IV ×2 (00:07→23:52)
[2023-09-18] MEDS: Ketorolac 15 MG/ML VIAL IVP ×3 (00:33→18:31)
[2023-09-18] MEDS: Normal Saline Flush 10 ML SYR IVP ×4 (00:34→20:15)
[2023-09-18] MEDS: LORazepam 2 MG/ML VIAL 1 MG IVP ×2 (04:17→10:02)
[2023-09-18 04:34] VITALS: BP 116/82; PULSE 98; RESP 16; TEMP 36.8; O2SAT 97
[2023-09-18 07:12] LABS: Abs Immature Grans 0.03 10^3/uL (0.0-0.06); Absolute Basophil Count 0.03 10^3/uL (0.0-0.2); Absolute Eosinophil Count 0.09 10^3/uL (0.0-0.7); Absolute Lymphocyte Count 0.71 10^3/uL (1.2-3.4); Absolute Monocyte Count 0.62 10^3/uL (0.1-0.8); Absolute Neutrophil Count 4.22 10^3/uL (1.2-6.7); Basophils % 0.5 %; Eosinophils % 1.6 %; HCT 37.6 % (40.0-50.0); HGB 13.2 g/dL (13.5-17.5); Immature Grans % 0.5 %; Lymphocytes % 12.5 %; MCH 33.7 pg (27.0-33.0); MCHC 35.1 % (32.0-36.0); MCV 96 fL (80-95); MPV 10.5 fL (8.0-11.0); Monocytes % 10.9 %; Platelet Count 167 10^3/uL (130-400); RBC 3.92 10^6/uL (4.36-5.78); RDW 13.3 % (11.8-14.1); RDW-SD 47.3 fL
[2023-09-18 07:29] VITALS: BP 121/92; PULSE 92; RESP 20; TEMP 36.8; O2SAT 97
[2023-09-18 07:30] LABS: Anion Gap 8.6 mmol/L (3-11); BUN 3 mg/dL (7-18); CO2 24.4 mmol/L (21.0-32.0); CREATININE 0.8 mg/dL (0.70-1.30); Chloride 106 mmol/L (98-107); Estimated GFR 98.21 (mL/min/1.73m2); Glucose 175 mg/dL (74-106); Magnesium 1.5 mg/dL (1.8-2.4); Sodium 139 mmol/L (136-145)
[2023-09-18] MEDS: Metoclopramide 10 MG/2 ML VIAL IVP ×3 (07:34→18:32)
[2023-09-18] MEDS: Pantoprazole 40 MG VIAL IVP ×2 (07:35→20:15)
[2023-09-18] MEDS: MORPHine 2 MG/ML SYR IVP ×6 (07:35→23:08)
[2023-09-18] MEDS: MAGNESIUM SULFATE 2 GM/50 ML BAG IVINF (08:48)
--- NOTE | 2023-09-18 08:54 | PDOC.CMPRO ---
Date of service: 09/18/23 Time of Service: 08:54 SDOH(Care Management) Screening Will the Patient Participate in the Screening?: Yes Do you worry about having a steady place to live?: no In the past 12 months, have you had to go without electric, gas, oil or water in your home?: no Have you or anyone in your house had to go without enough food to eat?: no Has lack of transportation kept you from medical appointments or from doing things needed for daily living?: no Has anyone in your support network made you feel unsafe for any reason?: no
[2023-09-18] MEDS: Enoxaparin 60 MG/0.6 ML SYR SC ×2 (10:03→21:42)
[2023-09-18] MEDS: ACETAMINOPHEN 1,000 MG/100 ML BTL 400 MG IVPB ×3 (11:07→20:18)
--- NOTE | 2023-09-18 12:30 | PDOC.CMPRO ---
Date of service: 09/18/23 Time of Service: 12:30 Care Management Progress Note Progress Note Text Progress Note Text: Chart review, communication with Hospitalist re: discharge plan. Provider questioning SNF-CM reviewed chart and patient's choice to return home with home health. Provider reports daily visits would be indiciated for Jesus; CM recommended ordering RN/PT/OT/ST/[employer]. Discharge Potential Discharge Needs: PCP F/U Appt Anticipated Barriers to Discharge: Medical Status Patient/Family Education Needs: Review discharge instructions, discuss Ask Me Three Transportation: Private vehicle Plan: No change to overall plan, CM consult from remote location-chart review to advise on previous discharge planning considerations only. SDOH(Care Management) Screening Will the Patient Participate in the Screening?: Yes Do you worry about having a steady place to live?: no In the past 12 months, have you had to go without electric, gas, oil or water in your home?: no Have you or anyone in your house had to go without enough food to eat?: no Has lack of transportation kept you from medical appointments or from doing things needed for daily living?: no Has anyone in your support network made you feel unsafe for any reason?: no
--- NOTE | 2023-09-18 12:56 | W.PM.PROGNOT ---
Date of Service Date of service: 09/18/23 Time of Service: 12:56 Assessment and Plan Assessment and plan (1) Dysphagia: Status: Acute Assessment and plan: -Associated with Parkinsons, GERD, esophogitis, with history of severe stricture. -Non-compliance with surgery as planned for ongiong monitoring. -Surgery consultation with Dr. Elias - PEG may be needed pending d/t LMWH therapy for PE (as noted below) for at least 6 months -Dubboff-type NG tube re-inserted a few days ago after being pulled out; now on 50 cc/hr of enteral feeding without vomiting -Speech pathology consult completed : Patient will take water and ice- Qualifiers: Dysphagia type: esophageal phase Qualified Code(s): R13.19 - Other dysphagia (2) Acute pancreatitis: Status: Resolved Assessment and plan: Lipase 174 on09/13 -confirmed on admission to be mild pancreatitis as per CT and lipase c/w his symptoms. No stone detected on imaging. No EtOH abuse but occasionally drinks - Ondansatron prn still held on 09/16 during short trial of reglan with effectiveness, will prolonged as no increased Parkinsonism seen. -Will still try to avoid copious use older anticholinergics meds with Parkinsons. -Continue as needed lorazepam more frequently as benzodiazepines have helped in past and are also effective this stay - transitioning to liquid form on discharge -Improving Epigastric pain and wretching now feeding at 50cc/hr -at goal - no leukocytosis or fever (3) Primary Parkinson's disease: Status: Acute Assessment and plan: -The patient was unable to tolerate medication in the past. And is not interested with a neurology consult as he mentioned having seen the head neurologist at [facility] approximately 2 years ago with discussion mentioning no cure for Parkinson's. He is not interested in trying any new medical therapy at this time. -Palliative consultation in progress -Discussing home benzo,tube feeding, feeding pump with with all available services (4) Esophageal yeast infection: Status: Acute Assessment and plan: -On fluconazole per surgery consult. (5) Pulmonary embolus, right: Status: Acute Assessment and plan: -Minimally symptomatic, no heart strain. Continue treatment with Lovenox -No acute bleeding seen on suspected -Platelets 167 -CBC in AM Discussed with Dr Fair Subjective Subjective Patient reports: no new complaints, feels better, pain is less, voiding w/o difficulty, bowel movement, diarrhea and afebrile; denies tolerating liquids well, tolerating a regular diet, blood in stool, nausea, vomiting or shortness of breath Exam Narrative Exam Narrative: Constitutional The patient is without acute distress and has thin body habitus Neuro:alert and oriented to self, person, place time and situation. No neurological focal deficit. Resp: Clear lung bilaterally Cardio: regular rhythm, S1, S2 GI: Dubboff NG in place w feeding in progress, abdomen is not distended, soft and slightly tender on palpation , bowel sounds are present : Negative Costovertebral angle tenderness, no bladder distension Back/spine/Pelvis: No back tenderness, normal alignment Psych: RASS 0, irritable-labile mood and normal affect. Objective Last Vital Signs Temp 36.8 C 09/18/23 07:29 Pulse 92 H 09/18/23 07:29 Resp 20 09/18/23 07:29 BP 121/92 H 09/18/23 07:29 Pulse Ox 97 09/18/23 07:29 Laboratory Results - last 24 hr 09/18/23 05:53 WBC 5.70 RBC 3.92 L Hgb 13.2 L Hct 37.6 L MCV 96 H D MCH 33.7 H MCHC 35.1 RDW 13.3 Plt Count 167 MPV 10.5 Immature Gran % 0.5 Neutrophils % 74.0 Lymphocytes % 12.5 Monocytes % 10.9 Eosinophils % 1.6 Basophils % 0.5 Nucleated RBC % 0.0 Absolute Neutrophils 4.22 Absolute Lymphocytes 0.71 L Absolute Monocytes 0.62 Absolute Eosinophils 0.09 Absolute Basophils 0.03 Sodium 139 Potassium 4.0 Chloride 106 Carbon Dioxide 24.4 Anion Gap 8.6 BUN 3 L Creatinine 0.8 Est GFR (CKD-EPI 2020) 98.21 Glucose 175 H Calcium 8.0 L Magnesium 1.5 L PAWSS Have you Been Recently Intoxicated or Drunk Within the Last 30 days?: No Have you Ever Experienced Previous Episodes of Alcohol Withdrawal?: No Have you ever Experienced Withdrawal Seizures?: No Have you ever Experienced Delirium Tremens(DT)s?: No Have you ever undergone Alcohol Rehabilitation Treatment (i.e, inpt ot outpatient treatment programs)?: No Have you ever Experienced Blackouts?: No Have you ever Combined Alcohol with other Downers within the last 90 days?: No Have you ever Combined Alcohol with any other Substance of Abuse during the last 90 days?: No Positive Blood Alcohol level on Presentation? [PCS.BAL]: Unable to Obtain Evidence of Increased Autonomic Activity (i.e. HR>120, tremor, sweating, agitation, nausea)?: No Result: 0 Time Spent with Patient Time Spent with Patient: >50 minutes Time was spent: preparing to see the patient(eg.review tests), obtaining and/or reviewing separately otained hiistory, ordering medications,tests, procedures, referring, communicating with other health health care social worker, indepentently interpreting results, counseling the patient and care coordination
[2023-09-18] MEDS: LORazepam 2 MG/ML VIAL 0.5 MG IVP ×2 (14:42→18:31)
[2023-09-18 14:44] VITALS: BP 127/93; PULSE 99; RESP 18; TEMP 37; O2SAT 99
--- NOTE | 2023-09-18 14:56 | W.PALPGNOTE ---
Date of service: 09/18/23 Time of Service: 11:00 Assessment and Plan Assessment and plan (1) Esophageal stricture: Status: Acute Assessment and plan: h/o dilation, not candidate at [facility] for 6 mos recommend obtain GI consult at tertiary facility for consideration of earlier PEG tube or EGD/dilation, with transfer as eligible for patient comfort and quality of life goals (2) Palliative care patient: Status: Acute Assessment and plan: Palliative will continue to follow Yasmani closely during this hospitalization and outpatient pending discharge (3) Pulmonary embolus, right: Status: Acute Assessment and plan: continue Lovenox not candidate for EGD at [facility] / this (4) Nausea & vomiting: Status: Acute Assessment and plan: improved control w/Reglan, continue at this time d/t positive effect; continue lorazepam - consider alternative antiemetics, safer for PD in future: scopolamine? 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 He demonstrated understanding with this but will need further education (8) Constipation: Status: Acute Assessment and plan: moving bowels appropriately at this time. on bowel regimen, coffee/prune juice PRN (9) Anxiety: Assessment and plan: improved w/lorazepam (10) Primary Parkinson's disease: Status: Acute Assessment and plan: not intersted in further trials of Sinamet, feels failed previous attempts sxs improved w/lorazepam, recommend orders changed for increased frequency, reviewed w/hospitalist: lorazepam 0.5mg IV q4h PRN; will need to be transitioned to PO lorazepam concentration prior to discharge, recommend trial of at least 24h oral prior to discharge (11) Uses feeding tube: Status: Acute Assessment and plan: per nutrition true goal would be 62.6mL/hr continuos rate for adequate nutritional needs; currently at 50mL/hr rate, tolerating spoke to [facility]: they are able to accept him on home health services with an NG tube and pump. They could assist w/pump management w/daily visits for a short period of time. Yasmani appears motivated to learn how to use pump/system himself general recommendations from PC: consider bolus feeds to avoid need for continuous (joesph as it relates to pts specific goals and stated intent of not remaining on continuous rate at home), TID feeds w/2 cartons/session (would this be enough for his nutritional needs?, defer to nutrition), 60mL flush before and after feeds w/640mL inbetween feeds at 240mL max/time (whether flush or PO w/o regurgitation) w/total fluid goals of 1L/day IF at 6 cartons/day Nutrition following, and per staff considering alternative nutrition formula - will defer to them for management (12) Need for home health care: Status: Acute Assessment and plan: will need referral pending discharge plan; HH aware and is available for NG pump management/daily visits for short time he agrees to this (13) Discharge planning issues: Status: Acute Assessment and plan: Yasmani is consider leaving AM, I encouraged him to continue working with [facility] staff to ensure a safe discharge plan, he is agreeable today. - Nutrition: work on finding tolerated rate and formula for adequate daily caloric needs via NG tube OR would a tertiary hospital be willing to consider a PEG tube/EGD sooner than 6 mos? - Hydration: work on increasing PO intake (pending regurgitation) or NG flushes/formulas to eliminate need for IVF which he currently requires - Medications: work on trialing PO liquid medications: lorazepam, for symptom control (anxiety, tremor, nausea); trial scopolamine patch for nausea as safer alternative to Reglan d/t PD? - Home health referral pre-discharge to ensure daily visits lined up prior to discharge (14) ACP (advance care planning): Status: Acute Assessment and plan: - reviewed Yasmani's consideration for leaving AMA, his legal rights, PC's concerns w/failure to thrive at home (dehydration and nutrition) l/t repeat hospitalizations. He is comfortable w/remaining in hospital currently, but would like to continue forward progress w/goal to return home. - reviewed [facility] unable to do EGD/esophageal dilation d/t PE/anticoagulation at this time, he is aware this may take 6 mos, he is willing to continue NG tube during this time, however would like PEG tube sooner if possible, previously okay w/transfer to tertiary facility for PEG/EGD/dilation - reviewed sxs management w/lorazepam, dosing and frequency, goal for transitioning to PO med to ensure he can continue safely at home - reviewed home health, short term plan, discharge plan spent 35 mins w/ACP Subjective Subjective Interval history since last seen: Yasmani remains hospitalized 2/2 dysphagia; last PC visit 09/12 Now tolerating NG feed at rate of 40mL/hr. Initial titration did l/t some N/V and bloating discomfort, however w/reduced rate and antiemetic transitioned from Zofran to Reglan he was able to tolerate increase. He continues to receive IVF continous and w/flushes. His PO intake is limited to thinned liquids, he has been trying coffee and water, w/occasional regurgitation episodes. He is comfortable w/increasing rate further to nutrition's goal of 50mL/hr today. He has not been cleared to trial pills PO, pills will not be tolerated via Dobbhoff tube, and therefore will need alternative plan Pancreatitis sxs are largely resolved, he continues to have intermittent pain, he reports currently treated w/Toradol w/good effect; per nursing he has had reduced need for morphine 2mg IV, none overnight, one dose today. Now receiving lorazepam 1mg q6h PRN, lasting around 4 hours, helping to relax, reduce tremors, improve sleep and safe transfers. He reports h/o using klonopin or Valium for tremors both w/good effect. He feels Valium works better than Ativan. He continues w/preference to not trial PD medications as he previously failed them. Activity improved compared to last week, suspected r/t lorazepam. Able to independently transfer to sit on edge of bed, stand and pivot to bedside commode. He reports feels back to his baseline regarding activity tolerance/ability. He denied PT evaluation. - per nursing has had increase urine production - bowels were not moving, however he is now moving bowels near daily, does have some abdominal cramping pre-BM which is newer for him. believes coffee and prune juice help w/bowels. per staff now on bowel regimen He would like to be discharged as soon as possible, home. He is considering leaving AMA if there is no progress. He would prefer to have home health support, which CM reviewed with him and he would like to pursue. He would like to be able to use his NG pump at home. He is aware he needs to maintain his hydration, which he is getting primarily through IVF at this time. all meds IV at this time ADL support w/set-up for hygiene/dressing, ambulation/transfers limited but at baseline, continent of U/BM Exam Narrative Exam Narrative: General: 63 y/o male, appears older than stated age, cooperative, lying in hospital bed w/HOB elevated throughout visit; initially lying w/eyes closed HEENT: hearing grossly WNL, normocephalic, atraumatic Resp: even and unlabored, speaks full sentences w/no SOB, no cough no audible wheeze GI: NG tube in place, receiving nutrition throughout visit w/no GI complaints/guarding Skin: nails stained r/t tobacco; no rashes or lesions, did not conduct full body exam Neuro: full body tremor w/activity, worsens throughout visit; AAOx3 Psych: pleasant, cooperative, MS grossly WNL, speech clear; mood/affect WNL, thought process w/loose association and impoverished, tangential but able to engage in conversation/redirection; insight/judgment limited to fair Objective Last Vital Signs Temp 98.6 F 09/18/23 14:44 Pulse 99 H 09/18/23 14:44 Resp 18 09/18/23 14:44 BP 127/93 H 09/18/23 14:44 Pulse Ox 99 09/18/23 14:44 Laboratory Results - last 24 hr 09/18/23 05:53 WBC 5.70 RBC 3.92 L Hgb 13.2 L Hct 37.6 L MCV 96 H D MCH 33.7 H MCHC 35.1 RDW 13.3 Plt Count 167 MPV 10.5 Immature Gran % 0.5 Neutrophils % 74.0 Lymphocytes % 12.5 Monocytes % 10.9 Eosinophils % 1.6 Basophils % 0.5 Nucleated RBC % 0.0 Absolute Neutrophils 4.22 Absolute Lymphocytes 0.71 L Absolute Monocytes 0.62 Absolute Eosinophils 0.09 Absolute Basophils 0.03 Sodium 139 Potassium 4.0 Chloride 106 Carbon Dioxide 24.4 Anion Gap 8.6 BUN 3 L Creatinine 0.8 Est GFR (CKD-EPI 2020) 98.21 Glucose 175 H Calcium 8.0 L Magnesium 1.5 L
--- NOTE | 2023-09-18 17:48 | NUR.NOTE ---
Nursing Note:Patient was able to tolerate increase in tube feed to 50cc/hr which is the goal for continuos TF with Osmolite 1.5. Pt was able to stay at that rate for approx. 3hrs. he than because bloated and nauseated with increased pain. TF rate slowed to 40cc/hr at 1600, bloating has slowly started to subside but pain currently 8/10.
[2023-09-18 23:15] VITALS: BP 118/89; PULSE 93; RESP 18; TEMP 36.6; O2SAT 95
[2023-09-19] MEDS: Metoclopramide 10 MG/2 ML VIAL IVP ×2 (00:46→07:10)
[2023-09-19] MEDS: Ketorolac 15 MG/ML VIAL IVP ×2 (00:46→11:27)
[2023-09-19] MEDS: MORPHine 2 MG/ML SYR IVP ×4 (03:08→11:27)
[2023-09-19] MEDS: LORazepam 2 MG/ML VIAL 0.5 MG IVP ×2 (04:54→09:07)
[2023-09-19] MEDS: Normal Saline Flush 10 ML SYR IVP ×2 (07:07→10:14)
[2023-09-19 07:09] LABS: Abs Immature Grans 0.03 10^3/uL (0.0-0.06); Absolute Basophil Count 0.03 10^3/uL (0.0-0.2); Absolute Eosinophil Count 0.11 10^3/uL (0.0-0.7); Absolute Lymphocyte Count 0.93 10^3/uL (1.2-3.4); Absolute Monocyte Count 0.47 10^3/uL (0.1-0.8); Absolute Neutrophil Count 3.22 10^3/uL (1.2-6.7); Basophils % 0.6 %; Eosinophils % 2.3 %; HCT 37.8 % (40.0-50.0); HGB 13.2 g/dL (13.5-17.5); Immature Grans % 0.6 %; Lymphocytes % 19.4 %; MCH 33.4 pg (27.0-33.0); MCHC 34.9 % (32.0-36.0); MCV 96 fL (80-95); MPV 9.9 fL (8.0-11.0); Monocytes % 9.8 %; Neutrophils % 67.3 %; Platelet Count 217 10^3/uL (130-400); RBC 3.95 10^6/uL (4.36-5.78); RDW 13.4 % (11.8-14.1); RDW-SD 47.9 fL; WBC 4.79 10^3/uL (4.4-10.8)
[2023-09-19 07:22] LABS: Magnesium 1.9 mg/dL (1.8-2.4)
[2023-09-19 07:30] LABS: Anion Gap 8.1 mmol/L (3-11); BUN 4 mg/dL (7-18); CO2 23.9 mmol/L (21.0-32.0); CREATININE 0.7 mg/dL (0.70-1.30); Calcium 8.1 mg/dL (8.5-10.1); Chloride 104 mmol/L (98-107); Estimated GFR 102.25 (mL/min/1.73m2); Glucose 148 mg/dL (74-106); Potassium 4.1 mmol/L (3.5-5.1); Sodium 136 mmol/L (136-145)
[2023-09-19 08:30] VITALS: BP 126/92; PULSE 95; RESP 20; TEMP 36.8; O2SAT 97
[2023-09-19] MEDS: ACETAMINOPHEN 1,000 MG/100 ML BTL 400 MG IVPB (09:04)
[2023-09-19] MEDS: Enoxaparin 60 MG/0.6 ML SYR SC (09:05)
[2023-09-19] MEDS: Pantoprazole 40 MG VIAL IVP (09:06)
[2023-09-19] MEDS: Magnesium Gluconate 500 MG TAB PO (09:07)
--- NOTE | 2023-09-19 09:48 | PDOC.CMPRO ---
Date of service: 09/19/23 Time of Service: 09:48 Care Management Progress Note Progress Note Text Progress Note Text: Tone was supposed to be discharged today with new home health orders to help with his tube feedings. He had been told that he could do bolus feeding so that he would not need to have a continuous infusion. Unfortunately, Tone has not been tolerating his tube feedings and the decision was made to discharge him with continuous tube feeding. Tone was not happy with that plan. He stated that he would not be able to get his laundry done or go shopping or get his mail etc and was not agreeable to that plan. offered to send a referral to [facility] for volunteer assistance with errands and laundry but he refused. Tone decided to sign himself out AMA. The provider was unable to persuade him to stay. Discharge Potential Discharge Needs: Other (Tube feedings, kangaroo pump, tubing, syringes) Anticipated Barriers to Discharge: Other (equipment and services) Patient/Family Education Needs: Other (tube feedings:process, precautions, equipment, ordering etc) SDOH(Care Management) Screening Will the Patient Participate in the Screening?: Yes Do you worry about having a steady place to live?: no In the past 12 months, have you had to go without electric, gas, oil or water in your home?: no Have you or anyone in your house had to go without enough food to eat?: no Has lack of transportation kept you from medical appointments or from doing things needed for daily living?: no Has anyone in your support network made you feel unsafe for any reason?: no
--- NOTE | 2023-09-19 10:28 | W.NUTRFU ---
Date of service: 09/19/23 Time of Service: 10:28 Nutrition Note NOTE: visited with Tone as I was contacted by case manan to recommend enteral feeding regimen at home with assistance from home health. Pt has been on Osmolite 1.2, however nursing record states they ran out and substituted jevity (which is 1.5 formula and higher osmolarity), and could partly explain why rate of 50cc/hr was only tolerated for 4 hours before reducing the rate to 40, which is his current rate and has been tolerating overnight and this morning. Tone will have home health services at discharge to help with set him up with enteral feedings. Ideally, would have Tone transition to bolus feedings to help mimic normal eating patterns, but his trouble with toleration is a concern. At this time would recommend continuing using a pump for enteral feedings as bolus feedings might be too overwhelming judging from his recent back and forth with tolerance. Would suggest Nutren 2.0 formula starting at 25mL/hour with increase of 5mL/hour every 4 hours until goal rate of 35mL/hour is achieved over 24 hour period. This would supply 1680kcals and 581mL fluid. additional fluid requirement from flushes and po intake (water/ice chips) would be 1219mL. When toleration of this goal rate is achieved, can consider increase of rate to meet his needs during the day and be free of pump use during the night - ultimately would recommend working with ROYAL eli via outpatient and home health to transition to bolus feeds as approbpriate if/when PEG tube is placed or po intake can resume safely to help meet his nutrition needs. Time Spent in Nutritional Counseling and Treatment: 15 min
--- NOTE | 2023-09-19 11:33 | NUR.NOTE ---
Nursing Note: Per heel blacker; Baudilio Doyle 09/19/2023 11:18 AM ? I think he might have a problem with tolerating that because it has a much higher osmolarity/concentration. I would cut it back to 25 per hour and increase by 5 every 4 hours until a goal rate of 35ml/hr.
--- NOTE | 2023-09-19 12:26 | W.PM.DS.N ---
Date of service: 09/19/23 Time of Service: 12:26 DS: Diagnosis Discharge Diagnosis (1) Dysphagia: Status: Acute (2) Acute pancreatitis: Status: Resolved (3) Primary Parkinson's disease: Status: Acute (4) Esophageal yeast infection: Status: Acute (5) Pulmonary embolus, right: Status: Acute Discharge Plan Disposition Patient Disposition: Against Medical Advice Condition: Stable Discharge Details Reason For Visit: Pancreatitis, Dysphagia Admit Date/Time: 09/11/23 11:34 Admit Provider: Foster Champion Attending Provider: Foster Champion Primary Care Provider: ABILIO MULTANI [facility] Hospital Course: This 63 years old male patient with a past medical history of Parkinson's disease, essential tremors overlap and esophageal stricture presented to the ED at [facility] on 09/11/2023 with complaints of inability to eat for 5 days, retching and vomiting with food and fluids, increased sternal weakness, abdominal pain and worsening tremors. Above beltline pain described as radiating from the epigastric region to the back not worsening with oral intake starting 4 days prior to presentation. Patient also reported an episode of chest pain 48 hours prior to presentation, lasting 15 minutes with spontaneous resolution as well as shortness of breath and cough with white frothy sputum production. The patient at this time denied hematemesis. .The patient was unable to ambulate around his home due to increased shaky legs. The patient at the time complaining of lightheadedness, shortness of breath- almost passing out, and slightly disoriented and has been in bed since Sunday prior to presentation.Reporting not taking any other medicines beside pantoprazole, but later stated that he was getting Diazepam from a physician around here as reported by the palliative care practitioner - pharmacy was unable to locate the history of filling diazepam prescriptions in local drugstores.The patient was discharged on 07/04/2023 from surgery and esophageal stricture dilation on thin purees diet, fluconazole, protonix, baclofen, and lorazepam, with plan for EGD and esophageal dilation monthly. The ED workup showed pulmonary emboli in the pulmonary artery branches to the right lower lobe without evidence of heart strain as per CTA report. Report also showed Inflammatory stranding again seen around the pancreas suspicious for acute pancreatitis and persistent fluid filled and distended esophagus. There was a question of mild thickening in the mid esophagus which is less prominent but neoplasm could not be excluded. Further evaluation with barium swallow and/or upper endoscopy was recommended. Blood work was significant for WBC at 18.26 with negative blood cultures, H&H of 18 & 50.7, Na 131, BUN 19. The hospitalist was consulted and admitted the patient for evaluation and management of new pulmonary embolism, dysphagia, dehydration. And cough with production During the stay, the patient continued to received enoxaparin for the treatment of the new found PE.The patient was initially NPOon IV fluids.Surgery was consulted on 09/11/2023 for PEG tube insertion but due to the patient been on LMWH treatment for PE, surgery elected not to proceed with the procedure at [facility] mentioned the possibility of a [facility] procedure. Pancreatitis symptoms improved but the patient was unable to keep oral intake down. A Dubboff NG tube was inserted to allow for enteral nutrition and caloric requirement determined as per nutrition consult with determination of Osmolite 1.2 with per progressive increase to goal of 62.5cc/hr and additional water volume of 600ml/ day.As per further adjustment goal was adjusted to 50 ml/hr. Palliative care consultation was completed on 09/12 and notes mentioning comfortable with transfer to tertiary facility for EGD and dilation but as per notes the patient was comfortable with seeing how Dobboff tube feeding is tolerated prior to further decision making regarding EGD dilation or PEG tube placement; patient also felt that benzodiazepines, 1-2 beers per day and THC were helpful to control his anxiety. Speech pathology consult recommended a regular barium swallow d/t chronic oral dysphagia in the setting of Parkinson's as a MBSS was not indicated.Patient received Reglan trial low dose as well as lorazepam with effectiveness allowing feeding goals to be met without increased in parkinson's symptoms. On 09/17, discussion with palliative care regarding the patient's needs allowed for adjustment of the lorazepam regimen as suggested. The patient was initially agreeable to options of nightly tube feeding via pump versus bolus feeding and understood that it would be unsafe d/t risk of vomiting and aspiration. The patient explained that he had already figured out a corner in his apartment to install his feeding pump. On the subsequent day the patient decided to leave AMA, pulling out his NGT, and was non-receptive to discussion, waving his hand with a stop gesture. The patient stated that he was miserable and that he would also be miserable at home even with nightly tube feeding.Risks of returning to the ED with worsening or life threatening conditions mentioned to the patient, but the patient remained non-receptive with increased agitation. The patient left AMA. Eliquis was ordered outpatient to allow for the treatment of PE as the patient was able to swallow magnesium pills. efficiency manager Shannen Tucker called the patient and reinforced the importance of treating the PE.Palliative care provider informed and initiate first discussion upon follow-up wtih this provider that patient regarding [facility] transfer. Upon f/u with [facility] the patient was already on the list for an appointment since 09/17/2023; the patient was also on a waiting list to be seen sooner if possible. Case discussed with the patient's PCP and f/u appointment will be discussed with the patient. PCP also aware that benzodiazepines were ordered by palliative care practitioner. Discussed with Dr. Fair. Home Meds and New Rx's Prescriptions: New magnesium gluconate 27.5 mg magne- sium (500 mg) tablet 27.5 mg PO DAILY Qty: 30 0RF Eliquis 5 mg tablet 5 mg PO BID Qty: 166 0RF Eliquis 5 mg tablet 10 mg PO BID Qty: 28 0RF Rx Instructions: Completed this first then proceed with the second part of your therapy for PE, with Eliquis 5 mg orally twice daily. See your PCP within 7 days of starting the treatment. Continued pantoprazole 40 mg tablet,delayed release (DR/EC) 40 mg PO DAILY Patient Comments: TAKE ONE TABLET BY MOUTH EVERY DAY No Action lorazepam 2 mg/mL concentrate 0.5 mg PO Q4H PRN MDD 6mg PRN (Reason: anxiety) Qty: 30 0RF Discharge Orders Discharge Orders: Discharge Order (Routine); Ordered 09/20/23 Ordered By: Delmi Moyer Discharge Data Discharge Date/Time-TO BE ENTERED AT DEPARTURE: 09/19/23 12:34 DS: Summary Time Spent with Patient providing and/or coordinating discharge services: Greater than 30 minutes Status at Discharge Functional status at discharge: uses cane/walker Overall status at discharge: patient is progressing back to baseline Mental Status: mental status grossly normal Speech and Movement: speech and movement normal Mood: labile mood, angry and irritable mood Affect: labile affect, hostile and irritable affect Quality:SDOH Health Related Social Needs: Health related social needs transpo insecurity Exam Narrative Exam Narrative: Left AMA but appeared in no acute distress with increased agitation when attempts to discuss the risks of leaving AMA.The patient persevered in his thought process and was not receptive. Psych Mental Status: mental status grossly normal Speech and Movement: speech and movement normal Mood: labile mood, angry and irritable mood Affect: labile affect, hostile and irritable affect DS: Data Vitals/I&O Vitals and I&O: Vital Signs Temperature 36.8 C 09/19/23 08:30 Temperature Source Temporal Artery Scan 09/19/23 08:30 Pulse 95 H 09/19/23 08:30 Pulse Rhythm Regular 09/18/23 20:30 Pulse 96 H 09/11/23 12:20 Respiratory Rate 20 09/19/23 08:30 Respiratory Effort Normal 09/19/23 08:37 Respiratory Depth Normal 09/19/23 08:37 Respiratory Pattern Normal 09/19/23 08:37 Blood Pressure 126/92 H 09/19/23 08:30 Blood Pressure Mean 128 09/11/23 12:40 Blood Pressure Position Sitting 09/11/23 08:01 Pulse Oximetry 97 09/19/23 08:30 Oxygen Delivery Method Room Air 09/19/23 08:30 Oxygen Flow Rate 0 09/19/23 08:30 Pain Level 7 09/19/23 11:27 Comment o2 sat starting at 91% increased to 95% after coached to deep breathe 09/18/23 23:15 Comment EKG done 09/11/23 08:15 Intake & Output 09/18/23 09/19/23 09/19/23 23:59 11:59 23:59 Intake Total 2513 / 4357 1692 / 1692 Output Total 1774 1275 / 1275 Balance 738 / 2382 417 / 417 Intake: IV 1200 / 2400 1100 / 1100 Oral 460 / 640 60 / 60 Intake, Tube Feeding Amount 853 / 1317 532 / 532 Output: Gastric Drainage 0 / 0 Right Nare 0 / 0 Urine 1774 975 / 975 Emesis 300 / 300 Output, Residual 0 / 0 Other: Urine Color Yellow Yellow Urine Appearance Clear Clear Urine Odor None Normal Stool Size Moderate Moderate Stool Characteristics Soft Liquid Liquid Brown Brown Emesis Description Projectile Clear/Water Voiding Methods Urinal Urinal Data Completed and Pending Labs on day of discharge: Labs from last 24 hours 09/19/23 06:05 WBC 4.79 RBC 3.95 L Hgb 13.2 L Hct 37.8 L MCV 96 H MCH 33.4 H MCHC 34.9 RDW 13.4 Plt Count 217 MPV 9.9 Immature Gran % 0.6 Neutrophils % 67.3 Lymphocytes % 19.4 Monocytes % 9.8 Eosinophils % 2.3 Basophils % 0.6 Nucleated RBC % 0.0 Absolute Neutrophils 3.22 Absolute Lymphocytes 0.93 L Absolute Monocytes 0.47 Absolute Eosinophils 0.11 Absolute Basophils 0.03 Sodium 136 Potassium 4.1 Chloride 104 Carbon Dioxide 23.9 Anion Gap 8.1 BUN 4 L Creatinine 0.7 Est GFR (CKD-EPI 2020) 102.25 Glucose 148 H Calcium 8.1 L Magnesium 1.9 PFSH All Active Problems (Updated 09/20/23 @ 00:05 by YENIFER LOMELI) Discharge planning issues (Acute) Need for home health care (Acute) Uses feeding tube (Acute) Physician orders for life-sustaining treatment (POLST) form indicates patient wish for [id number] status (Acute) ACP (advance care planning) (Acute) Palliative care patient (Acute) Pulmonary embolus, right (Acute) Abnormal CT of the chest (Acute) DVT prophylaxis (Acute) Nausea & vomiting (Acute) Esophageal yeast infection (Acute) Chronic pulmonary aspiration (Acute) Esophageal stricture (Acute) Stricture has been present since 2021 Aspiration of food (Acute) Patient had a swallow study in 2021 which showed mandeep aspiration Inability to swallow (Chronic) Esophageal abnormality (Chronic) Acute thoracic back pain (Acute) Pneumonia (Acute) Dysphagia (Acute) Memory loss (Acute) Erectile dysfunction (Acute) Constipation (Acute) Peripheral neuropathy (Acute) Primary Parkinson's disease (Acute) Medical History Hepatitis C per referral, pt has completed treatment Malignant melanoma of skin Hypertension Severe bipolar disorder with psychotic features, mood-congruent Pt. denies PTSD (post-traumatic stress disorder) Pt. denies triggers Substance abuse pt. denies Parkinsons disease Prediabetes Anxiety Osteoarthritis Melanoma H/O multiple concussions History of hepatitis C Surgical History H/O colonoscopy (~03/2019) S/P skin cancer resection Social History Smoking/Tobacco Use Status: Current every day Smoking risk assessment performed?: Yes Alcohol Intake: current Alcohol Intake frequency: 0-2 drinks per day Alcohol type: beer Counseling provided: provider counseling Drug use: Daily Substance use type: marijuana Housing: apartment current occupation: None Seatbelt use: always Do you feel safe at home: Yes Do you feel safe in your relationship?: Yes Time Spent with Patient Time Spent with Patient: >85 minutes Time was spent: preparing to see the patient(eg.review tests), obtaining and/or reviewing separately otained hiistory, ordering medications,tests, procedures, referring, communicating with other health palliative care coordinator, indepentently interpreting results, counseling the patient and care coordination
--- NOTE | 2023-09-19 14:31 | CMDISCH_ITS ---
Date of service: 09/19/23 Time of Service: 14:31 LACE Index Scoring Tool Questions: Length of Stay (in days): 7 - 13 Was the patient admitted via the E.D.?: Yes Comorbidities: Liver or Renal Disease E.D. Visits: 3 Answers: Total Score: 16 Risk of Readmission: High Risk Care Management Discharge Plan Reason for Hospitalization: Dysphagia Discharge Plan: Tone left the hospital AMA. He was dissatisfied with the plan to have continuous tube feeds and was unable to be persuaded to stay. His NG tube was removed and he was wheeled into the lobby to wait for the [facility] bus. He will follow up with his community providers. Patient/Family Education Needs: would have needed education regarding tube feedings including care of the equipment as well as administration technique SDOH Health Related Social Needs: Health related social needs transpo insecurity
--- NOTE | 2023-09-19 15:26 | PDOC.CMPRO ---
Date of service: 09/19/23 Time of Service: 15:26 Care Management Progress Note Progress Note Text Progress Note Text: Tone left AMA earlier today. He was diagnosed with a new PE this admission and was receiving Lovenox injections at [facility]. He left before any prescriptions could be written but the provider wanted to ensure that he had coverage. A prescription for Apixaban was sent to [facility] in [facility]. His copay will only be $4.60. contacted Tone and informed him about the prescription and the importance of taking it. It will be ready for pickup in about an hour. SDOH(Care Management) Screening Will the Patient Participate in the Screening?: Yes Do you worry about having a steady place to live?: no In the past 12 months, have you had to go without electric, gas, oil or water in your home?: no Have you or anyone in your house had to go without enough food to eat?: no Has lack of transportation kept you from medical appointments or from doing things needed for daily living?: no Has anyone in your support network made you feel unsafe for any reason?: no
== END 2023-09-19 12:34 | disposition left against medical advice (07) | DRG 391 ==
LOC: ER 11:19 → MS 12:34
PROVIDERS: Family Medicine; Internal Medicine; Nurse Practitioner Acute Care; Surgery; Admitting Provider Family Medicine; Emergency Provider Registered Nurse Emergency; PCP Nurse Practitioner Family; Visit Provider Family Medicine
DX: K22.2 Esophageal obstruction (principal); I26.99 Other pulmonary embolism without acute cor pulmonale; K85.90 Acute pancreatitis without necrosis or infection, unspecified; J18.9 Pneumonia, unspecified organism; B37.81 Candidal esophagitis; F31.5 Bipolar disorder, current episode depressed, severe, with psychotic features; E86.0 Dehydration; E87.6 Hypokalemia; R41.3 Other amnesia; G62.9 Polyneuropathy, unspecified; T17.928A Food in respiratory tract, part unspecified causing other injury, initial encounter; F43.10 Post-traumatic stress disorder, unspecified; F41.9 Anxiety disorder, unspecified; F19.10 Other psychoactive substance abuse, uncomplicated; B19.20 Unspecified viral hepatitis C without hepatic coma; G20.B1 Parkinson's disease with dyskinesia, without mention of fluctuations; Z51.5 Encounter for palliative care; Z66 Do not resuscitate; K59.00 Constipation, unspecified; Z74.2 Need for assistance at home and no other household member able to render care; W44.F3XA Food entering into or through a natural orifice, initial encounter; F10.90 Alcohol use, unspecified, uncomplicated; I10 Essential (primary) hypertension; K21.9 Gastro-esophageal reflux disease without esophagitis; R53.1 Weakness; Z91.198 Patient's noncompliance with other medical treatment and regimen for other reason; R73.03 Prediabetes; F17.210 Nicotine dependence, cigarettes, uncomplicated; F12.90 Cannabis use, unspecified, uncomplicated; Z68.21 Body mass index [BMI] 21.0-21.9, adult; R63.4 Abnormal weight loss; K80.20 Calculus of gallbladder without cholecystitis without obstruction; N40.0 Benign prostatic hyperplasia without lower urinary tract symptoms; R13.19 Other dysphagia
CPT/HCPCS: 00123; 36410; 36415; 71045; 71275; 74177; 80048; 80053; 82805; 83690; 85027; 87040; 87637; 92526; 92610; 93005; 96361; 96374; 96375; 97162; 99222; 99231; 99232; 99285; J1650; 71046; 71260; 74018; 74019; 76705; 81003; 81015; 83036; 83605; 83735; 84484; 85025; 85049; 93010; 94668; 99233; 99239; J0131; J1450; J1885; J2060; J2212; J2270; J2405; J2470; J2765; J3475; J3480; J3490

== ENCOUNTER 2023-12-05 13:08 | Inpatient (IN) | payer OTHER, MEDICAID, SELFPAY ==
[2023-12-05] VITALS (33 sets, daily range): BP systolic 107–175; BP diastolic 80–151; PULSE 98–140; RESP 13–26; TEMP 36.1–36.9; O2SAT 96–100
--- NOTE | 2023-12-05 13:00 | RT.EKG_ITS ---
APPROVED REPORT Exam: Resting ECG Reason for Exam: rapid heart rate Patient Location: E HR:139 bpm ECG Measurements Heart Rate 139 AXIS MI 134 P 96 QRSd 89 QRS 259 QT 298 T 123 QTc 453 Conclusion Sinus tachycardia...rate> 99 Left anterior fascicular block...axis(240,-40), init forces inf Repol abnrm suggests ischemia, diffuse leads...ST-T neg, ant/lat/inf Narrow complex sinus tachycardia at a rate of 139. Left axis deviation no signs of LVH. Significant artifact interferes with interpretation. QTc within normal limits. MI within normal limits. Nishant red to prior dated earlier this year sinus tachycardia has increased slightly.
[2023-12-05] MEDS: CEFEPIME 2 GM in Normal Saline 100 ML IVPB (13:39)
[2023-12-05] MEDS: Normal Saline 1,000 ML 1000 ML IV (13:40)
[2023-12-05 13:44] LABS: Absolute Basophil Count 0.19 10^3/uL (0.0-0.2); Absolute Eosinophil Count 0.02 10^3/uL (0.0-0.7); Absolute Lymphocyte Count 0.92 10^3/uL (1.2-3.4); Absolute Monocyte Count 0.99 10^3/uL (0.1-0.8); Absolute Neutrophil Count 19.12 10^3/uL (1.2-6.7); Basophils % 0.9 %; Eosinophils % 0.1 %; HCT 52.5 % (40.0-50.0); HGB 18.4 g/dL (13.5-17.5); Immature Grans % 0.9 %; Lymphocytes % 4.3 %; MCV 94 fL (80-95); MPV 9.8 fL (8.0-11.0); Monocytes % 4.6 %; Neutrophils % 89.2 %; Nucleated RBC 0.1 % (0.0-0.3); Platelet Count 259 10^3/uL (130-400); RBC 5.57 10^6/uL (4.36-5.78); RDW 13.4 % (11.8-14.1); RDW-SD 46.9 fL; WBC 21.44 10^3/uL (4.4-10.8)
[2023-12-05 13:46] LABS: Lactate 4.3 mmol/L (0.6-1.4)
[2023-12-05 14:12] LABS: Magnesium 2.7 mg/dL (1.8-2.4)
[2023-12-05] MEDS: VANCOMYCIN/WATER (PEG) 1 GM/200 ML BAG IVPB (14:12)
[2023-12-05 14:15] LABS: ETHANOL BLOOD < 3.0 mg/dL (<10)
--- NOTE | 2023-12-05 14:18 | W.ED.GENAD ---
Discharge Plan Discharge Details Chief Complaint: GenMedical Clinical Impression: Weakness, Unintentional weight loss, Acute kidney injury Primary Care Provider: ABILIO MULTANI ED Provider: Foster Garcia Foster Meds and New Rx's Prescriptions: No Action naloxone [Narcan] 4 mg/actuation spray,non-aerosol 4 mg intranasal Q3M PRN (Reason: opioid overdose) Qty: 2 0RF Rx Instructions: spray 1 dose into ONE nostril; alternate nostrils w each dose until help arrives for accidental drug poisoning lorazepam 0.5 mg tablet 0.5 mg PO Q4H PRN MDD 5 tabs PRN (Reason: anxiety) Qty: 30 0RF oxycodone 5 mg tablet 5 mg PO QHS MDD 1 tab PRN (Reason: pain) Qty: 30 0RF pantoprazole 40 mg tablet,delayed release (DR/EC) 40 mg PO DAILY Patient Comments: TAKE ONE TABLET BY MOUTH EVERY DAY magnesium gluconate 27.5 mg magne- sium (500 mg) tablet 27.5 mg PO DAILY Qty: 30 0RF Eliquis 5 mg tablet 5 mg PO BID Qty: 166 0RF HPI General Date/Time Provider Initiated Documentation: 12/05/23 13:14. HPI Narrative: MDM This is a tachycardic but afebrile cachectic male with marked weakness concerning for sepsis versus deconditioning versus acute electrolyte abnormality for which patient will undergo chest x-ray and CT scan given concern for possible fall on apixaban. No pain or proportion to suggest necrotizing soft tissue infection. Nontender back so no indication for CT thoracic spine. Patient has had unintentional weight loss so certainly malignancy is a possibility. Given soft nontender abdomen we will defer cross-sectional imaging at this point in time and send not suspicious for appendicitis diverticulitis nor acute cholecystitis. Will obtain chest x-ray to assess for infiltrate. Patient does have candidiasis for which will nystatin. Given concern for sepsis patient received empiric treatment with cefepime and vancomycin after blood cultures were drawn. 2:15 PM CBC showing marked leukocytosis. Erythrocytosis. No thrombocytopenia. Mild hypomagnesemia. Lactic acidosis with a serum lactate of 4.3 mmol/L. Negative ethanol level.Patient reports only having several beers in the past several days. He he tells me he does not get the shakes if he does not drink alcohol. 2:40 PM Comprehensive metabolic panel showing mild hyponatremia. Normal bicarbonate with hyperglycemia and anion gap?-not consistent with DKA. Acute kidney injury. Elevated BUN. No LFT abnormalities. Mild hypercalcemia. Mildly elevated TSH. Reflex Free T4 pending. 3:15 PM Reassuring free T4. Lactic acidosis markedly improved with serum lactate of 1.8 mmol/L. Tachycardia improving with a heart rate of 117. Will provide 500 additional cc of crystalloid patient has not yet urinated. I was in touch with Dr. Champion who requested I place orders for hospitalization. 4:41 PM Patient requested to sign out AGAINST MEDICAL ADVICE. He was unable to get dressed and unable to stand unassisted. I advised that he was not safe going home. I updated Dr. Champion on plan for hospitalization as originally discussed. Patient's tachycardia improved in the ED down into the 1 teens. He is on as needed low-dose lorazepam and my suspicion is low for withdrawal. HPI This is a 63-year-old male with history of dysphagia arrived to emergency department via EMS in the setting of difficulty standing. Patient was preparing for an EGD and a colonoscopy today. RCT went to collect the patient at his house and he was sitting on the ground. He is unable to stand and so paramedics were called. Patient denies any fevers head strike nausea and vomiting. He occasionally drinks alcohol. He denies dysuria and frequency. He reports that over the past 4 months he has unintentionally lost 145 pounds. Exam General: Cachectic-appearing in no acute distress speaking in complete sentences. Head: Normocephalic, atraumatic. Eye: Extraocular eye movements intact. No conjunctival injection. No scleral icterus. Ear, nose, mouth, throat: Grossly normal inspection. Normal voice, handling secretions normally. Neck: Trachea midline. No cervical spinal tenderness. Cardiovascular: Well-perfused distal extremities. Rapid regular rate. Back: No midline thoracic nor lumbar spinal tenderness. No signs of sacral decubitus ulcer. Respiratory: Nonlabored respiration. Clear lungs bilaterally Gastrointestinal: Nondistended abdomen. Soft nontender. Musculoskeletal: No edema. Moving all 4 extremities spontaneously. Skin: Normal for age and race, grossly normal temperature and turgor. No acute rash. Neurologic: Alert and appropriate, no apparent acute deficits. GCS 15. Psychiatric: Mood and manner are appropriate. Grooming and personal hygiene are appropriate. Related Data Home Medications ?Medication ?Instructions ?Recorded ?Confirmed pantoprazole 40 mg tablet,delayed 40 mg PO DAILY 09/11/23 11/21/23 release apixaban 5 mg tablet (Eliquis) 5 mg PO BID #166 tabs 09/19/23 11/21/23 magnesium gluconate 27.5 mg 27.5 mg PO DAILY #30 tabs 09/19/23 11/21/23 magnesium (500 mg) tablet naloxone 4 mg/actuation nasal 4 mg intranasal Q3M PRN opioid 11/16/23 11/21/23 spray (Narcan) overdose #2 ea lorazepam 0.5 mg tablet 0.5 mg PO Q4H PRN PRN anxiety #30 11/21/23 tabs oxycodone 5 mg tablet 5 mg PO QHS PRN pain #30 tabs 11/21/23 Previous Rx's ?Medication ?Instructions ?Recorded apixaban 5 mg tablet (Eliquis) 5 mg PO BID #166 tabs 09/19/23 magnesium gluconate 27.5 mg 27.5 mg PO DAILY #30 tabs 09/19/23 magnesium (500 mg) tablet naloxone 4 mg/actuation nasal 4 mg intranasal Q3M PRN opioid 11/16/23 spray (Narcan) overdose #2 ea lorazepam 0.5 mg tablet 0.5 mg PO Q4H PRN PRN anxiety #30 11/21/23 tabs oxycodone 5 mg tablet 5 mg PO QHS PRN pain #30 tabs 11/21/23 Allergies Allergy/AdvReac Type Severity Reaction Status Date / Time [facility] Allergy Severe Difficulty Verified 09/11/23 08:06 breathing. General Stated Complaint: GenMedical SHILPA: 2 Course Vital Signs Vital signs: Vital Signs Temperature 36.2 C L 12/05/23 13:03 Pulse 135 H 12/05/23 13:03 Respiratory Rate 20 12/05/23 13:03 Blood Pressure 175/151 H 12/05/23 13:03 Pulse Oximetry 96 12/05/23 13:03 Temperature 36.5 C 12/05/23 13:40 Temperature Source Oral 12/05/23 13:40 Pulse 130 H 12/05/23 13:40 Respiratory Rate 16 12/05/23 13:40 Respiratory Effort Normal, Non-Labored 12/05/23 13:40 Respiratory Depth Normal 12/05/23 13:40 Respiratory Pattern Normal 12/05/23 13:40 Blood Pressure 117/95 H 12/05/23 13:40 Blood Pressure Position Supine 12/05/23 13:40 Pulse Oximetry 97 12/05/23 13:40 Oxygen Delivery Method Room Air 12/05/23 13:40 Oxygen Flow Rate 0 12/05/23 13:03 Lab/Test Results Lab/Test Results: 12/05/23 13:45 Blood Blood Culture - Pending 12/05/23 13:28 Blood Blood Culture - Pending Laboratory Tests Range/Units 12/05/23 13:28 WBC (4.4-10.8) 10^3/uL 21.44 H RBC (4.36-5.78) 10^6/uL 5.57 Hgb (13.5-17.5) g/dL 18.4 H Hct (40.0-50.0) % 52.5 H MCV (80-95) fL 94 MCH (27.0-33.0) pg 33.0 MCHC (32.0-36.0) % 35.0 RDW (11.8-14.1) % 13.4 Plt Count (130-400) 10^3/uL 259 MPV (8.0-11.0) fL 9.8 Immature Gran % % 0.9 Neutrophils % % 89.2 Lymphocytes % % 4.3 Monocytes % % 4.6 Eosinophils % % 0.1 Basophils % % 0.9 Nucleated RBC % (0.0-0.3) % 0.1 Absolute Neutrophils (1.2-6.7) 10^3/uL 19.12 H Absolute Lymphocytes (1.2-3.4) 10^3/uL 0.92 L Absolute Monocytes (0.1-0.8) 10^3/uL 0.99 H Absolute Eosinophils (0.0-0.7) 10^3/uL 0.02 Absolute Basophils (0.0-0.2) 10^3/uL 0.19 VBG Lactate (0.6-1.4) mmol/L 4.3 H* Magnesium (1.8-2.4) mg/dL 2.7 H Ethyl Alcohol (<10) mg/dL < 3.0 Medical Decision Making Quality:SDOH Health Related Social Needs: Health related social needs transportation insecurity(Z59.82) PFSH All Active Problems (Updated 12/05/23 @ 14:44 by Foster Garcia MD) Acute kidney injury (Acute) Weakness (Acute) Unintentional weight loss (Acute) Physician orders for life-sustaining treatment (POLST) form indicates patient wish for [id number] status (Acute) ACP (advance care planning) (Acute) Palliative care patient (Acute) Pulmonary embolus, right (Acute) Esophageal yeast infection (Acute) Aspiration of food (Acute) Patient had a swallow study in 2021 which showed mandeep aspiration Acute thoracic back pain (Acute) Dysphagia (Acute) Memory loss (Acute) Erectile dysfunction (Acute) Constipation (Acute) Peripheral neuropathy (Acute) Primary Parkinson's disease (Acute) Medical History Need for home health care Uses feeding tube Abnormal CT of the chest DVT prophylaxis Nausea & vomiting Acute pancreatitis Chronic pulmonary aspiration Esophageal stricture Stricture has been present since 2021 Acute hypokalemia Inability to swallow Acute dehydration Esophageal abnormality Pneumonia Hepatitis C per referral, pt has completed treatment Malignant melanoma of skin Hypertension Severe bipolar disorder with psychotic features, mood-congruent Pt. denies PTSD (post-traumatic stress disorder) Pt. denies triggers Substance abuse pt. denies Parkinsons disease Prediabetes Anxiety Osteoarthritis Melanoma H/O multiple concussions History of hepatitis C Surgical History H/O colonoscopy (~03/2019) S/P skin cancer resection Social History Smoking/Tobacco Use Status: Current every day Smoking risk assessment performed?: Yes Alcohol Intake: current Alcohol Intake frequency: 0-2 drinks per day Alcohol type: beer Counseling provided: provider counseling Drug use: Daily Substance use type: marijuana Housing: apartment current occupation: None Seatbelt use: always Do you feel safe at home: Yes Do you feel safe in your relationship?: Yes
--- NOTE | 2023-12-05 14:26 | DI.CT_ITS ---
Exam(s) CT HEAD WO EXAM: CT HEAD WO CLINICAL HISTORY: fall. TECHNIQUE: Imaging Protocol: Axial computed tomography images with coronal and sagittal reformatted images were created and reviewed COMPARISON: No exams were available for comparison FINDINGS: There are no skull fractures. There is no fluid in the visualized paranasal sinuses. There is no evidence of intracranial hemorrhage, mass effect, or shift of midline structures. There are no extra-axial fluid collections. The ventricles are not enlarged or shifted and there is no blo od within the ventricular system nor within the basal cisterns. Are small bilateral developmental 2-3 mm sublenticular cysts incidentally noted IMPRESSION: No acute intracranial findings on this noninfused CT scan of the brain. Called by myself to ER 12/05/2023 at 2:29 p.m. RADIATION DOSE DELIVERED: 867.3mGy.cm Total DLP DATA REPOSITORY: All CT scans at this facility are submitted to the National Radiology Data Registry (NRDR) Dose Index Registry (DIR) with the [employer] ([employer]). RADIATION OPTIMIZATION: All CT scans at this facility use at least one of these dose optimization te chniques: automated exposure control; mA and/or kV adjustment per patient size (includes targeted exa ms where dose is matched to clinical indication); or iterative reconstruction.
--- NOTE | 2023-12-05 14:26 | DI.RAD_ITS ---
Exam(s) XR CHEST 1V IN DI DEPT EXAM: XR CHEST 1V IN DI DEPT CLINICAL HISTORY: Tachycardic. TECHNIQUE: 2D digital imaging was performed. COMPARISON: CR,XR XR PORTABLE CHEST AP POST LINE from 09/16/2023 FINDINGS: Single AP portable view. Heart size is upper normal. The mediastinum is not widened. Lungs are clear. No infiltrates nor obvious pleural effusions. There has been significant improvement when compared to chest x-ray of 09/16/2023. No acute fractures evident. IMPRESSION: No acute pulmonary findings on this single AP portable view of the chest. DATA REPOSITORY: RADIATION DOSE DELIVERED:
[2023-12-05 14:28] LABS: COVID-19 PCR Negative (Negative); Influenza A PCR Negative (Negative); Influenza B PCR Negative (Negative); RSV PCR Negative (Negative); Source Nasopharynx
[2023-12-05 14:34] LABS: ALT 23 U/L (16-63); AST 20 U/L (15-37); Albumin 3.9 g/dL (3.4-5.0); Alkaline Phosphatase 90 U/L (46-116); Anion Gap 20.8 mmol/L (3-11); BUN 57 mg/dL (7-18); Bilirubin, Total 0.93 mg/dL (0.2-1.0); CO2 25.2 mmol/L (21.0-32.0); CREATININE 2.3 mg/dL (0.70-1.30); Calcium 10.6 mg/dL (8.5-10.1); Chloride 88 mmol/L (98-107); Estimated GFR 30.74 (mL/min/1.73m2); Glucose 245 mg/dL (74-106); Potassium 3.5 mmol/L (3.5-5.1); Sodium 134 mmol/L (136-145); TSH (W/Ref FT4) 5.19 uIU/mL (0.36-3.74); Total Protein 9.3 g/dL (6.4-8.2)
[2023-12-05] MEDS: Nystatin 500000 UNITS/5 ML SUSP 5ML CUP PO (14:50)
[2023-12-05 15:00] LABS: FREE T4 0.96 ng/dL (0.76-1.46)
[2023-12-05 15:07] LABS: Lactate 1.8 mmol/L (0.6-1.4)
--- NOTE | 2023-12-05 17:59 | W.PC.ACHO ---
Registration Status: Primary Language: Preferred Language: ED Information & Data Chief Complaint GenMedical 12/05/23 14:19 Triage Note increased weakness, had to 12/05/23 13:03 lower self to ground by sitting, was unable get self up Medical / Surgical History (Last Reviewed 11/21/23 @ 10:48 by Starla Miranda NP) Need for home health care Uses feeding tube Abnormal CT of the chest DVT prophylaxis Nausea & vomiting Acute pancreatitis Chronic pulmonary aspiration Esophageal stricture Acute hypokalemia Inability to swallow Acute dehydration Esophageal abnormality Pneumonia Hepatitis C Malignant melanoma of skin Hypertension Severe bipolar disorder with psychotic features, mood-congruent PTSD (post-traumatic stress disorder) Substance abuse Parkinsons disease Prediabetes Anxiety Osteoarthritis Melanoma H/O multiple concussions History of hepatitis C (Last Reviewed 11/21/23 @ 10:48 by Starla Miranda NP) H/O colonoscopy (~03/2019) S/P skin cancer resection Most Recent Vital Signs Temperature 36.9 C 12/05/23 17:55 Temperature Source Tympanic 12/05/23 17:55 Pulse 125 H 12/05/23 17:55 Pulse 110 H 12/05/23 16:10 Respiratory Rate 20 12/05/23 17:55 Respiratory Effort Normal, Non-Labored 12/05/23 13:40 Respiratory Depth Normal 12/05/23 13:40 Respiratory Pattern Normal 12/05/23 13:40 Blood Pressure 115/94 H 12/05/23 17:55 Blood Pressure Mean 133 12/05/23 16:01 Blood Pressure Position Supine 12/05/23 13:40 Pulse Oximetry 97 12/05/23 17:55 Oxygen Delivery Method Room Air 12/05/23 17:55 Oxygen Flow Rate 0 12/05/23 17:55 Pain Level 7 12/05/23 17:55 Allergies mirabegron (From Myrbetriq) Allergy (Severe, Verified 12/05/23 17:37) Difficulty breathing. Precautions Isolation Standard precaution 12/05/23 13:40 IV IV Catheter Type [Left Peripheral IV Antecubital] IV Catheter Gauge [Left 20 Antecubital] Diet Orders Category Date Time Status Nothing Per Oral [DIET] Nutrition 12/05/23 Dinner Active Diagnostics 12/05/23 12/05/23 12/05/23 Range/Units 15:05 13:34 13:28 WBC 21.44 H (4.4-10.8) 10^3/uL RBC 5.57 (4.36-5.78) 10^6/uL Hgb 18.4 H (13.5-17.5) g/dL Hct 52.5 H (40.0-50.0) % MCV 94 (80-95) fL MCH 33.0 (27.0-33.0) pg MCHC 35.0 (32.0-36.0) % RDW 13.4 (11.8-14.1) % Plt Count 259 (130-400) 10^3/uL MPV 9.8 (8.0-11.0) fL Immature Gran % 0.9 % Neutrophils % 89.2 % Lymphocytes % 4.3 % Monocytes % 4.6 % Eosinophils % 0.1 % Basophils % 0.9 % Nucleated RBC % 0.1 (0.0-0.3) % Absolute Neutrophils 19.12 H (1.2-6.7) 10^3/uL Absolute Lymphocytes 0.92 L (1.2-3.4) 10^3/uL Absolute Monocytes 0.99 H (0.1-0.8) 10^3/uL Absolute Eosinophils 0.02 (0.0-0.7) 10^3/uL Absolute Basophils 0.19 (0.0-0.2) 10^3/uL VBG Lactate 1.8 H 4.3 H* (0.6-1.4) mmol/L Sodium 134 L (136-145) mmol/L Potassium 3.5 (3.5-5.1) mmol/L Chloride 88 L (98-107) mmol/L Carbon Dioxide 25.2 (21.0-32.0) mmol/L Anion Gap 20.8 H (3-11) mmol/L BUN 57 H (7-18) mg/dL Creatinine 2.3 H (0.70-1.30) mg/dL Est GFR (CKD-EPI 2020) 30.74 (mL/min/1.73m2) Glucose 245 H (74-106) mg/dL Calcium 10.6 H (8.5-10.1) mg/dL Magnesium 2.7 H (1.8-2.4) mg/dL Total Bilirubin 0.93 (0.2-1.0) mg/dL AST 20 (15-37) U/L ALT 23 (16-63) U/L Alkaline Phosphatase 90 (46-116) U/L Total Protein 9.3 H (6.4-8.2) g/dL Albumin 3.9 (3.4-5.0) g/dL TSH 5.19 H (0.36-3.74) uIU/mL Free T4 0.96 (0.76-1.46) ng/dL Ethyl Alcohol < 3.0 (<10) mg/dL COVID-19 Source Nasopharynx SARS-CoV-2 (PCR) Negative (Negative) Influenza Type A (PCR) Negative (Negative) Influenza Type B (PCR) Negative (Negative) RSV (PCR) Negative (Negative) ABO/Rh A Positive Antibody Screen NEGATIVE 12/05/23 13:45 Blood Culture - Pending Blood 12/05/23 13:28 Blood Culture - Pending Blood Intake and Output - 24 Hour Total 12/05/23 12:59 thru 12/05/23 16:08 Intake Total 1300 Balance 1300 Weight 51.5 kg Intake: IV 1300 Falls Risk Assessment History of Falls No History 12/05/23 13:40 Fall Total Score 0 12/05/23 13:40 Level of Risk Standard/Low Risk 12/05/23 13:40 Problems (Last Reviewed 11/21/23 @ 10:48 by Starla Miranda NP) Acute kidney injury (Acute) Weakness (Acute) Unintentional weight loss (Acute) v v v v v v v v v Sending and/or Receiving Nurses: Please use comment section below to note any information pertinent to the patient hand-off not included above. Information / Comments: Report received from: CANDELARIO Vyas at [id number]
--- NOTE | 2023-12-05 18:41 | W.PM.HP.N ---
Date of service: 12/05/23 Time of Service: 19:46 Assessment and Plan Assessment and plan (1) Acute kidney injury: Status: Acute Assessment and plan: - Creatinine found to be 2.3 (baseline 0.7, likely secondary to dehydration given the BUN was also elevated, patient also had an associated lactic acidosis -While patient did have leukocytosis, he was without fever, dysuria, nausea vomiting diarrhea, cough, shortness of breath -He was given 1 L normal saline in the emergency department -Continue normal saline at 90 mL/h (2) Weakness: Status: Acute Assessment and plan: - Likely secondary to dehydration and poor p.o. intake as noted above -Appreciate PT consultation recommendation (3) Unintentional weight loss: Status: Acute Assessment and plan: - Has been an ongoing issue for the patient in the setting of his dysphagia secondary to Parkinson's -Appreciate nutrition input -Patient will need to have EGD and colonoscopy again set up as an outpatient which was initially scheduled for today 12/05/2023 (4) Dysphagia: Status: Acute Assessment and plan: -Secondary to Parkinson's Qualifiers: Dysphagia type: esophageal phase Qualified Code(s): R13.19 - Other dysphagia (5) Primary Parkinson's disease: Status: Acute Assessment and plan: - This is a likely cause of patient's ongoing dysphagia -However, patient has not been taking any Parkinson's meds for some time, and as noted during previous hospitalization, patient had previously been noncompliant with his outpatient workup for his dysphagia -Will need to have outpatient workup rescheduled as noted above History of Present Illness History of Present Illness Chief Complaint: unable to stand Narrative: 63-year-old male with a significant history of dysphagia due to Parkinson's disease presents to the emergency department due to an inability to stand and ambulate. Patient was reportedly preparing for an EGD and colonoscopy today when transport went to patient's house and found him sitting on the ground unable to ambulate so they called paramedics to take him to the emergency department. Patient denies having any recent fevers, hitting his head, lightheadedness, dizziness, nausea vomiting or diarrhea. In the emergency department the patient was noted as being tachycardic but afebrile with initial concern for sepsis. While his CBC did show leukocytosis he did also have polycythemia, was also found to have an JACEY with a creatinine of 2.3 (baseline 0.7, and a lactic acid of 4.3, all likely secondary to dehydration in the setting of procedure prep in combination with patient's chronic poor p.o. intake due to his dysphagia. While in the emergency department the patient was given 1 L normal saline bolus and was started on 90 mL/h of normal saline. Patient initially stated that he wanted to leave AGAINST MEDICAL ADVICE but was unable to ambulate on his own. Which time patient accepted being admitted and emergency room physician paged hospitalist for admission for patient with likely severe dehydration and chronic poor p.o. intake resulting in JACEY. Review of Systems All systems reviewed & are unremarkable except as noted in HPI and below PFSH All Active Problems (Updated 12/05/23 @ 14:44 by Foster Garcia MD) Acute kidney injury (Acute) Weakness (Acute) Unintentional weight loss (Acute) Physician orders for life-sustaining treatment (POLST) form indicates patient wish for [id number] status (Acute) ACP (advance care planning) (Acute) Palliative care patient (Acute) Pulmonary embolus, right (Acute) Esophageal yeast infection (Acute) Aspiration of food (Acute) Patient had a swallow study in 2021 which showed mandeep aspiration Acute thoracic back pain (Acute) Dysphagia (Acute) Memory loss (Acute) Erectile dysfunction (Acute) Constipation (Acute) Peripheral neuropathy (Acute) Primary Parkinson's disease (Acute) Medical History Need for home health care Uses feeding tube Abnormal CT of the chest DVT prophylaxis Nausea & vomiting Acute pancreatitis Chronic pulmonary aspiration Esophageal stricture Stricture has been present since 2021 Acute hypokalemia Inability to swallow Acute dehydration Esophageal abnormality Pneumonia Hepatitis C per referral, pt has completed treatment Malignant melanoma of skin Hypertension Severe bipolar disorder with psychotic features, mood-congruent Pt. denies PTSD (post-traumatic stress disorder) Pt. denies triggers Substance abuse pt. denies Parkinsons disease Prediabetes Anxiety Osteoarthritis Melanoma H/O multiple concussions History of hepatitis C Surgical History H/O colonoscopy (~03/2019) S/P skin cancer resection Social History Smoking/Tobacco Use Status: Current every day Smoking risk assessment performed?: Yes Alcohol Intake: current Alcohol Intake frequency: 0-2 drinks per day Alcohol type: beer Counseling provided: provider counseling Drug use: Daily Substance use type: marijuana Housing: apartment current occupation: None Seatbelt use: always Do you feel safe at home: Yes Do you feel safe in your relationship?: Yes Meds Allergies and Home Medications Allergies Allergy/AdvReac Type Severity Reaction Status Date / Time mirabegron (From Myrbetriq) Allergy Severe Difficulty Verified 12/05/23 17:37 breathing. Home Medications ?Medication ?Instructions ?Recorded ?Confirmed ?Type pantoprazole 40 mg tablet,delayed 40 mg PO DAILY 09/11/23 12/05/23 History release apixaban 5 mg tablet (Eliquis) 5 mg PO BID #166 tabs 09/19/23 12/05/23 Rx magnesium gluconate 27.5 mg 27.5 mg PO DAILY #30 tabs 09/19/23 12/05/23 Rx magnesium (500 mg) tablet naloxone 4 mg/actuation nasal 4 mg intranasal Q3M PRN opioid 11/16/23 12/05/23 Rx spray (Narcan) overdose #2 ea lorazepam 0.5 mg tablet 0.5 mg PO Q4H PRN PRN anxiety #30 11/21/23 12/05/23 Rx tabs oxycodone 5 mg tablet 5 mg PO QHS PRN pain #30 tabs 11/21/23 12/05/23 Rx Exam Narrative Exam Narrative: Frail, cachectic appearing older gentleman laying in bed in no acute distress, ANO x 4, heart regular rhythm, lungs clear to auscultation bilaterally, abdomen soft, nontender, nondistended Results Labs 12/05/23 13:28 12/05/23 13:28 Labs: Laboratory Results - last 24 hr 12/05/23 12/05/23 12/05/23 13:28 13:34 15:05 WBC 21.44 H RBC 5.57 Hgb 18.4 H Hct 52.5 H MCV 94 MCH 33.0 MCHC 35.0 RDW 13.4 Plt Count 259 MPV 9.8 Immature Gran % 0.9 Neutrophils % 89.2 Lymphocytes % 4.3 Monocytes % 4.6 Eosinophils % 0.1 Basophils % 0.9 Nucleated RBC % 0.1 Absolute Neutrophils 19.12 H Absolute Lymphocytes 0.92 L Absolute Monocytes 0.99 H Absolute Eosinophils 0.02 Absolute Basophils 0.19 VBG Lactate 4.3 H* 1.8 H Sodium 134 L Potassium 3.5 Chloride 88 L Carbon Dioxide 25.2 Anion Gap 20.8 H BUN 57 H Creatinine 2.3 H Est GFR (CKD-EPI 2020) 30.74 Glucose 245 H Calcium 10.6 H Magnesium 2.7 H Total Bilirubin 0.93 AST 20 ALT 23 Alkaline Phosphatase 90 Total Protein 9.3 H Albumin 3.9 TSH 5.19 H Free T4 0.96 Ethyl Alcohol < 3.0 COVID-19 Source Nasopharynx SARS-CoV-2 (PCR) Negative Influenza Type A (PCR) Negative Influenza Type B (PCR) Negative RSV (PCR) Negative ABO/Rh A Positive Antibody Screen NEGATIVE Last Vital Signs Temp 98.4 F 12/05/23 17:55 Pulse 110 H 12/05/23 18:00 Resp 18 12/05/23 18:00 BP 128/80 12/05/23 18:00 Pulse Ox 100 12/05/23 18:00 Time Spent Time spent with Patient: >75 minutes Time was spent: preparing to see the patient(eg.review tests), obtaining and/or reviewing separately otained hiistory, ordering medications,tests, procedures, referring, communicating with other health animal daycare provider, indepentently interpreting results, counseling the patient and care coordination
[2023-12-05] MEDS: Apixaban 5 MG TAB PO (21:28)
[2023-12-05] MEDS: Normal Saline 1,000 ML 90 ML IV (21:28)
[2023-12-06 02:48] VITALS: BP 123/91; PULSE 94; RESP 16; TEMP 36; O2SAT 99
[2023-12-06 07:12] LABS: ALT 18 U/L (16-63); AST 22 U/L (15-37); Albumin 2.8 g/dL (3.4-5.0); Alkaline Phosphatase 63 U/L (46-116); Anion Gap 16.4 mmol/L (3-11); BUN 45 mg/dL (7-18); Bilirubin, Total 0.81 mg/dL (0.2-1.0); CO2 22.6 mmol/L (21.0-32.0); CREATININE 1.3 mg/dL (0.70-1.30); Calcium 8.8 mg/dL (8.5-10.1); Chloride 103 mmol/L (98-107); Estimated GFR 60.96 (mL/min/1.73m2); Glucose 139 mg/dL (74-106); Magnesium 2.3 mg/dL (1.8-2.4); Potassium 3.1 mmol/L (3.5-5.1); Sodium 142 mmol/L (136-145); Total Protein 6.7 g/dL (6.4-8.2)
[2023-12-06 08:04] VITALS: BP 121/85; PULSE 98; RESP 17; TEMP 36.8; O2SAT 99
[2023-12-06] MEDS: Apixaban 5 MG TAB PO (09:15)
[2023-12-06] MEDS: Pantoprazole 40 MG TABCR PO (09:15)
[2023-12-06] MEDS: Magnesium Gluconate 500 MG TAB PO (09:15)
--- NOTE | 2023-12-06 09:46 | W.PM.PROGNOT ---
Date of Service Date of service: 12/06/23 Time of Service: 09:46 Assessment and Plan Assessment and plan (1) Acute kidney injury: Status: Acute Assessment and plan: - Creatinine improving at 1.7 was 2.3 (baseline 0.7) most likely d/t dehydration given the BUN was also elevated, patient also had an associated lactic acidosis resolving s/p crystalloid bolus -BMP pending -Patient had leukocytosis at 21.44 now improving , normotensive without fever, dysuria, nausea vomiting diarrhea, cough, or shortness of breath -Blood Cx negative X 24 hours -He was given 1 L normal saline in the emergency department -Continue IVF with D5LR at 80 cc/hr (2) Weakness: Status: Acute Assessment and plan: - Likely secondary to dehydration and poor enteral intake withthe patient's history of dysphagia - PT consultation on going (3) Unintentional weight loss: Status: Acute Assessment and plan: - Ongoing issue for the patient in the setting of his dysphagia secondary to Parkinson's -Nutrition consult ongoing -Patient will need to have EGD and colonoscopy again set up as an outpatient which was initially scheduled for today 12/05/2023 but was unable to go as per point 1 and 2 -Surgical consult -Patient is considering, EGD w biopsy and PEG placement s/p discussion with Dr. Jama -Initially could be done on Sunday but d/t Apixaban to treat PE from 09/11/23- will bridge with heparin drip and plan for Sunday ( Dr Gonzalez will be assembler convertible top then) -Holding Apixaban -Start Heparin drip DVT/PE protocol -Palliative care consult for goals of care (4) Dysphagia: Status: Acute Assessment and plan: -Secondary to Parkinson's -SPL consult And as above Qualifiers: Dysphagia type: esophageal phase Qualified Code(s): R13.19 - Other dysphagia (5) Primary Parkinson's disease: Status: Acute Assessment and plan: - Most likely the cause of the ongoing dysphagia -Patient has not been taking any Parkinson's meds for some time, and as noted during previous hospitalization, -Past noncompliant w outpatient workup for dysphagia -Plan for PEG as in point 3 (6) History of pulmonary embolism: Status: Acute Assessment and plan: Dx on 09/11/2023 Seemed to have been unprovoked - On Eliquis Hold Eliquis for planned PEG insertion Bridging with heparin drip (7) Hypokalemia: Status: Acute Assessment and plan: K 2.9 oral supplementation ordered BMP in AM (8) Discharge planning issues: Status: Acute Assessment and plan: Palliative consult: S/p discussion with Eli Hudson Palliative care CODING COMPLIANCE SPECIALIST, the patient is agreeable to the endoscopy and PEG placement and SNF discharge Discussed with Dr Champion Subjective Subjective Patient reports: no new complaints, voiding w/o difficulty, bowel movement, nausea and vomiting; denies tolerating liquids well, tolerating a regular diet, diarrhea, shortness of breath or fever Exam Narrative Exam Narrative: Constitutional The patient is in bed, holding emesis bag with dark yellow fluid; patient is without acute distress and is cachectic appearing; looking older than stated age HENMT: Facial structures are gaunted Neuro:alert and oriented X4 .No neurological focal deficit Resp: Clear lung bilaterally Cardio: regular rhythm, S1, S2, no murmur GI: Abdomen is scaphoid looking- not distended, soft and non tender, bowel sounds are present Integumentary: No skin lesions or rash seen on exposed skin Extremities:generalized weakness Psych: RASS 0, labile mood and affect. Objective Last Vital Signs Temp 36.8 C 12/06/23 08:04 Pulse 98 H 12/06/23 08:04 Resp 17 12/06/23 08:04 BP 121/85 12/06/23 08:04 Pulse Ox 99 12/06/23 08:04 Laboratory Results - last 24 hr 12/05/23 12/05/23 12/05/23 13:28 13:34 15:05 WBC 21.44 H RBC 5.57 Hgb 18.4 H Hct 52.5 H MCV 94 MCH 33.0 MCHC 35.0 RDW 13.4 Plt Count 259 MPV 9.8 Immature Gran % 0.9 Neutrophils % 89.2 Lymphocytes % 4.3 Monocytes % 4.6 Eosinophils % 0.1 Basophils % 0.9 Nucleated RBC % 0.1 Absolute Neutrophils 19.12 H Absolute Lymphocytes 0.92 L Absolute Monocytes 0.99 H Absolute Eosinophils 0.02 Absolute Basophils 0.19 VBG Lactate 4.3 H* 1.8 H Sodium 134 L Potassium 3.5 Chloride 88 L Carbon Dioxide 25.2 Anion Gap 20.8 H BUN 57 H Creatinine 2.3 H Est GFR (CKD-EPI 2020) 30.74 Glucose 245 H Calcium 10.6 H Magnesium 2.7 H Total Bilirubin 0.93 AST 20 ALT 23 Alkaline Phosphatase 90 Total Protein 9.3 H Albumin 3.9 TSH 5.19 H Free T4 0.96 Ethyl Alcohol < 3.0 COVID-19 Source Nasopharynx SARS-CoV-2 (PCR) Negative Influenza Type A (PCR) Negative Influenza Type B (PCR) Negative RSV (PCR) Negative ABO/Rh A Positive Antibody Screen NEGATIVE 12/06/23 06:20 WBC RBC Hgb Hct MCV MCH MCHC RDW Plt Count MPV Immature Gran % Neutrophils % Lymphocytes % Monocytes % Eosinophils % Basophils % Nucleated RBC % Absolute Neutrophils Absolute Lymphocytes Absolute Monocytes Absolute Eosinophils Absolute Basophils VBG Lactate Sodium 142 Potassium 3.1 L Chloride 103 Carbon Dioxide 22.6 Anion Gap 16.4 H BUN 45 H Creatinine 1.3 D Est GFR (CKD-EPI 2020) 60.96 Glucose 139 H Calcium 8.8 Magnesium 2.3 Total Bilirubin 0.81 AST 22 ALT 18 Alkaline Phosphatase 63 Total Protein 6.7 Albumin 2.8 L TSH Free T4 Ethyl Alcohol COVID-19 Source SARS-CoV-2 (PCR) Influenza Type A (PCR) Influenza Type B (PCR) RSV (PCR) ABO/Rh Antibody Screen PAWSS Have you Been Recently Intoxicated or Drunk Within the Last 30 days?: No Have you Ever Experienced Previous Episodes of Alcohol Withdrawal?: Yes Have you ever Experienced Withdrawal Seizures?: No Have you ever Experienced Delirium Tremens(DT)s?: No Have you ever undergone Alcohol Rehabilitation Treatment (i.e, inpt ot outpatient treatment programs)?: No Have you ever Experienced Blackouts?: No Have you ever Combined Alcohol with other Downers within the last 90 days?: No Have you ever Combined Alcohol with any other Substance of Abuse during the last 90 days?: No Positive Blood Alcohol level on Presentation? [PCS.BAL]: No Evidence of Increased Autonomic Activity (i.e. HR>120, tremor, sweating, agitation, nausea)?: No Result: 1 Time Spent with Patient Time Spent with Patient: >50 minutes Time was spent: preparing to see the patient(eg.review tests), obtaining and/or reviewing separately otained hiistory, ordering medications,tests, procedures, referring, communicating with other health manager primary care, indepentently interpreting results, counseling the patient and care coordination
--- NOTE | 2023-12-06 09:59 | PDOC.CMIN ---
Date of service: 12/06/23 Time of Service: 09:59 Care Management Initial Assmt Initial Assessment Reason for Hospitalization: Acute Kidney Injury Functional Status/Living Situation Patient Presentation: Tone was brought to the ER by EMS yesterday. He had been prepping for an EGD and colonoscopy scheduled for yesterday, and when RCT went to pick him up, he was sitting on the ground and was unable to stand, so paramedics were called. Tone wanted to leave the ED AMA, but he was physically unable to do so. Tone was sitting up in bed when CM met with him today. He was not very interested in speaking with CM, but very clearly stated that he wants to go home. CM informed him that that is not my decision, but that CM would notify the provider of his wishes. Provider notified. CM asked Tone how he would get home, RCT like always. CM asked that he couldn't leave last night, why is today different? Because last night I couldn't get RCT. He would like to go home so that he can eat what he wants. He stated that he eats bananas and vanilla pudding without problems at home. ADVERTISING DISPATCH CLERKS SUPERVISOR came in to see Tone at that point, so CM left. As CM walked out the door, Tone said, make sure you tell the doctor that I want to go. Town of Residence: [place] Resides with: Alone Significant Other/Family: Local (friend, Lona Chaparro) Natural Supports: best friend, Lona Chaparro Employment Status: Retired (worked as a [employer] for many years. has had many different jobs.) Instrumental Activities of Daily Living (ADLs): Independent (seems as though he could use some support, but declines that he needs it. He does have home health OT) Medications Medication Management: No Issues/Barriers identified Advance Directives Advance Directives: Do you have an Advance Directive: Y 01/31/19 11:14 AD On File at [facility]: Y 01/31/19 11:14 Date Asked 12/05/23 12/05/23 13:12 AD Date Reviewed 09/11/23 09/11/23 12:34 COLST On File at [facility] COLST Date Scanned Comment: Lona Chaparro is listed as HCA Code Status Resuscitation Status DNR/DNI Portal Pt does not currently have a portal and education provided: No Insurance Coverage/Financial Issues Insurance: Well[employer], Medicaid Care Team Visit Care Team Role Provider Type ABILIO MULTANI NP Primary Care Provider NON-[facility] STAFF PHYSICIAN Liz Barcenas, ADVERTISING DISPATCH CLERKS SUPERVISOR Other Providers SPEECH LANGUAGE PATHOLOGIST Beth Dutton RDN, [facility] Other Providers VOCATIONAL REHABILITATION CONSULTANT Shira Aguilera Other Providers VOCATIONAL REHABILITATION CONSULTANT Santy Jama DO Other Providers CONSULTING PHYSICIAN Ruth Darby, ADVERTISING DISPATCH CLERKS SUPERVISOR Other Providers SPEECH LANGUAGE PATHOLOGIST Natalya Whitlock Other Providers SPEECH LANGUAGE PATHOLOGIST Debby Spencer, ADVERTISING DISPATCH CLERKS SUPERVISOR Other Providers SPEECH LANGUAGE PATHOLOGIST Trinity Penaloza, ADVERTISING DISPATCH CLERKS SUPERVISOR Other Providers SPEECH LANGUAGE PATHOLOGIST Louis Billy Other Providers OTHER Baudilio Doyle RDN Other Providers VOCATIONAL REHABILITATION CONSULTANT Foster Garcia MD Emergency Provider [facility] STAFF PHYSICIAN Foster Champion Admit Provider [facility] STAFF PHYSICIAN Attending Provider Discharge Potential Discharge Needs: PCP F/U Appt Anticipated Barriers to Discharge: None Identified Patient/Family Education Needs: Review discharge instructions, discuss Ask Me Three Transportation: [facility] Plan: Anticipate that Tone will be discharged home with resumption of his HH RN and OT. He will f/u with his PCP and also GI to complete his work up. He will travel by [facility] private vehicle. CM will continue to follow and update the plan as needed. PFSH All Active Problems (Updated 12/06/23 @ 09:59 by Delmi Moyer APRN) Discharge planning issues (Acute) History of pulmonary embolism (Acute) Acute kidney injury (Acute) Weakness (Acute) Unintentional weight loss (Acute) Physician orders for life-sustaining treatment (POLST) form indicates patient wish for [id number] status (Acute) ACP (advance care planning) (Acute) Palliative care patient (Acute) Pulmonary embolus, right (Acute) Esophageal yeast infection (Acute) Aspiration of food (Acute) Patient had a swallow study in 2021 which showed mandeep aspiration Acute thoracic back pain (Acute) Dysphagia (Acute) Memory loss (Acute) Erectile dysfunction (Acute) Constipation (Acute) Peripheral neuropathy (Acute) Primary Parkinson's disease (Acute) Medical History Need for home health care Uses feeding tube Abnormal CT of the chest DVT prophylaxis Nausea & vomiting Acute pancreatitis Chronic pulmonary aspiration Esophageal stricture Stricture has been present since 2021 Acute hypokalemia Inability to swallow Acute dehydration Esophageal abnormality Pneumonia Hepatitis C per referral, pt has completed treatment Malignant melanoma of skin Hypertension Severe bipolar disorder with psychotic features, mood-congruent Pt. denies PTSD (post-traumatic stress disorder) Pt. denies triggers Substance abuse pt. denies Parkinsons disease Prediabetes Anxiety Osteoarthritis Melanoma H/O multiple concussions History of hepatitis C Surgical History H/O colonoscopy (~03/2019) S/P skin cancer resection Social History Smoking/Tobacco Use Status: Current every day Smoking risk assessment performed?: Yes Alcohol Intake: current Alcohol Intake frequency: 0-2 drinks per day Alcohol type: beer Counseling provided: provider counseling Drug use: Daily Substance use type: marijuana Housing: apartment current occupation: None Seatbelt use: always Do you feel safe at home: Yes Do you feel safe in your relationship?: Yes Readmission Within the Past 30 Days Yes or No: No SDOH(Care Management) Screening Will the Patient Participate in the Screening?: Yes Do you worry about having a steady place to live?: no In the past 12 months, have you had to go without electric, gas, oil or water in your home?: no Have you or anyone in your house had to go without enough food to eat?: no Has lack of transportation kept you from medical appointments or from doing things needed for daily living?: yes Has anyone in your support network made you feel unsafe for any reason?: no Health Related Social Needs Health related social needs: transportation insecurity(Z59.82) Anticipated HH Services Anticipated HH Services at Discharge [facility] Resumption, OT, PT and RN (new PT- resumption of OT and RN).
[2023-12-06] MEDS: DEXTROSE 5%-LACTATED RINGERS 1,000 ML 80 ML IV (10:07)
[2023-12-06 11:30] LABS: Bilirubin Small (Negative); Blood Negative (Negative); Clarity Clear (Clear); Glucose Negative (Negative); Ketones 40 mg/dL (Negative); Leukocyte Esterase Negative (Negative); Nitrite Negative (Negative); Urobilinogen 0.2 mg/dL (Up to 0.2); pH 5.5 (5-8)
[2023-12-06 11:36] VITALS: BP 111/82; PULSE 111; RESP 15; TEMP 37; O2SAT 97
--- NOTE | 2023-12-06 11:37 | PHA.REVIEW2 ---
Pharmacy Admission Review Admission Clinical Review Admission Pharmacy Review: Discharge planning issues (Acute) History of pulmonary embolism (Acute) Acute kidney injury (Acute) Weakness (Acute) Unintentional weight loss (Acute) Dysphagia (Acute) Primary Parkinson's disease (Acute) mirabegron (From Myrbetriq) Allergy (Severe, Verified 12/05/23 17:37) Difficulty breathing. Resuscitation Status DNR/DNI Height 5 ft 9 in Weight 51.5 kg Pharmacy Admission Review Renal Dosing Renal Dosing: BUN 45 mg/dL (7-18) H 12/06/23 06:20 Creatinine 1.3 mg/dL (0.70-1.30) D 12/06/23 06:20 Medications needing adjustments: Reviewed (CrCl 41 mL/min, BUN decreased from 57 and SCr decreased from 2.3) List of meds needing interventions: Current medications are okay Anticoagulation Anticoagulation: Hgb 18.4 g/dL (13.5-17.5) H 12/05/23 13:28 Hct 52.5 % (40.0-50.0) H 12/05/23 13:28 Plt Count 259 10^3/uL (130-400) 12/05/23 13:28 Creatinine 1.3 mg/dL (0.70-1.30) D 12/06/23 06:20 DVT Prophylaxis: Reviewed Medications: Apixaban (5mg PO BID) Opiate Usage Evaluate Pain Scale/Pains Meds: Reviewed (oxycodone PO HS PRN - no doses given) Scheduled Bowel Reg ordered if on Opiates?: No Relevant Labs Relevant Labs: Sodium 142 mmol/L (136-145) 12/06/23 06:20 Potassium 3.1 mmol/L (3.5-5.1) L 12/06/23 06:20 Chloride 103 mmol/L (98-107) 12/06/23 06:20 Magnesium 2.3 mg/dL (1.8-2.4) 12/06/23 06:20 Electrolytes, C-Reactive P, ESR: Reviewed (K 3.1 - provider aware and will put in order for replacement, glucose 139, blood cultures pending) Cardiac Review Cardiac Review: Heart Rate 111 12/06/23 1136 98 12/06/23 0804 94 12/06/23 0248 BP, HR, EF%: Reviewed (BP WNL) QTc Review QTc: Reviewed (453 from 12/05/23) IV to PO Switch IV Medications: Reviewed (currently NPO, nursing reported that patient had some episodes of vomiting this AM) Home Meds Home Med List reviewed: Reviewed Relevent Home Meds Not ordered & why?: Narcan (PRN) Current Meds Current Medication Order Review: Intervened Comments: Added IV admission order set Changed magnesium order from non-formulary to magnesium gluconate 500mg tablets Changed pantoprazole timing from 0830 to 0730 per pharmacy protocol
[2023-12-06 11:47] LABS: Bacteria Negative HPF (Negative); Casts 10-20 Hyaline LPF (Negative); Crystals Few Uric Acid HPF (Negative); Epithelial Cells Rare HPF (Negative); RBC Negative HPF (0-2)
[2023-12-06 11:48] LABS: C & S Indicated? No; Mucus Trace (Negative)
--- NOTE | 2023-12-06 13:21 | SCONE_ITS ---
Date of service: 12/06/23 Time of Service: 13:15 Assessment and Plan Assessment and plan (1) Dysphagia: Status: Acute Assessment and plan: (1) Consideration being given to EGD/PEG tube placement for GI access for nutritional support (2) Patient thinking about PEG tube (3) Will need to hold Eliquis prior to procedure Qualifiers: Dysphagia type: esophageal phase Qualified Code(s): R13.19 - Other dysphagia (2) Weakness: Status: Acute Assessment and plan: (1) Likely secondary to malnutrition and weight loss related to Parkinson- associated dysphagia. (3) History of pulmonary embolism: Status: Acute Assessment and plan: (1) Presently on Eliqus (2) Will need to hold this prior to EDG/esophageal Bx/PEG insertion. Thank you for the opportunity to Consult on your patient. Santy Jama D.O. History of Present Illness History of Present Illness Chief Complaint: Inanition and weight loss d/t Parkinson's Disease Narrative: This 63y/o Male has a history of Parkinson's Disease. He has developed dysphagia and resultant inanitiona and weight loss. He was scheduled for outpatient endoscopy for today. The transport service arrived at his residence and found him unable to stand or walk due to weakness. A Squad was called and transported the patient to the ER here at [facility]. General Surgery has been consulted to evaluate the patient for EGD/PEG tube placement. The patient takes Eliquis for recent Pulmonary Embolism. Review of Systems Narrative: Dysphagia, inanition, and weight loss Constitutional Comments: Cachexic appearing due to Parkinson's related weight loss. Weakness. Fatigue Gastrointestinal Comments: Parkinson's related dysphagia Genitourinary Comments: Renal insuffiency Musculoskeletal Comments: Weakness, weight loss, fatigue PFSH All Active Problems (Updated 12/06/23 @ 09:59 by Delmi Moyer APRN) Discharge planning issues (Acute) History of pulmonary embolism (Acute) Acute kidney injury (Acute) Weakness (Acute) Unintentional weight loss (Acute) Physician orders for life-sustaining treatment (POLST) form indicates patient wish for re-sta-mzctfvxvmbu status (Acute) ACP (advance care planning) (Acute) Palliative care patient (Acute) Pulmonary embolus, right (Acute) Esophageal yeast infection (Acute) Aspiration of food (Acute) Patient had a swallow study in 2021 which showed mandeep aspiration Acute thoracic back pain (Acute) Dysphagia (Acute) Memory loss (Acute) Erectile dysfunction (Acute) Constipation (Acute) Peripheral neuropathy (Acute) Primary Parkinson's disease (Acute) Medical History Need for home health care Uses feeding tube Abnormal CT of the chest DVT prophylaxis Nausea & vomiting Acute pancreatitis Chronic pulmonary aspiration Esophageal stricture Stricture has been present since 2021 Acute hypokalemia Inability to swallow Acute dehydration Esophageal abnormality Pneumonia Hepatitis C per referral, pt has completed treatment Malignant melanoma of skin Hypertension Severe bipolar disorder with psychotic features, mood-congruent Pt. denies PTSD (post-traumatic stress disorder) Pt. denies triggers Substance abuse pt. denies Parkinsons disease Prediabetes Anxiety Osteoarthritis Melanoma H/O multiple concussions History of hepatitis C Surgical History H/O colonoscopy (~03/2019) S/P skin cancer resection Social History Smoking/Tobacco Use Status: Current every day Smoking risk assessment performed?: Yes Alcohol Intake: current Alcohol Intake frequency: 0-2 drinks per day Alcohol type: beer Counseling provided: provider counseling Drug use: Daily Substance use type: marijuana Housing: apartment current occupation: None Seatbelt use: always Do you feel safe at home: Yes Do you feel safe in your relationship?: Yes Exam Narrative Exam Narrative: Cachexic appearing male. Alert, pleasant. Resting in hospital bed on regular nursing floor. Laments that he can't do much of what he used to do because of his weakness and hand tremors. Const General: cooperative and frail appearing Nutritional Appearance: cachectic, malnourished, thin and underweight Orientation: alert and awake Eyes Other: Non-icteric, EOMI Neck Other: Neck supple GI Other: Abdomen is soft, non-tender Extrem Other: There is no calf pain. Results Last Vital Signs Temp 98.6 F 12/06/23 11:36 Pulse 111 H 12/06/23 11:36 Resp 15 12/06/23 11:36 BP 111/82 12/06/23 11:36 Pulse Ox 97 12/06/23 11:36 Labs 12/05/23 13:28 12/06/23 06:20 Labs: Laboratory Results - last 24 hr 12/05/23 12/05/23 12/05/23 13:28 13:34 15:05 WBC 21.44 H RBC 5.57 Hgb 18.4 H Hct 52.5 H MCV 94 MCH 33.0 MCHC 35.0 RDW 13.4 Plt Count 259 MPV 9.8 Immature Gran % 0.9 Neutrophils % 89.2 Lymphocytes % 4.3 Monocytes % 4.6 Eosinophils % 0.1 Basophils % 0.9 Nucleated RBC % 0.1 Absolute Neutrophils 19.12 H Absolute Lymphocytes 0.92 L Absolute Monocytes 0.99 H Absolute Eosinophils 0.02 Absolute Basophils 0.19 VBG Lactate 4.3 H* 1.8 H Sodium 134 L Potassium 3.5 Chloride 88 L Carbon Dioxide 25.2 Anion Gap 20.8 H BUN 57 H Creatinine 2.3 H Est GFR (CKD-EPI 2020) 30.74 Glucose 245 H Calcium 10.6 H Magnesium 2.7 H Total Bilirubin 0.93 AST 20 ALT 23 Alkaline Phosphatase 90 Total Protein 9.3 H Albumin 3.9 TSH 5.19 H Free T4 0.96 Urine Color Urine Clarity Urine pH Ur Specific [place] Urine Protein Urine Ketones Urine Blood Urine Nitrite Urine Bilirubin Urine Urobilinogen Ur Leukocyte Esterase Urine RBC Urine WBC Ur Epithelial Cells Urine Crystals Urine Bacteria Urine Casts Urine Mucus Ur Culture Indicated? Urine Glucose Ethyl Alcohol < 3.0 COVID-19 Source Nasopharynx SARS-CoV-2 (PCR) Negative Influenza Type A (PCR) Negative Influenza Type B (PCR) Negative RSV (PCR) Negative ABO/Rh A Positive Antibody Screen NEGATIVE 12/06/23 12/06/23 06:20 10:59 WBC RBC Hgb Hct MCV MCH MCHC RDW Plt Count MPV Immature Gran % Neutrophils % Lymphocytes % Monocytes % Eosinophils % Basophils % Nucleated RBC % Absolute Neutrophils Absolute Lymphocytes Absolute Monocytes Absolute Eosinophils Absolute Basophils VBG Lactate Sodium 142 Potassium 3.1 L Chloride 103 Carbon Dioxide 22.6 Anion Gap 16.4 H BUN 45 H Creatinine 1.3 D Est GFR (CKD-EPI 2020) 60.96 Glucose 139 H Calcium 8.8 Magnesium 2.3 Total Bilirubin 0.81 AST 22 ALT 18 Alkaline Phosphatase 63 Total Protein 6.7 Albumin 2.8 L TSH Free T4 Urine Color Yellow Urine Clarity Clear Urine pH 5.5 Ur Specific [place] 1.020 Urine Protein 30 H Urine Ketones 40 H Urine Blood Negative Urine Nitrite Negative Urine Bilirubin Small H Urine Urobilinogen 0.2 Ur Leukocyte Esterase Negative Urine RBC Negative Urine WBC 3-5 Ur Epithelial Cells Rare Urine Crystals Few Uric Acid Urine Bacteria Negative Urine Casts 10-20 Hyaline Urine Mucus Trace Ur Culture Indicated? No Urine Glucose Negative Ethyl Alcohol COVID-19 Source SARS-CoV-2 (PCR) Influenza Type A (PCR) Influenza Type B (PCR) RSV (PCR) ABO/Rh Antibody Screen
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
--- NOTE | 2023-12-06 14:42 | IN_ITS ---
PT Notes Visit Reasons: Acute kidney injury Physical Therapy Initial Evaluation Date: 12-06-2023 Referring Doctor: Dr Champion PT Orders: PT CONSULT: PT evaluation and treatment Precautions: Fall risk, Standard, Modified diet Thin /puree, IV access LUE Patient Profile/Admitting Diagnosis: Pt is 63 yo male presented to ED via EMS after being found at home sitting on the floor when [employer] dump truck driver went to pick him up for an appointment. In ED the patient was noted as being tachycardic but afebrile with initial concern for sepsis. While his CBC did show leukocytosis he did also have polycythemia, was also found to have an JACEY with a creatinine of 2.3 (baseline 0.7, and a lactic acid of 4.3, all likely secondary to dehydration in the setting of procedure prep in combination with patient's chronic poor p.o. intake due to his dysphagia. While in the emergency department the patient was given 1 L normal saline bolus and was started on 90 mL/h of normal saline. Patient initially stated that he wanted to leave AGAINST MEDICAL ADVICE but was unable to ambulate on his own. Which time patient accepted being admitted and emergency room physician paged hospitalist for admission for patient with likely severe dehydration and chronic poor p.o. intake resulting in JACEY. PMHX: Acute kidney injury (Acute) Weakness (Acute) Unintentional weight loss (Acute) Physician orders for life-sustaining treatment (POLST) form indicates patient wish for qq-kuc-rfznzscpirs status (Acute) ACP (advance care planning) (Acute) Palliative care patient (Acute) Pulmonary embolus, right (Acute) Esophageal yeast infection (Acute) Aspiration of food (Acute) Patient had a swallow study in 2021 which showed mandeep aspirationAcute thoracic back pain (Acute) Dysphagia (Acute) Memory loss (Acute) Erectile dysfunction (Acute) Constipation (Acute) Peripheral neuropathy (Acute) Primary Parkinson's disease (Acute) Medical History Need for home health care Uses feeding tube Abnormal CT of the chest DVT prophylaxis Nausea & vomiting Acute pancreatitis Chronic pulmonary aspiration Esophageal stricture Stricture has been present since cute hypokalemia Inability to swallow Acute dehydration Esophageal abnormality Pneumonia Hepatitis C per referral, pt has completed treatmentMalignant melanoma of skin Hypertension Severe bipolar disorder with psychotic features, mood-congruent Pt. deniesPTSD (post-traumatic stress disorder) Pt. denies triggersSubstance abuse pt. deniesParkinsons disease Prediabetes Anxiety Osteoarthritis Melanoma H/O multiple concussions History of hepatitis C Surgical History H/O colonoscopy (~03/2019) S/P skin cancer resection Social History/Home Situation: Patient reports he resides in a second floor apartment with 13 steps with a railing to enter. Patient reports he ambulates without a device. he does his own shopping via transportation with [employer]. Patient reports he has a home nurse and a therapist who comes to the house. He reports he eats bananas and vanilla pudding and does just fine. Equipment Owned/DME: No DME Subjective: Patient reports he already walked today with physical therapy stating he can walk around the room and already practiced the stairs. Patient stating he wants to go home and is just waiting for a ride Objective: [] General Observation: cachetic male semireclined in bed .patient noted with emesis in bag. IV infusing left upper extremity Mental Status: Alert and oriented to person and place, mild word finding noted Pain: Denies ROM: [] Right Upper Extremity: Shoulder flexion 120 degrees abduction 95 degrees elbow wrist and hand within functional limits Left Upper Extremity: Shoulder flexion 110 degrees abduction 90 degrees elbow wrist and hand within functional limits Right Lower Extremity: WFL except the following: Hip extension -10 degrees ankle dorsiflexion to neutral Left Lower Extremity: Within functional limits except the following: Hip extension -10 degrees, ankle dorsiflexion to neutral Strength: [] Right Upper Extremity: 3/5 grossly within available range of motion Left Upper Extremity: 3/5 grossly within available range of motion Right Lower Extremity: Hip abduction 2+/5, hip flexion 3 -/5, hip extension 3 - /5, knee extension 3 -/5, knee flexion 2+/5, ankle dorsiflexion 3/5 plantarflexion 3/5 Left Lower Extremity: Hip abduction 2+/5, hip flexion 3 -/5, hip extension 3 -/5 , knee extension 3 -/5, knee flexion 2+/5, ankle dorsiflexion 3/5 plantarflexion 3-/5 Posture: Forward flexed head difficulty holding head up when unsupported posterior pelvic tilt. Sensation: Appears intact bilateral upper and lower extremity to light touch deep pressure patient inconsistent with ability to follow commands for full assessment Coordination: Decreased accuracy rapid alternating movements bilateral upper extremities and bilateral lower extremities decreased [id number]-gy-[id number] accuracy and [id number]-vp-[id number] accuracy bilaterally. Bed Mobility/Transfers: Supine to sit moderate assist via side-lying Sit to stand moderate assistance of 1 from elevated seat height of 21 inches, patient retropulsive initially Stand to sit min assist of 1 and cues for hand placement to reach back Bed to chair mod assist of 1 stand pivot transfer Gait: Patient able to take 3 steps with FWW and moderate assistance of 1 and close wheelchair followed by. Patient demonstrates poor foot clearance bilat erally, diminished step length, decreased heel strike, increased forward flexion of trunk and head. Balance: Static Sitting: Fair Dynamic Sitting: Fair minus Static Standing: Poor with increased trunk flexion Dynamic Standing: Poor minus Special Tests: [] Mobility Limitations Standardized Measure [] [facility] AM-PAC 6 clicks Basic Mobility Inpatient Short Form: [] Raw Score: 11 CMS Score: [] 72.57% Informed Consent/Education: Patient instructed in purpose of PT consult. Assessment: Patient is 63-year-old male with past medical history significant for Parkinson's now presenting with JACEY, dysphagia, weight loss and weakness. Patient demonstrates decreased insight into functional deficits, word finding deficits and safety awareness. Patient presents with clinical signs and symptoms consistent with current/admitting diagnoses that have resulted to mobility limitations, gait instability, generalized weakness, and impairment of motor control as demonstrated by the following impairment level findings: 1. Decreased strength to BLE and BUE major muscle groups 2. Impaired sitting/standing balance 3. Limitation of joint range of motion in B shoulders, trunk, hips, knees and ankles 4. Excessive trunk flexion in standing due to tight hip flexors 5. Impaired activity tolerance Impairments are contributing to the following functional limitations: 1. Inability to safely ambulate without assistive device and physical assistance 2. Increase completion time for mobility ADL performance 3. Increased fall risk 4. Decline in bed mobility skills 5. Declining transfer skills 6. Difficulty managing steps alone safely Patient is assessed as a moderate complexity based on the following: History: 63-year-old male with impairment level findings, functional limitations, and past medical history as indicated above Examination: Demonstrable impairment in strength, balance, and mobility level with underlying impairments and functional limitations as documented above Presentation: Evolving Decision Making: Moderate Goals x 1 week 1. Supervision bed mobility 2. Min assist transfers with least restrictive device 3. Min assist ambulation with least restrictive device 50 feet x 2 4. Three 4 inch steps with bilateral rails and min assist Plan of Care/Treatment Plan:Pt would benefit from skilled PT 1-2 times per day for global strengthening, transfers, ambulation, pain management and balance facilitation DISCHARGE RECOMMENDATIONS: SNF for continued strengthening return to prior level of function when medically appropriate for discharge TREATMENT CODE/TIME: 47543 x 20 minutes for 1 unit, 43812 x 11 minutes for 1 unit/1413?[id number] Thank you for the opportunity to participate in the care of this patient. Please sign an return this page within 30 days if you agree with the above POC. Thank you! Physician Signature Date [facility]
--- NOTE | 2023-12-06 15:20 | W.SPSTE ---
Date of service: 12/06/23 Time of Service: 12:00 Subjective Clinical (Bedside) Swallow Evaluation Speech Language Pathology Referred by: Delmi Moyer Referral Type: Clinical Swallow Evaluation Reason for Referral/HPI: 'Bobbi Schuler is a 63 yo male with hx PD and severe esophageal stricture who was admitted to [facility] 12/05/23 with acute kidney injury and weakness in the setting of severely limited PO intake. Tone is highly familiar to this department with prior admissions. During admission in June 2023 for aspiration pneumonia and weight loss, a CXR revealed fluid filled dilated esophagus with diffuse wall thickening. Question of area of narrowing of distal esophagus. W[employer] T[employer]ATMENT [employer]ANT OPERATOR completed MBSS (see report from 07/02/23) that revealed moderate to severe oral pharyngeal dysphagia with high suspicion for severe esophageal dysphagia as primary impairment/cause of aspiration and limited PO/weight loss. An EGD was completed 07/03/23 and identified uniform erythema and edema, residual coating of barium from prior day, fluid filled esophagus with old food particles, and no sign of malignancy. A dilation was completed and he had improvement in swallowing and was discharged home with recommendations for repeat outpatient dilations- though unfortunately could not follow through with this due to transportation issues. He was again admitted in August 2023 for acute pancreatitis and dysphagia/weight loss. EGD for repeat dilation and consideration of PEG were discussed- however patient was not a candidate due to PE. He left against medical advice. Since that visit, Tone was seen by outpatient GI at [facility] and referred for repeat EGD. This was scheduled for 12/05/23 however when transport arrived they found him unable to stand and called paramedics. W[employer] TREATMENT PLANT OPERATOR IMPRESSIONS & RECOMMENDATIONS: Tone was seen today for non-instrumental swallow evaluation. As compared to last interactions with this clinician from August and June admissions, Tone appeared more weak and partially confused in responses to questions. This clinician was unable to gauge clear understanding of current PO intake quantity at home. He initially stated he drinks 24 ounces of Ensure in a week. When asked if he meant every day, he said no on some days. His PO intake is limited to water, Ensure, and small amounts of pudding and banana. He experiences regular regurgitation of foods, though states this is happening somewhat less. PO trials completed with vanilla pudding and water. He demonstrated initial cough with sips of thin, though not appreciated with subsequent trials. He tolerated pudding without overt s/s aspiration. Patient able to take in approximately 2 ounces of water and 1-2 ounces of pudding in 25 minute session. He states this is his normal, and then he will wait for a while to see if it comes back up. While patient presents with known oral pharyngeal dysphagia in setting of PD and as evidenced by prior MBSS, his primary dysphagia is directly related to esophageal dysfunction including esophageal stricture causing regurgitation. W[employer] T[employer]ATMENT PLANT OPERATOR recommends repeat EGD for consideration of repeat dilation and ongoing GI management. Based on prior diagnostics and similar presentation at bedside, I do not feel repeat MBSS is indicated. Palliative care is also consulted for clarification of patient's GOC/discussion on consideration of alternate feeding. FURTHER WATER TREATMENT PLANT OPERATOR SERVICES: Patient to be monitored while on unit for consulting with team/patient education as indicated. Diet Recommendations: Solids: Puree - Small amounts Liquids: 0-Thin Liquids Medications: per pt preference Level of Assistance/Supervision: Intermittent - increase as indicated if mental status fluctuating Positioning and environment: PO intake only when awake/alert? Reduce auditory and/or visual distractions when drinking [place] upright for all PO intake. Oral hygiene Q3-4h/every 3-4 hours Using friction with toothbrush on all oral structures as tolerated Strategies/Adaptations/Assistive Equipment: Stop PO after small volume to prevent regurgitation & aspiration Multiple swallows Maintain fully upright position at least 60-90 minutes after PO intake Avoid PO intake 2-3 hours prior to reclining/sleeping Sleep with head of bed elevated to reduce likelihood of nocturnal reflux SUBJECTIVE: Patient received alert/awake, confused, agreeable to evaluation Pain Reported? None Baseline Swallow Function: See above- hx severe esophageal dysphagia and mod-severe oral pharyngeal dysphagia PO Trials Assessed: IDDSI 0 Thin Liquids IDDSI 4 Puree Solid Oral Mechanism Examination: Dentition is some missing teeth. Oral mucosa is dry. White coating on tongue. Cranial Nerve Assessment: CN V ? Trigeminal Facial Sensation WNL Jaw Strength/ROM WNL ?WNL CN VII- Facial WNL labial ROM, strength, coordination. WNL lingual sensation WNL CN IX ? Glossopharyngeal WNL palatal elevation with phonation. No evidence of nasal emissions WNL CN X ? Vagus WNL Vocal quality and volume. Strong/sharp volitional cough WNL CX XII ? Hypoglossal WNL lingual ROM, strength, coordination WNL Oral Phase Findings: WFL for limited trials Pharyngeal Phase Findings: Initial cough with thin liquids WFL for subsequent limited trials ASSESSMENT: Further WATER TREATMENT PLANT OPERATOR Services: Patient will be monitored while in house for consultation with team and patient education as indicated Recommendation at Discharge: N/A Suggested Referrals: Surgical consult (pending) for repeat EGD and consideration of dilation, Palliative (pending) for clarification on GOC around alternate nutrition Recommended Procedures: consider EGD Recommendations: ? Education Provided to: Nursing, Patient, Physician Topics Addressed: WATER TREATMENT PLANT OPERATOR findings, esophageal dysfunction PLAN: Frequency: 1-2x/week for 1-2 weeks (Monitor status) Goals: Salesperson Sheet Music Goals: Patient will remain free from aspiration-related illness, malnutrition, and dehydration. Short Term Goals: Patient will tolerate Puree Diet and Thin liquids without overt s/s aspiration across 2/2 visits. WATER TREATMENT PLANT OPERATOR CPT Code: 05412 Clinical Swallowing Evaluation TOTAL TIME: 25 Minutes [id number]
[2023-12-06 15:40] VITALS: BP 112/86; PULSE 108; RESP 14; TEMP 36.7; O2SAT 100
[2023-12-06 17:07] LABS: Abs Immature Grans 0.08 10^3/uL (0.0-0.06); Absolute Basophil Count 0.04 10^3/uL (0.0-0.2); Absolute Lymphocyte Count 0.82 10^3/uL (1.2-3.4); Absolute Monocyte Count 0.81 10^3/uL (0.1-0.8); Absolute Neutrophil Count 10.49 10^3/uL (1.2-6.7); Basophils % 0.3 %; HCT 42.5 % (40.0-50.0); HGB 14.7 g/dL (13.5-17.5); Immature Grans % 0.7 %; Lymphocytes % 6.7 %; MCH 33.2 pg (27.0-33.0); MCHC 34.6 % (32.0-36.0); MCV 96 fL (80-95); MPV 9.4 fL (8.0-11.0); Monocytes % 6.6 %; Neutrophils % 85.7 %; Platelet Count 161 10^3/uL (130-400); RBC 4.43 10^6/uL (4.36-5.78); RDW 13.6 % (11.8-14.1); RDW-SD 48.5 fL; WBC 12.24 10^3/uL (4.4-10.8)
[2023-12-06 17:17] LABS: Anion Gap 12.2 mmol/L (3-11); BUN 38 mg/dL (7-18); CO2 26.8 mmol/L (21.0-32.0); CREATININE 1.1 mg/dL (0.70-1.30); Calcium 8.9 mg/dL (8.5-10.1); Chloride 104 mmol/L (98-107); Glucose 193 mg/dL (74-106); Sodium 143 mmol/L (136-145)
[2023-12-06 17:18] LABS: Potassium 2.9 mmol/L (3.5-5.1)
[2023-12-06 17:32] LABS: PTT Activated 26.9 sec (23.6-32.8)
[2023-12-06] MEDS: Potassium Chloride 20 MEQ TABCR 40 MEQ PO (18:00)
[2023-12-06] MEDS: Heparin in 0.45% NaCl 25,000 UNIT/250 ML BAG 9.5 UNIT IVINF (18:25)
[2023-12-06 20:30] VITALS: BP 120/86; PULSE 100; RESP 16; TEMP 36.5; O2SAT 94
[2023-12-06] MEDS: Potassium Chloride 20 MEQ TABCR PO (22:16)
[2023-12-06] MEDS: Potassium Chloride Liquid 20 MEQ PKT 40 MEQ PO (22:43)
[2023-12-07 00:41] VITALS: BP 130/95; PULSE 98; RESP 17; TEMP 36.1; O2SAT 99
[2023-12-07 00:47] LABS: PTT Activated 98.4 sec (23.6-32.8)
[2023-12-07] MEDS: POTASSIUM CHLORIDE 20 MEQ/100 ML BAG 50 MEQ IV_INF ×2 (01:16→03:33)
[2023-12-07] MEDS: oxyCODONE 5 MG TAB PO (03:05)
[2023-12-07 04:05] VITALS: BP 120/88; PULSE 96; RESP 16; TEMP 37; O2SAT 100
[2023-12-07 06:52] LABS: Abs Immature Grans 0.09 10^3/uL (0.0-0.06); Absolute Eosinophil Count 0.01 10^3/uL (0.0-0.7); Absolute Lymphocyte Count 0.97 10^3/uL (1.2-3.4); Absolute Monocyte Count 0.72 10^3/uL (0.1-0.8); Basophils % 0.2 %; Eosinophils % 0.1 %; HCT 39.5 % (40.0-50.0); HGB 13.4 g/dL (13.5-17.5); Immature Grans % 0.7 %; MCH 32.9 pg (27.0-33.0); MCHC 33.9 % (32.0-36.0); MCV 97 fL (80-95); MPV 9.6 fL (8.0-11.0); Monocytes % 5.9 %; Neutrophils % 85.1 %; Platelet Count 129 10^3/uL (130-400); RBC 4.07 10^6/uL (4.36-5.78); RDW 13.7 % (11.8-14.1); RDW-SD 48.8 fL; WBC 12.18 10^3/uL (4.4-10.8)
[2023-12-07 06:54] LABS: Absolute Basophil Count 0.02 10^3/uL (0.0-0.2); Absolute Neutrophil Count 10.37 10^3/uL (1.2-6.7)
[2023-12-07 07:15] LABS: Anion Gap 10.4 mmol/L (3-11); BUN 27 mg/dL (7-18); CO2 24.6 mmol/L (21.0-32.0); CREATININE 0.9 mg/dL (0.70-1.30); Calcium 8.8 mg/dL (8.5-10.1); Chloride 109 mmol/L (98-107); Estimated GFR 94.78 (mL/min/1.73m2); Glucose 169 mg/dL (74-106); Magnesium 2.1 mg/dL (1.8-2.4); Potassium 3.9 mmol/L (3.5-5.1); Sodium 144 mmol/L (136-145)
[2023-12-07 07:28] LABS: PTT Activated 82.3 sec (23.6-32.8)
[2023-12-07 08:01] VITALS: BP 126/90; PULSE 90; RESP 16; TEMP 36.6; O2SAT 98
[2023-12-07] MEDS: DEXTROSE 5%-LACTATED RINGERS 1,000 ML 80 ML IV (09:37)
--- NOTE | 2023-12-07 10:52 | W.NUTRFU ---
Date of service: 12/07/23 Time of Service: 10:52 Nutrition Note NOTE: Interacted with Mr Schuler at a brief visit yesterday afternoon, He was NPO at the time and has been upgraded to a regular diet with puree consistencies/thin liquids. Tone reported mostly working with vanilla puddings at home, but was very anxioius during our visit, mentioning serval times how he just needed to go home, He was worried about his apartment being unlocked and accessible. He had a vomit bag with ~120mL brown vomit. he reiterates he barrier swallowing. He shows obvious signs of malnutrition at this time due to his reported/recorded poor po intake over the last year, with an 13.5kg recorded weight loss in the last 5 months. Hernesto Schuler has been open to a PEG tube at his last admission (Although there were conflicts/barriers to getting this placed - medical and otherwise), and this is still the most important recommendation at this time. Patient is very susceptible to refeeding syndrome from any route at this time and should be considered should he become agreeable to artificial feedings Estimated energy needs currently at 1548kcals, 62g protein (1.2g/kg) and 1548mL fluid (1mL per required kcal). We have many 1.2kcal/mL enteral fornulas which could be provided if patient agrees to an enteral feeding intervention Will continue to monitor the patients path of treatment and provide appropriately textured menu items and supplements. Recommend liquid protein concentrate ordered TID if patient willing/able to take effectively - can be mixed with water/juice to thin out. Kithen will provide Boost Breeze ONS for protein and kcals micronutrients. Time Spent in Nutritional Counseling and Treatment: 15min
[2023-12-07 11:47] LABS: Ammonia 14 umol/L (11-32)
[2023-12-07 11:58] LABS: ALT 20 U/L (16-63); AST 27 U/L (15-37); Albumin 2.4 g/dL (3.4-5.0); Alkaline Phosphatase 49 U/L (46-116); Bilirubin, Direct 0.2 mg/dL (0.0-0.2); Total Protein 5.9 g/dL (6.4-8.2)
[2023-12-07 12:19] VITALS: BP 110/80; PULSE 97; RESP 18; TEMP 36.7; O2SAT 100
--- NOTE | 2023-12-07 12:39 | PTTR_ITS ---
PT Notes Visit Reasons: Acute kidney injury Physical Therapy Inpatient Treatment Note Date: 12/07/2023 Precautions: Fall. Activity as tolerated. Impaired safety awareness. Subjective: When asked what year by RADIOLOGICAL HEALTH SPECIALIST Delmi is is right he said 2017, month is December. Patient unable to accurately respond to questions and needed maximal cueing for transfers. per Nurse Parker, patient has not been eating well. Objective: General Observation: Cachectic. Tremors at rest increased. Confusion evident. Telemetry monitoring in place. Dutton catheter in place. Mental Status: Alert but only oriented to self. Thinks it is 2023 and month of December. Unsure as to how long ago he vomited into his blue bag. Pain: None reported throughout session Coordination: Resting tremor, movement initiation decreased, impaired motor execution Bed Mobility/Transfers: Maximal cueing provided for use of B hands as needed for support, movement sequence, AD management, and posture to reduce fall risk and minimize pain report Supine to sit moderate assist of 2 Sit to stand maximal assist with STESamir POWELL and Isan assisting for safety Stand to sit maximal assist with STESamir POWELL and Isan assisting for safety Bed to chair maximal assist with STEDY, LNAs Marta and Brookelyn assisting for safety Chair to bed maximal assist with STEANDRE, LNAs Marta and Brookelyn assisting for safety In the PM, PT required the assistance of Nurse Parker and Nurse Reese to lift up patient up to standing and transfer him from chair back to bed Gait: Deferred due to safety reasons and inability of patient to follow instructions Balance: Static Sitting: Poor Dynamic Sitting: Unable Static Standing: Unable Dynamic Standing: Unable THERA EX: Seated marches x 2, patient unable to complete 2 sets of 5 of this Assessment: Tremors at rest worse compared to yesterday. Cognitive level and mentation decreased compared to yesterday. Unable to follow simple instructions. Needed maximal verbal, visual, and tactile cueing for initiation, execution, and completion of simple tasks for this session. Needed to use the STEDY lift for safety of patient and caregiver today. Plan of Care/Treatment Plan: Progress global strength, transfers, ambulation, pain management and balance facilitation as tolerated. Coordinate AntiPD med intake to maximize performance. DISCHARGE RECOMMENDATIONS: SNF for continued strengthening and facilitate return to prior level of function when medically appropriate for discharge TREATMENT CODE/TIME: Session 1-- 72097 x 40 minutes for 3 units (11:28-12:08) Session 2--50940 x 24 minutes for 2 units( 14:20-14:44)
[2023-12-07 13:41] LABS: PTT Activated 62.7 sec (23.6-32.8)
--- NOTE | 2023-12-07 16:58 | PDOC.CMPRO ---
Date of service: 12/07/23 Time of Service: 12:00 Care Management Progress Note Progress Note Text Progress Note Text: Tone was sitting up in the chair when CM met with him today. He appeared sad, kept his head hung down, and barely responded to questions. CM asked if he was sad, he replied, yeah, but he couldn't tell me why. Tone is going to have a PICC line placed today, and will have surgery on Sunday for a PEG placement. Tone met with Palliative care yesterday, and he agreed to the surgery and stated to palliative that he would like to go to a correction when discharged. CM spoke with Tone about this yesterday. He doesn't feel that he is able to go home, and I just want to go some place where they will take care of me. CM put in a referral today for [facility] to help with [facility] Medicaid application. Discharge Potential Discharge Needs: PCP F/U Appt Anticipated Barriers to Discharge: Bed availability Patient/Family Education Needs: Review discharge instructions, discuss Ask Me Three Plan: Anticipate that Tone will discharge to SNF, or home with increased HH RN, PT, OT, DIRECTOR OF WEB MARKETING. His disposition is a bit unclear as he does not have family or long-term medicaid. [facility] will be sent on Sunday to [facility] and the [facility], as that was Tone's request. CM will continue to follow and update the plan as needed SDOH(Care Management) Screening Will the Patient Participate in the Screening?: Yes Do you worry about having a steady place to live?: no In the past 12 months, have you had to go without electric, gas, oil or water in your home?: no Have you or anyone in your house had to go without enough food to eat?: no Has lack of transportation kept you from medical appointments or from doing things needed for daily living?: yes Has anyone in your support network made you feel unsafe for any reason?: no Health Related Social Needs Health related social needs: transportation insecurity(Z59.82)
--- NOTE | 2023-12-07 16:59 | W.PM.PROGNOT ---
Date of Service Date of service: 12/07/23 Time of Service: 16:59 Assessment and Plan Assessment and plan (1) Acute kidney injury: Status: Acute Assessment and plan: - Resolving with creatinine improving at 0.9 as 2.3 (baseline 0.7) most likely d/t dehydration given the BUN was also elevated?now at 27, patient also had an associated lactic acidosis resolving s/p crystalloid bolus -BMP in AM -Patient had leukocytosis at 21.44 now improving with WBC at 12.18, remained hemodynamically stable despite vomiting small quantity of ingested enteral intake -Blood Cx negative X 48 hours -Will continue IVF with D5LR at 80 cc/hr and closely monitor as sodium is now at 144 (2) Weakness: Status: Acute Assessment and plan: - Most likely due to dehydration on presentation and poor enteral intake with the patient's history of dysphagia -Dehydration improving as per chemistry result - PT consultation on going-required frequent rest periods (3) Unintentional weight loss: Status: Acute Assessment and plan: - Ongoing issue for the patient in the setting of his dysphagia secondary to Parkinson's -Nutrition consult ongoing -Plan to evaluate necessary caloric intake since the patient might have to initiate tube feeding prior to PEG insertion -EGD and colonoscopy initially set up for outpatient on 4but was unable to go as per point 1 and 2 -Surgical consult -Patient is agreeable to EGD w biopsy and PEG placement s/p discussion with Dr. Jama and palliative care consultation -On course for Sunday -will bridge with heparin drip and plan for Sunday ( Dr Gonzalez will be network control operators supervisor then) -Holding Apixaban -Continue Heparin drip DVT/PE protocol-platelets at 129 from 161; less than 30-50% reduction -CBC and PTT in AM -Palliative care consult for goals of care: completed , please read notes (4) Dysphagia: Status: Acute Assessment and plan: -Most likely secondary to advanced Parkinson's and absence of pharmacological therapy -SPL consult completed. Please read notes with recommendation to prevent aspiration and specific diet -No further modified barium swallow recommended And as above Qualifiers: Dysphagia type: esophageal phase Qualified Code(s): R13.19 - Other dysphagia (5) Primary Parkinson's disease: Status: Acute Assessment and plan: - Presumably the cause of the ongoing dysphagia -Patient has not been taking any Parkinson's meds for some time, and was refractory to any neurology follow-up during previous admission -Had been followed by surgery for treatment of dysphagia?multiple appointments missed -Still planning for PEG as in point 3 (6) History of pulmonary embolism: Status: Acute Assessment and plan: Dx on 09/11/2023 Seemed to have been unprovoked - On Eliquis?might need a pulmonary follow-up outpatient status-post 3 months of treatment of treatment Continue holding Eliquis for planned PEG insertion Continue bridging with heparin drip (7) Hypokalemia: Status: Acute Assessment and plan: Resolved K 3.9 oral supplementation ordered but has been refused due to nausea?will discontinue for now BMP in AM (8) Discharge planning issues: Status: Acute Assessment and plan: Palliative consult: S/p discussion with Eli Hudson Palliative care PARIMUTUEL CLERK, the patient is agreeable to the endoscopy and PEG placement and SNF discharge Outpatient referral to pulmonology for pulmonary emboli workup: Provoked versus unprovoked versus genetic factors. Discussed with Dr Wagner Subjective Subjective Patient reports: no new complaints, voiding w/o difficulty, bowel movement, nausea, vomiting and afebrile; denies feels better, tolerating liquids well, tolerating a regular diet (Still having emesis of regurgitated gastric content), diarrhea, blood in stool or shortness of breath Exam Narrative Exam Narrative: Constitutional Ill appearing cachectic patient looking older than stated age, sitting at the bedside with tremors due to advanced Parkinson's, delayed verbal answers HENMT: Facial structures are gaunted Eyes: Well aligned Neuro:alert and oriented to self, person, place, remains nonfocal Resp: Normal respiratory pattern, speaks in full sentences, unlabored breathing, clear lung bilaterally Cardio: regular rhythm, S1, S2, no murmur, bilaterally positive radial and pedal pulses GI: Abdomen is scaphoid not distended, soft and non tender, bowel sounds are present : Negative Costovertebral angle tenderness Back/spine/Pelvis: No back tenderness, normal alignment Integumentary: Mepilex to sacrum for mild erythema Extremities: Generalized weakness?nonfocal Psych: RASS 0, congruent mood and normal affect. Objective Last Vital Signs Temp 36.7 C 12/07/23 12:19 Pulse 97 H 12/07/23 12:19 Resp 18 12/07/23 12:19 BP 110/80 12/07/23 12:19 Pulse Ox 100 12/07/23 12:19 Laboratory Results - last 24 hr 12/06/23 12/07/23 12/07/23 16:55 00:20 06:35 WBC 12.24 H 12.18 H RBC 4.43 4.07 L Hgb 14.7 D 13.4 L Hct 42.5 39.5 L MCV 96 H 97 H MCH 33.2 H 32.9 MCHC 34.6 33.9 RDW 13.6 13.7 Plt Count 161 129 L MPV 9.4 9.6 Immature Gran % 0.7 0.7 Neutrophils % 85.7 85.1 Lymphocytes % 6.7 8.0 Monocytes % 6.6 5.9 Eosinophils % 0.0 0.1 Basophils % 0.3 0.2 Nucleated RBC % 0.0 0.0 Absolute Neutrophils 10.49 H 10.37 H Absolute Lymphocytes 0.82 L 0.97 L Absolute Monocytes 0.81 H 0.72 Absolute Eosinophils 0.00 0.01 Absolute Basophils 0.04 0.02 APTT 26.9 98.4 H* 82.3 H* Sodium 143 144 Potassium 2.9 L* 3.9 D Chloride 104 109 H Carbon Dioxide 26.8 24.6 Anion Gap 12.2 H 10.4 BUN 38 H 27 H Creatinine 1.1 0.9 Est GFR (CKD-EPI 2020) 74.50 94.78 Glucose 193 H 169 H Calcium 8.9 8.8 Magnesium 2.1 Total Bilirubin Conjugated Bilirubin AST ALT Alkaline Phosphatase Ammonia Total Protein Albumin 12/07/23 12/07/23 11:25 12:55 WBC RBC Hgb Hct MCV MCH MCHC RDW Plt Count MPV Immature Gran % Neutrophils % Lymphocytes % Monocytes % Eosinophils % Basophils % Nucleated RBC % Absolute Neutrophils Absolute Lymphocytes Absolute Monocytes Absolute Eosinophils Absolute Basophils APTT 62.7 H Sodium Potassium Chloride Carbon Dioxide Anion Gap BUN Creatinine Est GFR (CKD-EPI 2020) Glucose Calcium Magnesium Total Bilirubin 0.50 Conjugated Bilirubin 0.2 AST 27 ALT 20 Alkaline Phosphatase 49 Ammonia 14 Total Protein 5.9 L Albumin 2.4 L PAWSS Have you Been Recently Intoxicated or Drunk Within the Last 30 days?: No Have you Ever Experienced Previous Episodes of Alcohol Withdrawal?: Yes Have you ever Experienced Withdrawal Seizures?: No Have you ever Experienced Delirium Tremens(DT)s?: No Have you ever undergone Alcohol Rehabilitation Treatment (i.e, inpt ot outpatient treatment programs)?: No Have you ever Experienced Blackouts?: No Have you ever Combined Alcohol with other Downers within the last 90 days?: No Have you ever Combined Alcohol with any other Substance of Abuse during the last 90 days?: No Positive Blood Alcohol level on Presentation? [PCS.BAL]: No Evidence of Increased Autonomic Activity (i.e. HR>120, tremor, sweating, agitation, nausea)?: No Result: 1 Time Spent with Patient Time Spent with Patient: >50 minutes Time was spent: preparing to see the patient(eg.review tests), obtaining and/or reviewing separately otained hiistory, ordering medications,tests, procedures, referring, communicating with other health home care provider, indepentently interpreting results, counseling the patient and care coordination
--- NOTE | 2023-12-07 17:00 | DI.RAD_ITS ---
Exam(s) XR PORTABLE CHEST AP EXAM: XR PORTABLE CHEST AP CLINICAL HISTORY: PICC advancement TECHNIQUE: 2D digital imaging was performed of the chest. One image was obtained. An AP view was ob tained. COMPARISON: CR XR PORTABLE CHEST AP from 12/07/2023 FINDINGS: The right PICC line remains located in the right innominate vein with its tip coiled back on itself. The line should be repositioned with the tip in the superior vena cava. MEDIASTINUM: Normal. HEART: Normal. PULMONARY VASCULATURE: Normal. LUNGS: Clear. The lung bases are not included on this examination. PLEURAL SPACE: No pleural effusion or pneumothorax. BONE:Within normal limits for the patient's age. OTHER FINDINGS:Normal. IMPRESSION: The right PICC line should be repositioned with its tip in the superior vena cava. DATA REPOSITORY: RADIATION DOSE DELIVERED:
--- NOTE | 2023-12-07 17:00 | DI.RAD_ITS ---
Exam(s) XR PORTABLE CHEST AP EXAM: XR PORTABLE CHEST AP CLINICAL HISTORY: PICC advancement TECHNIQUE: 2D digital imaging was performed of the chest. One image was obtained. An AP view was ob tained. COMPARISON: CR XR PORTABLE CHEST AP from 12/07/2023 FINDINGS: The right PICC line is again seen coiled back on itself and probably located in the right innominate vein. The line should be repositioned and advanced into the superior vena cava. MEDIASTINUM: Normal. HEART: Normal. PULMONARY VASCULATURE: Normal. LUNGS: Clear. Lung bases are not included on this examination. PLEURAL SPACE: No pleural effusion or pneumothorax. BONE:Within normal limits for the patient's age. OTHER FINDINGS:Normal. IMPRESSION: The right PICC line should be repositioned with its tip in the superior vena cava. DATA REPOSITORY: RADIATION DOSE DELIVERED:
[2023-12-07] MEDS: Heparin in 0.45% NaCl 25,000 UNIT/250 ML BAG 8.5 UNIT IVINF (17:35)
--- NOTE | 2023-12-07 17:45 | DI.RAD_ITS ---
Exam(s) XR PORTABLE CHEST AP EXAM: XR PORTABLE CHEST AP CLINICAL HISTORY: PICC advancement. TECHNIQUE: 2D digital imaging was performed. COMPARISON: CR XR PORTABLE CHEST AP from 12/07/2023 CR XR PORTABLE CHEST AP from 12/07/2023 CR XR PORTABLE CHEST AP from 12/07/2023 FINDINGS: Single AP portable view. Heart size is upper normal. The mediastinum is not widened. Lungs are clear. No infiltrates nor obvious pleural effusions. New PICC line is now entering from the left side but is coiled in the lower SVC. IMPRESSION: As above. Discussed by phone with PICC line provider DATA REPOSITORY: RADIATION DOSE DELIVERED:
--- NOTE | 2023-12-07 18:00 | DI.RAD_ITS ---
Exam(s) XR PORTABLE CHEST AP EXAM: XR PORTABLE CHEST AP CLINICAL HISTORY: PICC adjustment. TECHNIQUE: 2D digital imaging was performed. COMPARISON: CR XR PORTABLE CHEST AP from 12/07/2023 FINDINGS: Single AP portable view. Heart size is upper normal. The mediastinum is not widened. Lungs are clear. No infiltrates nor obvious pleural effusions. The left PICC line is now in satisfactory position with distal tip in the lower SVC at approximately the SVC-RA junction. IMPRESSION: PICC line is now in good position. Findings discussed by phone with PICC line provider 12/07/2023 at 18:30 p.m. DATA REPOSITORY: RADIATION DOSE DELIVERED:
--- NOTE | 2023-12-07 18:40 | DI.RAD_ITS ---
Exam(s) XR PORTABLE CHEST AP EXAM: XR PORTABLE CHEST AP CLINICAL HISTORY: PICC placement TECHNIQUE: 2D digital imaging was performed of the chest. One image was obtained. An AP view was ob tained. COMPARISON: CR XR CHEST 1V IN DI DEPT from 12/05/2023 FINDINGS: There is a right PICC line present. The tip is reflected back on itself and is located in the distal right subclavian vein. The catheter should be advanced into the superior vena cava. MEDIASTINUM: Normal. HEART: Normal. PULMONARY VASCULATURE: Normal. LUNGS: Clear. The lung bases were not included on this examination. PLEURAL SPACE: No pleural effusion or pneumothorax. BONE:Within normal limits for the patient's age. OTHER FINDINGS:Normal. IMPRESSION: The right PICC line should be repositioned with its tip in the superior vena cava. DATA REPOSITORY: RADIATION DOSE DELIVERED:
--- NOTE | 2023-12-07 18:40 | DI.RAD_ITS ---
Exam(s) XR PORTABLE CHEST AP EXAM: XR PORTABLE CHEST AP CLINICAL HISTORY: PICC advancement TECHNIQUE: 2D digital imaging was performed of the chest. One image was obtained. An AP view was ob tained. COMPARISON: CR XR PORTABLE CHEST AP from 12/07/2023 FINDINGS: The right PICC line remains in the right innominate vein and should be advanced. The catheter tip is curved back on itself. MEDIASTINUM: Normal. HEART: Normal. PULMONARY VASCULATURE: Normal. LUNGS: Clear. The lung bases are not included on this examination. PLEURAL SPACE: No pleural effusion or pneumothorax. BONE:Within normal limits for the patient's age. OTHER FINDINGS:Normal. IMPRESSION: The right PICC line should be repositioned. The tip remains coiled back on itself and in the right i nnominate vein. DATA REPOSITORY: RADIATION DOSE DELIVERED:
[2023-12-08] MEDS: DEXTROSE 5%-LACTATED RINGERS 1,000 ML 80 ML IV (01:30)
[2023-12-08 05:20] LABS: Abs Immature Grans 0.05 10^3/uL (0.0-0.06); Absolute Basophil Count 0.02 10^3/uL (0.0-0.2); Absolute Eosinophil Count 0.01 10^3/uL (0.0-0.7); Absolute Lymphocyte Count 1.01 10^3/uL (1.2-3.4); Absolute Monocyte Count 0.53 10^3/uL (0.1-0.8); Absolute Neutrophil Count 6.37 10^3/uL (1.2-6.7); Basophils % 0.3 %; Eosinophils % 0.1 %; HCT 36.6 % (40.0-50.0); HGB 12.1 g/dL (13.5-17.5); Immature Grans % 0.6 %; Lymphocytes % 12.6 %; MCH 32.5 pg (27.0-33.0); MCHC 33.1 % (32.0-36.0); MCV 98 fL (80-95); MPV 9.1 fL (8.0-11.0); Monocytes % 6.6 %; Neutrophils % 79.8 %; Platelet Count 115 10^3/uL (130-400); RBC 3.72 10^6/uL (4.36-5.78); RDW 13.8 % (11.8-14.1); RDW-SD 49.5 fL; WBC 7.99 10^3/uL (4.4-10.8)
[2023-12-08 05:34] LABS: Anion Gap 8.5 mmol/L (3-11); BUN 16 mg/dL (7-18); CO2 26.5 mmol/L (21.0-32.0); CREATININE 0.8 mg/dL (0.70-1.30); Chloride 113 mmol/L (98-107); Estimated GFR 98.21 (mL/min/1.73m2); Glucose 169 mg/dL (74-106); Magnesium 1.8 mg/dL (1.8-2.4); Potassium 3.4 mmol/L (3.5-5.1); Sodium 148 mmol/L (136-145)
[2023-12-08 06:52] VITALS: BP 137/95; PULSE 85; RESP 18; TEMP 36.7; O2SAT 99
[2023-12-08 07:29] VITALS: BP 139/89; PULSE 88; RESP 18; TEMP 36.2; O2SAT 98
[2023-12-08] MEDS: Metoclopramide 10 MG/2 ML VIAL 5 MG IVP (09:03)
[2023-12-08] MEDS: Normal Saline Flush 10 ML SYR IVP ×2 (09:03→17:07)
--- NOTE | 2023-12-08 10:16 | PT.INTREAT ---
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 OBJECTIVE: Therapeutic Activities ([id number][]): Direct one-on-one instruction in dynamic activities to improve functional performance. ? Therapeutic Exercises ([id number][1]): Direct one-on-one instruction in therapeutic exercises to develop strength, endurance, range of motion and flexibility. ? Exercises ? Supine assit rowing x 10 Horz abd with assist x 10 Shoulder flexion with assist x 10 Ankle pumps with assist x 10 hip abd with assist x 10 ? ASSESSMENT:? Nursing reports that he has been declining. I would show patient an exercise and he would agree to complete the task but then not move. PLAN: Cont as per PT POC. TREATMENT CODE/TIME: 10:05-10:15 (10) TP DISCHARGE RECOMMENDATION: []
--- NOTE | 2023-12-08 10:57 | PGE_ITS ---
Date of Service Date of service: 12/08/23 Time of Service: 10:57 Assessment and Plan Assessment and plan (1) Acute kidney injury: Status: Acute Assessment and plan: - Resolved with creatinine improving at 0.8 close to baseline of 0.7; this was most likely d/t dehydration given the BUN was also elevated?now at 16, patient also had an associated lactic acidosis resolving s/p crystalloid bolus -BMP in AM -Leukocytosis now resolved - remained hemodynamically stable -Blood Cx negative -Will change IVF to D5 at 80 cc/hr and closely monitor Na was 148 (2) Weakness: Status: Acute Assessment and plan: - Most likely due to dehydration on presentation and poor enteral intake with the patient's history of dysphagia -Improving as per chemistry result - PT consultation ordered (3) Unintentional weight loss: Status: Acute Assessment and plan: - This is an ongoing issue for the patient in the setting of his dysphagia secondary to Parkinson's -Nutrition consult ongoing -Plan to evaluate necessary caloric intake since the patient might have to initiate tube feeding prior to PEG insertion -Last stay recommendation for osmolite 1.2 at current caloric intake evaluation ordered; goal 54 cc/hr and 600 ml of H20 /24 hours at goal -Will continue D5W until goal met then stop -NGT insertion and start enteral feeding -EGD and colonoscopy initially set up for outpatient on 12/05/2023ut was unable to go as per point 1 and 2 -Surgical consult -Patient is agreeable to EGD w biopsy and PEG placement s/p discussion with Dr. Jama and palliative care consultation -On course for Sunday -will bridge with LMWH s/p discussion with Dr. Jama today and plan for Sunday ( Dr Gonzalez will be occupational medicine physician then) -Holding Apixaban -On the heparin drip DVT/PE protocol-platelets drop of 28% in platelets observed, not quite meeting the 4T's criteria for HIT - Sx will tolerate level 60-80 for intervention -CBC and evaluation of platelt function with PT/ PTT in AM -Palliative care consult completed for goals of care: completed; notes available (4) Dysphagia: Status: Acute Assessment and plan: -Most likely secondary to advanced Parkinson's and absence of pharmacological therapy -SPL consult completed with recommendation to prevent aspiration and specific diet -No further modified barium swallow recommended -No vomiting today with Reglan TID And as above Qualifiers: Dysphagia type: esophageal phase Qualified Code(s): R13.19 - Other dysphagia (5) Primary Parkinson's disease: Status: Acute Assessment and plan: -Presumably the cause of the ongoing dysphagia -Patient has not been taking any Parkinson's meds for some time, and was refractory to any neurology follow-up during previous admission -Had been followed by surgery outpatient for treatment of dysphagia?multiple appointments missed d/t transportation issues -Still planning for PEG as in point 3 (6) History of pulmonary embolism: Status: Acute Assessment and plan: Dx on 09/11/2023 treatment for 3 months Seemed to have been unprovoked - On Eliquis?might need a pulmonary follow-up outpatient status-post 3 months of treatment of treatment Continue holding Eliquis for planned PEG insertion on Sunday Continue bridging LMWH (7) Hypokalemia: Status: Acute Assessment and plan: K 3.4 IV supplementation ordered , scheduled oral refused at times BMP in AM (8) Hypernatremia: Status: Acute Assessment and plan: Na 148 today from 144 prior Now on D5W at 80cc/hr - will stop when tube feeding and free H20 bolus and established (9) Discharge planning issues: Status: Acute Assessment and plan: Accepted at the [facility]- after goals of care established as per palliative consult with Eli Hudson 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 Discussed with Dr Wagner Subjective Subjective Patient reports: voiding w/o difficulty and afebrile; denies no bowel movement, diarrhea or shortness of breath Interval history since last seen: Appears tired, no new complaint, no pain , unable to state if he was taking home narcotics for pain management.Denies nausea, vomiting Exam Narrative Exam Narrative: Constitutional Ill appearing cachectic patient looking older than stated age,delayed verbal answers again observed HENMT: Facial structures are emaciated Eyes: Well aligned Neuro:alert and oriented to self & person,remains non-focal Resp: Normal respiratory pattern, speaks in short word sentences, NO increased WOB, clear lung bilaterally w decreased bases Cardio: regular rhythm, S1, S2, no murmur, bilaterally positive radial and pedal pulses GI: Abdomen is scaphoid , non-acute and non tender, bowel sounds are present Integumentary: Mepilex to sacrum for mild erythema Extremities: Generalized weakness; non-focal Psych: RASS 0, congruent mood and normal affect. Objective Last Vital Signs Temp 36.2 C L 12/08/23 07:29 Pulse 88 12/08/23 07:29 Resp 18 12/08/23 07:29 BP 139/89 12/08/23 07:29 Pulse Ox 98 12/08/23 07:29 Laboratory Results - last 24 hr 12/07/23 12/07/23 12/08/23 11:25 12:55 05:12 WBC 7.99 RBC 3.72 L Hgb 12.1 L Hct 36.6 L MCV 98 H MCH 32.5 MCHC 33.1 RDW 13.8 Plt Count 115 L MPV 9.1 Immature Gran % 0.6 Neutrophils % 79.8 Lymphocytes % 12.6 Monocytes % 6.6 Eosinophils % 0.1 Basophils % 0.3 Nucleated RBC % 0.0 Absolute Neutrophils 6.37 Absolute Lymphocytes 1.01 L Absolute Monocytes 0.53 Absolute Eosinophils 0.01 Absolute Basophils 0.02 APTT 62.7 H 98.0 H* Sodium 148 H Potassium 3.4 L Chloride 113 H Carbon Dioxide 26.5 Anion Gap 8.5 BUN 16 Creatinine 0.8 Est GFR (CKD-EPI 2020) 98.21 Glucose 169 H Calcium 9.0 Magnesium 1.8 Total Bilirubin 0.50 Conjugated Bilirubin 0.2 AST 27 ALT 20 Alkaline Phosphatase 49 Ammonia 14 Total Protein 5.9 L Albumin 2.4 L PAWSS Have you Been Recently Intoxicated or Drunk Within the Last 30 days?: No Have you Ever Experienced Previous Episodes of Alcohol Withdrawal?: Yes Have you ever Experienced Withdrawal Seizures?: No Have you ever Experienced Delirium Tremens(DT)s?: No Have you ever undergone Alcohol Rehabilitation Treatment (i.e, inpt ot outpatient treatment programs)?: No Have you ever Experienced Blackouts?: No Have you ever Combined Alcohol with other Downers within the last 90 days?: No Have you ever Combined Alcohol with any other Substance of Abuse during the last 90 days?: No Positive Blood Alcohol level on Presentation? [PCS.BAL]: No Evidence of Increased Autonomic Activity (i.e. HR>120, tremor, sweating, agitation, nausea)?: No Result: 1 Time Spent with Patient Time Spent with Patient: >50 minutes Time was spent: preparing to see the patient(eg.review tests), obtaining and/or reviewing separately otained hiistory, ordering medications,tests, procedures, referring, communicating with other health resident care supervisor, indepentently interpreting results, counseling the patient and care coordination
[2023-12-08 11:12] VITALS: BP 136/95; PULSE 92; RESP 19; TEMP 36.5; O2SAT 99
[2023-12-08] MEDS: POTASSIUM CHLORIDE 20 MEQ/100 ML BAG 50 MEQ IV_INF (12:26)
[2023-12-08] MEDS: DEXTROSE 5%-WATER 1,000 ML 80 ML IV (12:28)
[2023-12-08 12:54] LABS: PTT Activated 82.4 sec (23.6-32.8)
[2023-12-08 15:05] VITALS: BP 127/90; PULSE 92; RESP 20; TEMP 36.9; O2SAT 98
[2023-12-08] MEDS: LORazepam 2 MG/ML VIAL 0.5 MG IVP ×2 (17:07→22:28)
[2023-12-08] MEDS: Enoxaparin 60 MG/0.6 ML SYR 50 MG SC (17:35)
[2023-12-08 20:27] VITALS: BP 115/74; PULSE 110; RESP 20; TEMP 37.1; O2SAT 94
[2023-12-08 23:35] VITALS: BP 101/79; PULSE 104; RESP 20; TEMP 36.8; O2SAT 94
[2023-12-09] VITALS (30 sets, daily range): BP systolic 93–149; BP diastolic 65–101; PULSE 86–146; RESP 9–27; TEMP 36.7–37.1; O2SAT 19–97
--- NOTE | 2023-12-09 | DI.RAD_ITS ---
Exam(s) XR PORTABLE CHEST AP EXAM: XR PORTABLE CHEST AP CLINICAL HISTORY: sob, tachy, hypoxia. TECHNIQUE: 2D digital imaging was performed. COMPARISON: CR XR PORTABLE CHEST AP from 12/07/2023 FINDINGS: Single AP portable view. Heart size is normal. The mediastinum is not widened. There is a left PICC line again noted in plac e. There is infiltrate in the left parahilar region and left lower lobe. Also increasing markings in th e right infrahilar region. No obvious pleural effusions. No pneumothorax. IMPRESSION: Left para-hilar infiltrate and right infrahilar infiltrate. Although infectious etiology is suspecte d, given recent placement of PICC line there is also possibility of developing pulmonary edema if the re has been significant administration of IV fluids. I note, however, that the heart size is normal. DATA REPOSITORY: RADIATION DOSE DELIVERED:
[2023-12-09] MEDS: DEXTROSE 5%-WATER 1,000 ML 80 ML IV ×2 (00:22→12:33)
[2023-12-09] MEDS: Scopolamine 1 MG/3 DAYS PATCH TD (00:48)
[2023-12-09 07:03] LABS: Abs Immature Grans 0.05 10^3/uL (0.0-0.06); Absolute Basophil Count 0.02 10^3/uL (0.0-0.2); Absolute Eosinophil Count 0.01 10^3/uL (0.0-0.7); Absolute Lymphocyte Count 0.86 10^3/uL (1.2-3.4); Absolute Monocyte Count 0.57 10^3/uL (0.1-0.8); Basophils % 0.2 %; Eosinophils % 0.1 %; HCT 35.9 % (40.0-50.0); HGB 11.9 g/dL (13.5-17.5); Immature Grans % 0.5 %; Lymphocytes % 7.7 %; MCH 32.5 pg (27.0-33.0); MCHC 33.1 % (32.0-36.0); MCV 98 fL (80-95); Monocytes % 5.1 %; Neutrophils % 86.4 %; RBC 3.66 10^6/uL (4.36-5.78); RDW 13.6 % (11.8-14.1); RDW-SD 49.1 fL; WBC 11.11 10^3/uL (4.4-10.8)
[2023-12-09 07:14] LABS: INR 1.6 (0.9-1.1); PTT Activated 28.4 sec (23.6-32.8); Prothrombin Time 15.7 sec (9.1-11.1)
[2023-12-09 07:19] LABS: BUN 12 mg/dL (7-18); Calcium 8.9 mg/dL (8.5-10.1); Chloride 108 mmol/L (98-107); Estimated GFR 83.52 (mL/min/1.73m2); Glucose 153 mg/dL (74-106); Magnesium 1.5 mg/dL (1.8-2.4); Potassium 3.3 mmol/L (3.5-5.1); Sodium 142 mmol/L (136-145)
[2023-12-09 07:34] LABS: Diff Comment PLT Morph Reviewed; Platelet Count 99 10^3/uL (130-400); RBC Morphology Normal
[2023-12-09] MEDS: Metoclopramide 10 MG/2 ML VIAL 5 MG IVP (07:42)
--- NOTE | 2023-12-09 14:05 | W.PM.PROGNOT ---
Date of Service Date of service: 12/09/23 Time of Service: 14:06 Assessment and Plan Assessment and plan (1) Acute hypoxic respiratory failure: Status: Acute Assessment and plan: Rapid response called for sudden onset of tachypnea hypoxia and tachycardia Patient did have decreased level of consciousness today so aspiration is possible But also in the setting of an acute pulmonary embolism that is on provoked diagnosed in August should be on 3 months of full anticoagulation but apixaban has been placed on hold for EGD with PEG tube placement scheduled for Sunday. He was initially on a heparin drip to bridge him until Sunday but his platelets dropped. Not consistent with HIT but this was discontinued and he was placed on enoxaparin. His platelets this morning were 99, INR this morning was 1.6. Instruction was to hold his Lovenox should his platelets drop below 100 which they did drop to 99 today. Chest x-ray has been obtained and shows perihilar and lung base interstitial changes, infiltrates versus possible pulmonary vascular redistribution Labs obtained include D-dimer troponin proBNP in addition to CBC mag CMP Oxygenation improved after receiving DuoNeb updraft and being placed on 100% nonrebreather He is being transferred to the intensive care unit for further management (2) Supraventricular tachycardia: Status: Chronic Assessment and plan: Resolved after receiving Lopressor 5 mg IV push and a 250 cc fluid bolus (3) Hypokalemia: Status: Acute Assessment and plan: K down to 2.8 but this was immediately following IV supplementation ordered , will follow and replete (4) Acute kidney injury: Status: Resolved Assessment and plan: at baseline now at 1.0 (5) Unintentional weight loss: Status: Acute Assessment and plan: - This is an ongoing issue for the patient in the setting of his dysphagia secondary to Parkinson's -Nutrition consult ongoing -Plan to evaluate necessary caloric intake since the patient might have to initiate tube feeding prior to PEG insertion -Last stay recommendation for osmolite 1.2 at current caloric intake evaluation ordered; goal 54 cc/hr and 600 ml of H20 /24 hours at goal -Will continue D5W until goal met then stop -NGT insertion and start enteral feeding -EGD and colonoscopy initially set up for outpatient on 4but was unable to go as per point 1 and 2 -Surgical consult -Patient is agreeable to EGD w biopsy and PEG placement s/p discussion with Dr. Jama and palliative care consultation -On course for Sunday -will bridge with LMWH s/p discussion with Dr. Jama today and plan for Sunday ( Dr Gonzalez will be assembler production line then) -Holding Apixaban -On the heparin drip DVT/PE protocol-platelets drop of 28% in platelets observed, not quite meeting the 4T's criteria for HIT - Sx will tolerate level 60-80 for intervention -CBC and evaluation of platelt function with PT/ PTT in AM -Palliative care consult completed for goals of care: completed; notes available (6) Dysphagia: Status: Acute Assessment and plan: -Most likely secondary to advanced Parkinson's and absence of pharmacological therapy -SPL consult completed with recommendation to prevent aspiration and specific diet -No further modified barium swallow recommended -No vomiting today with Reglan TID And as above Qualifiers: Dysphagia type: esophageal phase Qualified Code(s): R13.19 - Other dysphagia (7) Primary Parkinson's disease: Status: Acute Assessment and plan: -Presumably the cause of the ongoing dysphagia -Patient has not been taking any Parkinson's meds for some time, and was refractory to any neurology follow-up during previous admission -Had been followed by surgery outpatient for treatment of dysphagia?multiple appointments missed d/t transportation issues -Still planning for PEG as in point 3 (8) History of pulmonary embolism: Status: Acute Assessment and plan: Dx on 09/11/2023 treatment for 3 months Seemed to have been unprovoked - On Eliquis?might need a pulmonary follow-up outpatient status-post 3 months of treatment of treatment Continue holding Eliquis for planned PEG insertion on Sunday Continue bridging LMWH (9) Hypernatremia: Status: Resolved Assessment and plan: Na 139, continue 1/2 NS with K (10) Discharge planning issues: Status: Acute Assessment and plan: Accepted at the [facility] when medically stable. 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 Discussed with Dr Wagner Subjective Subjective Patient reports: afebrile; denies tolerating liquids well or tolerating a regular diet Interval history since last seen: Patient was resting in bed with altered mental status most of the day. His vitals were stable. At approximately 4 PM patient had a sudden onset of hypoxia dyspnea and tachycardia. Rapid response was called. He was given 4 mg of IV push morphine his scheduled lorazepam 0.5 mg IV push. Blood pressure at that time was stable heart rate was in the 150s supraventricular tachycardia. He was given a DuoNeb updraft EKG obtained. Normal saline 250 cc bolus provided. He was placed on 100% nonrebreather labs were drawn portable chest x-ray obtained which did show perihilar and lung base interstitial changes infiltrates versus pulmonary vascular redistribution. Oxygen saturations improved now to the 90s on 100% nonrebreather. Lung sounds with no wheezing or rhonchi. He was verbalizing no complaints of pain he was awake alert at this time. He was given Lopressor 5 mg IV push with heart rate improved down to the low 100s. Dr. Wagner in attendance and transfer request was placed for ICU level of care patient care and report handed off for ICU transfer Exam Narrative Exam Narrative: Chronically ill cachectic male older than stated age resting on the stretcher in Semi-Pritchard's position tachypneic and restless. Head is atraumatic eyes injected face is pratik complexion, flushed neck with no JVD. Respirations are even tachypneic breath sounds are clear anteriorly no wheezing or rhonchi appreciated cardiovascular regular rate and rhythm supraventricular tachycardia in the 150s. Abdomen is flat denies any pain on palpation there is no guarding his extremities are without edema. He does have lesions that are covered with Mepilex on his heels wounds not visualized. Neurologic he is awake alert responding appropriately Objective Last Vital Signs Temp 36.7 C 12/09/23 11:55 Pulse 103 H 12/09/23 11:55 Resp 20 12/09/23 11:55 BP 142/65 H 12/09/23 11:55 Pulse Ox 95 12/09/23 11:55 Laboratory Results - last 24 hr 12/08/23 12/09/23 18:15 06:31 WBC 11.11 H RBC 3.66 L Hgb 11.9 L Hct 35.9 L MCV 98 H MCH 32.5 MCHC 33.1 RDW 13.6 Plt Count 99 L MPV 10.0 Immature Gran % 0.5 Neutrophils % 86.4 Lymphocytes % 7.7 Monocytes % 5.1 Eosinophils % 0.1 Basophils % 0.2 Nucleated RBC % 0.0 Absolute Neutrophils 9.60 H Absolute Lymphocytes 0.86 L Absolute Monocytes 0.57 Absolute Eosinophils 0.01 Absolute Basophils 0.02 RBC Morphology Normal PT 15.7 H INR 1.6 H APTT 33.0 H 28.4 Sodium 142 Potassium 3.3 L Chloride 108 H Carbon Dioxide 26.0 Anion Gap 8.0 BUN 12 Creatinine 1.0 Est GFR (CKD-EPI 2020) 83.52 Glucose 153 H Calcium 8.9 Magnesium 1.5 L PAWSS Have you Been Recently Intoxicated or Drunk Within the Last 30 days?: No Have you Ever Experienced Previous Episodes of Alcohol Withdrawal?: Yes Have you ever Experienced Withdrawal Seizures?: No Have you ever Experienced Delirium Tremens(DT)s?: No Have you ever undergone Alcohol Rehabilitation Treatment (i.e, inpt ot outpatient treatment programs)?: No Have you ever Experienced Blackouts?: No Have you ever Combined Alcohol with other Downers within the last 90 days?: No Have you ever Combined Alcohol with any other Substance of Abuse during the last 90 days?: No Positive Blood Alcohol level on Presentation? [PCS.BAL]: No Evidence of Increased Autonomic Activity (i.e. HR>120, tremor, sweating, agitation, nausea)?: No Result: 1 Time Spent with Patient Time Spent with Patient: >50 minutes Time was spent: preparing to see the patient(eg.review tests), obtaining and/or reviewing separately otained hiistory, ordering medications,tests, procedures, referring, communicating with other health child care attendant, indepentently interpreting results, counseling the patient and care coordination
[2023-12-09] MEDS: MAGNESIUM SULFATE 2 GM/50 ML BAG IV_INF (14:36)
[2023-12-09] MEDS: Pantoprazole 40 MG VIAL IVP (14:37)
[2023-12-09] MEDS: POTASSIUM CHLORIDE/0.45% NACL 1,000 ML 80 MEQ IV (14:40)
--- NOTE | 2023-12-09 15:30 | PGE_ITS ---
Date of Service Date of service: 12/09/23 Time of Service: 15:31 Assessment and Plan Assessment and plan (1) Unintentional weight loss: Status: Acute Assessment and plan: (a) Inanition secondary to Parkinson's Disease (b) NPO after Midnight tonight (c) Hold all anticoagulation after Midnight tonight (d) Planning Upper Endoscopy/EGD and PEG tube placement for tomorrow (12/10/23) with Dr. Gonzalez (2) Primary Parkinson's disease: Status: Acute Subjective Subjective Interval history since last seen: Patient seems a little less interactive today, but responds to verbal appropriately. Exam Narrative Exam Narrative: Patient seen and examined on afternoon rounds today. GI Other: Soft, non-tender Objective Last Vital Signs Temp 98.1 F 12/09/23 11:55 Pulse 103 H 12/09/23 11:55 Resp 20 12/09/23 11:55 BP 142/65 H 12/09/23 11:55 Pulse Ox 95 12/09/23 11:55 Laboratory Results - last 24 hr 12/08/23 12/09/23 18:15 06:31 WBC 11.11 H RBC 3.66 L Hgb 11.9 L Hct 35.9 L MCV 98 H MCH 32.5 MCHC 33.1 RDW 13.6 Plt Count 99 L MPV 10.0 Immature Gran % 0.5 Neutrophils % 86.4 Lymphocytes % 7.7 Monocytes % 5.1 Eosinophils % 0.1 Basophils % 0.2 Nucleated RBC % 0.0 Absolute Neutrophils 9.60 H Absolute Lymphocytes 0.86 L Absolute Monocytes 0.57 Absolute Eosinophils 0.01 Absolute Basophils 0.02 RBC Morphology Normal PT 15.7 H INR 1.6 H APTT 33.0 H 28.4 Sodium 142 Potassium 3.3 L Chloride 108 H Carbon Dioxide 26.0 Anion Gap 8.0 BUN 12 Creatinine 1.0 Est GFR (CKD-EPI 2020) 83.52 Glucose 153 H Calcium 8.9 Magnesium 1.5 L PAWSS Have you Been Recently Intoxicated or Drunk Within the Last 30 days?: No Have you Ever Experienced Previous Episodes of Alcohol Withdrawal?: Yes Have you ever Experienced Withdrawal Seizures?: No Have you ever Experienced Delirium Tremens(DT)s?: No Have you ever undergone Alcohol Rehabilitation Treatment (i.e, inpt ot outpatient treatment programs)?: No Have you ever Experienced Blackouts?: No Have you ever Combined Alcohol with other Downers within the last 90 days?: No Have you ever Combined Alcohol with any other Substance of Abuse during the last 90 days?: No Positive Blood Alcohol level on Presentation? [PCS.BAL]: No Evidence of Increased Autonomic Activity (i.e. HR>120, tremor, sweating, agitation, nausea)?: No Result: 1 Time Spent with Patient Time Spent with Patient: <25 minutes Time was spent: preparing to see the patient(eg.review tests), ordering medicati ons,tests, procedures, referring, communicating with other health child care worker, counseling the patient and care coordination
--- NOTE | 2023-12-09 16:15 | RT.EKG_ITS ---
APPROVED REPORT Exam: Resting ECG Reason for Exam: tachy, sob, hypoxia Patient Location: I HR:156 bpm ECG Measurements Heart Rate 156 AXIS DE 115 P 209 QRSd 78 QRS -38 QT 257 T 57 QTc 414 Conclusion Poor quality data, interpretation may be affected Supraventricular tachycardia...V-rate>(220-age), QRSd<120 Left axis deviation...QRS axis (-30,-90) Minimal ST depression, inferior leads...ST <-0.04mV, II III aVF Artifact in lead(s) I,II,III,aVR,aVF,V1,V2,V3,V4,V5,V6
[2023-12-09] MEDS: MORPHine 4 MG/ML SYR (16:30)
[2023-12-09] MEDS: Metoprolol 5 MG/5 ML VIAL (16:31)
[2023-12-09 16:38] LABS: Abs Immature Grans 0.07 10^3/uL (0.0-0.06); Absolute Basophil Count 0.08 10^3/uL (0.0-0.2); Absolute Eosinophil Count 0.02 10^3/uL (0.0-0.7); Absolute Lymphocyte Count 1.99 10^3/uL (1.2-3.4); Absolute Monocyte Count 0.69 10^3/uL (0.1-0.8); Absolute Neutrophil Count 15.91 10^3/uL (1.2-6.7); Basophils % 0.4 %; Eosinophils % 0.1 %; HCT 38.9 % (40.0-50.0); HGB 13.1 g/dL (13.5-17.5); Immature Grans % 0.4 %; Lymphocytes % 10.6 %; MCH 32.8 pg (27.0-33.0); MCHC 33.7 % (32.0-36.0); MCV 97 fL (80-95); MPV 9.8 fL (8.0-11.0); Monocytes % 3.7 %; Neutrophils % 84.8 %; Platelet Count 127 10^3/uL (130-400); RDW 13.6 % (11.8-14.1); RDW-SD 49.1 fL; WBC 18.76 10^3/uL (4.4-10.8)
[2023-12-09] MEDS: LORazepam 2 MG/ML VIAL 0.5 MG IVP (16:45)
[2023-12-09 17:05] LABS: ALT 31 U/L (16-63); AST 40 U/L (15-37); Albumin 2.4 g/dL (3.4-5.0); Alkaline Phosphatase 65 U/L (46-116); Anion Gap 10.7 mmol/L (3-11); BUN 12 mg/dL (7-18); Bilirubin, Total 0.74 mg/dL (0.2-1.0); CO2 24.3 mmol/L (21.0-32.0); Calcium 8.6 mg/dL (8.5-10.1); Chloride 104 mmol/L (98-107); Estimated GFR 83.52 (mL/min/1.73m2); Glucose 185 mg/dL (74-106); Magnesium 2.1 mg/dL (1.8-2.4); NT-proBNP 4926 pg/mL (<300); Sodium 139 mmol/L (136-145); Total Protein 5.9 g/dL (6.4-8.2); Troponin I 32 ng/L (<or=76)
[2023-12-09 17:06] LABS: D-Dimer 634 ng/mlFEU (<500)
[2023-12-09 17:08] LABS: Potassium 2.8 mmol/L (3.5-5.1)
--- NOTE | 2023-12-09 17:17 | DI.VRAD_ITS ---
PROCEDURE INFORMATION: Exam: XR Chest Exam date and time: 12/09/2023 4:39 PM Age: 63 years old Clinical indication: Shortness of breath and tachypnea and other: Hypoxia; Patient HX: SOB, tachy, hypoxia TECHNIQUE: Imaging protocol: Radiologic exam of the chest. Views: 1 view. COMPARISON: CR XR PORTABLE CHEST AP 12/07/2023 6:11 PM FINDINGS: Lungs: There are coarse interstitial changes in a fairly perihilar distribution with mild lung base involvement. There appears to be relative sparing of the upper lobes allowing for overlying artifact. Pleural spaces: Unremarkable. No pleural effusion. No pneumothorax. Heart/Mediastinum: Unremarkable. No cardiomegaly. Bones/joints: Unremarkable. Soft tissues: Overlying chin artifact noted. IMPRESSION: Perihilar and lung base interstitial changes, infiltrates versus possible pulmonary vascular redistribution. Dictated and Authenticated by: Ashli Hernadez MD. Ordering:BOB Padilla MD
[2023-12-09] MEDS: Albuterol/Ipratropium 3 ML UPD VIAL (18:00)
--- NOTE | 2023-12-09 18:35 | W.PC.ACHO ---
Registration Status: Primary Language: Preferred Language: ED Information & Data Chief Complaint GenMedical 12/05/23 14:19 Triage Note increased weakness, had to 12/05/23 13:03 lower self to ground by sitting, was unable get self up Medical / Surgical History (Last Reviewed 11/21/23 @ 10:48 by Starla Miranda NP) Need for home health care Uses feeding tube Abnormal CT of the chest DVT prophylaxis Nausea & vomiting Acute pancreatitis Chronic pulmonary aspiration Esophageal stricture Acute hypokalemia Inability to swallow Acute dehydration Esophageal abnormality Pneumonia Hepatitis C Malignant melanoma of skin Hypertension Severe bipolar disorder with psychotic features, mood-congruent PTSD (post-traumatic stress disorder) Substance abuse Parkinsons disease Prediabetes Anxiety Osteoarthritis Melanoma H/O multiple concussions History of hepatitis C (Last Reviewed 11/21/23 @ 10:48 by Starla Miranda NP) H/O colonoscopy (~03/2019) S/P skin cancer resection Most Recent Vital Signs Temperature 37.1 C 12/09/23 18:12 Temperature Source Temporal Artery Scan 12/09/23 18:12 Pulse 86 12/09/23 18:01 Pulse 104 H 12/09/23 18:01 Respiratory Rate 22 12/09/23 18:12 Respiratory Effort Short of Breath, Labored 12/09/23 18:12 Respiratory Depth Normal 12/05/23 18:00 Respiratory Pattern Normal 12/05/23 18:00 Blood Pressure 108/89 12/09/23 18:01 Blood Pressure Mean 97 12/09/23 18:01 Blood Pressure Position Supine 12/05/23 13:40 Pulse Oximetry 19 L 12/09/23 18:12 Oxygen Delivery Method High Flow Nasal Cannula 12/09/23 18:12 Oxygen Flow Rate 15 12/09/23 18:12 Pain Level 9 12/07/23 08:01 Comment RN Notified 12/09/23 02:57 Allergies mirabegron (From Myrbetriq) Allergy (Severe, Verified 12/05/23 17:37) Difficulty breathing. Precautions Isolation Standard precaution 12/05/23 13:40 Active Medications Generic Name Dose Route Start Last Admin Trade Name Freq PRN Reason Stop Dose Admin Potassium Chloride/Sodium Chloride 1,000 mls @ 80 mls/hr 12/09/23 14:15 12/09/23 14:40 Kcl 20meq/0.45% Nacl IV 80 mls/hr INFUSION NYDIA Administration Lorazepam 0.5 mg 12/07/23 17:17 12/08/23 22:28 Lorazepam 2 Mg/Ml Vial IVP 0.5 mg TID PRN PRN Administration Metoclopramide HCl 5 mg 12/07/23 17:00 12/09/23 12:25 Metoclopramide 10 Mg/2 Ml Vial IVP Not Given QMEALS NYDIA Pantoprazole Sodium 40 mg 12/09/23 14:30 12/09/23 14:37 Pantoprazole 40 Mg Vial IVP 40 mg DAILY NYDIA Administration Sodium Chloride 0 ml 12/06/23 08:30 12/08/23 17:07 Normal Saline Flush 10 Ml Syr IVP 10 ml PRN PRN Administration IV IV Catheter Type [Left PICC] PICC Line IV Catheter Type [Right Upper Saline Lock arm] IV Catheter Type [Left Saline Lock Antecubital] IV Catheter Gauge [Left PICC] 4 IV Catheter Gauge [Right Upper 18 arm] IV Catheter Gauge [Left 20 Antecubital] Diet Orders Category Date Time Status Diet [Nothing Per Oral] [DIET] Nutrition 12/10/23 Breakfast Ordered npo [Nothing Per Oral] [DIET] Nutrition 12/09/23 Dinner Active Diagnostics 12/09/23 12/09/23 12/08/23 Range/Units 16:25 06:31 18:15 WBC 18.76 H 11.11 H (4.4-10.8) 10^3/uL RBC 4.00 L 3.66 L (4.36-5.78) 10^6/uL Hgb 13.1 L 11.9 L (13.5-17.5) g/dL Hct 38.9 L 35.9 L (40.0-50.0) % MCV 97 H 98 H (80-95) fL MCH 32.8 32.5 (27.0-33.0) pg MCHC 33.7 33.1 (32.0-36.0) % RDW 13.6 13.6 (11.8-14.1) % Plt Count 127 L 99 L (130-400) 10^3/uL MPV 9.8 10.0 (8.0-11.0) fL Immature Gran % 0.4 0.5 % Neutrophils % 84.8 86.4 % Lymphocytes % 10.6 7.7 % Monocytes % 3.7 5.1 % Eosinophils % 0.1 0.1 % Basophils % 0.4 0.2 % Nucleated RBC % 0.0 0.0 (0.0-0.3) % Absolute Neutrophils 15.91 H 9.60 H (1.2-6.7) 10^3/uL Absolute Lymphocytes 1.99 0.86 L (1.2-3.4) 10^3/uL Absolute Monocytes 0.69 0.57 (0.1-0.8) 10^3/uL Absolute Eosinophils 0.02 0.01 (0.0-0.7) 10^3/uL Absolute Basophils 0.08 0.02 (0.0-0.2) 10^3/uL RBC Morphology Normal PT 15.7 H (9.1-11.1) sec INR 1.6 H (0.9-1.1) APTT 28.4 33.0 H (23.6-32.8) sec D-Dimer 634 H (<500) ng/mlFEU Sodium 139 142 (136-145) mmol/L Potassium 2.8 L* 3.3 L (3.5-5.1) mmol/L Chloride 104 108 H (98-107) mmol/L Carbon Dioxide 24.3 26.0 (21.0-32.0) mmol/L Anion Gap 10.7 8.0 (3-11) mmol/L BUN 12 12 (7-18) mg/dL Creatinine 1.0 1.0 (0.70-1.30) mg/dL Est GFR (CKD-EPI 2020) 83.52 83.52 (mL/min/1.73m2) Glucose 185 H 153 H (74-106) mg/dL Calcium 8.6 8.9 (8.5-10.1) mg/dL Magnesium 2.1 1.5 L (1.8-2.4) mg/dL Total Bilirubin 0.74 (0.2-1.0) mg/dL AST 40 H (15-37) U/L ALT 31 (16-63) U/L Alkaline Phosphatase 65 (46-116) U/L Troponin I 32 (<or=76) ng/L NT-Pro-B Natriuret Pep 4926 H (<300) pg/mL Total Protein 5.9 L (6.4-8.2) g/dL Albumin 2.4 L (3.4-5.0) g/dL 12/05/23 13:45 Blood Culture - Preliminary Blood NO GROWTH 96 HOURS 12/05/23 13:28 Blood Culture - Preliminary Blood NO GROWTH 96 HOURS [id number] Documentation Fingerstick Glucose Start: 12/09/23 16:15 Freq: Status: Active Protocol: Activity Type Activity Date Activity User E-sign Co-sign Detail Recorded Client Recorded Date Recorded By Document 12/09/23 16:09 BKG DAEMON(3) [id number] 12/09/23 16:15 BKG DAEMON(4) Intake and Output - 24 Hour Total 12/05/23 12:59 thru 12/09/23 14:38 Intake Total 8092.493 Balance 8092.493 Weight 51.5 kg Intake: IV 8002.493 Oral 90 Other: Urine Color Yellow Urine Appearance Clear Urine Odor Normal Comment changed brief . pt was very wet. Voiding Methods Diaper Incontinent Falls Risk Assessment History of Falls Admit Due to Fall 12/05/23 18:00 Contributing Factors Confusion,Impairments, 12/09/23 18:12 Incontinence Ambulatory Aids Independent 12/05/23 18:00 Tubes/Lines With any additional score 12/09/23 18:12 Gait Evaluation W/no contributing factors 12/05/23 18:00 Cognition Cognitive impairment 12/09/23 18:12 Fall Total Score 44 12/09/23 18:12 Level of Risk Moderate Risk 12/09/23 18:12 Problems (Last Reviewed 11/21/23 @ 10:48 by Starla Miranda NP) Supraventricular tachycardia (Chronic) Acute hypoxic respiratory failure (Acute) Hypokalemia (Acute) Discharge planning issues (Acute) History of pulmonary embolism (Acute) Weakness (Acute) Unintentional weight loss (Acute) Dysphagia (Acute) Primary Parkinson's disease (Acute) v v v v v v v v v Sending and/or Receiving Nurses: Please use comment section below to note any information pertinent to the patient hand-off not included above. Information / Comments: Report received from: Dontae Rodriguez RNcollection systems modeler Unit
[2023-12-09] MEDS: Normal Saline Flush 10 ML SYR (18:53)
[2023-12-09] MEDS: Normal Saline 1,000 ML 100 ML IV (19:29)
[2023-12-09] MEDS: POTASSIUM CHLORIDE 10 MEQ/100 ML BAG 100 MEQ IV_INF ×3 (19:29→21:56)
[2023-12-10] VITALS (71 sets, daily range): BP systolic 83–173; BP diastolic 60–136; PULSE 89–136; RESP 15–29; TEMP 36.8–37.1; O2SAT 85–98
[2023-12-10] MEDS: LORazepam 2 MG/ML VIAL 0.5 MG IVP (00:54)
[2023-12-10 06:18] LABS: Abs Immature Grans 0.03 10^3/uL (0.0-0.06); Absolute Basophil Count 0.03 10^3/uL (0.0-0.2); Absolute Eosinophil Count 0.16 10^3/uL (0.0-0.7); Absolute Lymphocyte Count 0.54 10^3/uL (1.2-3.4); Absolute Monocyte Count 0.27 10^3/uL (0.1-0.8); Absolute Neutrophil Count 7.62 10^3/uL (1.2-6.7); Basophils % 0.3 %; Eosinophils % 1.8 %; HCT 33.6 % (40.0-50.0); HGB 11.5 g/dL (13.5-17.5); Immature Grans % 0.3 %; Lymphocytes % 6.2 %; MCH 32.9 pg (27.0-33.0); MCHC 34.2 % (32.0-36.0); MCV 96 fL (80-95); MPV 10.4 fL (8.0-11.0); Monocytes % 3.1 %; Neutrophils % 88.3 %; RDW 13.7 % (11.8-14.1); RDW-SD 48.7 fL; WBC 8.65 10^3/uL (4.4-10.8)
[2023-12-10 06:42] LABS: Anion Gap 10.6 mmol/L (3-11); BUN 14 mg/dL (7-18); CO2 24.4 mmol/L (21.0-32.0); CREATININE 0.9 mg/dL (0.70-1.30); Chloride 108 mmol/L (98-107); Estimated GFR 94.78 (mL/min/1.73m2); Glucose 157 mg/dL (74-106); Magnesium 1.8 mg/dL (1.8-2.4); Potassium 3.8 mmol/L (3.5-5.1); Sodium 143 mmol/L (136-145)
[2023-12-10 07:01] LABS: Diff Comment Diff Reviewed; Platelet Count 62 10^3/uL (130-400); RBC Morphology Normal
[2023-12-10] MEDS: Pantoprazole 40 MG VIAL IVP (08:13)
[2023-12-10] MEDS: Normal Saline 1,000 ML 100 ML IV (08:16)
--- NOTE | 2023-12-10 08:25 | W.PM.PROGNOT ---
Date of Service Date of service: 12/10/23 Time of Service: 08:25 Assessment and Plan Assessment and plan (1) Acute hypoxic respiratory failure: Status: Acute Assessment and plan: Respiratory response called yesterday for sudden onset of tachycardia, hypoxia and tachypnea. Patient responded well to beta-blockade, IV fluids and supplemental oxygen with weaning from 100% nonrebreather to nasal cannula Respiratory status has been stable overnight Patient not stable for PEG tube today. Discussed with anesthesia. Surgical note is reviewed. (2) Thrombocytopenia: Status: Chronic Assessment and plan: May be related to heparin. Repeat in the morning. Consider obtaining heparin associated antibodies Patient off anticoagulation at this time. (3) Supraventricular tachycardia: Status: Chronic Assessment and plan: Resolved after receiving Lopressor 5 mg IV push and a 500 + 250 cc fluid bolus now HR ^ 140's will start on diltiazem drip Discussed with nursing. Patient has responded to the diltiazem drip (4) Hypokalemia: Status: Acute Assessment and plan: Potassium measured at 2.8, orders for replacement were entered, today is 3.8. (5) Acute kidney injury: Status: Resolved Assessment and plan: at baseline now at 1.0 (6) Unintentional weight loss: Status: Acute Assessment and plan: - This is an ongoing issue for the patient in the setting of his dysphagia secondary to Parkinson's and esophageal dysmotility vs stricture. -Nutrition consult noted and discussed with Baudilio from nutrition. we will need to place patient on hyperalimentation due to severe protein calorie malnutrition. will order as recommended by dietary today. Patient with acetone breath. Will check urine ketones. Start hyperal MARÍA today discussed with nutrition and pharmacy. -Palliative care consult completed for goals of care: completed; notes available (7) Dysphagia: Status: Acute Assessment and plan: -Most likely secondary to advanced Parkinson's and absence of pharmacological therapy discussed plans with anethesia today. patient has documentation issues with consent for procedure, will need to clarify it does not appear patient will be able to have PEG placed today. Will continue to work toward that goal, when possible Qualifiers: Dysphagia type: esophageal phase Qualified Code(s): R13.19 - Other dysphagia (8) Primary Parkinson's disease: Status: Acute Assessment and plan: -Presumably the cause of the ongoing dysphagia -Patient has not been taking any Parkinson's meds for some time, and was refractory to any neurology follow-up during previous admission -Had been followed by surgery outpatient for treatment of dysphagia?multiple appointments missed d/t transportation issues -Still planning for PEG as in point 3 (9) History of pulmonary embolism: Status: Acute Assessment and plan: Dx on 09/11/2023 treatment for 3 months Seemed to have been unprovoked - On Eliquis?might need a pulmonary follow-up outpatient status-post 3 months of treatment of treatment Continue holding Eliquis for planned PEG insertion on Sunday. Resume after PEG is placed with no complicating issues. Continue bridging LMWH medication held in anticipation of PEG placement today. Will restart anticoagulation if PEG not achievable today. (10) Hypernatremia: Status: Resolved Assessment and plan: Continue to monitor (11) Discharge planning issues: Status: Acute Assessment and plan: Accepted at the [facility] when medically stable. - after goals of care established as per palliative consult with Eli Hudson Palliative care STRATEGIC CLIENT EXECUTIVE PEG placement and SNF discharge when medically ready Outpatient referral to pulmonology for pulmonary emboli workup: Provoked versus unprovoked versus genetic factors. (12) Altered mental status: Status: Acute Assessment and plan: [place] nutrition as a means of hyperalgia. Orders entered. Follow-up patient's status May need cranial imaging. Subjective Subjective Patient reports: afebrile; denies tolerating liquids well or tolerating a regular diet Interval history since last seen: Clinical course reviewed including notes, orders, labs, vitals, meds, imaging, and cultures. Care is discussed with primary nurse. Double lumen PICC line in place, CXR reviewed and verified. Patient with a history of anticoagulation for PE being prepared for PEG tube placement this morning. Developed acute hypoxemia with acute onset of SVT yesterday. Treated with IV beta-blockers and IV hydration. Transferred to the ICU where he did well overnight. Weaned from 100% nonrebreather to nasal cannula. D-dimer was not elevated, age-adjusted. Laboratories this morning include a decreased white count 8.6 from 18,000. Hemoglobin 11.5 platelets 62,000 Serum sodium 143 potassium 3.8 (yesterday 2.8) creatinine 0.9 Troponin yesterday 32 From Speech Swallowing evaluation on December 05 While patient presents with known oral pharyngeal dysphagia in setting of PD and as evidenced by prior MBSS, his primary dysphagia is directly related to esophageal dysfunction including esophageal stricture causing regurgitation. SALES ACTIVITY MANAGER recommends repeat EGD for consideration of repeat dilation and ongoing GI management. Based on prior diagnostics and similar presentation at bedside, I do not feel repeat MBSS is indicated. Palliative care is also consulted for clarification of patient's GOC/discussion on consideration of alternate feeding. Exam Narrative Exam Narrative: Patient seen in intensive care unit. He is not interactive appears very frightened and scared. Unable to communicate clearly with him. His expressive language is unintelligible at this time. Patient is very marantic in appearance. Very little subcutaneous fat. HEENT: Neck supple, MM pink and moist, conjunctiva non-injected, sclera non-icteric, Pupils equal and reactive to light symmetrically, no JVD, no A waves. No thyromegaly. No carotid bruit CHEST: Bilaterally symmetrical with inspiration and expiration. No use of accessory muscles of respiration. No nasal flaring. RESP: Clear to auscultation bilaterally, no rales, rhonchi or wheeze, no pleural friction rub, no post-tussive crackles or apical rales. COR: RRR without murmur, normal S1, S2, no rub or gallop ABDOMEN: Mildly distended, non tender diffusely, normally active bowel sounds diffusely, No hepatosplenomegaly, No abdominal bruit, no masses, no tenderness on deep abdominal palpation. G/U: deferred Rectal: deferred MUSCULOSKELETAL: Bilaterally symmetrical, no muscle belly tenderness or mass DERMIS: Skin warm and dry, no ulcers or rashes, EXTREMITIES: No cyanosis, clubbing or edema, no gross deformities of the large or small joints of the upper or lower extremities. Diffuse muscle wasting NEUROLOGICAL: Moves all extremities. Patient is not interactive. Unclear if he understands communications. Does not follow commands. LYMPH: No anterior or posterior cervical, no supraclavicular, No axillary, no epitrochlear or femoral lymphadenopathy. Objective Last Vital Signs Temp 36.8 C 12/10/23 02:30 Pulse 125 H 12/10/23 07:00 Resp 21 12/10/23 07:30 BP 130/83 12/10/23 07:00 Pulse Ox 90 L 12/10/23 07:30 Laboratory Results - last 24 hr 12/09/23 12/10/23 16:25 06:05 WBC 18.76 H 8.65 RBC 4.00 L 3.50 L Hgb 13.1 L 11.5 L Hct 38.9 L 33.6 L MCV 97 H 96 H MCH 32.8 32.9 MCHC 33.7 34.2 RDW 13.6 13.7 Plt Count 127 L 62 L D MPV 9.8 10.4 Immature Gran % 0.4 0.3 Neutrophils % 84.8 88.3 Lymphocytes % 10.6 6.2 Monocytes % 3.7 3.1 Eosinophils % 0.1 1.8 Basophils % 0.4 0.3 Nucleated RBC % 0.0 0.0 Absolute Neutrophils 15.91 H 7.62 H Absolute Lymphocytes 1.99 0.54 L Absolute Monocytes 0.69 0.27 Absolute Eosinophils 0.02 0.16 Absolute Basophils 0.08 0.03 RBC Morphology Normal D-Dimer 634 H Sodium 139 143 Potassium 2.8 L* 3.8 D Chloride 104 108 H Carbon Dioxide 24.3 24.4 Anion Gap 10.7 10.6 BUN 12 14 Creatinine 1.0 0.9 Est GFR (CKD-EPI 2020) 83.52 94.78 Glucose 185 H 157 H Calcium 8.6 8.0 L Magnesium 2.1 1.8 Total Bilirubin 0.74 AST 40 H ALT 31 Alkaline Phosphatase 65 Troponin I 32 NT-Pro-B Natriuret Pep 4926 H Total Protein 5.9 L Albumin 2.4 L PAWSS Have you Been Recently Intoxicated or Drunk Within the Last 30 days?: No Have you Ever Experienced Previous Episodes of Alcohol Withdrawal?: Yes Have you ever Experienced Withdrawal Seizures?: No Have you ever Experienced Delirium Tremens(DT)s?: No Have you ever undergone Alcohol Rehabilitation Treatment (i.e, inpt ot outpatient treatment programs)?: No Have you ever Experienced Blackouts?: No Have you ever Combined Alcohol with other Downers within the last 90 days?: No Have you ever Combined Alcohol with any other Substance of Abuse during the last 90 days?: No Positive Blood Alcohol level on Presentation? [PCS.BAL]: No Evidence of Increased Autonomic Activity (i.e. HR>120, tremor, sweating, agitation, nausea)?: No Result: 1 Time Spent with Patient Time Spent with Patient: >50 minutes Time was spent: preparing to see the patient(eg.review tests), obtaining and/or reviewing separately otained hiistory, ordering medications,tests, procedures, referring, communicating with other health respiratory care instructor, indepentently interpreting results, counseling the patient and care coordination
--- NOTE | 2023-12-10 09:14 | W.NUTRFU ---
Date of service: 12/10/23 Time of Service: 09:14 Nutrition Note NOTE: Pt is scheduled for PEG tube placement today to help prevent further progression of malnutrition related to chronic dysphagia. Current Estimated energy needs: 1545kcals (30kcals/kg and is congruent with REEx1.2AF), 62-77g protein (1.2-1.5g/kg) and 1545mL fluid (1mL per required kcal) Recommended a continuous enteral feeding of Osmolite 1.2 run at goal rate of 54mL/hr. Suggest initiation of 25mL per hour and increase 5mL/hr [id number] until goal rate is met. This rate, over 24 hours, would provide 1545kcals, 72g protein, and 1060mL fluid. This would meet all his above estimates except fluids, which would be met with additional ~485mL of free water via flushes and any IV or po fluids taken. Osmolite is a fiber-free formula and will be easier to tolerate, as Mr Schuler has not had adequate po intake for some time and has better tolerated fiber-free food choices. After toleration is established, it would be recommended to start blending higher fiber formula and transitioning to fiber-containing formula for alf nutrition support. Would suggest regular monitoring of glucose levels and electrolytes (including mag and potassium) for signs of refeeding syndrome. Will continue to monitor labs, enteral feeding tolerance. Time Spent in Nutritional Counseling and Treatment: 0
[2023-12-10] MEDS: dilTIAZem 125 MG in Normal Saline 100 ML IV (10:49)
[2023-12-10 10:53] LABS: Bilirubin Small (Negative); Blood Moderate (Negative); Clarity Sl Cloudy (Clear); Glucose 100 mg/dL (Negative); Ketones Negative (Negative); Leukocyte Esterase Negative (Negative); Nitrite Positive (Negative); Urobilinogen 0.2 mg/dL (Up to 0.2); pH 5.5 (5-8)
[2023-12-10 11:02] LABS: Bacteria Moderate HPF (Negative); Epithelial Cells Few HPF (Negative); WBC 0-2 HPF (0-5)
[2023-12-10 11:03] LABS: C & S Indicated? No; Crystals Negative HPF (Negative); Mucus Moderate (Negative)
--- NOTE | 2023-12-10 11:09 | PGE_ITS ---
Date of Service Date of service: 12/10/23 Time of Service: 11:09 Assessment and Plan Assessment and plan (1) Dysphagia: Status: Acute Assessment and plan: I agree that Mr. Cruz seems to be suffering from significant malnutrition that I suspect is secondary to dysphagia as well as his other comorbidities. A gastrostomy tube is a very reasonable intervention, but with increasing dyspnea and tachyarrhythmias, I am hesitant to proceed with any type of invasive procedure at the moment. Furthermore, he is certainly not able to able to comprehend the risks of the procedure. In that regard, there is no way that he can provide informed consent. Given the semielective nature of insertion of a gastrostomy tube, I would rather sort out the other issues at the present time, before moving forward with the PEG tube. I understand this is frustrating especially given the holding of his anticoagulation anticipating a procedure today. It would be very reasonable to insert a Dobbhoff tube for medications, and ideally to provide nutrition to ensure that he is able to tolerate that prior to moving forward with permanent gastrostomy. Qualifiers: Dysphagia type: esophageal phase Qualified Code(s): R13.19 - Other dysphagia Subjective Subjective Interval history since last seen: Jesus was transferred to [facility] into the ICU last night with some increased work of breathing and some relative hypoxemia. This morning, he is not oriented to time or person. I tried to explain to him that we were hoping to help with insertion of percutaneous gastrostomy tube, but given his clinical change, I think it is in his best interest to cancel the PEG tube for today. Exam Resp Other: Breath sounds are a bit rhonchorous Objective Last Vital Signs Temp 98.2 F 12/10/23 02:30 Pulse 124 H 12/10/23 09:01 Resp 20 12/10/23 09:30 BP 103/84 12/10/23 09:01 Pulse Ox 87 L 12/10/23 09:30 Laboratory Results - last 24 hr 12/09/23 12/10/23 12/10/23 16:25 06:05 10:40 WBC 18.76 H 8.65 RBC 4.00 L 3.50 L Hgb 13.1 L 11.5 L Hct 38.9 L 33.6 L MCV 97 H 96 H MCH 32.8 32.9 MCHC 33.7 34.2 RDW 13.6 13.7 Plt Count 127 L 62 L D MPV 9.8 10.4 Immature Gran % 0.4 0.3 Neutrophils % 84.8 88.3 Lymphocytes % 10.6 6.2 Monocytes % 3.7 3.1 Eosinophils % 0.1 1.8 Basophils % 0.4 0.3 Nucleated RBC % 0.0 0.0 Absolute Neutrophils 15.91 H 7.62 H Absolute Lymphocytes 1.99 0.54 L Absolute Monocytes 0.69 0.27 Absolute Eosinophils 0.02 0.16 Absolute Basophils 0.08 0.03 RBC Morphology Normal D-Dimer 634 H Sodium 139 143 Potassium 2.8 L* 3.8 D Chloride 104 108 H Carbon Dioxide 24.3 24.4 Anion Gap 10.7 10.6 BUN 12 14 Creatinine 1.0 0.9 Est GFR (CKD-EPI 2020) 83.52 94.78 Glucose 185 H 157 H Calcium 8.6 8.0 L Magnesium 2.1 1.8 Total Bilirubin 0.74 AST 40 H ALT 31 Alkaline Phosphatase 65 Troponin I 32 NT-Pro-B Natriuret Pep 4926 H Total Protein 5.9 L Albumin 2.4 L Urine Color [place] Urine Clarity Sl Cloudy Urine pH 5.5 Ur Specific [place] 1.020 Urine Protein 30 H Urine Ketones Negative Urine Blood Moderate H Urine Nitrite Positive H Urine Bilirubin Small H Urine Urobilinogen 0.2 Ur Leukocyte Esterase Negative Urine RBC 10-20 H Urine WBC 0-2 Ur Epithelial Cells Few Urine Crystals Negative Urine Bacteria Moderate Urine Casts Urine Mucus Moderate Ur Culture Indicated? No Urine Glucose 100 H PAWSS Have you Been Recently Intoxicated or Drunk Within the Last 30 days?: No Have you Ever Experienced Previous Episodes of Alcohol Withdrawal?: Yes Have you ever Experienced Withdrawal Seizures?: No Have you ever Experienced Delirium Tremens(DT)s?: No Have you ever undergone Alcohol Rehabilitation Treatment (i.e, inpt ot outpatient treatment programs)?: No Have you ever Experienced Blackouts?: No Have you ever Combined Alcohol with other Downers within the last 90 days?: No Have you ever Combined Alcohol with any other Substance of Abuse during the last 90 days?: No Positive Blood Alcohol level on Presentation? [PCS.BAL]: No Evidence of Increased Autonomic Activity (i.e. HR>120, tremor, sweating, agitation, nausea)?: No Result: 1 Time Spent with Patient Time Spent with Patient: 25-34 minutes Time was spent: preparing to see the patient(eg.review tests), referring, communicating with other health wound care technician, indepentently interpreting results and counseling the patient
--- NOTE | 2023-12-10 16:02 | PCNE_ITS ---
Date of service: 12/10/23 Time of Service: 11:45 History of Present Illness Narrative: Mr. Gruber is a 63 y/o M currently in ICU 2/2 AMS, hypoxia, dyspnea and tachycardia; PMHx sig for PD (15 year h/o, trialed several PD meds, including 3 years of Sinamet), esophageal strictures, FTT, and h/o PE (apixaban) Hospital course: Yasmani was to present to for EGD/COLO on 12/04, when RCT arrived they called 911 bc he was too weak; ED work up showed JACEY, dehydration, w/leukocytosis; JACEY resolving; DISTRIBUTOR OPERATOR consult w/consistent message for dysphagia primarily w/esophageal dysfunction, need for EGD for further work up; surgery consult initially w/plans to place PEG on 12/09; however on 12/08 Yasmani presented w/AMS, hypoxia, dyspnea and tachycardia and SVT, low platelet count, a rapid response was called;lopressor w/good response; now on diltiazepm drip; surgery cancelled d/t dyspnea, tachycardia and arrhythmias, and lack of ability to provide consent; - per staff: HR has remained elevated; he has not been able to verbalize anything today, no oral intake, including meds; TPN has been ordered, to start this evening; lorazepam PRN ordered; plan to get cleaned up today, malodorous breath Yasmani is unable to participate in interview today, visited x2; spoke to Nicolle Chaparro, Yasmani's mcc friend and HCA - she is aware she is his HCA; she has been anticipating needing to step into this role more recently, she was not aware he was currently in the hospital - he was told her he would never want a procedure done at [facility] several times more recently; - she has a strong sense of what he would want vs not want Assessment and Plan Assessment and plan (1) Altered mental status: Status: Acute Assessment and plan: of unknown origin - multifactorial - cannot rule out severe malnourishment as primary source, continue work up/management at this time, pending meeting tomorrow (2) Dysphagia: Status: Acute Assessment and plan: multifactorial - most significantly r/t esophageal strictures and thickening PD contributing less significantly, per DISTRIBUTOR OPERATOR review Qualifiers: Dysphagia type: esophageal phase Qualified Code(s): R13.19 - Other dysphagia (3) Supraventricular tachycardia: Status: Chronic (4) Acute hypoxic respiratory failure: Status: Acute (5) Hypokalemia: Status: Acute (6) Hypernatremia: Status: Resolved (7) History of pulmonary embolism: Status: Acute (8) Acute kidney injury: Status: Resolved (9) Weakness: Status: Acute (10) Unintentional weight loss: Status: Acute (11) Physician orders for life-sustaining treatment (POLST) form indicates patient wish for xa-ihp-lrmyffhwptu status: Status: Acute (12) Primary Parkinson's disease: Status: Acute (13) Need for home health care: (14) Esophageal stricture: (15) Acute dehydration: (16) ACP (advance care planning): Status: Acute Assessment and plan: per Yasmani's previously made statements - would not want procedures done at [facility], previously consented to PEG/EGD and transfer to ; most recent documentation 12/05 from PC indicates he is still interested in PEG tube - never would want an NG tube again Nicolle has a good sense of her role, what he would want for his life at this time he does not have capacity to make decisions, PC contacted and informed Nicolle of this, she will present tomorrow at 1pm for a team meeting with hospitalist, CM and other teammembers as able (this PC provider currently not avail, Nicolle comfortable w/moving forward); he is a DNR/I; (17) Palliative care patient: Status: Acute Assessment and plan: PC encouraged team meeting tomorrow to review w/Nicolle next steps - continue current treatment plan and work up, identifying source of AMS and tachycardia, etc or - consider transition to comfort focused care, EOL in hospital or referrals to local SNF for skilled EOL care PC will be available in the afternoon as needed, w/this provider planning for f/u on Sun if remains under [facility] service Review of Systems Narrative: as per HPI PFSH All Active Problems (Updated 12/10/23 @ 17:58 by Starla Miranda NP) Altered mental status (Acute) Supraventricular tachycardia (Chronic) Acute hypoxic respiratory failure (Acute) Hypokalemia (Acute) Discharge planning issues (Acute) History of pulmonary embolism (Acute) Weakness (Acute) Unintentional weight loss (Acute) Physician orders for life-sustaining treatment (POLST) form indicates patient wish for mh-tne-ilrkazutkly status (Acute) ACP (advance care planning) (Acute) Palliative care patient (Acute) Pulmonary embolus, right (Acute) Esophageal yeast infection (Acute) Aspiration of food (Acute) Patient had a swallow study in 2021 which showed mandeep aspiration Acute thoracic back pain (Acute) Dysphagia (Acute) Memory loss (Acute) Erectile dysfunction (Acute) Constipation (Acute) Peripheral neuropathy (Acute) Primary Parkinson's disease (Acute) Medical History Need for home health care Uses feeding tube Abnormal CT of the chest DVT prophylaxis Nausea & vomiting Acute pancreatitis Chronic pulmonary aspiration Esophageal stricture Stricture has been present since 2021 Acute hypokalemia Inability to swallow Acute dehydration Esophageal abnormality Pneumonia Hepatitis C per referral, pt has completed treatment Malignant melanoma of skin Hypertension Severe bipolar disorder with psychotic features, mood-congruent Pt. denies PTSD (post-traumatic stress disorder) Pt. denies triggers Substance abuse pt. denies Parkinsons disease Prediabetes Anxiety Osteoarthritis Melanoma H/O multiple concussions History of hepatitis C Surgical History H/O colonoscopy (~03/2019) S/P skin cancer resection Social History Smoking/Tobacco Use Status: Current every day Smoking risk assessment performed?: Yes Alcohol Intake: current Alcohol Intake frequency: 0-2 drinks per day Alcohol type: beer Counseling provided: provider counseling Drug use: Daily Substance use type: marijuana Housing: apartment current occupation: None Seatbelt use: always Do you feel safe at home: Yes Do you feel safe in your relationship?: Yes Exam Narrative Exam Narrative: General: cachectic, intermittently opens eyes, does not track, does not response to voice or physical stimuli; intermittent verbal grumbles w/no meaningful or intelligible speech HEENT: dry mucus membranes, lips peeling, malodorous breath; Resp: even and unlabored w/periods of tachypnea resolving w/in 20s; no cough or audible wheeze Skin: nails dirty, atrophy Results Last Vital Signs Temp 98.6 F 12/10/23 15:25 Pulse 115 H 12/10/23 15:01 Resp 22 12/10/23 15:30 BP 105/77 12/10/23 15:01 Pulse Ox 96 12/10/23 15:30 Labs 12/10/23 06:05 12/10/23 06:05 Labs: Laboratory Results - last 24 hr 12/09/23 12/10/23 12/10/23 16:25 06:05 10:40 WBC 18.76 H 8.65 RBC 4.00 L 3.50 L Hgb 13.1 L 11.5 L Hct 38.9 L 33.6 L MCV 97 H 96 H MCH 32.8 32.9 MCHC 33.7 34.2 RDW 13.6 13.7 Plt Count 127 L 62 L D MPV 9.8 10.4 Immature Gran % 0.4 0.3 Neutrophils % 84.8 88.3 Lymphocytes % 10.6 6.2 Monocytes % 3.7 3.1 Eosinophils % 0.1 1.8 Basophils % 0.4 0.3 Nucleated RBC % 0.0 0.0 Absolute Neutrophils 15.91 H 7.62 H Absolute Lymphocytes 1.99 0.54 L Absolute Monocytes 0.69 0.27 Absolute Eosinophils 0.02 0.16 Absolute Basophils 0.08 0.03 RBC Morphology Normal D-Dimer 634 H Sodium 139 143 Potassium 2.8 L* 3.8 D Chloride 104 108 H Carbon Dioxide 24.3 24.4 Anion Gap 10.7 10.6 BUN 12 14 Creatinine 1.0 0.9 Est GFR (CKD-EPI 2020) 83.52 94.78 Glucose 185 H 157 H Calcium 8.6 8.0 L Magnesium 2.1 1.8 Total Bilirubin 0.74 AST 40 H ALT 31 Alkaline Phosphatase 65 Troponin I 32 NT-Pro-B Natriuret Pep 4926 H Total Protein 5.9 L Albumin 2.4 L Urine Color Azalea Urine Clarity Sl Cloudy Urine pH 5.5 Ur Specific [place] 1.020 Urine Protein 30 H Urine Ketones Negative Urine Blood Moderate H Urine Nitrite Positive H Urine Bilirubin Small H Urine Urobilinogen 0.2 Ur Leukocyte Esterase Negative Urine RBC 10-20 H Urine WBC 0-2 Ur Epithelial Cells Few Urine Crystals Negative Urine Bacteria Moderate Urine Casts Urine Mucus Moderate Ur Culture Indicated? No Urine Glucose 100 H Time Spent Time Spent with Patient Time Spent(min): 70
--- NOTE | 2023-12-10 17:13 | PDOC.CMPRO ---
Date of service: 12/10/23 Time of Service: 15:00 Care Management Progress Note Progress Note Text Progress Note Text: Tone was not himself when CM met with him today. He really did not want to speak with CM. Tone was originally scheduled for PEG tube placement today, but he has had tacchycardia along with increased dyspnea, so surgery has been put off. Also complicating this issue is that Tone is not able to provide informed consent at this time. CM reached out to Lona Chaparro, who is Tone's HIPAA and HCA, per anaesthesia request, to see if she would provide consent. CM left a detailed VM for Lona, as her name was clearly stated. Lona did not return my call. CM gave anaesthesia this info, along with Lona's #. Discharge Potential Discharge Needs: PCP F/U Appt and Surgical F/U Appt Anticipated Barriers to Discharge: Bed availability Patient/Family Education Needs: Review discharge instructions, discuss Ask Me Three Plan: Anticipate that Tone will discharge to SNF, or home with increased HH RN, PT, OT, ELECTROLYTIC ETCHER. His disposition is a bit unclear as he does not have family or long-term medicaid. [facility] to [facility] and [facility], per Tnoe's request. Tone is unable to work with PT currently, and this will be a barrier. CM will continue to follow and update the plan as needed. SDOH(Care Management) Screening Will the Patient Participate in the Screening?: Unable to obtain Do you worry about having a steady place to live?: no In the past 12 months, have you had to go without electric, gas, oil or water in your home?: no Have you or anyone in your house had to go without enough food to eat?: no Has lack of transportation kept you from medical appointments or from doing things needed for daily living?: yes Has anyone in your support network made you feel unsafe for any reason?: no Health Related Social Needs Health related social needs: transportation insecurity(Z59.82)
[2023-12-10] MEDS: Insulin Aspart 300 UNITS/3 ML PEN SC ×2 (18:08→23:50)
[2023-12-10] MEDS: Normal Saline Flush 10 ML SYR IVP ×2 (20:23→23:26)
[2023-12-11] VITALS (61 sets, daily range): BP systolic 70–128; BP diastolic 36–101; PULSE 91–152; RESP 19–43; TEMP 31–37; O2SAT 76–98
[2023-12-11] MEDS: Haloperidol 5 MG/ML VIAL IM/IV (01:04)
[2023-12-11] MEDS: Normal Saline Flush 10 ML SYR IVP ×2 (01:06→17:45)
[2023-12-11] MEDS: dilTIAZem 125 MG in Normal Saline 100 ML IV (01:16)
[2023-12-11] MEDS: LORazepam 2 MG/ML VIAL IVP (02:36)
[2023-12-11] MEDS: Normal Saline 1,000 ML 1000 ML IV (04:38)
[2023-12-11 05:59] LABS: Abs Immature Grans 0.02 10^3/uL (0.0-0.06); Absolute Basophil Count 0.06 10^3/uL (0.0-0.2); Absolute Eosinophil Count 0.01 10^3/uL (0.0-0.7); Absolute Lymphocyte Count 0.63 10^3/uL (1.2-3.4); Absolute Monocyte Count 0.15 10^3/uL (0.1-0.8); Absolute Neutrophil Count 4.98 10^3/uL (1.2-6.7); Eosinophils % 0.2 %; HCT 30.8 % (40.0-50.0); HGB 10.8 g/dL (13.5-17.5); Immature Grans % 0.3 %; Lymphocytes % 10.8 %; MCH 32.9 pg (27.0-33.0); MCHC 35.1 % (32.0-36.0); MCV 94 fL (80-95); MPV 11.1 fL (8.0-11.0); Monocytes % 2.6 %; Neutrophils % 85.1 %; RBC 3.28 10^6/uL (4.36-5.78); RDW 13.5 % (11.8-14.1); WBC 5.85 10^3/uL (4.4-10.8)
[2023-12-11 06:14] LABS: ALT 18 U/L (16-63); AST 18 U/L (15-37); Albumin 1.5 g/dL (3.4-5.0); Alkaline Phosphatase 38 U/L (46-116); Anion Gap 6.8 mmol/L (3-11); BUN 15 mg/dL (7-18); Bilirubin, Total 0.93 mg/dL (0.2-1.0); CO2 25.2 mmol/L (21.0-32.0); CREATININE 0.8 mg/dL (0.70-1.30); Calcium 8.1 mg/dL (8.5-10.1); Chloride 112 mmol/L (98-107); Estimated GFR 98.21 (mL/min/1.73m2); Glucose 157 mg/dL (74-106); Potassium 3.1 mmol/L (3.5-5.1); Sodium 144 mmol/L (136-145); Total Protein 4.7 g/dL (6.4-8.2)
--- NOTE | 2023-12-11 06:15 | W.EVENT ---
Date of service: 12/11/23 Time of Service: 06:15 Event Note: Called for increasing oxygen requirement. Case reviewed, here with dehydration, failure to thrive and UGI bleed in setting of dysphagia related to underlying Parkinson's disease. Here in ICU due to recent episode of SVT. Staff note patient was coughing earlier, then noted increasing O2 requirement and less responsive than prior. On exam: 119/77, 112 (sinus tach), 31, 94% NRB. Lungs show diffuse rhonchi. pCXR obtained, showing RLL and left mid-lung field opacities, with normal heart size (my read). A/P: I think aspiration most likely here. Whether chemical or bacterial at this point remains to be seen but I think it best to begin empiric antibiotics at this point. Will give dose Zosyn. Time Spent with Patient Time spent in critical care(minutes): 40 Time Spent Included: Coordination of care, Chart review, Documenting critically ill care, Time at immediate bedside and Discussing critically ill care with other medical staff
[2023-12-11 06:17] LABS: PHOSPHORUS < 2.0 mg/dL (2.6-4.7)
[2023-12-11 06:24] LABS: Diff Comment Diff Reviewed; Platelet Count 52 10^3/uL (130-400); RBC Morphology Normal
[2023-12-11 06:29] LABS: Magnesium 1.7 mg/dL (1.8-2.4)
[2023-12-11] MEDS: Insulin Aspart 300 UNITS/3 ML PEN SC ×2 (06:54→11:58)
--- NOTE | 2023-12-11 06:58 | DI.RAD_ITS ---
Exam(s) XR PORTABLE CHEST AP EXAM: XR PORTABLE CHEST AP CLINICAL HISTORY: increased o2 requirements. TECHNIQUE: 2D digital imaging was performed. COMPARISON: CR,XR XR PORTABLE CHEST AP from 12/09/2023 FINDINGS: Single AP portable view. Heart size is upper normal. The mediastinum is not widened. There is further increase in the amount of bilateral interstitial and confluent infiltrates throughou t both lung johnson. There is also confluent infiltrate in the left lower lobe retrocardiac region. There is blunting of left costophrenic angle probably indicating pleural effusion. IMPRESSION: Worsening bilateral infiltrates. Small left pleural effusion. Both infectious etiology as well as p ulmonary edema are considerations here despite normal heart size. DATA REPOSITORY: RADIATION DOSE DELIVERED:
--- NOTE | 2023-12-11 08:02 | PGE_ITS ---
Date of Service Date of service: 12/11/23 Time of Service: 08:02 Assessment and Plan Assessment and plan (1) Hypophosphatemia: Status: Acute Assessment and plan: kphos ordered in am (2) Thrombocytopenia: Status: Chronic (3) Hypokalemia: Status: Acute (4) Unintentional weight loss: Status: Acute (5) Pulmonary embolus, right: Status: Acute (6) Acute hypoxic respiratory failure: Status: Acute Assessment and plan: worsening status, unlikely to survive without intubation, patient is DNI, DNR (7) Supraventricular tachycardia: Status: Chronic (8) Altered mental status: Status: Acute Assessment and plan: Patient friend, Lona Shankar, who is POA for Medical Affairs came to bedside. Long discussion with her regarding patient status and poor potential for a return to health. After she is informed, Lona Chaparro asked that patient be made comfortable and we will migrate to comfort care measures. Discussed with Palliative care and nursing staff. Orders entered to migrate to comfort care. Lona Chaparro contact numbers office: [phone] cell: [phone] Subjective Subjective Patient reports: afebrile; denies tolerating liquids well or tolerating a regular diet Interval history since last seen: Clinical course reviewed including notes, orders, labs, vitals, meds, imaging, and cultures. Care is discussed with primary nurse. Double lumen PICC line in place left axillary vein Patient began hyperalimentation yesterday Events of last evening and Dr. López's note reviewed Patient ordered diltiazem drip for rate control, however this was held due to low BP and acceptable rate. Blood pressure decreased to 89/61, respiratory rate increased to 33, oxygen requirement is increased, now on full maximum non ventilator support. Sodium 144, potassium 3.1, chloride 112, creatinine 0.8, phosphorus less than 2.0, magnesium 1.7 albumin 1.5 White count 5.8, hemoglobin 10.8 (13.4 on December 06), platelet 52 Urinalysis yesterday showed moderate blood, positive nitrite, negative leuk esterase Blood cultures this morning x 2 pending December 04 blood cultures x 2 no growth final Patient friend, Lona Shankar, who is POA for Medical Affairs came to bedside. Long discussion with her regarding patient status and poor potential for a return to health. After she is informed, Lona Chaparro asked that patient be made comfortable and we will migrate to comfort care measures. Discussed with Palliative care and nursing staff. Orders entered to migrate to comfort care. Exam Narrative Exam Narrative: Patient seen in intensive care unit. He is not interactive appears very frightened and scared. Unable to communicate clearly with him. His expressive language is unintelligible at this time. Patient is very marantic in appearance. Very little subcutaneous fat. HEENT: Neck supple, MM pink and moist, conjunctiva non-injected, sclera non- icteric, Pupils equal and reactive to light symmetrically, no JVD, no A waves. No thyromegaly. No carotid bruit CHEST: Bilaterally symmetrical with inspiration and expiration. No use of accessory muscles of respiration. No nasal flaring. RESP: Clear to auscultation bilaterally, no rales, rhonchi or wheeze, no pleural friction rub, no post-tussive crackles or apical rales. COR: RRR without murmur, normal S1, S2, no rub or gallop ABDOMEN: Mildly distended, non tender diffusely, normally active bowel sounds diffusely, No hepatosplenomegaly, No abdominal bruit, no masses, no tenderness on deep abdominal palpation. G/U: deferred Rectal: deferred MUSCULOSKELETAL: Bilaterally symmetrical, no muscle belly tenderness or mass DERMIS: Skin warm and dry, no ulcers or rashes, EXTREMITIES: No cyanosis, clubbing or edema, no gross deformities of the large or small joints of the upper or lower extremities. Diffuse muscle wasting NEUROLOGICAL: Moves all extremities. Patient is not interactive. Unclear if he understands communications. Does not follow commands. LYMPH: No anterior or posterior cervical, no supraclavicular, No axillary, no epitrochlear or femoral lymphadenopathy. Objective Last Vital Signs Temp 37.0 C 12/11/23 01:00 Pulse 95 H 12/11/23 01:02 Resp 33 H 12/11/23 01:30 BP 89/61 L 12/11/23 01:02 Pulse Ox 94 12/11/23 01:02 Laboratory Results - last 24 hr 12/10/23 12/11/23 12/11/23 10:40 05:30 05:35 WBC 5.85 RBC 3.28 L Hgb 10.8 L Hct 30.8 L MCV 94 MCH 32.9 MCHC 35.1 RDW 13.5 Plt Count 52 L MPV 11.1 H Immature Gran % 0.3 Neutrophils % 85.1 Lymphocytes % 10.8 Monocytes % 2.6 Eosinophils % 0.2 Basophils % 1.0 Nucleated RBC % 0.0 Absolute Neutrophils 4.98 Absolute Lymphocytes 0.63 L Absolute Monocytes 0.15 Absolute Eosinophils 0.01 Absolute Basophils 0.06 RBC Morphology Normal Sodium 144 Cancelled Potassium 3.1 L Cancelled Chloride 112 H Cancelled Carbon Dioxide 25.2 Cancelled Anion Gap 6.8 Cancelled BUN 15 Cancelled Creatinine 0.8 Cancelled Est GFR (CKD-EPI 2020) 98.21 Cancelled Glucose 157 H Cancelled Calcium 8.1 L Cancelled Phosphorus < 2.0 L Magnesium 1.7 L Total Bilirubin 0.93 AST 18 ALT 18 Alkaline Phosphatase 38 L Total Protein 4.7 L Albumin 1.5 L Urine Color [place] Urine Clarity Sl Cloudy Urine pH 5.5 Ur Specific [place] 1.020 Urine Protein 30 H Urine Ketones Negative Urine Blood Moderate H Urine Nitrite Positive H Urine Bilirubin Small H Urine Urobilinogen 0.2 Ur Leukocyte Esterase Negative Urine RBC 10-20 H Urine WBC 0-2 Ur Epithelial Cells Few Urine Crystals Negative Urine Bacteria Moderate Urine Casts Urine Mucus Moderate Ur Culture Indicated? No Urine Glucose 100 H PAWSS Have you Been Recently Intoxicated or Drunk Within the Last 30 days?: No Have you Ever Experienced Previous Episodes of Alcohol Withdrawal?: Yes Have you ever Experienced Withdrawal Seizures?: No Have you ever Experienced Delirium Tremens(DT)s?: No Have you ever undergone Alcohol Rehabilitation Treatment (i.e, inpt ot outpatient treatment programs)?: No Have you ever Experienced Blackouts?: No Have you ever Combined Alcohol with other Downers within the last 90 days?: No Have you ever Combined Alcohol with any other Substance of Abuse during the last 90 days?: No Positive Blood Alcohol level on Presentation? [PCS.BAL]: No Evidence of Increased Autonomic Activity (i.e. HR>120, tremor, sweating, agitation, nausea)?: No Result: 1 Time Spent with Patient Time Spent with Patient: >50 minutes Time was spent: preparing to see the patient(eg.review tests), obtaining and/or reviewing separately otained hiistory, ordering medications,tests, procedures, referring, communicating with other health acute care surgeon, indepentently interpreting results, counseling the patient and care coordination
--- NOTE | 2023-12-11 08:08 | DI.VRAD_ITS ---
PROCEDURE INFORMATION: Exam: XR Chest Exam date and time: 12/11/2023 6:13 AM Age: 63 years old Clinical indication: Other: Increase o2 requirements TECHNIQUE: Imaging protocol: Radiologic exam of the chest. Views: 1 view. COMPARISON: CR XR PORTABLE CHEST AP 12/09/2023 4:39 PM FINDINGS: Lungs: Extensive bilateral pulmonary opacities, increased from prior study. Pleural spaces: Suspect left pleural effusion. Heart/Mediastinum: No cardiomegaly. Bones/joints: No acute abnormality. IMPRESSION: 1. Bilateral pulmonary opacities. Consider edema, infection, hemorrhage. Follow-up as clinically warranted. 2. Suspect left pleural effusion. Dictated and Authenticated by: Bridget Moe MD. Ordering:STEFFANIE Quintanilla MD
[2023-12-11] MEDS: PIPERACILLIN/TAZO 3.375 GM in Normal Saline 50 ML IVPB (08:22)
[2023-12-11] MEDS: Pantoprazole 40 MG VIAL IVP (08:23)
--- NOTE | 2023-12-11 12:02 | W.PALPGNOTE ---
Date of service: 12/11/23 Time of Service: 12:04 Assessment and Plan Assessment and plan (1) Primary Parkinson's disease: Status: Acute (2) Hypophosphatemia: Status: Acute (3) Thrombocytopenia: Status: Chronic (4) Altered mental status: Status: Acute (5) Supraventricular tachycardia: Status: Chronic (6) Acute hypoxic respiratory failure: Status: Acute (7) Dysphagia: Status: Acute Qualifiers: Dysphagia type: esophageal phase Qualified Code(s): R13.19 - Other dysphagia (8) Hypernatremia: Status: Resolved (9) Hypokalemia: Status: Acute (10) History of pulmonary embolism: Status: Acute (11) Weakness: Status: Acute (12) Unintentional weight loss: Status: Acute (13) ACP (advance care planning): Status: Acute Assessment and plan: reviewed with Nicolle his DNR/I preferences, at max HF rate, intubation as next step if he was someone who would want this. reviewed at this time unidentified source of acute shift in mentation, acute resp failure, etc; Nicolle would like to review w/Doc today before making a decision reviewed decision today in general is 1) continue ICU level care w/work ups or 2) transition to comfort focused care (14) Palliative care patient: Status: Acute Assessment and plan: Yasmani is well known to this palliative provider. he has stated before I am comfortable with dying. His AD indicates he would want comfort focused care if he is in critical health crisis and it is determined that I will not get better. I want all life extending treatment stopped. If I am conscious but become unable to thinkg or act for myself and will likely not improve I do not want the following life-extended treatment: breathign machines (ventilaors or respirators), feeding tubes (nutrtion/hydration), antibtiocs, other medications whose purpose is to extend life anticipate a transition to comfort focused care, recommend a transition to [facility] comfort rooms: enjoys sunlight, music reviewed with Dr Wagner Subjective Subjective Interval history since last seen: Yasmani's status has continued to decline since yesterday, he is now maxing out on high flow oxygen w/ongoing desaturations into high 80's; overnight he had another event, w/concern for aspiration, started on oral antibiotics. his cough has been productive w/brown tinge. malodorous breath ongoing, despite attempts at oral care does not appear to be in pain, no groaning or grimacing, does react to stimuli w/oral care HCA Nicolle presents today. she has had several conversations w/him over the years. she states he said he wouldn't want this, meaning in the ICU with all the tubes, etc. She is aware he is a DNR/I. Wonders about options for what to do. would like to speak w/doctor to see their sense of if he will come out of this or not. - she feels comfortable in her HCA role, not my first rodeo Exam Narrative Exam Narrative: General: cachectic, intermittently opens eyes, does not track, does not response to voice or physical stimuli; HEENT: dry mucus membranes, lips peeling, malodorous breath; Resp: even and unlabored w/periods of tachypnea resolving w/in 20s; no cough or audible wheeze Skin: nails dirty, atrophy Neuro: intermittent BUE tremor Objective Last Vital Signs Temp 98.6 F 12/11/23 01:00 Pulse 115 H 12/11/23 11:31 Resp 39 H 12/11/23 11:31 BP 113/75 12/11/23 11:31 Pulse Ox 91 L 12/11/23 11:31 Laboratory Results - last 24 hr 12/11/23 12/11/23 05:30 05:35 WBC 5.85 RBC 3.28 L Hgb 10.8 L Hct 30.8 L MCV 94 MCH 32.9 MCHC 35.1 RDW 13.5 Plt Count 52 L MPV 11.1 H Immature Gran % 0.3 Neutrophils % 85.1 Lymphocytes % 10.8 Monocytes % 2.6 Eosinophils % 0.2 Basophils % 1.0 Nucleated RBC % 0.0 Absolute Neutrophils 4.98 Absolute Lymphocytes 0.63 L Absolute Monocytes 0.15 Absolute Eosinophils 0.01 Absolute Basophils 0.06 RBC Morphology Normal Sodium 144 Cancelled Potassium 3.1 L Cancelled Chloride 112 H Cancelled Carbon Dioxide 25.2 Cancelled Anion Gap 6.8 Cancelled BUN 15 Cancelled Creatinine 0.8 Cancelled Est GFR (CKD-EPI 2020) 98.21 Cancelled Glucose 157 H Cancelled Calcium 8.1 L Cancelled Phosphorus < 2.0 L Magnesium 1.7 L Total Bilirubin 0.93 AST 18 ALT 18 Alkaline Phosphatase 38 L Total Protein 4.7 L Albumin 1.5 L
--- NOTE | 2023-12-11 15:08 | W.EVENT ---
Date of service: 12/11/23 Time of Service: 15:08 Event Note: Patient friend, Lona Chaparro, who is POA for Medical Affairs came to bedside. Long discussion with her regarding patient status and poor potential for a return to health. After she is informed, Lona Chaparro asked that patient be made comfortable and we will migrate to comfort care measures. Discussed with Palliative care and nursing staff. Orders entered to migrate to comfort care. Lona Shankar contact numbers office: [phone] cell: [phone] Time Spent with Patient Time spent in critical care(minutes): 0 Time Spent Included: Coordination of care, Chart review, Documenting critically ill care, Time at immediate bedside, Discussing critically ill care with other medical staff, Discussing Hx and/or treatment with family and Other (discussion with FAYE REYNOLDS)
[2023-12-11] MEDS: MORPHine 4 MG/ML SYR IV/SC (15:16)
--- NOTE | 2023-12-11 15:21 | W.PC.ACHO ---
Registration Status: Primary Language: Preferred Language: ED Information & Data Chief Complaint GenMedical 12/05/23 14:19 Triage Note increased weakness, had to 12/05/23 13:03 lower self to ground by sitting, was unable get self up Medical / Surgical History (Last Reviewed 12/10/23 @ 17:44 by Starla Miranda NP) Need for home health care Uses feeding tube Abnormal CT of the chest DVT prophylaxis Nausea & vomiting Acute pancreatitis Chronic pulmonary aspiration Esophageal stricture Acute hypokalemia Inability to swallow Acute dehydration Esophageal abnormality Pneumonia Hepatitis C Malignant melanoma of skin Hypertension Severe bipolar disorder with psychotic features, mood-congruent PTSD (post-traumatic stress disorder) Substance abuse Parkinsons disease Prediabetes Anxiety Osteoarthritis Melanoma H/O multiple concussions History of hepatitis C (Last Reviewed 12/10/23 @ 17:44 by Starla Miranda NP) H/O colonoscopy (~03/2019) S/P skin cancer resection Most Recent Vital Signs Temperature 37.0 C 12/11/23 01:00 Temperature Source Temporal Artery Scan 12/11/23 01:00 Pulse 117 H 12/11/23 14:01 Pulse 116 H 12/11/23 14:01 Respiratory Rate 39 H 12/11/23 14:01 Respiratory Effort Short of Breath, Labored 12/09/23 18:12 Respiratory Depth Normal 12/05/23 18:00 Respiratory Pattern Normal 12/05/23 18:00 Blood Pressure 111/67 12/11/23 14:01 Blood Pressure Mean 80 12/11/23 14:01 Blood Pressure Position Supine 12/05/23 13:40 Pulse Oximetry 95 12/11/23 14:01 Oxygen Delivery Method High Flow Nasal Cannula 12/11/23 01:00 Oxygen Flow Rate 55 12/11/23 10:10 Fraction of Inspired Oxygen (FIO2) 100 12/11/23 10:10 Pain Level 9 12/07/23 08:01 Comment RN Notified 12/09/23 02:57 Comment moving not following instruction 12/10/23 22:08 Allergies mirabegron (From Myrbetriq) Allergy (Severe, Verified 12/05/23 17:37) Difficulty breathing. Precautions Isolation Standard precaution 12/05/23 13:40 Active Medications Generic Name Dose Route Start Last Admin Trade Name Freq PRN Reason Stop Dose Admin Morphine Sulfate 4 mg 12/11/23 16:00 12/11/23 15:16 Morphine 4 Mg/Ml Syr IV/SC 4 units Q4H NYDIA Administration IV IV Catheter Type [Left PICC] PICC Line IV Catheter Type [Right Upper Saline Lock arm] IV Catheter Type [Left Saline Lock Antecubital] IV Catheter Gauge [Left PICC] 4 IV Catheter Gauge [Right Upper 18 arm] IV Catheter Gauge [Left 20 Antecubital] Diagnostics 12/11/23 12/11/23 Range/Units 05:35 05:30 WBC 5.85 (4.4-10.8) 10^3/uL RBC 3.28 L (4.36-5.78) 10^6/uL Hgb 10.8 L (13.5-17.5) g/dL Hct 30.8 L (40.0-50.0) % MCV 94 (80-95) fL MCH 32.9 (27.0-33.0) pg MCHC 35.1 (32.0-36.0) % RDW 13.5 (11.8-14.1) % Plt Count 52 L (130-400) 10^3/uL MPV 11.1 H (8.0-11.0) fL Immature Gran % 0.3 % Neutrophils % 85.1 % Lymphocytes % 10.8 % Monocytes % 2.6 % Eosinophils % 0.2 % Basophils % 1.0 % Nucleated RBC % 0.0 (0.0-0.3) % Absolute Neutrophils 4.98 (1.2-6.7) 10^3/uL Absolute Lymphocytes 0.63 L (1.2-3.4) 10^3/uL Absolute Monocytes 0.15 (0.1-0.8) 10^3/uL Absolute Eosinophils 0.01 (0.0-0.7) 10^3/uL Absolute Basophils 0.06 (0.0-0.2) 10^3/uL RBC Morphology Normal Sodium Cancelled 144 (136-145) mmol/L Potassium Cancelled 3.1 L (3.5-5.1) mmol/L Chloride Cancelled 112 H (98-107) mmol/L Carbon Dioxide Cancelled 25.2 (21.0-32.0) mmol/L Anion Gap Cancelled 6.8 (3-11) mmol/L BUN Cancelled 15 (7-18) mg/dL Creatinine Cancelled 0.8 (0.70-1.30) mg/dL Est GFR (CKD-EPI 2020) Cancelled 98.21 (mL/min/1.73m2) Glucose Cancelled 157 H (74-106) mg/dL Calcium Cancelled 8.1 L (8.5-10.1) mg/dL Phosphorus < 2.0 L (2.6-4.7) mg/dL Magnesium 1.7 L (1.8-2.4) mg/dL Total Bilirubin 0.93 (0.2-1.0) mg/dL AST 18 (15-37) U/L ALT 18 (16-63) U/L Alkaline Phosphatase 38 L (46-116) U/L Total Protein 4.7 L (6.4-8.2) g/dL Albumin 1.5 L (3.4-5.0) g/dL 12/11/23 06:50 Blood Culture - Pending Blood 12/11/23 06:40 Blood Culture - Pending Blood 12/05/23 13:45 Blood Culture - Final Blood NO GROWTH 120 HOURS 12/05/23 13:28 Blood Culture - Final Blood NO GROWTH 120 HOURS [id number] Documentation Fingerstick Glucose Start: 12/09/23 16:15 Freq: Status: Complete Protocol: Activity Type Activity Date Activity User E-sign Co-sign Detail Recorded Client Recorded Date Recorded By Document 12/09/23 16:09 BKG DAEMON(5) NVT-BG05 12/09/23 16:15 BKG DAEMON(6) Fingerstick Glucose Start: 12/10/23 12:33 Freq: .BID Status: Complete Protocol: Activity Type Activity Date Activity User E-sign Co-sign Detail Recorded Client Recorded Date Recorded By Document 12/11/23 11:38 BKG DAEMON(7) NVT-BG05 12/11/23 11:39 BKG DAEMON(8) Intake and Output - 24 Hour Total 12/05/23 12:59 thru 12/11/23 12:55 Intake Total 30662.210 Output Total 1900 Balance 9607.210 Weight 52.7 [place]: [place] [address].210 Oral 90 Output: Urine 1900 Other: Urine Color Dark Azalea Urine Appearance Clear Urine Odor Normal Comment changed brief . pt was very wet. Stool Size Moderate Stool Characteristics Soft Brown Voiding Methods Diaper Incontinent Urinary Catheter Urinary Catheter Date of 12/10/23 Insertion [Urethral (Hollingsworth)] Time of insertion [Urethral ( 02:30 Hollingsworth)] Falls Risk Assessment History of Falls Admit Due to Fall 12/05/23 18:00 Contributing Factors Confusion,Impairments, 12/09/23 18:12 Incontinence Ambulatory Aids Independent 12/05/23 18:00 Tubes/Lines With any additional score 12/09/23 18:12 Gait Evaluation W/no contributing factors 12/05/23 18:00 Cognition Cognitive impairment 12/09/23 18:12 Fall Total Score 44 12/09/23 18:12 Level of Risk Moderate Risk 12/09/23 18:12 Problems (Last Reviewed 12/10/23 @ 17:44 by Starla Miranda NP) Hypophosphatemia (Acute) Thrombocytopenia (Chronic) Altered mental status (Acute) Supraventricular tachycardia (Chronic) Acute hypoxic respiratory failure (Acute) Hypokalemia (Acute) Discharge planning issues (Acute) History of pulmonary embolism (Acute) Weakness (Acute) Unintentional weight loss (Acute) Physician orders for life-sustaining treatment (POLST) form indicates patient wish for [id number] status (Acute) ACP (advance care planning) (Acute) Palliative care patient (Acute) Pulmonary embolus, right (Acute) Dysphagia (Acute) Primary Parkinson's disease (Acute) v v v v v v v v v Sending and/or Receiving Nurses: Please use comment section below to note any information pertinent to the patient hand-off not included above. Information / Comments: pt coming to [facility] for [employer] end of life care, pt has IV access and PICC line in place, currently on high flow O2 but will need to be switched to NC, pt verbal at times, hollingsworth in place. Report received from: Cristine Wan RN and Gómez RN from ICU at 1414
--- NOTE | 2023-12-11 15:49 | PDOC.CMPRO ---
Date of service: 12/11/23 Time of Service: 12:15 Care Management Progress Note Progress Note Text Progress Note Text: Tone was non responsive today. His blood pressures are low and he is on the maximum amount of hi flow O2. His [facility] and friend, Lona Chaparro visited today with Palliative Care and then with the hospitalist. Decision was made to place Tone on Comfort Measures. Discharge Potential Discharge Needs: Other (Tone will likely stay at [facility] through end of life) Anticipated Barriers to Discharge: None Identified Plan: Yasmani was placed on comfort measures today. Anticipate that he will stay through end of life. SDOH(Care Management) Screening Will the Patient Participate in the Screening?: Unable to obtain Do you worry about having a steady place to live?: no In the past 12 months, have you had to go without electric, gas, oil or water in your home?: no Have you or anyone in your house had to go without enough food to eat?: no Has lack of transportation kept you from medical appointments or from doing things needed for daily living?: yes Has anyone in your support network made you feel unsafe for any reason?: no Health Related Social Needs Health related social needs: transportation insecurity(Z59.82)
[2023-12-11] MEDS: LORazepam 2 MG/ML VIAL IV/SC (17:06)
[2023-12-11] MEDS: Scopolamine 1 MG/3 DAYS PATCH TD (17:07)
[2023-12-11] MEDS: HYDROmorphone 1 MG/ML SYR 2 MG IVP (17:07)
[2023-12-11] MEDS: Normal Saline Flush 10 ML SYR ×2 (17:08→18:14)
[2023-12-12] MEDS: Normal Saline Flush 10 ML SYR IVP (07:20)
--- NOTE | 2023-12-12 13:01 | DSE_ITS ---
Date of service: 12/12/23 Time of Service: 13:01 DS: Diagnosis Discharge Diagnosis (1) Hypophosphatemia: Status: Acute (2) Thrombocytopenia: Status: Chronic (3) Hypokalemia: Status: Acute (4) Unintentional weight loss: Status: Acute (5) Pulmonary embolus, right: Status: Acute (6) Acute hypoxic respiratory failure: Status: Acute (7) Supraventricular tachycardia: Status: Chronic (8) Altered mental status: Status: Acute Discharge Plan Disposition Patient Disposition: Discharge Details Reason For Visit: Acute kidney injury Admit Date/Time: 12/05/23 15:26 Admit Provider: Foster Champion Attending Provider: Foster Champion Primary Care Provider: ABILIO MULTANI [facility] Course Hospital Course: Patient had been treated for pulmonary embolism. He has a history of Parkinson's disease esophageal dysmotility. He is lost a tremendous amount of weight. He has been on oral anticoagulants for the pulmonary emboli. Was attempted to place an NG tube for enteric feeds. He developed a mucosal bleed from the attempt which was not successful to place the tube. He was being prepared for placement of a PEG tube. He was converted from a oral anticoagulant to heparin. He developed thrombocytopenia. He had and acute events of hypotension with supraventricular tachycardia. He was transferred to the intensive care unit for his rate was controlled. He became hypotensive was no longer surgical candidate for the PEG tube became hypotensive. Decision with his power of deputy commonwealth's attorney for medical affairs was made and she requested that he be transition to comfort measures only. He was transferred out of the ICU to a [facility] bed on oxygen and the Dilaudid drip. DS: Summary Quality:SDOH Health Related Social Needs: Health related social needs transportation insecurity( Z59.82) DS: Data Vitals/I&O Vitals and I&O: Vital Signs Temperature 37.0 C 12/11/23 01:00 Temperature Source Temporal Artery Scan 12/11/23 01:00 Pulse 117 H 12/11/23 14:01 Pulse 116 H 12/11/23 14:01 Respiratory Rate 39 H 12/11/23 14:01 Respiratory Effort Short of Breath, Labored 12/09/23 18:12 Respiratory Depth Normal 12/05/23 18:00 Respiratory Pattern Normal 12/05/23 18:00 Blood Pressure 111/67 12/11/23 14:01 Blood Pressure Mean 80 12/11/23 14:01 Blood Pressure Position Supine 12/05/23 13:40 Pulse Oximetry 95 12/11/23 14:01 Oxygen Delivery Method Nasal Cannula 12/12/23 10:00 Oxygen Flow Rate 1 12/12/23 10:00 Fraction of Inspired Oxygen (FIO2) 100 12/11/23 10:10 Pain Level 9 12/07/23 08:01 Comment RN Notified 12/09/23 02:57 Comment moving not following instruction 12/10/23 22:08 Intake & Output 12/11/23 12/12/23 12/12/23 23:59 11:59 23:59 Intake Total 984.073 / 2844.790 11.917 / 11.917 Output Total 150 / 825 Balance 834.073 / 2019.790 11.917 / 11.917 Intake: IV 984.073 / 2844.790 11.917 / 11.917 Output: Urine 150 / 825 Other: Urine Color Yellow Straw Urine Appearance Clear Clear Comment Minimal urine output in the hollingsworth bag. Stool Size Small Stool Characteristics Soft Data Completed and Pending Labs on day of discharge: Preliminary micro results at discharge 12/11/23 06:50 Blood Culture - Preliminary Blood NO GROWTH 24 HOURS 12/11/23 06:40 Blood Culture - Preliminary Blood NO GROWTH 24 HOURS PFSH All Active Problems (Updated 12/11/23 @ 08:49 by Santy Wagner DO) Hypophosphatemia (Acute) Thrombocytopenia (Chronic) Altered mental status (Acute) Supraventricular tachycardia (Chronic) Acute hypoxic respiratory failure (Acute) Hypokalemia (Acute) Discharge planning issues (Acute) History of pulmonary embolism (Acute) Weakness (Acute) Unintentional weight loss (Acute) Physician orders for life-sustaining treatment (POLST) form indicates patient wish for rc-okl-[id number] status (Acute) ACP (advance care planning) (Acute) Palliative care patient (Acute) Pulmonary embolus, right (Acute) Esophageal yeast infection (Acute) Aspiration of food (Acute) Patient had a swallow study in 2021 which showed mandeep aspiration Acute thoracic back pain (Acute) Dysphagia (Acute) Memory loss (Acute) Erectile dysfunction (Acute) Constipation (Acute) Peripheral neuropathy (Acute) Primary Parkinson's disease (Acute) Medical History Need for home health care Uses feeding tube Abnormal CT of the chest DVT prophylaxis Nausea & vomiting Acute pancreatitis Chronic pulmonary aspiration Esophageal stricture Stricture has been present since 2021 Acute hypokalemia Inability to swallow Acute dehydration Esophageal abnormality Pneumonia Hepatitis C per referral, pt has completed treatment Malignant melanoma of skin Hypertension Severe bipolar disorder with psychotic features, mood-congruent Pt. denies PTSD (post-traumatic stress disorder) Pt. denies triggers Substance abuse pt. denies Parkinsons disease Prediabetes Anxiety Osteoarthritis Melanoma H/O multiple concussions History of hepatitis C Surgical History H/O colonoscopy (~03/2019) S/P skin cancer resection Social History Smoking/Tobacco Use Status: Current every day Smoking risk assessment performed?: Yes Alcohol Intake: current Alcohol Intake frequency: 0-2 drinks per day Alcohol type: beer Counseling provided: provider counseling Drug use: Daily Substance use type: marijuana Housing: apartment current occupation: None Seatbelt use: always Do you feel safe at home: Yes Do you feel safe in your relationship?: Yes
--- NOTE | 2023-12-12 17:40 | CMPROGNOTE_ITS ---
Date of service: 12/12/23 Time of Service: 17:40 Care Management Progress Note Progress Note Text Progress Note Text: CM has checked on Yasmani many times today. He is on a morphine drip and appears comfortable. His respiratory rate is noted to be very slow. Discharge Potential Discharge Needs: Other (Tone will stay at [facility] through the end of his life) Plan: Tone will remain on comfort measures only until he passes. SDOH(Care Management) Screening Will the Patient Participate in the Screening?: Unable to obtain Do you worry about having a steady place to live?: no In the past 12 months, have you had to go without electric, gas, oil or water in your home?: no Have you or anyone in your house had to go without enough food to eat?: no Has lack of transportation kept you from medical appointments or from doing things needed for daily living?: yes Has anyone in your support network made you feel unsafe for any reason?: no Health Related Social Needs Health related social needs: transportation insecurity(Z59.82)
--- NOTE | 2023-12-12 17:56 | W.PM.PROGNOT ---
Date of Service Date of service: 12/12/23 Time of Service: 17:56 Assessment and Plan Assessment and plan (1) Pulmonary embolus, right: Status: Acute Assessment and plan: no treatment at this time. on comfort care only (2) Acute hypoxic respiratory failure: Status: Acute Assessment and plan: on comfort care measures. (3) Altered mental status: Status: Acute Assessment and plan: Patient friend, Lona Chaparro, who is POA for Medical Affairs came to bedside. Long discussion with her regarding patient status and poor potential for a return to health. After she is informed, Lona Chaparro asked that patient be made comfortable and we will migrate to comfort care measures. Discussed with Palliative care and nursing staff. Orders entered to migrate to comfort care. Lona Chaparro contact numbers office: [phone] cell: [phone] Subjective Subjective Interval history since last seen: patient continues on dilaudid drip 2 mg/hr. his respirations are now 4-6 per minute. he appears comfortable. Exam Narrative Exam Narrative: he appears comfortable. NC oxygen in place Objective Last Vital Signs Temp 37.0 C 12/11/23 01:00 Pulse 117 H 12/11/23 14:01 Resp 39 H 12/11/23 14:01 BP 111/67 12/11/23 14:01 Pulse Ox 95 12/11/23 14:01 PAWSS Have you Been Recently Intoxicated or Drunk Within the Last 30 days?: No Have you Ever Experienced Previous Episodes of Alcohol Withdrawal?: Yes Have you ever Experienced Withdrawal Seizures?: No Have you ever Experienced Delirium Tremens(DT)s?: No Have you ever undergone Alcohol Rehabilitation Treatment (i.e, inpt ot outpatient treatment programs)?: No Have you ever Experienced Blackouts?: No Have you ever Combined Alcohol with other Downers within the last 90 days?: No Have you ever Combined Alcohol with any other Substance of Abuse during the last 90 days?: No Positive Blood Alcohol level on Presentation? [PCS.BAL]: No Evidence of Increased Autonomic Activity (i.e. HR>120, tremor, sweating, agitation, nausea)?: No Result: 1 Time Spent with Patient Time Spent with Patient: 25-34 minutes Time was spent: preparing to see the patient(eg.review tests), [facility] and[facility], ordering medications,tests, procedures, referring, communicating with other health daycare manager, indepentently interpreting results, counseling the patient and care coordination
[2023-12-13 07:57] VITALS: PULSE 120
--- NOTE | 2023-12-13 11:19 | W.PM.DDS ---
Date of service: 12/13/23 Time of Service: 11:19 Discharge Plan Disposition Patient Disposition: Discharge Details Reason For Visit: Acute kidney injury Admit Date/Time: 12/05/23 15:26 Admit Provider: Foster Champion Attending Provider: Foster Champion Primary Care Provider: ABILIO MULTANI Hospital Course Hospital Course: Patient had been treated for pulmonary embolism. He has a history of Parkinson's disease esophageal dysmotility. He is lost a tremendous amount of weight. He has been on oral anticoagulants for the pulmonary emboli. Was attempted to place an NG tube for enteric feeds. He developed a mucosal bleed from the attempt which was not successful to place the tube. He was being prepared for placement of a PEG tube. He was converted from a oral anticoagulant to heparin. He developed thrombocytopenia. He had and acute events of hypotension with supraventricular tachycardia. He was transferred to the intensive care unit for his rate was controlled. He became hypotensive was no longer surgical candidate for the PEG tube became hypotensive. Decision with his power of estate planning attorney for medical affairs was made and she requested that he be transition to comfort measures only. He was transferred out of the ICU to a [facility] bed on oxygen and the Dilaudid drip. Ultimately he succumbed to his illness and time of was called at 11:05 AM on 12/13/2023. Discharge Data Cause of : Pulmonary embolism Discharge Date/Time-TO BE ENTERED AT DEPARTURE: 12/13/23 11:17 Discharge Sum: Diag PCOD Cause of : Pulmonary embolism Contributing Factors (1) Pulmonary embolus, right: (2) Acute hypoxic respiratory failure: (3) Altered mental status:
--- NOTE | 2023-12-13 11:51 | PDOC.CMPRO ---
Date of service: 12/13/23 Time of Service: 11:51 Care Management Progress Note Progress Note Text Progress Note Text: Tone passed today at 11:05 am. He was listening to music and was very peaceful. His friend, Lona has been notified. SDOH(Care Management) Screening Will the Patient Participate in the Screening?: Unable to obtain Do you worry about having a steady place to live?: no In the past 12 months, have you had to go without electric, gas, oil or water in your home?: no Have you or anyone in your house had to go without enough food to eat?: no Has lack of transportation kept you from medical appointments or from doing things needed for daily living?: yes Has anyone in your support network made you feel unsafe for any reason?: no Health Related Social Needs Health related social needs: transportation insecurity(Z59.82)
--- NOTE | 2023-12-13 15:17 | CHAPLAIN ---
Jesus about 11 a.m. today. His nurse, CANDELARIO Sheridan, called his friend Lona Shankar. She was able to get here about 12:30 pm. and I waited in the room for her. Lona is in touch with Jesus's brother and niece, both of whom live out of state.
== END 2023-12-13 11:17 | disposition expired | DRG 682 ==
LOC: ER 13:26 → MS 17:48 → ICU 12-09 17:53 → MS 12-11 15:35
PROVIDERS: Family Medicine; Internal Medicine; Nurse Practitioner Acute Care; Admitting Provider Family Medicine; Emergency Provider Emergency Medicine; PCP Nurse Practitioner Family; Visit Provider Family Medicine
DX: N17.9 Acute kidney failure, unspecified (principal); I26.99 Other pulmonary embolism without acute cor pulmonale; J96.01 Acute respiratory failure with hypoxia; Z68.1 Body mass index [BMI] 19.9 or less, adult; E87.0 Hyperosmolality and hypernatremia; I47.10 Supraventricular tachycardia, unspecified; E87.20 Acidosis, unspecified; E46 Unspecified protein-calorie malnutrition; R53.1 Weakness; R63.4 Abnormal weight loss; Z86.711 Personal history of pulmonary embolism; G20.B1 Parkinson's disease with dyskinesia, without mention of fluctuations; E87.6 Hypokalemia; R41.82 Altered mental status, unspecified; Z66 Do not resuscitate; K22.2 Esophageal obstruction; E86.0 Dehydration; Z51.5 Encounter for palliative care; D69.6 Thrombocytopenia, unspecified; E83.39 Other disorders of phosphorus metabolism; D72.829 Elevated white blood cell count, unspecified; Z91.148 Patient's other noncompliance with medication regimen for other reason; R26.2 Difficulty in walking, not elsewhere classified; G62.9 Polyneuropathy, unspecified; K59.00 Constipation, unspecified; R73.03 Prediabetes; F17.210 Nicotine dependence, cigarettes, uncomplicated; Z79.01 Long term (current) use of anticoagulants; R13.12 Dysphagia, oropharyngeal phase; I95.9 Hypotension, unspecified; T17.908A Unspecified foreign body in respiratory tract, part unspecified causing other injury, initial encounter
CPT/HCPCS: 36573; 00123; 36415; 36592; 80048; 80053; 80076; 85027; 86850; 86900; 86901; 87040; 87637; 92610; 93005; 96365; 96366; 96367; 97110; 97162; 97530; 99222; 99231; 99232; 99285; 70450; 71045; 80320; 81003; 81015; 82140; 83605; 83735; 83880; 84100; 84439; 84443; 84484; 85025; 85379; 85610; 85730; 93010; 94640; 94760; 99223; 99233; 99291; J0692; J1171; J1630; J1644; J1650; J1815; J2060; J2270; J2470; J2543; J2765; J3372; J3475; J3480; J3490; J7060; J7620